=== PATIENT | male | born 1950 | race Caucasian/White ===

== ENCOUNTER 2017-07-19 11:26 | Inpatient (IN) ==
[2017-07-19] MEDS ORDERED: *HR* FentaNYL (PF) 100 MCG/2 ML VIAL ONE (11:38)
[2017-07-19] MEDS ORDERED: *HR* Propofol 200 MG/20 ML VIAL IVP ONE (11:38)
[2017-07-19] MEDS ORDERED: *HR* Midazolam HCl 2 MG/2 ML VIAL ONE (11:38)
[2017-07-19] MEDS ORDERED: CeFAZolin Syr 2,000MG/20 ML 2,000 MG/20 ML SYRINGE IVPB ONE (11:52)
[2017-07-19] MEDS ORDERED: Albuterol 2.5 MG/3 ML NEBULIZER IH ONE (11:52)
--- NOTE | 2017-07-19 11:59 | Anesthesia Evaluation PreOp ---
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 Any Significant HX Other Medical History: Denies Any Significant HX Anesthesia History: No Prior Anesthetic Complications, Past Anesthesia ( vasectomy with sedation) Alcohol Use: none Drug use: none Medications and Allergies Aspirin 1,300 mg PO DAILY 07/19/17 [History] Atorvastatin [Lipitor] 40 mg PO HS 07/19/17 [History] BuPROPion SR (12 HR) [Wellbutrin SR] 150 mg PO DAILY 07/19/17 [History] Cholecalciferol (Vitamin D3) [Vitamin D] 50,000 unit PO QWEEK 07/19/17 [History] Gabapentin [Neurontin] 600 mg PO TID 07/19/17 [History] Lisinopril [Zestril] 40 mg PO DAILY 07/19/17 [History] Methocarbamol [Robaxin-750] 750 mg PO TID PRN 07/19/17 [History] [place]-3/Dha/Epa/Fish Oil [Fish Oil 1,000 mg Softgel] 1 tab PO DAILY 07/19/17 [ History] Sertraline [Zoloft] 50 mg PO DAILY 07/19/17 [History] Tamsulosin [Flomax] 0.4 mg PO DAILY 07/19/17 [History] 3 Allergy/AdvReac Type Severity Reaction Status Date / Time No Known Allergies Allergy Verified 07/19/17 11:48 - Meds/Allergy Pre-op Review Medications Reviewed: Yes Allergies Reviewed: Yes Beta Blockers on Current Med List: No Anesthesia Results - Labs Laboratory Tests 07/15/17 07/15/17 11:14 11:14 Hgb 12.0 L Hct 37.0 L Plt Count 241 Sodium 139 Potassium 5.0 H BUN 28 H Creatinine 1.07 - Imaging EKG: report reviewed (SINUS RHYTHM WITH MARKED SINUS ARRHYTHMIA) Anesthesia Exam Selected Entries 07/19/17 11:47 07/19/17 12:11 Temperature 97.5 F L Respiratory Rate 18 Blood Pressure 178/74 O2 Sat by Pulse Oximetry 96 Oxygen Delivery Method Room Air Weight: 98kg NPO (# of Hours): 8 - HEENT Pupil (Motor): EOMI Mallampati: II Teeth: Missing, Poor dentition Oral Opening: Greater than 3 - PAYROLL SERVICES ANALYST LOC: Oriented PAYROLL SERVICES ANALYST Motor: Normal RUE, Normal LUE, Normal RLE, Normal LLE, Normal Face PAYROLL SERVICES ANALYST Sensory: Normal: RUE, LUE, RLE, LLE, Face - Cardiac Rhythm: Regular Murmur: None - Pulmonary Breath Sounds: bilateral Clear Respiratory Effort: Symmetrical Anesthesia Assess/Plan ASA Score: 3 Modified [place] Scale for Level of Consciousness: Cooperative, oriented, and tranquil Anesthetic Plan: General Monitoring Plan: Standard Monitors, A-Line Recovery Plan: PACU (discussed risks of GA, lines and potential blood products. Agrees to proceed.)
[2017-07-19] MEDS ORDERED: Ringers Solution, Lactated 1,000 ML IVC SCH (12:00)
[2017-07-19] MEDS ORDERED: Heparin 1,000 UNITS/500 mL NS 500 ML ONE (16:18)
[2017-07-19] MEDS ORDERED: Heparin 1,000 UNITS/500 mL NS 1,500 ML ONE (16:22)
--- NOTE | 2017-07-19 16:28 | History & Physical Report ---
Date of Encounter: 07/19/17 Time of Encounter: 16:27 24 Hour HP Update - Instructions Instructions: If the History and Physical is less than 30 days old and was completed prior to A.M. admission and or procedure and has NOT been updated on calendar day of procedure please complete this update prior to performing procedure. - Update Patient reports changes in Medical Condition: No Changes in examination, assessment, or condition: No Changes in Medication: No Preop tests/diagnostics Reviewed: Yes Pre-Op MRSA Screen: Negative Surgery Remains Indicated: Yes Consent for Planned Operative Procedure(s) Verified: Yes - Pre-Operative Checklist Preoperative Checklist Indicated: Yes Prophylactic Antibiotic Ordered: Yes Home Medications Include Beta Carlos: No Beta Carlos Taken Today (Day of Surgery): No Beta Carlos Taken Yesterday (Day Prior to Surgery): No Is VTE Prophylaxis Indicated?: Yes
[2017-07-19] MEDS ORDERED: *HR* Succinylcholine 200 MG/10 ML VIAL IVP ONE (17:17)
[2017-07-19] MEDS ORDERED: Ondansetron 4 MG/2 ML VIAL ONE (17:17)
[2017-07-19] MEDS ORDERED: Lidocaine -MPF 2% 2 ML VIAL ONE (17:17)
[2017-07-19] MEDS ORDERED: *HR* Rocuronium Bromide 50 MG/5 ML VIAL ONE (17:17)
[2017-07-19] MEDS ORDERED: Dexamethasone 4 MG/ML VIAL ONE (17:17)
[2017-07-19] MEDS ORDERED: *HR* Heparin 5,000 UNIT/ML VIAL ONE (17:18)
[2017-07-19] MEDS ORDERED: Ondansetron 4 MG/2 ML VIAL IVP PRN ×2 (17:31→20:26)
[2017-07-19] MEDS ORDERED: *HR* HYDROmorphone (PF) 1 MG/ML SYRINGE IVP PRN (17:31)
--- NOTE | 2017-07-19 17:35 | Anesthesia Procedures ---
Date of Encounter: 07/19/17 Time of Encounter: 17:33 Procedures: Anesthesia - Arterial Line Consent obtained: verbal consent Time out performed: Yes Sedation: Versed (mg): 2 Sedation: Fentanyl (mcg): 100 Supplemental Oxygen via Nasal Cannula (L/min): 8 Local Anesthetic: Lidocaine 1% Amount of Anesthetic used (mls): 2 Size (Gauge): 20 Length (inches): 1 3/4 Technique Used: sterile prep, guide wire technique Post-Procedure: line taped into place, dry sterile dressing placed Patient tolerated procedure: well Complications: none Site: Radial L Vitals: Vital Signs/O2 Sat, Most Current Temp Pulse Resp BP Pulse Ox 97.5 F L 62 18 178/74 96 07/19/17 11:47 07/19/17 11:47 07/19/17 12:11 07/19/17 12:11 07/19/17 12:11 Comments: aseptic, tolerated well w sedation
[2017-07-19] MEDS ORDERED: Neostigmine Methylsulfate 3 MG/3 ML SYRINGE ONE (18:59)
[2017-07-19] MEDS ORDERED: *HR* HYDROmorphone 2 MG/ML SYRINGE ONE (19:06)
--- NOTE | 2017-07-19 19:25 | Operative Note ---
Date of procedure: 07/19/17 Pre-op diagnosis: PAD/claudication Post-op diagnosis: same Procedure: left to right femoral-femoral bypass with 6 mm PTFE Complications: none Anesthesia: MIGUELA Surgeon: Chacorta Joel Estimated blood loss (cc): 100 Specimen: none Condition: stable Disposition: PACU Procedure in Detail: History Waldo Johansen is a 66-year-old white male who has a long history of right lower extremity discomfort. The patient was found to have an absent pulse in it markedly lowered ankle brachial index. He was referred to vascular. A CT Ambar Crockettam was obtained earlier this year. This demonstrated occlusion of the right iliac system. The patient now comes to the operating room for revascularization of the right lower extremity for lifestyle limiting claudication. Procedure After informed consent was obtained the patient was taken to the operating room. General endotracheal anesthesia was established under arterial line pressure monitoring. The abdomen and groin and upper thighs were sterilely prepped and draped. A timeout protocol was observed. An oblique incision was made in the right groin. Dissection was carried down to the common femoral artery. This was a pulseless vessel. He had a large posterior plaque. Controls obtained of the vessel proximally and distally. Attention was then directed to the left side. This is the donor side for the bypass. Dissection was carried down over the pulsatile vessel. Again this was a vessel that had a posterior plaque. A deep subcutaneous tunnel was then created from the left to the right side. Heparin was administered in a dose of 5000 units. The left femoral vessels were clamped area and anterior arteriotomy was made. An end of graft to side of artery anastomosis was performed using 6-0 Prolene suture. The graft which had been previously tunneled through the deep subcutaneous tunnel was then clamped and then the left femoral vessels were unclamped to allow return of ruby circulation. Attention was then directed to the right groin. The right common femoral artery was opened with an anterior arteriotomy. Again there was posterior plaque but this did not require endarterectomy. An end of graft to side of artery anastomosis was performed using 6-0 Prolene suture. After appropriate backbleeding and flushing the graft was then opened from the left to the right femoral system. An excellent pulse was found. Excellent Doppler signals were identified in the vessel distal to the anastomosis. Both wounds were then irrigated with antibody containing solution. Hemostasis was achieved. Wounds were then closed in layers using absorbable suture. Dry sterile dressings were applied. The patient was extubated in the operating room. He was taken from the operating room to the recovery room in stable condition.
--- NOTE | 2017-07-19 20:01 | Anesthesia Evaluation Post Op ---
Date of Encounter: 07/19/17 Time of Encounter: 20:00 - Vital Signs Vital Signs: Last Vital Signs Temp 98.2 F 07/19/17 19:30 Pulse 62 07/19/17 19:50 Resp 16 07/19/17 19:50 BP 143/53 07/19/17 19:50 Pulse Ox 94 07/19/17 19:50 - Lungs Lungs: Clear Ascult./Percussion - Airway Airway: Non-obstructed - Cardiovascular Regular Rate - Mental Status Mental Status: Alert & Oriented, Answers Appropriately - Pain Pain Scale: 2 - Nausea Vomiting Nausea Vomiting: Not Present - Hydration Hydration: NPO, Andrews catheter - Discharge PostOp Status: Transfer Patient to floor
[2017-07-19] MEDS ORDERED: Naloxone 0.4 MG/ML INJ IVP PRN (20:26)
[2017-07-19] MEDS ORDERED: *HR* Morphine 2 MG/ML SYRINGE IVP PRN ×2 (20:26)
[2017-07-19] MEDS ORDERED: Methocarbamol 750 MG TABLET PO PRN (20:26)
[2017-07-19] MEDS ORDERED: Acetaminophen 325 MG TABLET PO PRN (20:26)
[2017-07-19] MEDS: Gabapentin 300 MG CAPSULE PO SCH (21:31)
[2017-07-19] MEDS: *HR* HYDROcodone/Acet 5/325 mg TABLET PO PRN (23:18)
[2017-07-19] MEDS: *HR* Metoprolol 5 MG/5 ML VIAL IVP SCH (23:19)
[2017-07-19] MEDS: CeFAZolin Premix DUPLEX 2,000 MG/50 ML BAG IVPB SCH (23:19)
[2017-07-20 04:39] LABS: Basophils % 0.2 %; Hematocrit 31.9 % (37.5-50.1); Hemoglobin 10.5 g/dL (12.9-16.9); Immature Granulocytes % 0.4 % (0-4); Lymphocytes # 0.9 K/mcL (0.6-4.6); Lymphocytes % 6.6 %; Mean Corpuscular HGB Conc 32.9 g/dL (31.6-35.5); Mean Corpuscular Hemoglobin 28.5 pg (28.0-33.3); Mean Corpuscular Volume 86.7 fL (83.0-100.0); Mean Platelet Volume 11.4 fL (9.4-12.4); Monocytes # 0.8 K/mcL (0.0-1.3); Monocytes % 5.6 %; Neutrophils # 12.1 K/mcL (1.6-8.9); Platelet Count 205 K/mcL (140-400); Red Blood Count 3.68 M/mcL (4.19-5.50); Red Cell Distribution Width 14.8 % (11.5-14.5); Segmented Neutrophils % 87.2 %
[2017-07-20 04:55] LABS: BUN/Creatinine Ratio 24 (6-26); Blood Urea Nitrogen 22 mg/dL (8-26); Calcium 8.3 mg/dL (8.6-10.8); Carbon Dioxide 24 mEq/L (19-29); Chloride 100 mEq/L (98-109); Glucose 184 mg/dL (70-99); Osmolality,Calculated 280 (280-300); Potassium 4.7 mEq/L (3.5-4.5); Sodium 131 mEq/L (136-145); eGFR For African Americans > 60 (> 60); eGFR For Non-African Americans > 60 (> 60)
[2017-07-20] MEDS: *HR* Metoprolol 5 MG/5 ML VIAL IVP SCH ×2 (06:03→11:38)
[2017-07-20] MEDS: Gabapentin 300 MG CAPSULE PO SCH ×2 (08:29→16:39)
[2017-07-20] MEDS: CeFAZolin Premix DUPLEX 2,000 MG/50 ML BAG IVPB SCH ×2 (08:29→16:40)
[2017-07-20] MEDS: *HR* HYDROcodone/Acet 5/325 mg TABLET PO PRN (08:49)
[2017-07-20] MEDS ORDERED: Cholecalciferol (D-3) 1,000 UNIT TABLET PO SCH (09:00)
[2017-07-20] MEDS ORDERED: BuPROPion SR (12 HR) 150 MG TABLET PO SCH (09:00)
[2017-07-20] MEDS ORDERED: Aspirin 325 MG TABLET PO SCH (09:00)
[2017-07-20] MEDS ORDERED: (Omega-3/Dha/Epa/Fish Oil [Fish Oil 1,000 Mg Softgel]) PO SCH (09:00)
[2017-07-20] MEDS ORDERED: Lisinopril 20 MG TABLET PO SCH (09:00)
[2017-07-20 16:09] VITALS: BP 131/52
--- NOTE | 2017-07-20 16:40 | Discharge Summary ---
Date of Encounter: 07/20/17 Time of Encounter: 16:38 - Discharge Diagnosis (1) PAD (peripheral artery disease) Priority: Primary Status: Acute Comments: Patient has right iliac artery occlusion. He had lifestyle limiting claudication of the right lower extremity. Patient was admitted for a left to right femoral-femoral bypass graft. (2) Hypertension Priority: Secondary Status: Chronic Comments: Patient is under medical management for chronic hypertension Qualifiers: Hypertension type: essential hypertension Qualified Code(s): I10 - Essential (primary) hypertension (3) Hypercholesterolemia Priority: Secondary Status: Chronic Comments: Patient is under medical management for hyperlipidemia - Discharge Medications Prescriptions: HYDROcodone/Acet 5/325 mg [[place] 5-325 mg] 1 tab PO Q6HR PRN #10 tablet PRN Reason: Moderate Pain Home Medications: Aspirin 1,300 mg PO DAILY 07/19/17 [History] Atorvastatin [Lipitor] 40 mg PO HS 07/19/17 [History] BuPROPion SR (12 HR) [Wellbutrin SR] 150 mg PO DAILY 07/19/17 [History] Cholecalciferol (Vitamin D3) [Vitamin D] 50,000 unit PO QWEEK 07/19/17 [History] Gabapentin [Neurontin] 600 mg PO TID 07/19/17 [History] Lisinopril [Zestril] 40 mg PO DAILY 07/19/17 [History] [place]-3/Dha/Epa/Fish Oil [Fish Oil 1,000 mg Softgel] 1 tab PO DAILY 07/19/17 [ History] Sertraline [Zoloft] 50 mg PO DAILY 07/19/17 [History] Tamsulosin [Flomax] 0.4 mg PO DAILY 07/19/17 [History] HYDROcodone/Acet 5/325 mg [[place] 5-325 mg] 1 tab PO Q6HR PRN #10 tablet [Rx] Allergies/Adverse Reactions: 3 Allergy/AdvReac Type Severity Reaction Status Date / Time No Known Allergies Allergy Verified 07/19/17 11:48 Date of admission: 07/19/17 20:16 [facility] care physician: [facility] Consults: None Procedure(s) Performed: [id number] femoral-femoral bypass graft Discharging clinician: Chacorta Joel Anticipated date of discharge: 07/20/17 - Patient Status Disposition: Home, Self-Care Condition: Good Functional capacity at discharge: independent ambulation Overall status at discharge: patient is progressing back to baseline - Discharge Instructions Follow Up With: BARBRA,PCP [Primary Care Provider] - 07/26/17 12:30 pm Chacorta Joel MD [Partnered Physician] - 08/03/17 10:30 am Additional Instructions: No lifting greater than 10 pounds. No vehicle driving. No manual labor. Patient may ambulate as tolerated. Patient may use stairs as tolerated. Patient may walk inside or outside as tolerated. Keep groin incisions dry for total of 5 days following surgery. - Diet and Activity Activity: increase activity as tolerated Diet: low fat, low cholesterol - Hospital Course Hospital course: Mr. Johansen is a 66 year old male With [place] limiting claudication and right iliac artery occlusion. Patient underwent an uneventful left to right femoral-femoral bypass graft. The patient did well postoperatively. He was felt fit for discharge on postoperative day # 1. Instructions were given in regards to his medications and wound care following his discharge. - Time Spent with Patient Total time spent providing and/or coordinating discharge services: Exam Vital Signs, Last 4 Hours Temp Pulse Resp BP Pulse Ox 07/20/17 16:07 99.1 F 70 18 131/52 96 General: Present: Conversant, No Apparent Distress, Well developed, Well nourished HEENT: Present: Atraumatic, Normocephaly, Trachea midline Neck: Absent: JVD Cardiac: Present: Reg Rate and Rhythm, Normal S1 and S2 Lungs: Present: Normal Breath Sounds Neuro: Present: Alert and responsive, No focal deficits noted, Cranial nerves grossly intact Abdomen: Present: Soft, Non-tender Vascular: Present: Normal capillary refill, Surgical incisions (Clean and dry), Other (The patient has Doppler signals 3 at the right ankle.) - VTE Documentation of Mechanical Device: Intermittent pneumatic compression device
== END 2017-07-20 18:59 | disposition home or self-care (01) | DRG 254 ==
LOC: SAMDAY 11:26 → 2NNU 20:16
PROVIDERS: ADMIT Surgery Vascular Surgery; ATTEND Surgery Vascular Surgery
PROC: VASFFBG (ICD-10-PCS; 2017-07-19 12:25)

== ENCOUNTER 2017-11-01 10:43 | Inpatient (IN) ==
--- NOTE | 2017-11-01 08:25 | Anesthesia Evaluation PreOp ---
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 Other Medical History: Denies Any Significant HX Anesthesia History: No Prior Anesthetic Complications, Past Anesthesia (fem-fem BPG 07-15, vasectomy) Alcohol Use: none Drug use: none Medications and Allergies Aspirin 1,300 mg PO DAILY 07/19/17 [History] Atorvastatin [Lipitor] 40 mg PO HS 07/19/17 [History] BuPROPion SR (12 HR) [Wellbutrin SR] 150 mg PO DAILY 07/19/17 [History] Cholecalciferol (Vitamin D3) [Vitamin D] 50,000 unit PO QWEEK 07/19/17 [History] Gabapentin [Neurontin] 600 mg PO TID 07/19/17 [History] Lisinopril [Zestril] 40 mg PO DAILY 07/19/17 [History] [place]-3/Dha/Epa/Fish Oil [Fish Oil 1,000 mg Softgel] 1 tab PO DAILY 07/19/17 [ History] Sertraline [Zoloft] 50 mg PO DAILY 07/19/17 [History] Tamsulosin [Flomax] 0.4 mg PO DAILY 07/19/17 [History] HYDROcodone/Acet 5/325 mg [[place] 5-325 mg] 1 tab PO Q6HR PRN #10 tablet [Rx] 3 Allergy/AdvReac Type Severity Reaction Status Date / Time No Known Allergies Allergy Verified 07/19/17 11:48 - Meds/Allergy Pre-op Review Medications Reviewed: Yes Allergies Reviewed: Yes Beta Blockers on Current Med List: No Anesthesia Results - Labs Laboratory Tests 10/31/17 10/31/17 17:28 17:28 Hgb 12.1 L Hct 37.8 Plt Count 292 BUN 19 Creatinine 0.93 - Imaging EKG: report reviewed (SINUS RHYTHM WITH MARKED SINUS ARRHYTHMIA) Anesthesia Exam Weight: 95kg NPO (# of Hours): 8 - HEENT Pupil (Motor): EOMI Mallampati: II Teeth: Poor dentition Oral Opening: Greater than 3 - FUR BLENDER LOC: Oriented FUR BLENDER Motor: Normal RUE, Normal LUE, Normal RLE, Normal LLE, Normal Face FUR BLENDER Sensory: Normal: RUE, LUE, RLE, LLE, Face - Cardiac Rhythm: Regular Murmur: None - Pulmonary Breath Sounds: bilateral Clear Respiratory Effort: Symmetrical Anesthesia Assess/Plan ASA Score: 3 Modified [place] Scale for Level of Consciousness: Cooperative, oriented, and tranquil Anesthetic Plan: General Monitoring Plan: Standard Monitors, A-Line Recovery Plan: PACU (agrees to GA and a-line)
[2017-11-01] MEDS ORDERED: CeFAZolin Syr 2,000MG/20 ML 2,000 MG/20 ML SYRINGE IVPB ONE (11:21)
[2017-11-01] MEDS ORDERED: Albuterol 2.5 MG/3 ML NEBULIZER IH ONE (11:21)
[2017-11-01] MEDS ORDERED: Ringers Solution, Lactated 1,000 ML IVC SCH (11:30)
[2017-11-01] MEDS ORDERED: Heparin 1,000 UNITS/500 mL 500 ML ONE ×2 (14:39→19:49)
--- NOTE | 2017-11-01 14:43 | History & Physical Report ---
Date of Encounter: 11/01/17 Time of Encounter: 14:42 24 Hour HP Update - Instructions Instructions: If the History and Physical is less than 30 days old and was completed prior to A.M. admission and or procedure and has NOT been updated on calendar day of procedure please complete this update prior to performing procedure. - Update Patient reports changes in Medical Condition: No Changes in examination, assessment, or condition: No Changes in Medication: No Preop tests/diagnostics Reviewed: Yes Surgery Remains Indicated: Yes Consent for Planned Operative Procedure(s) Verified: Yes - Pre-Operative Checklist Preoperative Checklist Indicated: Yes Prophylactic Antibiotic Ordered: Yes Home Medications Include Beta Carlos: No Beta Carlos Taken Today (Day of Surgery): No Beta Carlos Taken Yesterday (Day Prior to Surgery): No Is VTE Prophylaxis Indicated?: Yes
[2017-11-01] MEDS ORDERED: *HR* FentaNYL (PF) 100 MCG/2 ML VIAL ONE ×4 (14:44→22:38)
[2017-11-01] MEDS ORDERED: *HR* Propofol 200 MG/20 ML VIAL IVP ONE (14:44)
[2017-11-01] MEDS ORDERED: Ondansetron 4 MG/2 ML VIAL ONE ×2 (14:44→22:38)
[2017-11-01] MEDS ORDERED: Lidocaine -MPF 4% 5 ML AMPUL ONE (14:44)
[2017-11-01] MEDS ORDERED: Dexamethasone 4 MG/ML VIAL ONE ×2 (14:44→22:38)
[2017-11-01] MEDS ORDERED: *HR* Heparin 5,000 UNIT/ML VIAL ONE ×3 (14:44→21:51)
[2017-11-01] MEDS ORDERED: *HR* Remifentanil 2 MG VIAL IVP ONE (14:44)
[2017-11-01] MEDS ORDERED: *HR* Succinylcholine 200 MG/10 ML VIAL IVP ONE (14:44)
[2017-11-01] MEDS ORDERED: *HR* Midazolam HCl 2 MG/2 ML VIAL ONE (14:44)
[2017-11-01] MEDS ORDERED: *HR* PHENYLEPHRINE 1,000 MCG/10 ML SYRINGE IVP ONE ×2 (14:44→14:58)
[2017-11-01] MEDS ORDERED: Lidocaine -MPF 2% 2 ML VIAL ONE ×4 (14:44→22:25)
[2017-11-01] MEDS ORDERED: *HR* Phenylephrine 10 MG/ML VIAL ONE ×3 (14:44→20:32)
[2017-11-01] MEDS ORDERED: EPHEDrine 50 MG/ML VIAL ONE (15:43)
[2017-11-01] MEDS ORDERED: Ondansetron 4 MG/2 ML VIAL IVP ONE (18:04)
[2017-11-01] MEDS ORDERED: *HR* OxyCODONE Immed Rel 5 MG TABLET PO PRN (18:04)
[2017-11-01 18:22] LABS: Hematocrit 30.8 % (37.5-50.1)
[2017-11-01 18:23] LABS: Hemoglobin 9.7 g/dL (12.9-16.9)
[2017-11-01] MEDS ORDERED: Acetaminophen IV 1,000 MG/100 ML INFUS..BTL ONE (20:30)
[2017-11-01] MEDS ORDERED: *HR* Magnesium Sulfate 1 GM/2 ML VIAL ONE (20:32)
[2017-11-01] MEDS ORDERED: *HR* Heparin 5,000 UNIT/ML VIAL IVP ONE (22:12)
[2017-11-01] MEDS ORDERED: *HR* Heparin 5,000 UNIT/ML VIAL IVP PRN ×2 (22:12)
[2017-11-01] MEDS ORDERED: Heparin 25,000 UNIT/500 ML D5W 25,000 UNIT/500 ML BAG IVC SCH (22:15)
--- NOTE | 2017-11-01 23:08 | Operative Note ---
Date of procedure: 11/01/17 Pre-op diagnosis: right leg ischemia/PAD/occluded fem-fem bpg Post-op diagnosis: same Procedure: thrombectomy of fem-fem bypass graft right common femoral artery and Profundis Femoral endarterectomy with bovine pericadial patch right femoral-above knee popliteal bypass graft with 6 mm PTFE Distaflo Complications: none Anesthesia: GETA Surgeon: Chacorta Joel Was there an per diem physical therapist assistant present: No Estimated blood loss (cc): 1,200 Specimen: 0 Condition: stable Disposition: PACU Procedure in Detail: History Waldo Johansen is a 67-year-old white male with significant peripheral vascular disease and in particular right iliac artery occlusion. He did undergone CT angiogram and then surgery approximately 5 months ago. On a routine scheduled outpatient surveillance scan he was found to have an occluded femoral-femoral graft with an ankle-brachial index of 0 on the right. The patient was advised to undergo surgery late last week but this was not feasible for the patient. The soonest possible date for him was today and so the patient was taken to the operating room for his right lower extremity ischemia. Procedure After informed consent was obtained the patient was taken to the operating room. General endotracheal anesthesia was established under arterial line pressure monitoring. The abdomen and groin and right lower extremity was sterilely prepped and draped. A timeout protocol was observed. Dissection was then made through the previous incision in the right groin. Dissection was complicated. Upon opening the groin a large seroma was encountered. This was indicated on the preoperative ultrasound. A large amount of clear fluid was aspirated. The wall of the seroma cyst was then excised circumferentially. Attention was then directed to the graft. The graft was identified and then dissected. The adhesions around the graft for dense. The lateral aspect of the graft demonstrated areas of easy bleeding and this required further dissection complicated the procedure in the sense of increasing the blood loss 10 requiring significant attention paid to try to identify and control this bleeding site. After this was finally accomplished the vessels were controlled. 5000 units heparin were administered. A graftotomy was then made over the wood of the femorofemoral bypass graft at the right groin. There was chronic thrombus present in the graft. This was aspirated and suctioned. A 4- [place] catheter was then passed retrograde into the graft. A large amount of clot was removed. Finally the catheter was passed into the [place] circulation on the left side and the meniscus plug was removed and excellent pulsatile bleeding was achieved. The graft was backbled with ice saline and then clamped. Attention was then directed distally. A catheter was passed for a distance of approximate 40 cm with small amount of thrombus removed and backbleeding achieved. Therefore the graftotomy was closed with 6-0 Prolene. After appropriate backbleeding and flushing the graft was opened into the right leg. The results were very disappointing in that there was no palpable pulse into the femoral vessels and no Doppler signals. This then led to further dissection of the distal common femoral artery and femoral bifurcation with selective control of the profunda femoris and superficial femoral arteries. As there was no Doppler signals present in distally it was opted to proceed with a formal endarterectomy of this distal common femoral artery. A longitudinal arteriotomy was then made. A large amount of plaque was encountered. There was no fresh thrombus. The endarterectomy was performed of the distal aspect of the common femoral artery as well as the orifice of the profunda femoris artery. The superficial femoral artery had tremendous plaque that was underestimated on the CT scan. No attempt was made to salvage this area. This was divided and then a bovine pericardial patch angioplasty was performed over the distal common and profunda femoris artery. Again after releasing the clamps and flushing there was still no Doppler signals distally. Thrombus was identified again in the [place] femoral-femoral graft and this was thrombectomized yet again. As there were still no Doppler signals present distally a right common femoral to above-knee popliteal artery bypass graft with 6 mm PTFE Distaflo was created. A subsartorial tunnel was created as well and the graft was passed through the tunnel. The distal anastomosis was performed first in an end-to-side fashion. There was mild plaque distally and the artery but proximally there was significant plaque and so the arteriotomy was made distal to this distal plaque accumulation. The distal anastomosis was performed with 6-0 Prolene suture. Then attention was directed proximally. The proximal anastomosis was made to the side of the femoral-femoral graft. It should be noted that the femoral-femoral graft was checked again at this time and was found to be patent. However by the time the graft was concluded to the femoral popliteal segment and the area inspected there were still no Doppler signals distally. Recurrent thrombus was identified yet again and the femoral- femoral graft. During this time of course heparin was given intermittently on an hourly basis. Therefore they femoral-femoral graft was open yet again and a formal thrombectomy was performed. Fresh clot was removed and excellent antegrade bleeding was identified. The graft was flushed with heparinized saline. This area was then closed. The area distally over the wood of the femoral-popliteal bypass graft had been opened. The clamps are removed to evaluate the flow and an excellent pulsatile jet of blood was demonstrated. With this done the area was irrigated with heparinized saline in the distal graftotomy closed. After appropriate backbleeding and flushing the graft was opened. The patient demonstrated Doppler signals at the ankle at the posterior tibial artery. The incisions were then irrigated and hemostasis achieved. The wounds were then closed in layers using absorbable suture. Dry sterile dressings were applied. There were no intraoperative complications. The patient was extubated in the operating room. Patient had significant blood loss due to the need for flushing and the difficulty of the dissection and the redo groin with dramatic adhesions from the seroma. 2 units of blood were transfused intraoperatively. The patient was placed on intravenous heparin drip and this will be continued from the operating room onto the floor for a minimum overnight. The patient will be reevaluated morning as regard to his hemodynamic response.
[2017-11-01 23:46] LABS: Hematocrit 26.3 % (37.5-50.1); Hemoglobin 8.3 g/dL (12.9-16.9); Mean Corpuscular HGB Conc 31.6 g/dL (31.6-35.5); Mean Corpuscular Hemoglobin 27.9 pg (28.0-33.3); Mean Corpuscular Volume 88.3 fL (83.0-100.0); Mean Platelet Volume 10.6 fL (9.4-12.4); Platelet Count 177 K/mcL (140-400); Red Blood Count 2.98 M/mcL (4.19-5.50); Red Cell Distribution Width 15.4 % (11.5-14.5)
--- NOTE | 2017-11-02 | Anesthesia Evaluation Post Op ---
Date of Encounter: 11/01/17 Time of Encounter: 23:59 - Vital Signs Vital Signs: Vital Signs/O2 Sat/Glucose, Most Current Temp Pulse Resp BP Pulse Ox 11/01/17 23:20 99.0 F 119 20 144/78 95 - Lungs Lungs: Clear Ascult./Percussion - Airway Airway: Non-obstructed - Cardiovascular Regular Rate - Mental Status Mental Status: Asleep with brisk response to light stimulation - Pain Pain Scale: 3 Pain Scale used: Numeric (1 - 10) - Nausea Vomiting Nausea Vomiting: Not Present - Hydration Hydration: NPO, Andrews catheter - Discharge PostOp Status: Transfer Patient to floor Anes Supervising Prov Stmt: Pt seen/evaluated, VSS And pt has met criteria for discharge to floor. - MD Rafaela
[2017-11-02] MEDS: MORPHINE SUL Oral CONC 10 MG/0.5 ML ORAL.SYG SL PRN ×2 (00:10)
[2017-11-02] MEDS ORDERED: *HR* Heparin 5,000 UNIT/ML VIAL IVP ONE (00:45)
[2017-11-02] MEDS ORDERED: Ondansetron 4 MG/2 ML VIAL IVP PRN (00:45)
[2017-11-02] MEDS ORDERED: *HR* Heparin 5,000 UNIT/ML VIAL IVP PRN ×2 (00:45)
[2017-11-02] MEDS ORDERED: Acetaminophen 325 MG TABLET PO PRN (00:45)
[2017-11-02] MEDS ORDERED: Naloxone 0.4 MG/ML INJ IVP PRN (00:45)
[2017-11-02] MEDS: Heparin 25,000 UNIT/500 ML D5W 25,000 UNIT/500 ML BAG IVC SCH ×2 (01:28→20:16)
[2017-11-02] MEDS: CeFAZolin Premix DUPLEX 2,000 MG/50 ML BAG IVPB SCH ×3 (01:28→16:35)
[2017-11-02] MEDS: *HR* HYDROcodone/Acet 5/325 mg TABLET PO PRN ×4 (01:45→22:33)
[2017-11-02] MEDS: *HR* Metoprolol 5 MG/5 ML VIAL IVP SCH ×5 (01:46→23:53)
[2017-11-02 05:51] LABS: Basophils % 0.1 %; Hematocrit 30.5 % (37.5-50.1); Immature Granulocytes % 0.4 % (0-4); Lymphocytes # 0.7 K/mcL (0.6-4.6); Lymphocytes % 4.5 %; Mean Corpuscular HGB Conc 32.5 g/dL (31.6-35.5); Mean Corpuscular Hemoglobin 27.8 pg (28.0-33.3); Mean Corpuscular Volume 85.7 fL (83.0-100.0); Mean Platelet Volume 11.2 fL (9.4-12.4); Monocytes % 6.6 %; Platelet Count 180 K/mcL (140-400); Red Blood Count 3.56 M/mcL (4.19-5.50); Red Cell Distribution Width 15.5 % (11.5-14.5); Segmented Neutrophils % 88.4 %
[2017-11-02 05:53] LABS: INR 1.1; Prothrombin Time 11.7 Seconds (9.4-12.1)
[2017-11-02 05:54] LABS: Hemoglobin 9.9 g/dL (12.9-16.9); Neutrophils # 13.2 K/mcL (1.6-8.9)
[2017-11-02 06:08] LABS: BUN/Creatinine Ratio 23 (6-26); Blood Urea Nitrogen 20 mg/dL (8-23); Calcium 8.1 mg/dL (8.6-10.3); Carbon Dioxide 21 mEq/L (23-29); Chloride 108 mEq/L (98-107); Glucose 172 mg/dL (70-105); Osmolality,Calculated 285 (280-300); Potassium 5.1 mEq/L (3.5-5.1); Sodium 134 mEq/L (136-145); eGFR For African Americans > 60 (> 60); eGFR For Non-African Americans > 60 (> 60)
[2017-11-02] MEDS: Gabapentin 400 MG CAPSULE PO SCH ×3 (08:13→21:28)
[2017-11-02] MEDS: Lisinopril 20 MG TABLET PO SCH (08:13)
[2017-11-02] MEDS: BuPROPion SR (12 HR) 150 MG TABLET PO SCH (08:13)
[2017-11-02] MEDS ORDERED: Aspirin 325 MG TABLET PO SCH (09:00)
[2017-11-02] MEDS ORDERED: Aspirin 325 MG TABLET ONE (09:40)
[2017-11-02] MEDS: Aspirin 325 MG TABLET PO SCH (10:32)
--- NOTE | 2017-11-02 17:40 | Vascular/[facility] Progress Note ---
Date of Encounter: 11/02/17 Time of Encounter: 17:36 - Assessment and plan (1) PAD (peripheral artery disease) Current Visit: Yes Status: Acute rethrombosis of fem-fem bypass graft no doppler signals in right foot cta performed confirming clinical findings pt needs another attempt at revascularization and suspect there is a bll/valve type of thrombus/scar at donor anastomosis thrombectomy tomorrow/possible replacement of graft/continue IV heparin drip - Subjective Interval history: Patient notes his right foot feels cold. He feels that it is that her later in the day than early in the day. Vital Signs, Last 4 Hours Temp Pulse Resp BP Pulse Ox 11/02/17 16:15 98.7 F 65 16 125/58 98 - Physical Examination General: Present: Conversant, No Apparent Distress, Well developed HEENT: Present: Atraumatic, Normocephaly Neck: Absent: JVD Cardiac: Present: Reg Rate and Rhythm Vascular: Present: Pulse, absent (No Doppler signals at the right foot. Right foot is cool to cold. Patient is still able to move and have sensation and foot and toes. The foot has a ruborous cyanotic appearance.) Abdomen: Present: Soft, Non-tender Skin: Present: No rashes noted on visualized skin Musculoskeletal: Present: No Chest Wall Tenderness - VTE Documentation of Mechanical Device: Intermittent pneumatic compression device Results 11/02/17 05:00 11/02/17 05:00 Lab Results, Last 24 hours 11/01/17 11/01/17 11/02/17 18:00 23:30 05:00 WBC 9.7 14.9 H D Hgb 9.7 L D 8.3 L 9.9 L D Hct 30.8 L 26.3 L 30.5 L Plt Count 177 180 INR APTT Sodium Potassium Chloride Carbon Dioxide BUN Creatinine Glucose Calcium 11/02/17 11/02/17 11/02/17 05:00 05:00 12:44 WBC Hgb Hct Plt Count INR 1.1 APTT 34.0 68.2 H D Sodium 134 L Potassium 5.1 Chloride 108 H Carbon Dioxide 21 L BUN 20 Creatinine 0.87 Glucose 172 H Calcium 8.1 L Consult Discharge Plan - Plan [facility] Care Provider[facility] - 11/07/17 12:30 pm Chacorta Joel MD [Partnered Physician] - 11/23/17 11:45 am
[2017-11-03] MEDS: *HR* Metoprolol 5 MG/5 ML VIAL IVP SCH ×2 (05:40→11:49)
[2017-11-03] MEDS ORDERED: ceFAZolin 2,000 MG in Water for inj. (sterile) 20 ML IVP ONE (08:00)
[2017-11-03] MEDS: BuPROPion SR (12 HR) 150 MG TABLET PO SCH (08:36)
[2017-11-03] MEDS: Gabapentin 400 MG CAPSULE PO SCH (08:36)
[2017-11-03] MEDS: Lisinopril 20 MG TABLET PO SCH (08:36)
[2017-11-03] MEDS: Aspirin 325 MG TABLET PO SCH (08:36)
[2017-11-03] MEDS: *HR* HYDROcodone/Acet 5/325 mg TABLET PO PRN (08:39)
[2017-11-03] MEDS ORDERED: CeFAZolin Syringe 2,000MG/20 ML SYR IVPB ONE (14:00)
[2017-11-03] MEDS ORDERED: HEPARIN 1000 UNIT/500 ML ONE (14:02)
[2017-11-03] MEDS ORDERED: *HR* Succinylcholine 200 MG/10 ML VIAL IVP ONE (14:19)
[2017-11-03] MEDS ORDERED: *HR* FentaNYL (PF) 100 MCG/2 ML VIAL ONE ×2 (14:20→16:03)
[2017-11-03] MEDS ORDERED: *HR* Propofol 200 MG/20 ML VIAL IVP ONE (14:20)
[2017-11-03] MEDS ORDERED: Lidocaine -MPF 2% 2 ML VIAL ONE ×2 (14:20→14:22)
[2017-11-03] MEDS ORDERED: *HR* Phenylephrine 10 MG/ML VIAL ONE (14:24)
[2017-11-03] MEDS ORDERED: *HR* PHENYLEPHRINE 1,000 MCG/10 ML SYRINGE IVP ONE (14:24)
[2017-11-03] MEDS ORDERED: Heparin 1,000 UNITS/500 mL 500 ML ONE (14:37)
--- NOTE | 2017-11-03 14:59 | Anesthesia Evaluation PreOp ---
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 Any Significant HX Other Medical History: Denies Any Significant HX Anesthesia History: No Prior Anesthetic Complications Alcohol Use: none Drug use: none Medications and Allergies Aspirin 1,300 mg PO DAILY 07/19/17 [History] Atorvastatin [Lipitor] 40 mg PO HS 07/19/17 [History] BuPROPion SR (12 HR) [Wellbutrin SR] 150 mg PO QAM 07/19/17 [History] Lisinopril [Zestril] 40 mg PO DAILY 07/19/17 [History] Sertraline [Zoloft] 50 mg PO DAILY 07/19/17 [History] Tamsulosin [Flomax] 0.4 mg PO DAILY 07/19/17 [History] Gabapentin [Neurontin] 800 mg PO TID 11/01/17 [History] 3 Allergy/AdvReac Type Severity Reaction Status Date / Time No Known Allergies Allergy Verified 11/01/17 13:39 - Meds/Allergy Pre-op Review Medications Reviewed: Yes Allergies Reviewed: Yes Beta Blockers on Current Med List: No Anesthesia Results - Labs 11/02/17 05:00 11/02/17 05:00 - Imaging EKG: report reviewed, image reviewed (SINUS RHYTHM WITH MARKED SINUS ARRHYTHMIA) Anesthesia Exam Last Vital Signs Temp 98.6 F 11/03/17 11:30 Pulse 66 11/03/17 11:30 Resp 18 11/03/17 11:30 BP 102/81 11/03/17 11:30 Pulse Ox 95 11/03/17 11:30 Weight: 103 kg NPO (# of Hours): > 8 hrs - HEENT Pupil (Motor): Pupils equal, EOMI Mallampati: III Teeth: Poor dentition Oral Opening: Greater than 3 - 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
[2017-11-03] MEDS ORDERED: CeFAZolin Syr 2,000MG/20 ML 2,000 MG/20 ML SYRINGE IVPB ONE ×2 (15:00→22:29)
[2017-11-03] MEDS ORDERED: CeFAZolin Pre 2,000 MG/100 ML 2,000 MG/100 ML BAG IVPB ONE ×2 (15:00→22:29)
[2017-11-03] MEDS ORDERED: *HR* Midazolam HCl 2 MG/2 ML VIAL ONE (15:15)
[2017-11-03] MEDS ORDERED: EPHEDrine 50 MG/ML VIAL ONE (15:36)
[2017-11-03] MEDS ORDERED: *HR* Rocuronium Bromide 50 MG/5 ML VIAL ONE (15:38)
[2017-11-03] MEDS ORDERED: *HR* Heparin 5,000 UNIT/ML VIAL ONE ×2 (15:56→20:30)
[2017-11-03] MEDS ORDERED: *HR* Labetalol 20 MG/4 ML SYRINGE IVP PRN ×2 (16:40→22:29)
[2017-11-03] MEDS ORDERED: Ondansetron 4 MG/2 ML VIAL IVP ONE ×2 (16:40→22:29)
[2017-11-03] MEDS ORDERED: *HR* OxyCODONE Immed Rel 5 MG TABLET PO PRN ×2 (16:40→22:29)
[2017-11-03] MEDS ORDERED: MORPHINE SUL Oral CONC 10 MG/0.5 ML ORAL.SYG SL PRN ×2 (16:40→22:29)
[2017-11-03] MEDS ORDERED: Heparin 1,000 UNITS/500 mL 1,000 ML ONE (19:02)
[2017-11-03 19:54] LABS: Hematocrit 21.3 % (37.5-50.1); Mean Corpuscular HGB Conc 32.9 g/dL (31.6-35.5); Mean Corpuscular Hemoglobin 27.9 pg (28.0-33.3); Mean Corpuscular Volume 84.9 fL (83.0-100.0); Platelet Count 130 K/mcL (140-400); Red Blood Count 2.51 M/mcL (4.19-5.50); Red Cell Distribution Width 15.3 % (11.5-14.5)
[2017-11-03] MEDS ORDERED: Acetaminophen IV 1,000 MG/100 ML INFUS..BTL ONE (20:53)
[2017-11-03] MEDS ORDERED: 0.9 % Sodium Chloride 500 ML ONE ×2 (21:03→21:30)
--- NOTE | 2017-11-03 21:09 | Operative Note ---
Date of procedure: 11/03/17 Pre-op diagnosis: recurrent ischemia of right leg Post-op diagnosis: same Procedure: redo thrombectomy of fem-fem bypass graft thrombectomy of right fem-popliteal bypass graft thrombectomy of right tibials Complications: none Anesthesia: GETA Surgeon: Chacorta Joel Was there an power plant assistant present: No Estimated blood loss (cc): 600 Specimen: none Condition: stable Disposition: PACU Procedure in Detail: History Waldo Johansen is a 67-year-old white male who was taken to the operating room on November 01 for a thrombosed femoral-femoral bypass graft and right lower extremity ischemia. The patient had a long and complicated operation and had episodes of recurrent thrombosis of the graft during the operation despite the use of heparin. The patient had a CT scan performed on the day after surgery to evaluate his inflow. Of note the patient did not have return of a Doppler signal to the right foot. Because of this and the findings on the CAT scan of rethrombosis of his graft and the new right femoral to popliteal bypass grafting was recommended to go back to the operating room to try to improve the profusion. He now comes back to the operating room at this time. Procedure After informed consent was obtained the patient was taken to the operating room. General endotracheal anesthesia was established. The abdomen groin and right lower extremity was sterilely prepped and draped. A timeout protocol was observed. The left groin was opened during this procedure to begin the operation as this had not been directly visualized at the original operation 2 days ago. The concern here was that there was some residual clot or a ball valve type of intimal hyperplasia causing graft obstruction. As expected a very tedious dissection was encountered because of the dramatic scarring that the patient had. After the graft in the tribal vessels were finally controlled the donor limb of the femoral-femoral bypass graft was opened through an oblique incision. Both fresh and chronic thrombus was identified. The vessel was inspected and the patient did demonstrate excellent inflow and appropriate back flow bleeding. Then the right groin was reopened. This would allow control of the distal vessels and remove all residual plaque from the femoral- femoral bypass graft and the right femoral-popliteal bypass graft. Fresh thrombus was identified in the femoral-femoral bypass graft. This was flushed both proximally and distally until clear. Thrombus was noted in the femoral popliteal bypass graft and this was then thrombectomized. The patient however did not demonstrate backbleeding and so therefore a third incision was made at the distal anastomosis at the [id number] location of the right thigh. Dissection was made here and the graft was controlled. The graft was then opened and thrombus was identified in the femoral popliteal bypass graft. Thrombus also identified in the popliteal and tibial vessels and this was removed using 3 and 4-Syriac Jeremy catheters. Backbleeding was established from the tibial and popliteal vessels. However during these manipulations despite the fact that the patient was on intravenous heparin drip was therapeutic preoperatively on the floor he went on to develop rethrombosis of his femoral-femoral graft. The graft was then thrombectomized again. An ACT was checked and the patient's ACT was found to only be 110. A bolus of 5000 units heparin were given and 5 minutes later the ACT was checked and the ACT was now in the 230 range. The grafts were then flushed and it was demonstrated that the patient had excellent pulsatile flow through the femoral-femoral and the right femoral-popliteal bypass graft. On the graftotomy sites were closed. Appropriate backbleeding and flushing was performed. The patient demonstrated an excellent pulse through the grafts and into the above-knee popliteal artery. However a Doppler signal could not be heard at the ankle despite the now redemonstrated pulsatile flow. A concern was raised that the patient may have other issues including a coagulopathy. Therefore stat platelet count was checked for the possibility of antithrombin III issues. However when doing this the platelet count showed no significant change. The other issue then raised was the possibility of an anti-thrombin 3 deficiency because of the patient's resistance to heparin. 2 units of fresh frozen plasma were then ordered. These are not immediately available due to the following process and will be thought and administered to the patient in the recovery room. The wounds were then irrigated and hemostasis achieved. The wounds were closed in layers using absorbable suture. Gayatri were used for the skin edges. Dry sterile dressings were then applied. The patient was extubated in the operating room. He was taken from the operating room to the recovery room in stable condition. The patient will receive 2 units of packed red blood cells because of his hemoglobin of being 7 g. On intraoperative measurement. He will receive 2 units of fresh frozen plasma for the possibility of antithrombin III deficiency or heparin resistance. He will continue on his intravenous heparin drip which was never stopped during his procedure and he did receive a total of 8000 units of heparin as a bolus and 2 distinct doses. The patient did receive a return of approximately 230 mL's of blood via cell saver during this operation. Pending the patient's response to these issues a hematology consult may be requested in the morning. Liver function tests, repeat hematology labs, coagulation profile, and electrolytes will also be obtained in the morning.
[2017-11-03] MEDS ORDERED: Acetaminophen 325 MG TABLET PO PRN (22:29)
[2017-11-03] MEDS ORDERED: Ondansetron 4 MG/2 ML VIAL IVP PRN (22:29)
[2017-11-03] MEDS ORDERED: Heparin 25,000 UNIT/500 ML D5W 25,000 UNIT/500 ML BAG IVC SCH (22:29)
[2017-11-03] MEDS ORDERED: *HR* Heparin 5,000 UNIT/ML VIAL IVP PRN ×2 (22:29)
[2017-11-03] MEDS ORDERED: Naloxone 0.4 MG/ML INJ IVP PRN ×2 (22:29)
[2017-11-03] MEDS ORDERED: 0.9 % Sodium Chloride 250 ML ONE (23:14)
[2017-11-04] MEDS ORDERED: *HR* Heparin 5,000 UNIT/ML VIAL IVP PRN (00:10)
[2017-11-04] MEDS: Heparin 25,000 UNIT/500 ML D5W 25,000 UNIT/500 ML BAG IVC SCH ×3 (00:18→20:18)
[2017-11-04] MEDS: *HR* Metoprolol 5 MG/5 ML VIAL IVP SCH ×4 (00:28→18:16)
[2017-11-04] MEDS: CeFAZolin Syr 2,000MG/20 ML 2,000 MG/20 ML SYRINGE IVPB SCH ×2 (00:29→08:29)
--- NOTE | 2017-11-04 00:55 | Anesthesia Evaluation Post Op ---
Date of Encounter: 11/04/17 Time of Encounter: 22:30 - Vital Signs Vital Signs: Vital Signs/O2 Sat/Glucose, Most Current Temp Pulse Resp BP Pulse Ox 11/03/17 22:35 97.8 F 78 20 143/53 100 11/03/17 22:25 97.8 F 94 20 145/61 92 11/03/17 22:15 83 20 144/55 100 11/03/17 22:05 88 20 146/55 97 11/03/17 21:55 98.5 F 102 20 149/58 96 11/03/17 21:45 98 20 140/56 96 11/03/17 21:35 96 19 143/56 97 11/03/17 21:25 97.3 F L 87 20 129/49 98 - Lungs Lungs: Clear Ascult./Percussion - Airway Airway: Non-obstructed - Cardiovascular Regular Rate - Mental Status Mental Status: Alert & Oriented, Answers Appropriately - Pain Pain Scale: 0 Pain Scale used: Numeric (1 - 10) - Nausea Vomiting Nausea Vomiting: Not Present - Hydration Hydration: NPO, Andrews catheter - Discharge PostOp Status: Transfer Patient to floor Anes Supervising Prov Stmt: Pt VSS and pt has met criteria for discharge to floor. - MD Rafaela
[2017-11-04] MEDS ORDERED: ceFAZolin 2,000 MG in Water for inj. (sterile) 20 ML 20 ML IVP SCH (01:00)
[2017-11-04 03:55] LABS: Basophils % 0.2 %; Eosinophils % 0.2 %; Hematocrit 27.8 % (37.5-50.1); Hemoglobin 9.2 g/dL (12.9-16.9); Immature Granulocytes % 0.5 % (0-4); Lymphocytes # 0.7 K/mcL (0.6-4.6); Lymphocytes % 5.4 %; Mean Corpuscular HGB Conc 33.1 g/dL (31.6-35.5); Mean Corpuscular Hemoglobin 28.2 pg (28.0-33.3); Mean Corpuscular Volume 85.3 fL (83.0-100.0); Mean Platelet Volume 11.8 fL (9.4-12.4); Monocytes # 1.4 K/mcL (0.0-1.3); Monocytes % 10.3 %; Neutrophils # 11.1 K/mcL (1.6-8.9); Platelet Count 124 K/mcL (140-400); Red Blood Count 3.26 M/mcL (4.19-5.50); Red Cell Distribution Width 14.6 % (11.5-14.5); Segmented Neutrophils % 83.4 %
[2017-11-04 04:33] LABS: Albumin 2.7 g/dL (3.5-5.7); Albumin/Globulin Ratio 1.2 (1.1-2.2); BUN/Creatinine Ratio 26 (6-26); Bilirubin,Direct 0.2 mg/dL (0.0-0.2); Bilirubin,Indirect 0.5 mg/dL (0.0-1.2); Bilirubin,Total 0.7 mg/dL (0.3-1.0); Blood Urea Nitrogen 24 mg/dL (8-23); Calcium 7.7 mg/dL (8.6-10.3); Carbon Dioxide 24 mEq/L (23-29); Chloride 99 mEq/L (98-107); Globulin 2.2 g/dL (2.4-3.5); Glucose 118 mg/dL (70-105); Osmolality,Calculated 271 (280-300); Potassium 4.5 mEq/L (3.5-5.1); Sodium 128 mEq/L (136-145); Total Protein 4.9 g/dL (6.4-8.9); eGFR For African Americans > 60 (> 60); eGFR For Non-African Americans > 60 (> 60)
[2017-11-04 04:36] LABS: INR 1.1; Prothrombin Time 11.5 Seconds (9.4-12.1)
[2017-11-04 04:58] LABS: Activated Partial Thrombo Time 58.5 Seconds (26.0-36.0)
[2017-11-04] MEDS: *HR* HYDROcodone/Acet 5/325 mg TABLET PO PRN ×3 (05:20→20:31)
[2017-11-04] MEDS: *HR* Heparin 5,000 UNIT/ML VIAL IVP PRN ×2 (05:22→12:53)
--- NOTE | 2017-11-04 08:28 | Vascular/[facility] Progress Note ---
Date of Encounter: 11/04/17 Time of Encounter: 08:25 - Assessment and plan (1) PAD (peripheral artery disease) Current Visit: Yes Status: Acute Patient now has patent femoral-femoral and femoral-popliteal bypass graft. He has excellent triphasic Doppler signal at the popliteal artery distal to the femoral-popliteal bypass. The perfusion of the right foot appears dramatically improved as though Doppler signals are still not present. The patient does have discomfort and would benefit from physical therapy which will be ordered for today. I will continue his heparin drip today at standard doses. At this point I will not proceed with hematology consultation. - Subjective Interval history: Patient is postoperative day #1 and postoperative day #3. He complains of generalized pain of the right lower extremity. She otherwise awake and alert. Vital Signs, Last 4 Hours Temp Pulse Resp BP Pulse Ox 11/04/17 08:13 74 20 93 11/04/17 07:17 99.7 F H 78 18 121/62 92 - Physical Examination General: Present: Conversant Cardiac: Present: Reg Rate and Rhythm Lungs: Present: Decreased breath sounds Neuro: Present: Alert and responsive, No focal deficits noted Vascular: Present: Color/Temperature (The right foot is warm and pink with hyperemic response was morning. I still do not auscultate a Doppler signal but the right foot is as warm is not warmer than on the left foot. The patient does have edema bilaterally slightly worse on the right side than on the left. Capillary refill is less than 2 seconds on the right.), Surgical incisions ( Dressings on the surgical incisions are clean and dry) - VTE Documentation of Mechanical Device: Intermittent pneumatic compression device Results 11/04/17 03:00 11/04/17 03:30 Lab Results, Last 24 hours 11/03/17 11/03/17 11/04/17 08:00 19:45 03:00 WBC 12.2 H 13.3 H Hgb 7.0 L D 9.2 L D Hct 21.3 L 27.8 L Plt Count 130 L 124 L INR APTT 58.4 H Sodium Potassium Chloride Carbon Dioxide BUN Creatinine Glucose Calcium Total Bilirubin AST ALT Alkaline Phosphatase 11/04/17 11/04/17 11/04/17 03:00 03:30 03:30 WBC Hgb Hct Plt Count INR 1.1 APTT 58.5 H Sodium 128 L Potassium 4.5 Chloride 99 Carbon Dioxide 24 BUN 24 H Creatinine 0.93 Glucose 118 H Calcium 7.7 L Total Bilirubin 0.7 AST 60 H ALT 15 Alkaline Phosphatase 60 Consult Discharge Plan - Plan Referrals: [facility] [Primary Care Provider] - 11/07/17 12:30 pm Chacorta Jole MD [Partnered Physician] - 11/23/17 11:45 am
[2017-11-04] MEDS: BuPROPion SR (12 HR) 150 MG TABLET PO SCH (08:30)
[2017-11-04] MEDS: Gabapentin 400 MG CAPSULE PO SCH ×3 (08:30→20:17)
[2017-11-04] MEDS: Lisinopril 20 MG TABLET PO SCH (08:31)
[2017-11-04] MEDS: Aspirin 325 MG TABLET PO SCH (08:31)
[2017-11-04] MEDS ORDERED: CeFAZolin Premix DUPLEX 2,000 MG/50 ML BAG IVPB SCH (16:00)
--- NOTE | 2017-11-04 17:38 | Event Note ---
Date of Encounter: 11/04/17 Time of Encounter: 17:36 Patient was reexamined late this afternoon. The perfusion to the right foot continues to improve. There is increased hyperemic response to the foot. He now has multiphasic Doppler signals 3 at the ankle. He has a Doppler signal present out to the webspace between the first and second toes. The patient does have significant edema and pain with motion of the right lower extremity. Physical therapy consultation is noted and appreciated. They agree with my plan for extended care unit placement upon discharge. This was also explained to the patient again by myself this afternoon. The rationale for the placement was reviewed and the patient agrees. Due to the patient's recurrent thrombosis he will be required to stay on standard dose heparin through the weekend in the hospital. We will continue with physical therapy and increase his mobility as much as possible prior to his transfer to the ECF. I would anticipate he would be ready for transfer to the ECF on Tuesday. At that point he will be converted to Xarleto therapy. To help control his edema is important that his right lower extremity be elevated at rest and when sleeping.
[2017-11-05] MEDS: *HR* Metoprolol 5 MG/5 ML VIAL IVP SCH ×5 (00:28→23:27)
[2017-11-05 01:05] LABS: Hematocrit 24.8 % (37.5-50.1); Hemoglobin 8.2 g/dL (12.9-16.9); Mean Corpuscular HGB Conc 33.1 g/dL (31.6-35.5); Mean Corpuscular Hemoglobin 28.5 pg (28.0-33.3); Mean Corpuscular Volume 86.1 fL (83.0-100.0); Mean Platelet Volume 12.1 fL (9.4-12.4); Platelet Count 124 K/mcL (140-400); Red Blood Count 2.88 M/mcL (4.19-5.50)
[2017-11-05 01:23] LABS: BUN/Creatinine Ratio 24 (6-26); Blood Urea Nitrogen 27 mg/dL (8-23); Calcium 7.6 mg/dL (8.6-10.3); Carbon Dioxide 22 mEq/L (23-29); Chloride 94 mEq/L (98-107); Glucose 103 mg/dL (70-105); Osmolality,Calculated 263 (280-300); Potassium 3.9 mEq/L (3.5-5.1); Sodium 124 mEq/L (136-145); eGFR For African Americans > 60 (> 60); eGFR For Non-African Americans > 60 (> 60)
[2017-11-05] MEDS: *HR* Heparin 5,000 UNIT/ML VIAL IVP PRN ×2 (03:39→11:23)
[2017-11-05] MEDS: *HR* HYDROcodone/Acet 5/325 mg TABLET PO PRN ×3 (03:52→23:26)
[2017-11-05] MEDS: Lisinopril 20 MG TABLET PO SCH (07:41)
[2017-11-05] MEDS: BuPROPion SR (12 HR) 150 MG TABLET PO SCH (07:41)
[2017-11-05] MEDS: Aspirin 325 MG TABLET PO SCH (07:41)
[2017-11-05] MEDS: Gabapentin 400 MG CAPSULE PO SCH ×3 (07:41→20:21)
[2017-11-05] MEDS: Heparin 25,000 UNIT/500 ML D5W 25,000 UNIT/500 ML BAG IVC SCH ×2 (11:25→21:10)
--- NOTE | 2017-11-05 16:36 | Vascular/[facility] Progress Note ---
Date of Encounter: 11/05/17 Time of Encounter: 15:50 - Assessment and plan (1) PAD (peripheral artery disease) Current Visit: Yes Status: Chronic The patient is doing well today. His feet are warm and his incisions are healing. Continue with a heparin drip. Recheck hemoglobin tomorrow. (2) Hypertension Current Visit: No Status: Chronic Qualifiers: Hypertension type: essential hypertension Qualified Code(s): I10 - Essential (primary) hypertension (3) Hypercholesterolemia Current Visit: No Status: Chronic - Subjective Interval history: Comfortable without complaints. Adequate pain control. Denies chest pain or shortness of breath. Vital Signs, Last 4 Hours Temp Pulse Resp BP Pulse Ox 11/05/17 15:33 98.9 F 76 20 137/57 96 - Physical Examination General: Present: Conversant Cardiac: Present: Reg Rate and Rhythm Lungs: Present: Normal Breath Sounds Neuro: Present: Alert and responsive, Motor nerves grossly intact, Sensory nerves grossly intact Vascular: Present: Normal capillary refill, Surgical incisions (incisions clean and dry without erythema or drainage), Other (pedal signals present bilaterally) . Absent: Cyanosis Abdomen: Present: Soft - VTE Documentation of Mechanical Device: Intermittent pneumatic compression device Results 11/05/17 00:25 11/05/17 00:25 Lab Results, Last 24 hours 11/04/17 11/05/17 11/05/17 18:23 00:25 00:25 WBC 13.7 H Hgb 8.2 L Hct 24.8 L Plt Count 124 L APTT 59.1 H Sodium 124 L Potassium 3.9 Chloride 94 L Carbon Dioxide 22 L BUN 27 H Creatinine 1.12 Glucose 103 Calcium 7.6 L 11/05/17 11/05/17 00:25 09:48 WBC Hgb Hct Plt Count APTT 49.5 H 56.3 H Sodium Potassium Chloride Carbon Dioxide BUN Creatinine Glucose Calcium Consult Discharge Plan - Plan [facility]errals: [facility] [Primary Care Provider] - 11/11/17 2:30 pm Chacorta Joel MD [Partnered Physician] - 11/23/17 11:45 am
[2017-11-06] MEDS: *HR* Heparin 5,000 UNIT/ML VIAL IVP PRN (00:06)
[2017-11-06] MEDS: *HR* Metoprolol 5 MG/5 ML VIAL IVP SCH ×4 (05:45→23:09)
[2017-11-06] MEDS: *HR* HYDROcodone/Acet 5/325 mg TABLET PO PRN ×3 (06:19→23:09)
[2017-11-06 06:54] LABS: Basophils % 0.4 %; Eosinophils # 0.2 K/mcL (0.0-0.6); Eosinophils % 1.8 %; Hematocrit 23.9 % (37.5-50.1); Hemoglobin 7.7 g/dL (12.9-16.9); Immature Granulocytes % 0.6 % (0-4); Lymphocytes # 1.3 K/mcL (0.6-4.6); Lymphocytes % 13.7 %; Mean Corpuscular HGB Conc 32.2 g/dL (31.6-35.5); Mean Corpuscular Hemoglobin 28.3 pg (28.0-33.3); Mean Corpuscular Volume 87.9 fL (83.0-100.0); Mean Platelet Volume 11.8 fL (9.4-12.4); Monocytes # 1.2 K/mcL (0.0-1.3); Monocytes % 12.4 %; Neutrophils # 6.9 K/mcL (1.6-8.9); Platelet Count 153 K/mcL (140-400); Red Blood Count 2.72 M/mcL (4.19-5.50); Red Cell Distribution Width 15.2 % (11.5-14.5); Segmented Neutrophils % 71.1 %
[2017-11-06 07:13] LABS: BUN/Creatinine Ratio 25 (6-26); Blood Urea Nitrogen 23 mg/dL (8-23); Carbon Dioxide 27 mEq/L (23-29); Chloride 99 mEq/L (98-107); Glucose 113 mg/dL (70-105); Osmolality,Calculated 272 (280-300); Potassium 4.4 mEq/L (3.5-5.1); Sodium 129 mEq/L (136-145); eGFR For African Americans > 60 (> 60); eGFR For Non-African Americans > 60 (> 60)
[2017-11-06] MEDS: Gabapentin 400 MG CAPSULE PO SCH ×3 (07:23→20:45)
[2017-11-06] MEDS: BuPROPion SR (12 HR) 150 MG TABLET PO SCH (07:23)
[2017-11-06] MEDS: Aspirin 325 MG TABLET PO SCH (07:23)
[2017-11-06] MEDS: Lisinopril 20 MG TABLET PO SCH (07:23)
[2017-11-06] MEDS: Heparin 25,000 UNIT/500 ML D5W 25,000 UNIT/500 ML BAG IVC SCH ×2 (14:38→23:44)
--- NOTE | 2017-11-06 16:44 | Vascular/[facility] Progress Note ---
Date of Encounter: 11/06/17 Time of Encounter: 15:45 - Assessment and plan (1) PAD (peripheral artery disease) Current Visit: Yes Status: Chronic The patients wounds are healing. He has poolyphasic signals. He will remain on a heparin drip today. Plan for oral anticoagulation tomorrow. He has acute expected postoeprative blood loss anemia. He will receive 1 unit of PRBCs today. Will recheck hemoglobin tomorrow. (2) Hypertension Current Visit: No Status: Chronic Qualifiers: Hypertension type: essential hypertension Qualified Code(s): I10 - Essential (primary) hypertension (3) Hypercholesterolemia Current Visit: No Status: Chronic (4) Penile ulcer Current Visit: Yes Status: Acute Will consult Urology. Cleanse wound and apply antibiotic ointment daily. - Subjective Interval history: Comfortable today with adequate pain control. He reports an ulcer on his penis. He denies chest pain or shortness of breath. - Physical Examination General: Present: Conversant Cardiac: Present: Reg Rate and Rhythm Lungs: Present: Normal Breath Sounds Neuro: Present: Alert and responsive, No focal deficits noted Vascular: Present: Normal capillary refill, Pulse, normal (pedal signals polyphasic), Surgical incisions (clean, dry and intact without erythema or drainage). Absent: Cyanosis Abdomen: Present: Soft Skin: Present: Wound/ulcer(s) (superficial ulceration on the head of the penis without erythema or drainage) - VTE Documentation of Mechanical Device: Intermittent pneumatic compression device Results 11/06/17 06:12 11/06/17 06:12 Lab Results, Last 24 hours 11/05/17 11/05/17 11/06/17 16:42 23:02 06:12 WBC Hgb Hct Plt Count APTT 66.6 H 53.9 H Sodium 129 L Potassium 4.4 Chloride 99 Carbon Dioxide 27 BUN 23 Creatinine 0.93 Glucose 113 H Calcium 8.0 L 11/06/17 11/06/17 11/06/17 06:12 06:12 13:37 WBC 9.7 Hgb 7.7 L Hct 23.9 L Plt Count 153 APTT 72.0 H 26.4 D Sodium Potassium Chloride Carbon Dioxide BUN Creatinine Glucose Calcium Consult Discharge Plan - Plan [facility]errals: [facility] [Primary Care Provider] - 11/11/17 2:30 pm Chacorta Joel MD [Partnered Physician] - 11/23/17 11:45 am
[2017-11-06] MEDS: Neosporin OINT 15 GM TUBE TP SCH (17:28)
[2017-11-06] MEDS ORDERED: 0.9 % Sodium Chloride 250 ML ONE (17:37)
[2017-11-07 03:43] LABS: Basophils % 0.4 %; Eosinophils # 0.2 K/mcL (0.0-0.6); Eosinophils % 2.6 %; Hematocrit 25.5 % (37.5-50.1); Hemoglobin 8.3 g/dL (12.9-16.9); Immature Granulocytes % 0.5 % (0-4); Lymphocytes # 1.2 K/mcL (0.6-4.6); Lymphocytes % 13.2 %; Mean Corpuscular HGB Conc 32.5 g/dL (31.6-35.5); Mean Corpuscular Hemoglobin 28.9 pg (28.0-33.3); Mean Corpuscular Volume 88.9 fL (83.0-100.0); Mean Platelet Volume 11.7 fL (9.4-12.4); Monocytes # 1.1 K/mcL (0.0-1.3); Monocytes % 11.9 %; Neutrophils # 6.5 K/mcL (1.6-8.9); Platelet Count 180 K/mcL (140-400); Red Blood Count 2.87 M/mcL (4.19-5.50); Red Cell Distribution Width 15.3 % (11.5-14.5); Segmented Neutrophils % 71.4 %
[2017-11-07 04:05] LABS: BUN/Creatinine Ratio 23 (6-26); Blood Urea Nitrogen 20 mg/dL (8-23); Calcium 8.2 mg/dL (8.6-10.3); Carbon Dioxide 25 mEq/L (23-29); Chloride 102 mEq/L (98-107); Glucose 149 mg/dL (70-105); Osmolality,Calculated 277 (280-300); Potassium 4.2 mEq/L (3.5-5.1); Sodium 131 mEq/L (136-145); eGFR For African Americans > 60 (> 60); eGFR For Non-African Americans > 60 (> 60)
[2017-11-07] MEDS: *HR* Metoprolol 5 MG/5 ML VIAL IVP SCH ×2 (05:17→11:20)
[2017-11-07] MEDS: Lisinopril 20 MG TABLET PO SCH (08:06)
[2017-11-07] MEDS: Gabapentin 400 MG CAPSULE PO SCH ×2 (08:06→14:04)
[2017-11-07] MEDS: BuPROPion SR (12 HR) 150 MG TABLET PO SCH (08:07)
[2017-11-07] MEDS: *HR* HYDROcodone/Acet 5/325 mg TABLET PO PRN (08:07)
[2017-11-07] MEDS: Aspirin 325 MG TABLET PO SCH (08:07)
[2017-11-07] MEDS: Neosporin OINT 15 GM TUBE TP SCH (08:08)
[2017-11-07] MEDS: Heparin 25,000 UNIT/500 ML D5W 25,000 UNIT/500 ML BAG IVC SCH (08:09)
--- NOTE | 2017-11-07 10:03 | Discharge Summary ---
Orders not resulted at time of discharge: Pending orders 11/01/17 18:17 PLASMA [BBK] Stat Red Blood Cells [BBK] Stat 11/08/17 02:00 PTT [Activated Partial Thrombo Time] [COAG] Timed Date of Encounter: 11/07/17 Time of Encounter: 16:01 - Discharge Diagnosis (1) PAD (peripheral artery disease) Priority: Primary Status: Chronic (2) Hypertension Priority: Secondary Status: Chronic Qualifiers: Hypertension type: essential hypertension Qualified Code(s): I10 - Essential (primary) hypertension (3) Hypercholesterolemia Priority: Secondary Status: Chronic (4) Acute blood loss anemia Priority: Secondary Status: Acute Comments: Secondary to operations and need for thrombectomy and arterial flushing. Patient was transfused intraoperatively and patient will be given iron as an outpatient. - Hospital Course Hospital course: Mr. Johansen is a 67 year old male Who is status post a femoral-femoral bypass graft last year. He presented with an occluded graft with an ankle-brachial index of 0. He was taken to surgery for graft thrombectomy on November 01. An extended operation was necessary with thrombectomy of his femoral-femoral graft as well as an endarterectomy and patch of the profunda femoris and common femoral artery and a femoral to above- knee popliteal artery bypass graft. Soon afterwards and the postoperative. However he thrombosed the graft. A CT antrum was obtained and then the patient was taken back to the operating room on November 03. I re-thrombectomy was performed as well as opening up the left groin at the inflow area of the femorofemoral bypass graft. Again after a very extensive operation the patient had protestant of flow the following morning by Doppler signals. He went on to develop multiphasic Doppler signals at the ankle with a warm pink right foot. He was kept on intravenous heparin in order to facilitate flow through the graft and the patient was seen by physical therapy and occupational therapy. It was judged that he would be best served by going to inpatient rehabilitation and so he will be transferred to the inpatient rehabilitation today as soon as the bed is available. The heparin will be stopped and Xarleto will be given on an indefinite basis for anticoagulation to maintain graft patency. The patient also be given short-term iron supplement therapy to help him with his acute blood loss anemia following surgery. - Time Spent with Patient Total time spent providing and/or coordinating discharge services: - Discharge Medications Prescriptions: HYDROcodone/Acet 5/325 mg [[place] 5-325 mg] 1 tab PO Q6HR PRN 14 Days #20 tablet PRN Reason: Moderate Pain Aspirin Enteric Coated [Aspirin EC] 81 mg PO DAILY #30 tablet. Ferrous Sulfate 325 mg PO BID #60 tablet Niels/Poly/Nori OINT [Triple Antibiotic Ointment] 1 appl TP DAILY #1 tube Rivaroxaban [Xarelto] 20 mg PO DAILY #30 tablet Home Medications: Atorvastatin [Lipitor] 40 mg PO HS 07/19/17 [History] BuPROPion SR (12 HR) [Wellbutrin SR] 150 mg PO QAM 07/19/17 [History] Lisinopril [Zestril] 40 mg PO DAILY 07/19/17 [History] Sertraline [Zoloft] 50 mg PO DAILY 07/19/17 [History] Tamsulosin [Flomax] 0.4 mg PO DAILY 07/19/17 [History] Gabapentin [Neurontin] 800 mg PO TID 11/01/17 [History] Aspirin Enteric Coated [Aspirin EC] 81 mg PO DAILY #30 tablet. 11/07/17 [Rx] Ferrous Sulfate 325 mg PO BID #60 tablet 11/07/17 [Rx] HYDROcodone/Acet 5/325 mg [[place] 5-325 mg] 1 tab PO Q6HR PRN 14 Days #20 tablet 11/07/17 [Rx] Niels/Poly/Nori OINT [Triple Antibiotic Ointment] 1 appl TP DAILY #1 tube 11/07/17 [Rx] Rivaroxaban [Xarelto] 20 mg PO DAILY #30 tablet 11/07/17 [Rx] Allergies/Adverse Reactions: 3 Allergy/AdvReac Type Severity Reaction Status Date / Time No Known Allergies Allergy Verified 11/01/17 13:39 Date of admission: 11/02/17 00:50 [facility] care physician: [facility] Consults: 11/04/17 08:28 Consult to Physical Therapy [CONS] Routine Comment: Evaluate, develop and implement POC Reason for Consult: Decreased range of motion and discomfort in the right lower extremity following vascular surgeries. 11/04/17 13:55 Consult to Occupational Therapy [CONS] Routine Comment: Evaluate, develop and implement POC Reason for Consult: Evaluation following surgery for activities of daily living and possible short-term inpatient rehabilitation. 11/04/17 13:56 Consult to Knife Operator [CONS] Routine Reason for SW Consult: Evaluation for short-term rehabilitation versus home health needs. Procedure(s) Performed: thrombectomy of fem-fem bypass graft, right common femoral and profunda femoris endarterectomy with bovine pericardial patch, and right femoral-above knee bypass with 6 mm PTFE on November 01. redo fem-fem bypass graft thrombectomy, thrombectomy of right fem-popliteal bypass graft, and distal popliteal and tibial thrombectomy on November 03. Discharging clinician: Chacorta Joel Anticipated date of discharge: 11/07/17 Exam Vital Signs, Last 4 Hours Temp Pulse Resp BP Pulse Ox 11/07/17 07:43 99.8 F H 73 16 163/57 97 General: Present: Conversant, No Apparent Distress, Well developed, Well nourished HEENT: Present: Atraumatic, Normocephaly Neck: Absent: JVD, Midline deformity, Tracheal deviation Cardiac: Present: Reg Rate and Rhythm Neuro: Present: Alert and responsive, No focal deficits noted, Cranial nerves grossly intact Abdomen: Present: Soft, Non-tender Vascular: Present: Normal capillary refill, Edema (Patient does have edema of both lower extremities greater on the right side than the left.), Color/ Temperature (The right foot demonstrates a hyperemic response.), Surgical incisions (Surgical incisions are clean and dry.) Skin: Present: No rashes noted on visualized skin - Patient Status Disposition: Transfer Inpatient Rehab Fac Condition: Good Functional capacity at discharge: uses cane/walker Overall status at discharge: patient is not back to baseline - Discharge Instructions Follow Up With: [facility] [Primary Care Provider] - 11/11/17 2:30 pm Chacorta Joel MD [Partnered Physician] - 11/23/17 11:45 am Additional Instructions: Patient may take a shower on November 09. [place] are to remain intact until follow-up visit with Dr. Joel. Patient is to continue with physical therapy and occupational therapy. Patient is to use incentive spirometer 10 times an hour while awake for the next 2 weeks. No automobile driving. No lifting greater than 10 pounds. Elevate right lower extremity while seated to reduce edema. - Diet and Activity Activity: as per physical therapy Diet: low fat, low cholesterol - VTE Documentation of Mechanical Device: Intermittent pneumatic compression device
[2017-11-07 11:45] VITALS: BP 141/57
--- NOTE | 2017-11-07 16:23 | Physician Discharge Referral ---
ExtendedCare Referral Info Transfer To: Rehabilitation unit Provider in Charge: Dr Joel Provider in Charge after Transfer: PCP Institutional Level of Care: Skilled - Diagnosis (1) PAD (peripheral artery disease) Priority: Primary Status: Chronic (2) Hypertension Priority: Secondary Status: Chronic (3) Hypercholesterolemia Priority: Secondary Status: Chronic (4) Acute blood loss anemia Priority: Secondary Status: Acute Expected Duration of Placement: 1-2 weeks Prognosis: Good Aware of Diagnosis: Patient Aware of Prognosis: Patient - Transfer Medications Prescriptions: HYDROcodone/Acet 5/325 mg [[place] 5-325 mg] 1 tab PO Q6HR PRN 14 Days #20 tablet PRN Reason: Moderate Pain Aspirin Enteric Coated [Aspirin EC] 81 mg PO DAILY #30 tablet. Ferrous Sulfate 325 mg PO BID #60 tablet Niels/Poly/Nori OINT [Triple Antibiotic Ointment] 1 appl TP DAILY #1 tube Rivaroxaban [Xarelto] 20 mg PO DAILY #30 tablet Home Medications: Atorvastatin [Lipitor] 40 mg PO HS 07/19/17 [History] BuPROPion SR (12 HR) [Wellbutrin SR] 150 mg PO QAM 07/19/17 [History] Lisinopril [Zestril] 40 mg PO DAILY 07/19/17 [History] Sertraline [Zoloft] 50 mg PO DAILY 07/19/17 [History] Tamsulosin [Flomax] 0.4 mg PO DAILY 07/19/17 [History] Gabapentin [Neurontin] 800 mg PO TID 11/01/17 [History] Aspirin Enteric Coated [Aspirin EC] 81 mg PO DAILY #30 tablet. 11/07/17 [Rx] Ferrous Sulfate 325 mg PO BID #60 tablet 11/07/17 [Rx] HYDROcodone/Acet 5/325 mg [[place] 5-325 mg] 1 tab PO Q6HR PRN 14 Days #20 tablet 11/07/17 [Rx] Niels/Poly/Nori OINT [Triple Antibiotic Ointment] 1 appl TP DAILY #1 tube 11/07/17 [Rx] Rivaroxaban [Xarelto] 20 mg PO DAILY #30 tablet 11/07/17 [Rx] Allergies/Adverse Reactions: 3 Allergy/AdvReac Type Severity Reaction Status Date / Time No Known Allergies Allergy Verified 11/01/17 13:39 - Respiratory Orders Smoking Cessation: Smoking cessation has been advised. For more information, call the [place] Tobacco Quit Line at 4-361-QOHB-NOW. - Ancillary Orders May use pressure relief devices daily prn, May go on [place] w/family/respon democrat w /meds at nurse discretion PRN, May consult with Dentist, Plasma Center Technician, Leasing Sales Consultant PRN - Advance Directives Code Status: Full Code - Mobility Orders Ambulate - Rehabiliation Orders Rehab Potential: Good Rehab Orders: ROM Exercises, Evaluation for Physical Therapy, Evaluation for Occupational Therapy - Treatments Skin tear care topically daily PRN per policy - Diet Orders Regular CERTIFICATION: I certify that the transfer of the above named patient to an Extended Care Facility is necessary for the continuing treatment of the diagnosis listed. The above information is true and accurate reflection of patient's current condition. Confidential - Redisclosure prohibited without a patient's written consent.
[2017-11-07] MEDS ORDERED: *HR* Rivaroxaban 10 MG TABLET PO SCH (17:00)
== END 2017-11-07 17:51 | DRG 253 ==
LOC: SAMDAY 10:43 → 3NENU 11-02 00:50 → 2NNU 11-02 00:51
PROVIDERS: ADMIT Surgery Vascular Surgery; ATTEND Surgery Vascular Surgery

== ENCOUNTER 2018-01-27 10:22 | Inpatient (IN) ==
[2018-01-27] MEDS ORDERED: Albuterol 2.5 MG/3 ML NEBULIZER IH ONE (10:40)
[2018-01-27] MEDS ORDERED: Ringers Solution, Lactated 1,000 ML IVC SCH (10:45)
--- NOTE | 2018-01-27 10:50 | Anesthesia Evaluation PreOp ---
Date of Encounter: 01/27/18 Time of Encounter: 10:48 - Past History Planned Operation: Right Ileofemoral Bypass Cardiac History: HTN, Hyperlipidemia, Other (Carotid stenosis, PAD) Pulmonary History: Other (Lung Nodule) RESOURCE CONSERVATIONIST History: Denies Any Significant HX Other Medical History: Denies Any Significant HX Anesthesia History: No Prior Anesthetic Complications, Past Anesthesia (Fem-Fem bypas 11/13/17, multiple LE vascular procedures) Alcohol Use: none Drug use: none Medications and Allergies Atorvastatin [Lipitor] 40 mg PO HS 07/19/17 [History] BuPROPion SR (12 HR) [Wellbutrin SR] 150 mg PO QAM 07/19/17 [History] Lisinopril [Zestril] 40 mg PO DAILY 07/19/17 [History] Sertraline [Zoloft] 50 mg PO DAILY 07/19/17 [History] Tamsulosin [Flomax] 0.4 mg PO DAILY 07/19/17 [History] Gabapentin [Neurontin] 800 mg PO TID 11/01/17 [History] Aspirin Enteric Coated [Aspirin EC] 81 mg PO DAILY #30 tablet. 11/07/17 [Rx] Acetaminophen [Tylenol] 500 mg PO Q8H PRN 01/27/18 [History] 3 Allergy/AdvReac Type Severity Reaction Status Date / Time No Known Allergies Allergy Verified 01/27/18 11:03 - Meds/Allergy Pre-op Review Medications Reviewed: Yes Allergies Reviewed: Yes Beta Blockers on Current Med List: No Anesthesia Results - Labs Laboratory Tests 01/03/18 01/26/18 01/26/18 09:50 11:24 11:24 WBC 5.6 Hgb 9.7 L Hct 30.3 L Plt Count 342 INR 1.1 Sodium 138 Potassium 4.9 Chloride 102 Carbon Dioxide 24 BUN 24 H Creatinine 1.03 - Imaging EKG: report reviewed (SINUS RHYTHM WITH MARKED SINUS ARRHYTHMIA) Anesthesia Exam NPO (# of Hours): > 8 Hrs Pain Scale: 0 Pain Scale Used: Numeric (1 - 10) - HEENT Pupil (Motor): Pupils equal, EOMI Mallampati: III Teeth: Missing, Poor dentition Denture Type: Upper: Complete Oral Opening: Greater than 3 - RESOURCE CONSERVATIONIST LOC: Oriented RESOURCE CONSERVATIONIST Motor: Normal RUE, Normal LUE, Normal RLE, Normal LLE, Normal Face RESOURCE CONSERVATIONIST Sensory: Normal: RUE, LUE, RLE, LLE, Face - Cardiac Rhythm: Regular Murmur: None JVD: No Carotid Bruit: No - Pulmonary Breath Sounds: bilateral Clear Respiratory Effort: Symmetrical Anesthesia Assess/Plan ASA Score: 3 Modified Ari Scale for Level of Consciousness: Cooperative, oriented, and tranquil Anesthetic Plan: General Autologous Blood: Yes Monitoring Plan: Standard Monitors Recovery Plan: PACU
[2018-01-27] MEDS ORDERED: Vancomycin 1,000 MG VIAL ONE (11:10)
[2018-01-27] MEDS ORDERED: Heparin 1,000 UNITS/500 mL 1,000 ML ONE (11:10)
--- NOTE | 2018-01-27 11:40 | History & Physical Report ---
Date of Encounter: 01/27/18 Time of Encounter: 11:30 24 Hour HP Update - Instructions Instructions: If the History and Physical is less than 30 days old and was completed prior to A.M. admission and or procedure and has NOT been updated on calendar day of procedure please complete this update prior to performing procedure. - Update Patient reports changes in Medical Condition: No Changes in examination, assessment, or condition: No Preop tests/diagnostics Reviewed: Yes Surgery Remains Indicated: Yes Consent for Planned Operative Procedure(s) Verified: Yes - Pre-Operative Checklist Preoperative Checklist Indicated: Yes Prophylactic Antibiotic Ordered: Yes Home Medications Include Beta Carlos: No Beta Carlos Taken Today (Day of Surgery): No Beta Carlos Taken Yesterday (Day Prior to Surgery): No Is VTE Prophylaxis Indicated?: Yes
[2018-01-27] MEDS ORDERED: Heparin 1,000 UNITS/500 mL 1,500 ML ONE (12:07)
[2018-01-27] MEDS ORDERED: *HR* Labetalol 100 MG/20 ML MDV IVP PRN (12:49)
[2018-01-27] MEDS ORDERED: Ondansetron 4 MG/2 ML VIAL IVP ONE (12:49)
[2018-01-27] MEDS ORDERED: Dexamethasone 4 MG/ML VIAL IVP ONE (12:49)
[2018-01-27] MEDS ORDERED: *HR* Morphine 2 MG/ML SYRINGE IVP PRN (12:49)
[2018-01-27] MEDS ORDERED: *HR* Promethazine 25 MG/ML VIAL IVP PRN (12:49)
--- NOTE | 2018-01-27 12:49 | Anesthesia Procedures ---
Date of Encounter: 01/27/18 Time of Encounter: 12:15 Procedures: Anesthesia - Arterial Line Consent obtained: verbal consent Time out performed: Yes Sedation: Versed (mg): 2 Sedation: Fentanyl (mcg): 150 Supplemental Oxygen via Nasal Cannula (L/min): 2 Local Anesthetic: Lidocaine 1% Amount of Anesthetic used (mls): 0.5 Size (Gauge): 20 Length (inches): 1 3/4 Technique Used: guide wire technique Post-Procedure: line taped into place Patient tolerated procedure: well Complications: none Site: Radial R Vitals: Vital Signs/O2 Sat/Glucose, Most Recent Temp Pulse Resp BP Pulse Ox 97.3 F L 63 18 131/62 100 01/27/18 10:58 01/27/18 12:46 01/27/18 10:58 01/27/18 10:58 01/27/18 12:46 Comments: [facility]
[2018-01-27] MEDS ORDERED: *HR* Rocuronium Bromide 50 MG/5 ML VIAL ONE ×2 (15:30→23:23)
[2018-01-27] MEDS ORDERED: *HR* Propofol 200 MG/20 ML VIAL IVP ONE (15:30)
[2018-01-27] MEDS ORDERED: Ondansetron 4 MG/2 ML VIAL ONE (15:30)
[2018-01-27] MEDS ORDERED: Water for inj. (sterile) 20 ML IV ONE (15:30)
[2018-01-27] MEDS ORDERED: Heparin 1,000 UNITS/500 mL 500 ML ONE (15:30)
[2018-01-27] MEDS ORDERED: *HR* Heparin 5,000 UNIT/ML VIAL ONE (15:30)
[2018-01-27] MEDS ORDERED: Dexamethasone 4 MG/ML VIAL ONE (15:30)
[2018-01-27] MEDS ORDERED: *HR* Midazolam HCl 2 MG/2 ML VIAL ONE ×2 (15:30→19:41)
[2018-01-27] MEDS ORDERED: *HR* FentaNYL (PF) 100 MCG/2 ML VIAL ONE ×3 (15:30→19:03)
[2018-01-27] MEDS ORDERED: *HR* Phenylephrine 10 MG/ML VIAL ONE (15:30)
[2018-01-27] MEDS ORDERED: *HR* Remifentanil 2 MG VIAL IVP ONE (15:30)
[2018-01-27] MEDS ORDERED: Lidocaine -MPF 2% 2 ML VIAL ONE ×2 (15:30)
[2018-01-27] MEDS ORDERED: Acetaminophen IV 1,000 MG/100 ML INFUS..BTL ONE (19:02)
[2018-01-27] MEDS ORDERED: EPHEDrine 50 MG/ML VIAL ONE (20:40)
[2018-01-28] MEDS ORDERED: Ondansetron 4 MG/2 ML VIAL IVP ONE (00:59)
[2018-01-28] MEDS ORDERED: Neostigmine Methylsulfate 3 MG/3 ML SYRINGE ONE (01:16)
[2018-01-28] MEDS ORDERED: *HR* Morphine 10 MG/ML VIAL ONE (01:21)
--- NOTE | 2018-01-28 02:02 | Operative Note ---
Date of procedure: 01/28/18 Pre-op diagnosis: limb threatening ischemia of right lower extremity Post-op diagnosis: same Procedure: right ilio-femoral bypass graft with 8 mm PTFE via right retroperitoneal exposure Right common iliac artery endarterectomy right femoral-popliteal bypass graft thrombectomy with 4 Fr michelle catheter Complications: none Anesthesia: GETA Surgeon: Chacorta Joel Was there an assistant head cashier present: No Estimated blood loss (cc): 600 Specimen: 0 Condition: stable Disposition: PACU Procedure in Detail: History Waldo Johansen is a 67-year-old white male with history of severe right-sided vascular occlusive disease. He has an occluded right iliac system and right superficial femoral artery. He has undergone 3 previous procedures. The initial procedure was a left to right femoral-femoral bypass graft in June. The patient then went on earlier this spring to have 2 procedures in the operating room for graft thrombectomy. The patient had recurrent right lower extremity ischemia with graft thrombosis. He is going on to develop ischemic rest pain. The patient now comes the operating room and attempt to salvage his right lower extremity. Because of the failure of the previous femoral-femoral graft it was recommended to the patient that an anatomic inflow procedure be performed and that the right iliac system be endarterectomized and uses a source for an iliofemoral bypass graft. The patient now comes for that procedure. Procedure After informed consent was obtained the patient was taken to the operating room. General endotracheal anesthesia was established under arterial line pressure monitoring. The abdomen groin and right lower extremity were sterilely prepped and draped. A timeout protocol was observed. The right groin was opened first. This was the fourth time that this right groin has been opened. As expected the patient had a very difficult dissection with significant scarring and adhesion and loss of normal anatomic planes. After a very tedious and laborious dissection control was obtained of the belkofski vessel and the femoral- femoral and femoral-popliteal bypass graft. Attention was then directed to the right retroperitoneum. This was opened through a curvilinear incision in the 11th intercostal space and carried to the lateral border of the abdominis rectus muscle. The 3 muscle layers of the flank were identified and divided. The retroperitoneal tissue was opened and then through blunt dissection was expanded. The ureter was identified and preserved. The dissection was carried up to the level of the aortic bifurcation. The right iliac system was non-pulsatile. It was a rubbery vessel. There was marked inflammation which only complicated and prolonged dissection. The underlying right iliac vein was densely adherent to the posterior surface of the right iliac artery. A very tedious and meticulous dissection wasn't necessary in order to dissect this artery up and off of the vein so that proximal and distal control and an area for clamp application could be established. After this was finally accomplished the tunnel was created from the right retroperitoneum to the right groin. 5000 units of heparin were administered intravenously. An arteriotomy was made over the proximal right common iliac artery. 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 A formal endarterectomy was then performed. A septal dissector was used to establish a dissection plane. This was then carried circumferentially through the proximal portion of the right common iliac artery. It was extended distally into the midportion. Then attention was directed to the proximal portion leading up into the aorta. A large thick dense chronic clot and plaque were then carefully dissected and removed. Excellent pulsatile flow from the aorta was established. The area was allowed to backflush to check for any loose debris. The area was then copiously irrigated with heparinized saline. With this done the second part of the procedure was performed which was the creation of the bypass graft. An 8 mm PTFE graft was selected. This was anastomosed using the end of the graft to the side of the now recently endarterectomized common iliac artery. This was sewn into position using 5-0 Prolene suture. After checking the anastomosis for hemostasis the graft was then tunneled into the right groin. The previous left to right femoral-femoral bypass graft was amputated off of the right common femoral artery. This allowed an area on the femoral-popliteal graft to be opened in a longitudinal fashion. The 8 mm PTFE graft was then sewn to the 6 mm PTFE graft through an extended anastomosis in an end-to-side fashion. However before the anastomosis was created a 4 Micronesian Michelle catheter was passed through the femoral-popliteal bypass graft. This bypass graft is a above knee bypass graft. The Michelle catheter passed through the bypass graft and backbleeding was restored. This was then flushed with heparinized saline. The anastomosis was then completed. After appropriate backbleeding and flushing the graft was open. Pulsatile flow was then restored into the femoral-popliteal bypass graft. Doppler signal was identified at the popliteal area. A Doppler signal was not identified at the ankle but this was thought due to the prolonged nature of the surgery and is by temperature. Therefore this area will be rechecked on a clinical basis. The patient may need further distal reconstruction. All wounds were irrigated. Hemostasis was achieved. 0.5% Marcaine was then injected into the incisions. The wounds were then closed in layers using absorbable suture. There were no intraoperative complications. Cell Saver was used during this procedure and 400 mL's of cell saver were returned to the patient during the operation. The patient was extubated in the operating room. He was taken from the operating room to the recovery room in stable condition.
[2018-01-28] MEDS: *HR* HYDROmorphone (PF) 1 MG/ML SYRINGE IVP PRN ×2 (02:30→02:35)
[2018-01-28] MEDS ORDERED: Naloxone 0.4 MG/ML INJ IVP PRN (04:05)
[2018-01-28] MEDS ORDERED: Ondansetron 4 MG/2 ML VIAL IVP PRN (04:05)
[2018-01-28] MEDS ORDERED: *HR* Heparin 5,000 UNIT/ML VIAL IVP PRN (04:15)
[2018-01-28] MEDS ORDERED: *HR* Heparin 5,000 UNIT/ML VIAL IVP ONE (04:15)
[2018-01-28] MEDS: D5% in 0.45% NACL 1,000 ML IVC SCH ×2 (04:42→23:17)
[2018-01-28] MEDS: OXYCODONE Oral CONC 10 MG/0.5 ML ORAL.SYG SL PRN ×2 (04:42→21:26)
--- NOTE | 2018-01-28 04:48 | Anesthesia Evaluation Post Op ---
Date of Encounter: 01/28/18 Time of Encounter: 02:30 - Vital Signs Vital Signs: Vital Signs/O2 Sat/Glucose, Most Current Temp Pulse Resp BP Pulse Ox 01/28/18 03:45 98.0 F 74 16 133/68 97 01/28/18 03:10 97.8 F 87 16 146/62 99 01/28/18 03:00 97.8 F 91 14 146/61 96 01/28/18 02:50 89 14 135/60 100 01/28/18 02:40 75 16 146/71 100 01/28/18 02:30 97.7 F 84 16 142/63 97 01/28/18 02:20 87 18 154/71 98 01/28/18 02:10 85 16 160/71 100 01/28/18 02:00 97.4 F L 93 20 132/56 100 - Lungs Lungs: Clear Ascult./Percussion - Airway Airway: Non-obstructed - Cardiovascular Regular Rate - Mental Status Mental Status: Alert & Oriented, Answers Appropriately - Pain Pain Scale: 0 - Nausea Vomiting Nausea Vomiting: Not Present - Hydration Hydration: Ice chips - Discharge PostOp Status: Transfer Patient to floor
[2018-01-28 05:25] LABS: Hematocrit 29.1 % (37.5-50.1); Hemoglobin 9.4 g/dL (12.9-16.9); Mean Corpuscular HGB Conc 32.3 g/dL (31.6-35.5); Mean Corpuscular Hemoglobin 27.4 pg (28.0-33.3); Mean Corpuscular Volume 84.8 fL (83.0-100.0); Mean Platelet Volume 10.6 fL (9.4-12.4); Platelet Count 212 K/mcL (140-400); Red Blood Count 3.43 M/mcL (4.19-5.50); Red Cell Distribution Width 15.5 % (11.5-14.5)
[2018-01-28] MEDS: Heparin 25,000 UNIT/500 ML D5W 25,000 UNIT/500 ML BAG IVC SCH (05:28)
[2018-01-28 05:38] LABS: INR 1.1; Prothrombin Time 12.4 Seconds (9.4-12.1)
[2018-01-28 05:41] LABS: Activated Partial Thrombo Time 27.6 Seconds (26.0-36.0)
[2018-01-28] MEDS ORDERED: Ketorolac 30 MG/ML VIAL IVP SCH (06:00)
[2018-01-28] MEDS: *HR* Metoprolol 5 MG/5 ML VIAL IVP SCH ×4 (06:27→23:18)
[2018-01-28 10:16] LABS: BUN/Creatinine Ratio 20 (6-26); Blood Urea Nitrogen 18 mg/dL (8-23); Carbon Dioxide 24 mEq/L (23-29); Chloride 104 mEq/L (98-107); Potassium 5.7 mEq/L (3.5-5.1); Sodium 135 mEq/L (136-145)
[2018-01-28 10:17] LABS: Calcium 8.6 mg/dL (8.6-10.3); Glucose 206 mg/dL (70-105); Osmolality,Calculated 288 (280-300); eGFR For African Americans > 60 (> 60); eGFR For Non-African Americans > 60 (> 60)
--- NOTE | 2018-01-28 10:39 | Vascular/Endovas Progress Note ---
Date of Encounter: 01/28/18 Time of Encounter: 10:37 - Assessment and plan (1) PAD (peripheral artery disease) Current Visit: Yes Status: Chronic Patient has a patent bypass graft but still no Doppler signal at the right ankle. This would then suggest that there is significant disease and the below the knee popliteal and tibial peroneal trunk area. A very long and exhaustive conversation was then had with the patient. I recommended he come back to the operating room today for exploration of the [id number] popliteal artery and possible thrombectomy and possible endarterectomy. The patient is resistant to that idea because he insists on eating. He does not want to have surgery today. Patient will report on for surgery first thing tomorrow morning. We will continue IV heparin (2) Hypertension Current Visit: Yes Status: Chronic Patient has history of chronic hypertension Qualifiers: Hypertension type: essential hypertension Qualified Code(s): I10 - Essential (primary) hypertension - Subjective Interval history: Mr. Johansen is status post an extensive right lower extremity reconstruction beginning late last night and continuing until early this morning. He had a right common iliac endarterectomy, right iliofemoral bypass graft, and right femoral-popliteal bypass graft thrombectomy. On evaluation this morning now approximately 8 hours following the completion of the operation the patient has no new complaints. He has done very little walking. He has surgical incision pain. He feels the right foot is less swollen. He continues to have sensation and movement in the foot. Vital Signs, Last 4 Hours Temp Pulse Resp BP Pulse Ox 01/28/18 10:00 67 139/62 98 01/28/18 09:00 73 114/53 96 01/28/18 08:35 68 133/64 99 01/28/18 06:43 98.6 F 62 18 120/68 100 - Physical Examination General: Present: Conversant, No Apparent Distress HEENT: Present: Atraumatic Neck: Absent: JVD Cardiac: Present: Reg Rate and Rhythm Vascular: Present: Capillary refill delayed (Right foot refill is 4 seconds), Pulse, absent, Color/Temperature (Right foot is cool but not cold to the touch.) , Surgical incisions, Other (Her signal over the popliteal artery. However, I do not find a Doppler signal at the right ankle or foot. The patient does have venous signals at the right foot.) - VTE Documentation of Mechanical Device: Intermittent pneumatic compression device Results 01/28/18 04:15 01/28/18 09:28 Lab Results, Last 24 hours 01/28/18 01/28/18 01/28/18 04:15 04:15 09:28 WBC 11.3 H Hgb 9.4 L Hct 29.1 L Plt Count 212 INR 1.1 APTT 27.6 Sodium 135 L Potassium 5.7 H Chloride 104 Carbon Dioxide 24 BUN 18 Creatinine 0.91 Glucose 206 H Calcium 8.6 Consult Discharge Plan - Plan Referrals: BARBRA,PCP [Primary Care Provider] - 02/06/18 2:00 pm Chacorta Joel MD [Partnered Physician] - 02/08/18 9:30 am
[2018-01-28] MEDS ORDERED: Ketorolac 30 MG/ML VIAL IVP PRN (10:57)
[2018-01-28] MEDS: *HR* Heparin 5,000 UNIT/ML VIAL IVP PRN ×2 (13:21→21:09)
[2018-01-28] MEDS: Gabapentin 400 MG CAPSULE PO SCH ×2 (15:10→21:08)
[2018-01-28] MEDS ORDERED: Isovue-370 500 ML INFUS..BTL IV ONE (15:14)
[2018-01-29] MEDS: Heparin 25,000 UNIT/500 ML D5W 25,000 UNIT/500 ML BAG IVC SCH ×2 (02:40→21:53)
[2018-01-29] MEDS: OXYCODONE Oral CONC 10 MG/0.5 ML ORAL.SYG SL PRN ×2 (05:05→19:36)
[2018-01-29] MEDS: *HR* Metoprolol 5 MG/5 ML VIAL IVP SCH ×4 (05:26→23:44)
[2018-01-29 06:03] LABS: Basophils % 0.3 %; Eosinophils # 0.1 K/mcL (0.0-0.6); Eosinophils % 0.8 %; Hematocrit 24.1 % (37.5-50.1); Immature Granulocytes % 0.3 % (0-4); Lymphocytes # 1.7 K/mcL (0.6-4.6); Mean Corpuscular HGB Conc 31.5 g/dL (31.6-35.5); Mean Corpuscular Volume 85.5 fL (83.0-100.0); Mean Platelet Volume 10.7 fL (9.4-12.4); Monocytes % 11.2 %; Neutrophils # 6.4 K/mcL (1.6-8.9); Platelet Count 183 K/mcL (140-400); Red Blood Count 2.82 M/mcL (4.19-5.50); Red Cell Distribution Width 15.5 % (11.5-14.5); Segmented Neutrophils % 69.4 %
[2018-01-29 06:06] LABS: Hemoglobin 7.6 g/dL (12.9-16.9)
[2018-01-29 06:21] LABS: BUN/Creatinine Ratio 22 (6-26); Blood Urea Nitrogen 20 mg/dL (8-23); Calcium 8.2 mg/dL (8.6-10.3); Carbon Dioxide 25 mEq/L (23-29); Chloride 98 mEq/L (98-107); Glucose 132 mg/dL (70-105); Osmolality,Calculated 272 (280-300); Potassium 4.2 mEq/L (3.5-5.1); Sodium 129 mEq/L (136-145); eGFR For African Americans > 60 (> 60); eGFR For Non-African Americans > 60 (> 60)
[2018-01-29] MEDS ORDERED: Dexamethasone 4 MG/ML VIAL ONE (07:06)
[2018-01-29] MEDS ORDERED: Ondansetron 4 MG/2 ML VIAL ONE (07:06)
[2018-01-29] MEDS ORDERED: *HR* Heparin 5,000 UNIT/ML VIAL ONE (07:06)
[2018-01-29] MEDS ORDERED: Lidocaine -MPF 4% 5 ML AMPUL ONE (07:06)
[2018-01-29] MEDS ORDERED: *HR* Succinylcholine 200 MG/10 ML VIAL IVP ONE (07:06)
[2018-01-29] MEDS ORDERED: Lidocaine -MPF 2% 2 ML VIAL ONE ×2 (07:06→07:24)
[2018-01-29] MEDS ORDERED: *HR* Rocuronium Bromide 50 MG/5 ML VIAL ONE (07:06)
[2018-01-29] MEDS ORDERED: Water for inj. (sterile) 10 ML IV ONE (07:07)
--- NOTE | 2018-01-29 07:10 | Anesthesia Evaluation PreOp ---
Date of Encounter: 01/29/18 Time of Encounter: 07:08 - Past History Planned Operation: Right Lower Extremity Thrombectomy Cardiac History: HTN, Hyperlipidemia, Other (PAD, carotid stenosis) Pulmonary History: Other (lung nodule) RESOURCE TECHNICIAN History: Denies Any Significant HX Other Medical History: Denies Any Significant HX Anesthesia History: No Prior Anesthetic Complications, Past Anesthesia ( multiple LE vascular surgeries) Alcohol Use: none Drug use: none Medications and Allergies Atorvastatin [Lipitor] 40 mg PO HS 07/19/17 [History] BuPROPion SR (12 HR) [Wellbutrin SR] 150 mg PO QAM 07/19/17 [History] Lisinopril [Zestril] 40 mg PO DAILY 07/19/17 [History] Sertraline [Zoloft] 50 mg PO DAILY 07/19/17 [History] Tamsulosin [Flomax] 0.4 mg PO DAILY 07/19/17 [History] Gabapentin [Neurontin] 800 mg PO TID 11/01/17 [History] Aspirin Enteric Coated [Aspirin EC] 81 mg PO DAILY #30 tablet. 11/07/17 [Rx] Acetaminophen [Tylenol] 500 mg PO Q8H PRN 01/27/18 [History] 3 Allergy/AdvReac Type Severity Reaction Status Date / Time No Known Allergies Allergy Verified 01/27/18 11:03 - Meds/Allergy Pre-op Review Medications Reviewed: Yes Allergies Reviewed: Yes Beta Blockers on Current Med List: No Anesthesia Results - Labs 01/29/18 05:43 01/29/18 05:43 - Imaging EKG: report reviewed (07/15/2017 SINUS RHYTHM WITH MARKED SINUS ARRHYTHMIA) Anesthesia Exam Vital Signs/O2 Sat/Glucose, Most Recent Temp Pulse Resp BP Pulse Ox 98.4 F 98 22 122/82 93 01/29/18 07:00 01/29/18 07:00 01/29/18 07:00 01/29/18 07:00 01/29/18 07:00 Blood Glucose* 120 Height: 5'10"/1.78m Weight: 216 lbs/98 kg NPO (# of Hours): 8 Pain Scale: 4 Pain Scale Used: Numeric (1 - 10) - HEENT Pupil (Motor): EOMI Mallampati: III Teeth: Missing, Poor dentition Oral Opening: Greater than 3 - RESOURCE TECHNICIAN LOC: Oriented RESOURCE TECHNICIAN Motor: Normal RUE, Normal LUE, Normal RLE, Normal LLE, Normal Face RESOURCE TECHNICIAN Sensory: Normal: RUE, LUE, LLE, Face, Deficit: RLE - Cardiac Rhythm: Regular Murmur: None - Pulmonary Breath Sounds: bilateral Clear Respiratory Effort: Symmetrical Anesthesia Assess/Plan ASA Score: 3 Modified Ari Scale for Level of Consciousness: Cooperative, oriented, and tranquil Anesthetic Plan: General Monitoring Plan: Standard Monitors, A-Line Recovery Plan: PACU
[2018-01-29] MEDS ORDERED: *HR* FentaNYL (PF) 100 MCG/2 ML VIAL ONE ×2 (07:15→09:35)
[2018-01-29] MEDS ORDERED: *HR* Midazolam HCl 2 MG/2 ML VIAL ONE (07:15)
[2018-01-29] MEDS ORDERED: *HR* Propofol 200 MG/20 ML VIAL IVP ONE (07:17)
[2018-01-29] MEDS ORDERED: Heparin 1,000 UNITS/500 mL 500 ML ONE (07:20)
[2018-01-29] MEDS ORDERED: Heparin 1,000 UNITS/500 mL 1,000 ML ONE ×2 (07:23→12:57)
[2018-01-29] MEDS ORDERED: *HR* Phenylephrine 10 MG/ML VIAL ONE (07:24)
[2018-01-29] MEDS: Gabapentin 400 MG CAPSULE PO SCH ×3 (07:42→19:35)
--- NOTE | 2018-01-29 08:17 | Anesthesia Procedures ---
Date of Encounter: 01/29/18 Time of Encounter: 08:15 Procedures: Anesthesia - Arterial Line Consent obtained: written consent Time out performed: Yes Sedation: Versed (mg): 2 Sedation: Fentanyl (mcg): 100 Supplemental Oxygen via Nasal Cannula (L/min): 2 Local Anesthetic: Lidocaine 1% Amount of Anesthetic used (mls): 0.5 Size (Gauge): 20 Length (inches): 1 3/4 Technique Used: guide wire technique, direct puncture technique Post-Procedure: line taped into place, dry sterile dressing placed Patient tolerated procedure: well, no complications Complications: none Site: Radial R Vitals: vss
[2018-01-29] MEDS ORDERED: Lisinopril 20 MG TABLET PO SCH (09:00)
[2018-01-29] MEDS ORDERED: Aspirin Enteric Coated 81 MG Tablet PO SCH (09:00)
[2018-01-29] MEDS ORDERED: BuPROPion SR (12 HR) 150 MG TABLET PO SCH (09:00)
[2018-01-29] MEDS ORDERED: *HR* OxyCODONE Immed Rel 5 MG TABLET PO PRN ×2 (09:57→15:41)
[2018-01-29] MEDS ORDERED: *HR* HYDROmorphone (PF) 1 MG/ML SYRINGE IVP PRN ×2 (09:57→15:41)
[2018-01-29] MEDS ORDERED: Ondansetron 4 MG/2 ML VIAL IVP PRN ×2 (09:57→15:41)
[2018-01-29] MEDS ORDERED: *HR* Labetalol 20 MG/4 ML SYRINGE IVP PRN ×2 (09:57→15:41)
[2018-01-29 11:51] LABS: ABG Base Excess -3 mEq/L (-2 to 3); ABG HCO3 22 mEq/L (21-27); ABG Oxygen Saturation 100 % (95-98); ABG PCO2 39 mmHg (35-45); ABG PH 7.36 pH Units (7.32-7.45); ABG PO2 197 mmHg (85-104); ABG TCO2 23 mEq/L (20-26)
[2018-01-29] MEDS ORDERED: Albumin Human 5% 25.0 GM/500 ML VIAL ONE (11:59)
[2018-01-29] MEDS ORDERED: *HR* PHENYLEPHRINE 1,000 MCG/10 ML SYRINGE IVP ONE (13:38)
--- NOTE | 2018-01-29 14:33 | Operative Note ---
Date of procedure: 01/29/18 Pre-op diagnosis: right leg graft thrombosis Post-op diagnosis: same Procedure: right ilio-femoral and femoral-popliteal bypass grafts thrombectomy right femoral to BK popliteal bypass graft with 6 mm PTFE Complications: none Anesthesia: VANCE Surgeon: Chacorta Joel Was there an credit control assistant present: No Estimated blood loss (cc): 800 Specimen: none Condition: stable Disposition: PACU Procedure in Detail: History Waldo Johansen is a 67-year-old white male with severe right lower extremity vascular disease. It undergone an extensive bypass graft and thrombectomy on Tuesday evening into Tuesday. On rounds on Tuesday he was found to have no Doppler signals in his right foot. Sensation and motor were intact. He is recommended to undergo surgery. The patient now comes the operating room on Tuesday. A CT angiogram performed yesterday shows occlusion of the grafts at the iliofemoral and femoral popliteal locations. The patient did have disease in the popliteal artery beyond the femoral- popliteal bypass graft but the [id number] popliteal artery and trifurcation appeared to be patent. Procedure After informed consent was obtained the patient was taken the operating room. General endotracheal anesthesia was established under arterial line pressure monitoring. The abdomen groin and right lower extremity were sterilely prepped and draped. A timeout protocol was observed. A [id number] popliteal artery incision was made. Dissection was performed to expose the below-the- knee popliteal artery. This artery was relatively lateral in its location but soft. There is no obvious disease but there is also no Doppler signal in the vessel. A new incision was then made in the proximal thigh. This was done to expose the proximal portion of the previously placed femoral to above-knee popliteal artery bypass graft. Once this graft was dissected and controlled a new subsartorial tunnel was created from this proximal thigh incision to the below- the-knee popliteal. 6 mm PTFE graft was passed through this incision. It should be noted the patient was on IV heparin drip at beginning yesterday and this was continued during this operation. Extra boluses of heparin were provided to the patient. The original femoral-popliteal bypass graft was opened with a longitudinal graftotomy. A 4-Guamanian Jeremy catheter was then used to thrombectomize the graft. Backbleeding was established. The catheter was able to be advanced into the [id number] popliteal artery and could be palpated. This area was flushed and clamped. Attention was then directed retrograde. The 4-Guamanian Jeremy catheter was then placed into the iliofemoral graft retrograde. Large amount of clot was removed. Then a 6-Guamanian Jeremy balloon was placed into the graft. This was passed to the point that excellent pulsatile flow was restored and large amount of clot was removed. This area was flushed with heparinized saline and clamped. With this done the new bypass graft was performed in order to provide appropriate pulsatile flow into the runoff vessels below the knee. The distal anastomosis was constructed first. It should be noted that excellent backbleeding was noted from the distal vessels. A 3 and 4-Guamanian Jeremy catheter were passed distally but would advance only about 10 cm so this was not pursued further. The area was flushed. The distal anastomosis was created. With this done then the proximal anastomosis and phimosis was created end-to-side as was the distal anastomosis. After appropriate backbleeding and flushing the graft was opened. Pulsatile flow was achieved through the graft and into the popliteal artery. Excellent Doppler signals were found distal to the distal anastomosis. There is a strong palpable pulse distal to the distal anastomosis. Doppler signals are identified at the ankle. With this done the wounds were irrigated and closed. The distal anastomosis area was closed first. Then the new proximal thigh incision was closed. While closing this wound it was noted that with manipulation of the tissue and placing the first few stitches that pulsatile bleeding was identified coming proximally. It appeared that there was some type of leading from the distal iliac area. Therefore the old transverse right groin incision was opened. It was found that there was a tear in the 6 mm PTFE graft immediately distal to the anastomosis to the iliofemoral graft. This area was flushed. The tear was repaired by using a piece of Dacron graft and this was sewn as a generous patch. After this was done after appropriate backbleeding and flushing the graft was opened. Pulsatile flow was restored into the femoral popliteal. The posterior tibial Doppler signal was reidentified. The wounds were then closed. Dry sterile dressings were applied. The patient was x-rayed in the operating room and taken from the operating room to the recovery room. It should be noted the patient had marked anemia noted on this morning's laboratory values. There is no hemodynamic distress overnight. This was thought due to equilibration as well as dilution. Therefore total of 4 units of blood were transfused because of the intraoperative blood loss and the preoperative anemia. A stat H&H will be checked in the recovery room following the operation.
[2018-01-29 15:01] LABS: Hematocrit 24.1 % (37.5-50.1)
[2018-01-29] MEDS ORDERED: *HR* Heparin 5,000 UNIT/ML VIAL IVP PRN (15:41)
[2018-01-29] MEDS ORDERED: Ketorolac 30 MG/ML VIAL IVP PRN (15:41)
[2018-01-29] MEDS ORDERED: Naloxone 0.4 MG/ML INJ IVP PRN ×2 (15:41)
--- NOTE | 2018-01-29 15:51 | Anesthesia Evaluation Post Op ---
Date of Encounter: 01/29/18 Time of Encounter: 15:50 - Vital Signs Vital Signs: Vital Signs/O2 Sat, Most Current Temp Pulse Resp BP Pulse Ox 99.1 F 73 20 140/66 100 01/29/18 15:38 01/29/18 15:38 01/29/18 15:38 01/29/18 15:38 01/29/18 15:38 - Lungs Lungs: Clear Ascult./Percussion - Airway Airway: Non-obstructed - Cardiovascular Regular Rate - Mental Status Mental Status: Alert & Oriented, Answers Appropriately - Pain Pain Scale: 3 Pain Scale used: Numeric (1 - 10) - Nausea Vomiting Nausea Vomiting: Not Present - Hydration Hydration: Ice chips, Andrews catheter - Discharge PostOp Status: Transfer Patient to floor
[2018-01-29] MEDS: D5% in 0.45% NACL 1,000 ML IVC SCH (16:03)
[2018-01-29] MEDS: Ondansetron 4 MG/2 ML VIAL IVP PRN (22:33)
[2018-01-29] MEDS: *HR* Heparin 5,000 UNIT/ML VIAL IVP PRN (23:50)
[2018-01-30] MEDS: D5% in 0.45% NACL 1,000 ML IVC SCH ×3 (01:40→22:33)
[2018-01-30] MEDS: OXYCODONE Oral CONC 10 MG/0.5 ML ORAL.SYG SL PRN (01:49)
[2018-01-30] MEDS: Ondansetron 4 MG/2 ML VIAL IVP PRN ×2 (05:20→15:22)
[2018-01-30] MEDS: *HR* Metoprolol 5 MG/5 ML VIAL IVP SCH ×3 (05:23→17:25)
[2018-01-30 07:05] LABS: Basophils % 0.3 %; Eosinophils % 0.1 %; Hematocrit 23.9 % (37.5-50.1); Hemoglobin 7.9 g/dL (12.9-16.9); Immature Granulocytes % 0.6 % (0-4); Lymphocytes # 1.2 K/mcL (0.6-4.6); Mean Corpuscular HGB Conc 33.1 g/dL (31.6-35.5); Mean Corpuscular Hemoglobin 28.1 pg (28.0-33.3); Mean Corpuscular Volume 85.1 fL (83.0-100.0); Mean Platelet Volume 11.6 fL (9.4-12.4); Monocytes # 1.6 K/mcL (0.0-1.3); Monocytes % 10.8 %; Platelet Count 156 K/mcL (140-400); Red Blood Count 2.81 M/mcL (4.19-5.50); Red Cell Distribution Width 15.5 % (11.5-14.5); Segmented Neutrophils % 80.2 %
[2018-01-30 07:15] LABS: Basophils # 0.1 K/mcL (0.0-0.2); Calcium 7.8 mg/dL (8.6-10.3); Potassium 4.4 mEq/L (3.5-5.1)
[2018-01-30] MEDS ORDERED: Lisinopril 20 MG TABLET PO SCH (09:00)
[2018-01-30] MEDS ORDERED: Aminoglycoside Consult 1 EACH MC ONE (09:12)
[2018-01-30] MEDS: BuPROPion SR (12 HR) 150 MG TABLET PO SCH (09:13)
[2018-01-30] MEDS: Gabapentin 400 MG CAPSULE PO SCH ×3 (09:14→20:43)
[2018-01-30] MEDS: Aspirin Enteric Coated 81 MG Tablet PO SCH (09:14)
--- NOTE | 2018-01-30 14:25 | Vascular/[facility] Progress Note ---
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 His foot is warm today. He has a polyphasic signal. His compartments are soft. His no evidence of ongoing blood loss. He will remain on a heparin drip today. He will begin progressive ambulation. He will likely require rehab. Qualifiers: Lower extremity ulceration location: ankle Qualified Code(s): I70.533 - Atherosclerosis of nonautologous biological bypass graft(s) of the right leg with ulceration of ankle (2) Hypertension Current Visit: Yes Status: Chronic Qualifiers: Hypertension type: essential hypertension Qualified Code(s): I10 - Essential (primary) hypertension (3) Hypercholesterolemia Current Visit: No Status: Chronic (4) Acute blood loss anemia Current Visit: No Status: Acute The patient has acute expected postoperative blood loss anemia. Hemoglobin was 8.0. Today is 7.9. He is hemodynamically stable and has no evidence of ongoing blood loss. We will recheck his hemoglobin tomorrow. - Subjective Interval history: The patient reports some nausea and vomiting overnight. He reports he is feeling much better today. He denies any significant leg pain other than incisional pain. He denies chest pain shortness of breath. Vital Signs, Last 4 Hours Temp Pulse Resp BP Pulse Ox 01/30/18 11:25 98.4 F 113 18 114/55 97 - Physical Examination General: Present: Conversant Lungs: Present: Normal Breath Sounds Neuro: Present: Alert and responsive, No focal deficits noted Vascular: Present: Normal capillary refill, Pulse, normal (Right pedal signals are polyphasic.), Surgical incisions (Clean dry and intact without any erythema or drainage.). Absent: Cyanosis, Edema Abdomen: Present: Soft Skin: Present: No rashes noted on visualized skin - VTE Documentation of Mechanical Device: Intermittent pneumatic compression device Results 01/30/18 06:16 01/30/18 06:16 Lab Results, Last 24 hours 01/29/18 01/29/18 01/30/18 14:46 22:47 06:16 WBC 15.0 H D Hgb 8.0 L 7.9 L Hct 24.1 L 23.9 L Plt Count 156 APTT 54.5 H Sodium Potassium Chloride Carbon Dioxide BUN Creatinine Glucose Calcium 01/30/18 01/30/18 06:16 06:16 WBC Hgb Hct Plt Count APTT 82.4 H D Sodium 128 L Potassium 4.4 Chloride 98 Carbon Dioxide 24 BUN 23 Creatinine 1.61 H Glucose 176 H Calcium 7.8 L Consult Discharge Plan - Plan Referrals: [facility],PCP [Primary Care Provider] - 02/06/18 2:00 pm Chacorta Joel MD [Partnered Physician] - 02/08/18 9:30 am
[2018-01-30] MEDS: Heparin 25,000 UNIT/500 ML D5W 25,000 UNIT/500 ML BAG IVC SCH (15:26)
[2018-01-30] MEDS: *HR* Heparin 5,000 UNIT/ML VIAL IVP PRN (17:40)
[2018-01-30] MEDS ORDERED: 0.9 % Sodium Chloride 500 ML IVC ONE (18:51)
[2018-01-30] MEDS: 0.9 % Sodium Chloride 1,000 ML IVC SCH (22:32)
--- NOTE | 2018-01-30 23:03 | Event Note ---
Date of Encounter: 01/30/18 Time of Encounter: 10:30 Called by nurse. Patient had nausea and vomiting this evening. Diet backed down to clear liquids, continue with Zofran. If patient has further emesis, he will be placed NPO. Patient had minimal urine output after straight cath earlier tonight. He did not receive NS bolus as previously ordered. Bolus given and IV fluids changed to NS @ 125/hr. Andrews catheter ordered. Recheck labs in am.
[2018-01-31 01:12] LABS: Mean Corpuscular HGB Conc 34.8 g/dL (31.6-35.5); Mean Corpuscular Hemoglobin 30.2 pg (28.0-33.3); Mean Corpuscular Volume 86.8 fL (83.0-100.0); Mean Platelet Volume 12.2 fL (9.4-12.4); Platelet Count 178 K/mcL (140-400); Red Blood Count 2.65 M/mcL (4.19-5.50); Red Cell Distribution Width 15.4 % (11.5-14.5)
[2018-01-31] MEDS: OXYCODONE Oral CONC 10 MG/0.5 ML ORAL.SYG SL PRN ×5 (01:18→22:23)
[2018-01-31] MEDS: *HR* Heparin 5,000 UNIT/ML VIAL IVP PRN (01:21)
[2018-01-31 01:22] LABS: Calcium 7.4 mg/dL (8.6-10.3); Potassium 4.2 mEq/L (3.5-5.1)
[2018-01-31] MEDS: *HR* Metoprolol 5 MG/5 ML VIAL IVP SCH ×4 (03:02→17:17)
[2018-01-31] MEDS: Heparin 25,000 UNIT/500 ML D5W 25,000 UNIT/500 ML BAG IVC SCH (06:29)
--- NOTE | 2018-01-31 07:19 | Vascular/[facility] Progress Note ---
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 His foot remains warm. He has Doppler signals present. His compartments are soft. Qualifiers: Lower extremity ulceration location: ankle Qualified Code(s): I70.533 - Atherosclerosis of nonautologous biological bypass graft(s) of the right leg with ulceration of ankle (2) Hypercholesterolemia Current Visit: No Status: Chronic (3) Acute blood loss anemia Current Visit: No Status: Acute The patient has developed progressive anemia. He has received packed red blood cells. He has no evidence of ongoing blood loss. Given that he has become oliguric with acute kidney injury, he will receive additional packed red blood cells today. His heparin drip will be held due to his bleeding risk. (4) Acute renal insufficiency Current Visit: Yes Status: Acute The patient has become oliguric despite PRBCs and IV fluids. Nephrology has been consulted. Continue with intravenous fluids. His Andrews catheter will remain in place to monitor his urine output. (5) Hypertension Current Visit: Yes Status: Chronic Qualifiers: Hypertension type: essential hypertension Qualified Code(s): I10 - Essential (primary) hypertension - Subjective Interval history: The patient had continued nausea and vomiting overnight. He required NGT placement. He states that he is now feeling better. He denies abdominal pain. He reports incisional pain and right foot pain that has remained stable. He denies chest pain or shortness of breath. Vital Signs, Last 4 Hours Temp Pulse Resp BP Pulse Ox 01/31/18 07:13 98.0 F 81 18 99/45 90 - Physical Examination General: Present: Conversant, No Apparent Distress HEENT: Present: Pupils equal Cardiac: Present: Reg Rate and Rhythm Lungs: Present: Normal Breath Sounds Neuro: Present: Alert and responsive, No focal deficits noted, Motor nerves grossly intact, Sensory nerves grossly intact Vascular: Present: Normal capillary refill, Surgical incisions (clean and dry, mild erythema noted, no fluctuance, no purulence, no drainage), Other (pedal signals present bilaterally). Absent: Cyanosis Abdomen: Present: Soft, Other (right flank incisional tenderness). Absent: Masses - VTE Documentation of Mechanical Device: Intermittent pneumatic compression device Results 01/31/18 16:45 01/31/18 00:48 Lab Results, Last 24 hours 01/30/18 01/30/18 01/31/18 06:16 16:10 00:48 WBC Hgb Hct Plt Count APTT 82.4 H D 49.9 H 62.1 H Sodium Potassium Chloride Carbon Dioxide BUN Creatinine Glucose Calcium 01/31/18 01/31/18 01/31/18 00:48 00:48 06:00 WBC 18.7 H Hgb 8.0 L Hct 23.0 L Plt Count 178 APTT 89.6 H Sodium 129 L Potassium 4.2 Chloride 97 L Carbon Dioxide 22 L BUN 31 H Creatinine 3.06 H Glucose 136 H Calcium 7.4 L Consult Discharge Plan - Plan [facility]errals: [facility] [Primary Care Provider] - (this patient is going to rehab no PCP appointment needed) Chacorta Joel MD [Partnered Physician] - 02/08/18 9:30 am
--- NOTE | 2018-01-31 08:39 | Nephrology Consult Note ---
Date of Encounter: 01/31/18 Time of Encounter: 08:37 Assessment and Plan (1) Acute kidney failure, unspecified Current Visit: Yes Status: Acute Patient has a clinical picture of acute kidney injury likely multifactorial. He had radiocontrast exposure on January 28, he said several doses of Toradol, he has had several doses of vancomycin, and he currently has relative hypotension. The other possibility is the patient may have atheroembolic renal disease following his vascular procedures. Patient is currently receiving IV fluids at 125 an hour. I would continue with the fluids. Especially since he has and continued NG drainage. Give him 1 dose of Lasix to try and increase his urine output. We will also check a CPK just to make sure there is no rhabdomyolysis. We will continue to monitor the patient's renal function. Currently there is no acute indication for dialysis. If the patient's renal function continues to worsen he may require dialysis at some point. We will also check a renal ultrasound. 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 Patient underwent an elective right iliofemoral bypass along with a right iliac artery endarterectomy and right femoropopliteal thrombectomy on January 28. Following that procedure he underwent a CT angiogram on January 28. He then returned to the operating room on January 29 and had a thrombectomy of the right iliofemoral bypass. Patient developed acute kidney injury starting on January 30 when his creatinine went from 0.89 up to 1.61. Today his creatinine is up to 3.06. Urine output yesterday was approximately 600 mL. On January 30 the patient also developed nausea and vomiting requiring an NG tube placement. Patient received several doses of Toradol postoperatively and several doses of vancomycin postoperatively. Patient postoperatively initially had elevated blood pressure and required several agents including lisinopril hydralazine and labetalol. Assuming his blood pressure has been as low as 87/65 currently 99/ 45. Patient has no previous history of renal disease. He does have a history of BPH for which he takes tamsulosin. He currently has a Andrews catheter in place. Past Med Surg Social Fam HX - Past Medical History Medical history: arthritis, hyperlipidemia, hypertension, peripheral artery disease, other Additional medical history: lung nodule Psychiatric history: depression - Past Surgical History Surgical History: other Additional surgical history: vasectomy. seasonal affective disorder - Social History Smoking Status: Unknown if ever smoked Packs per day: 1 Smokeless Tobacco Status: No Alcohol use: none Drug use: none - Family History Mother Living Status: Hx Family Neuromuscular Disorders: No Hx Family Neurologic Disorders: Yes (alzheimers) Father Living Status: Hx Family Respiratory Disorders: Yes (was on oxygen; smoker) Medications and Allergies Atorvastatin [Lipitor] 40 mg PO HS 07/19/17 [History] BuPROPion SR (12 HR) [Wellbutrin SR] 150 mg PO QAM 07/19/17 [History] Lisinopril [Zestril] 40 mg PO DAILY 07/19/17 [History] Sertraline [Zoloft] 50 mg PO DAILY 07/19/17 [History] Tamsulosin [Flomax] 0.4 mg PO DAILY 07/19/17 [History] Gabapentin [Neurontin] 800 mg PO TID 11/01/17 [History] Aspirin Enteric Coated [Aspirin EC] 81 mg PO DAILY #30 tablet. 11/07/17 [Rx] Acetaminophen [Tylenol] 500 mg PO Q8H PRN 01/27/18 [History] 3 Allergy/AdvReac Type Severity Reaction Status Date / Time No Known Allergies Allergy Verified 01/27/18 11:03 Review of Systems Constitutional: as per HPI, weakness Eyes: bilateral: blurred vision (patient denies), diplopia (patient denies) Nose, mouth and throat: no dizziness, no headache(s) Cardiovascular: dyspnea on exertion, edema Respiratory: dyspnea on exertion Gastrointestinal: abdominal pain, nausea, vomiting Genitourinary Male: difficulty urinating Musculoskeletal: no muscle weakness, no numbness Integumentary: no hirsutism, no striae Neurological: weakness Psychiatric: no depression, no difficulty concentrating Endocrine: as per HPI Exam - Vital Signs Vital signs: Initial Vital Signs Resp Pulse Ox 18 99 01/27/18 10:42 01/27/18 10:42 Vital Signs - Last 8 Hours Temp Pulse Resp BP Pulse Ox 01/31/18 07:13 98.0 F 81 18 99/45 90 01/31/18 02:50 97.8 F 95 19 106/51 91 Intake and Output 01/30/18 01/31/18 01/31/18 23:59 07:59 15:59 Intake Total 100 / 100 705 / 705 Output Total 350 / 350 1200 / 1200 Balance -250 / -250 -495 / -495 Intake: IV Fluids 100 / 100 405 / 405 Heparin 25,000 UNIT/500 ML D5W 100 / 100 25,000 unit In 500 ml @ 11.1 UNIT/KG/HR 20.039 mls/hr IVC . Q24H [facility] Rx#:[id number] Blood Product 0 / 0 300 / 300 Rbcs Leuko Poor As-1 Unit 0 / 0 300 / 300 [id number] Output: Emesis 300 / 300 500 / 500 Gastric Tube Lavage Amount 300 / 300 Right Nare 300 / 300 Straight Cath 50 / 50 Catheter 100 / 100 Urethral (Andrews) 50 / 50 Gastric Drainage 300 / 300 Other: Weight 98.3 kg Patient Weight 01/31/18 23:59 Weight 98.3 kg - General Appearance Exam: Patient is alert and oriented. NG tube is in place. Blood pressure 99/45. Lungs diminished breath sounds otherwise clear. Heart regular rate and rhythm. Abdomen demonstrates diminished bowel sounds. Abdomen is soft. There is edema of the right lower extremity with a right foot ulcer as well as recent surgical incisions. There is minimal swelling of the left lower extremity. Results - Lab Results 01/31/18 00:48 01/31/18 00:48 Most recent lab results ABG pH 7.36 pH Units (7.32-7.45) 01/29/18 11:48 ABG pCO2 39 mmHg (35-45) 01/29/18 11:48 ABG pO2 197 mmHg (85-104) H 01/29/18 11:48 ABG HCO3 22 mEq/L (21-27) 01/29/18 11:48 ABG O2 Saturation 100 % (95-98) H 01/29/18 11:48 Calcium 7.4 mg/dL (8.6-10.3) L 01/31/18 00:48 Consult Discharge Plan - Plan [facility]errals: [facility] [Primary Care Provider[facility] - 02/06/18 2:00 pm Chacorta Joel MD [Partnered Physician] - 02/08/18 9:30 am
[2018-01-31] MEDS ORDERED: Furosemide 40 MG/4 ML VIAL IVP ONE (08:46)
[2018-01-31] MEDS: Gabapentin 400 MG CAPSULE PO SCH ×3 (09:41→20:34)
[2018-01-31] MEDS: BuPROPion SR (12 HR) 150 MG TABLET PO SCH (09:41)
[2018-01-31] MEDS: Aspirin Enteric Coated 81 MG Tablet PO SCH (09:41)
[2018-01-31] MEDS: Piperacillin/Tazobactam 3.375 GM in 0.9 % Sodium Chloride Mini Bag 100 ML IVPB SCH ×2 (11:16→18:07)
[2018-01-31] MEDS: 0.9 % Sodium Chloride 1,000 ML IVC SCH ×3 (14:59→22:24)
[2018-01-31 17:01] LABS: Hematocrit 24.2 % (37.5-50.1)
[2018-01-31] MEDS: Pantoprazole 40 MG VIAL IVP SCH (18:07)
--- NOTE | 2018-01-31 18:47 | Event Note ---
Date of Encounter: 01/31/18 Time of Encounter: 17:15 The patient reports he is comfortable this afternoon. He denies any nausea since his NG tube was placed. He denies any abdominal or flank pain. He reports stable incisional pain. He denies chest or shortness of breath. Exam reveals a soft abdomen with no tenderness except for the right flank incision. His NG tube chest clear fluid. He has made proximal a 15 mL of clear-appearing urine. His post transfusion hemoglobin remains at 8.0. He received 2 units of packed red blood cells tonight. He will continue with intravenous fluids. His labs were rechecked in the morning.
[2018-01-31] MEDS ORDERED: 0.9 % Sodium Chloride 250 ML ONE (22:11)
[2018-02-01] MEDS: *HR* Metoprolol 5 MG/5 ML VIAL IVP SCH ×4 (00:52→18:48)
[2018-02-01] MEDS: Piperacillin/Tazobactam 3.375 GM in 0.9 % Sodium Chloride Mini Bag 100 ML IVPB SCH ×3 (03:47→18:48)
[2018-02-01] MEDS: OXYCODONE Oral CONC 10 MG/0.5 ML ORAL.SYG SL PRN ×3 (03:47→13:56)
[2018-02-01] MEDS: Pantoprazole 40 MG VIAL IVP SCH ×2 (06:12→18:48)
[2018-02-01] MEDS: Aspirin Enteric Coated 81 MG Tablet PO SCH (07:47)
[2018-02-01] MEDS: Gabapentin 400 MG CAPSULE PO SCH ×3 (07:47→21:14)
[2018-02-01] MEDS: BuPROPion SR (12 HR) 150 MG TABLET PO SCH (07:48)
[2018-02-01 08:44] LABS: Basophils % 0.3 %; Eosinophils # 0.1 K/mcL (0.0-0.6); Eosinophils % 0.6 %; Hematocrit 24.9 % (37.5-50.1); Hemoglobin 8.4 g/dL (12.9-16.9); Immature Granulocytes % 0.6 % (0-4); Lymphocytes # 0.9 K/mcL (0.6-4.6); Lymphocytes % 5.9 %; Mean Corpuscular HGB Conc 33.7 g/dL (31.6-35.5); Mean Corpuscular Hemoglobin 29.3 pg (28.0-33.3); Mean Corpuscular Volume 86.8 fL (83.0-100.0); Mean Platelet Volume 10.7 fL (9.4-12.4); Monocytes # 1.6 K/mcL (0.0-1.3); Monocytes % 10.7 %; Neutrophils # 12.5 K/mcL (1.6-8.9); Nucleated Red Blood Cells 0.6 /100 WBC (0); Platelet Count 175 K/mcL (140-400); Red Blood Count 2.87 M/mcL (4.19-5.50); Red Cell Distribution Width 15.1 % (11.5-14.5); Segmented Neutrophils % 81.9 %
[2018-02-01 09:04] LABS: Albumin 2.3 g/dL (3.5-5.7); Albumin 2.4 g/dL (3.5-5.7); Albumin/Globulin Ratio 1.2 (1.1-2.2); Bilirubin,Total 0.9 mg/dL (0.3-1.0); Calcium 7.4 mg/dL (8.6-10.3); Calcium 7.5 mg/dL (8.6-10.3); Globulin 1.9 g/dL (2.4-3.5); Phosphorous 4.9 mg/dL (2.7-4.5); Potassium 4.1 mEq/L (3.5-5.1); Total Protein 4.2 g/dL (6.4-8.9)
--- NOTE | 2018-02-01 09:51 | Nephrology Progress Note ---
Date of Encounter: 02/01/18 Time of Encounter: 09:49 - Assessment and Plan (1) Acute kidney failure, unspecified Current Visit: Yes Status: Acute The patient has acute kidney injury that is multifactorial including radiocontrast nephropathy, Toradol, vancomycin, and relative hypotension. Atheroembolic renal disease is also a possibility but less likely. It appears as though the rate of increase of his serum creatinine may be slowing in his urine output may be increasing. This is certainly encouraging. We will continue to monitor his renal function. There is no acute indication for hemodialysis. I would continue with the current IV fluids at 125 mL per hour. 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 He continues to have an NG tube in place. His serum creatinine is higher today than yesterday but the rate of rise may be decreasing. He only made about 225 mL of urine yesterday but this morning he is already made 400 mL. Renal ultrasound was unremarkable. CPK was normal. Objective - Vital Signs Vital signs: Vital Signs Temp Pulse Resp BP Pulse Ox 02/01/18 07:19 99.2 F 77 19 134/62 95 02/01/18 06:08 98.5 F 91 16 152/55 02/01/18 03:53 98.4 F 85 16 148/60 92 02/01/18 03:50 98.2 F 88 16 145/72 92 02/01/18 01:09 98.2 F 78 18 121/44 94 01/31/18 23:41 98.8 F 91 16 149/64 94 01/31/18 22:32 98.1 F 91 18 89/73 96 01/31/18 22:28 98.2 F 98 20 113/52 93 01/31/18 20:35 85 01/31/18 19:31 99.1 F 95 17 110/55 97 01/31/18 16:18 98.0 F 91 18 96/61 94 01/31/18 13:18 98.3 F 84 14 123/46 93 01/31/18 11:14 98.0 F 83 18 98/41 95 Intake and Output 01/31/18 02/01/18 02/01/18 23:59 07:59 15:59 Intake Total 1100 / 1100 880 / 880 Output Total 625 / 625 1400 / 1400 Balance 475 / 475 -520 / -520 Intake: IV Fluids 1100 / 1100 40 / 40 0.9 % Sodium Chloride 250 ML @ 40 / 40 0 mls/hr .ROUTE .K-MED ONE Rx #:[id number] 0.9 % Sodium Chloride 1,000 ML 1000 / 1000 @ 125 mls/hr IVC .Q8H [facility] Rx#: [id number] Zosyn 3.375 GM In 0.9 % Sodium 100 / 100 Chloride (Mini-Bag +) 100 ML @ 25 mls/hr IVPB Q8H [facility] Rx#: [id number] Oral 240 / 240 Blood Product 0 / 0 600 / 600 Rbcs Leuko Poor As-1 Unit 0 / 0 300 / 300 [id number] Rbcs Leuko Poor As-1 Unit 300 / 300 [id number] Output: Catheter 25 / 25 400 / 400 Gastric Drainage 600 / 600 1000 / 1000 Right Nare 600 / 600 1000 / 1000 Other: Meal NPO NPO Percent of Meal Consumed 0% Weight 99.2 kg 100.8 kg Blood Glucose* 128 118 Patient Weight 02/01/18 23:59 Weight 100.8 kg - General Appearance Exam: Patient is alert and oriented. He is in no acute distress. Blood pressure 134/ 62. NG tube is in place. Andrews catheter is in place. Lung sounds otherwise clear. Heart regular rate and rhythm. Abdomen does demonstrate some bowel sounds. There is some swelling of the right lower extremity. Minimal swelling of the left lower extremity. - Lab 02/01/18 07:00 02/01/18 07:00 Most recent lab results ABG pH 7.36 pH Units (7.32-7.45) 01/29/18 11:48 ABG pCO2 39 mmHg (35-45) 01/29/18 11:48 ABG pO2 197 mmHg (85-104) H 01/29/18 11:48 ABG HCO3 22 mEq/L (21-27) 01/29/18 11:48 ABG O2 Saturation 100 % (95-98) H 01/29/18 11:48 Calcium 7.5 mg/dL (8.6-10.3) L 02/01/18 07:00 Phosphorus 4.9 mg/dL (2.7-4.5) H 02/01/18 07:00 - VTE Documentation of Mechanical Device: Intermittent pneumatic compression device Consult Discharge Plan - Plan [facility]errals: [facility] [Primary Care Provider] - (this patient is going to rehab no PCP appointment needed) Chacorta Joel MD [Partnered Physician] - 02/08/18 9:30 am
[2018-02-01] MEDS: 0.9 % Sodium Chloride 1,000 ML IVC SCH ×3 (10:42→18:07)
--- NOTE | 2018-02-01 17:01 | Vascular/[facility] Progress Note ---
Date of Encounter: 02/01/18 Time of Encounter: 16:57 - Assessment and plan (1) PAD (peripheral artery disease) Current Visit: Yes Status: Chronic Patent right lower extremity bypass grafts. Patient now has multiphasic Doppler signals at the right foot and ankle with a warm and pink right foot with less than 2 second capillary refill. Sensation and motor to the right foot is within normal limits. (2) Hypertension Current Visit: Yes Status: Chronic Patient has history of chronic hypertension Qualifiers: Hypertension type: essential hypertension Qualified Code(s): I10 - Essential (primary) hypertension (3) Acute renal insufficiency Current Visit: Yes Status: Acute Appreciate Dr. Daniel's consultation. Patient's urinary output has significantly increased during the day. Anticipate biochemical markers will show significant improvement tomorrow morning. (4) Acute blood loss as cause of postoperative anemia Current Visit: Yes Status: Acute Patient's hemoglobin has stabilized at 8.4 this morning. No signs of active bleeding. Hemodynamically stable. Signs of increased peripheral perfusion. Normal mental status. - Subjective Interval history: He is beginning patient is feeling better. He denies any nausea or vomiting. The NG tube is functioning appropriately. He states he is beginning to feel hungry. He states he has passed flatus 2 or 3 times today. He was sitting up in the chair for 2-3 hours earlier today. He denies any lower extremity pain. He has discomfort along the right retroperitoneal incision. Vital Signs, Last 4 Hours Temp Pulse Resp BP Pulse Ox 02/01/18 16:04 98.7 F 86 19 127/49 96 - Physical Examination General: Present: Conversant, No Apparent Distress HEENT: Present: Atraumatic, Normocephaly Neck: Absent: JVD Cardiac: Present: Reg Rate and Rhythm, Normal S1 and S2 Lungs: Present: Normal Breath Sounds Neuro: Present: Alert and responsive, No focal deficits noted Vascular: Present: Normal capillary refill, Color/Temperature (Right foot is warm and pink), Surgical incisions (Patient has dressings on right lower extremity incisions), Other (Patient has multiphasic Doppler signals to right foot) Abdomen: Present: Soft, Non-tender, Other (Patient has active bowel sounds). Absent: Masses - VTE Documentation of Mechanical Device: Intermittent pneumatic compression device Results 02/01/18 07:00 02/01/18 07:00 Lab Results, Last 24 hours 01/31/18 02/01/18 02/01/18 16:45 07:00 07:00 WBC 15.3 H Hgb 8.0 L 8.4 L Hct 24.2 L 24.9 L Plt Count 175 Sodium 133 L Potassium 4.1 Chloride 100 Carbon Dioxide 23 BUN 46 H Creatinine 3.43 H Glucose 103 Calcium 7.5 L Total Bilirubin AST ALT Alkaline Phosphatase 02/01/18 07:00 WBC Hgb Hct Plt Count Sodium 133 L Potassium 4.1 Chloride 100 Carbon Dioxide 23 BUN 46 H Creatinine 3.41 H Glucose 103 Calcium 7.4 L Total Bilirubin 0.9 AST 199 H ALT 305 H Alkaline Phosphatase 48 Consult Discharge Plan - Plan [facility]errals: [facility] [Primary Care Provider] - (this patient is going to rehab no PCP appointment needed) Chacorta Joel MD [Partnered Physician] - 02/08/18 9:30 am
--- NOTE | 2018-02-01 17:07 | Physician Discharge Referral ---
ExtendedCare Referral Info Transfer To: [facility] Provider in Charge: Dr Joel Provider in Charge after Transfer: Other Institutional Level of Care: Skilled - Diagnosis (1) PAD (peripheral artery disease) Priority: Primary Status: Chronic (2) Hypertension Priority: Secondary Status: Chronic (3) Acute renal insufficiency Priority: Secondary Status: Acute (4) Acute blood loss as cause of postoperative anemia Priority: Secondary Status: Acute Expected Duration of Placement: 7-10 days Prognosis: Good Aware of Diagnosis: Patient, Family Aware of Prognosis: Patient, Family - Transfer Medications Home Medications: Atorvastatin [Lipitor] 40 mg PO HS 07/19/17 [History] BuPROPion SR (12 HR) [Wellbutrin SR] 150 mg PO QAM 07/19/17 [History] Lisinopril [Zestril] 40 mg PO DAILY 07/19/17 [History] Sertraline [Zoloft] 50 mg PO DAILY 07/19/17 [History] Tamsulosin [Flomax] 0.4 mg PO DAILY 07/19/17 [History] Gabapentin [Neurontin] 800 mg PO TID 11/01/17 [History] Aspirin Enteric Coated [Aspirin EC] 81 mg PO DAILY #30 tablet. 11/07/17 [Rx] Acetaminophen [Tylenol] 500 mg PO Q8H PRN 01/27/18 [History] Allergies/Adverse Reactions: 3 Allergy/AdvReac Type Severity Reaction Status Date / Time No Known Allergies Allergy Verified 01/27/18 11:03 - Respiratory Orders Smoking Cessation: Smoking cessation has been advised. For more information, call the [place] Tobacco Quit Line at 8-020-QESI-NOW. - Ancillary Orders May use pressure relief devices daily prn, May consult with Dentist, Materials Research Engineer, Locomotive Engineer Diesel PRN - Advance Directives Code Status: Full Code - Mobility Orders Ambulate - Rehabiliation Orders Rehab Potential: Good Rehab Orders: ROM Exercises, Evaluation for Physical Therapy, Evaluation for Occupational Therapy - Treatments Skin tear care topically daily PRN per policy - Diet Orders Regular CERTIFICATION: I certify that the transfer of the above named patient to an Extended Care Facility is necessary for the continuing treatment of the diagnosis listed. The above information is true and accurate reflection of patient's current condition. Confidential - Redisclosure prohibited without a patient's written consent.
[2018-02-02] MEDS: *HR* Metoprolol 5 MG/5 ML VIAL IVP SCH ×5 (00:15→23:45)
[2018-02-02] MEDS: OXYCODONE Oral CONC 10 MG/0.5 ML ORAL.SYG SL PRN ×5 (00:15→20:01)
[2018-02-02 03:32] LABS: Basophils # 0.1 K/mcL (0.0-0.2); Basophils % 0.3 %; Eosinophils # 0.2 K/mcL (0.0-0.6); Hematocrit 26.5 % (37.5-50.1); Hemoglobin 8.7 g/dL (12.9-16.9); Immature Granulocytes % 0.7 % (0-4); Lymphocytes # 0.9 K/mcL (0.6-4.6); Lymphocytes % 5.6 %; Mean Corpuscular HGB Conc 32.8 g/dL (31.6-35.5); Mean Corpuscular Hemoglobin 29.1 pg (28.0-33.3); Mean Corpuscular Volume 88.6 fL (83.0-100.0); Mean Platelet Volume 10.7 fL (9.4-12.4); Monocytes # 1.8 K/mcL (0.0-1.3); Monocytes % 10.9 %; Neutrophils # 13.1 K/mcL (1.6-8.9); Nucleated Red Blood Cells 0.3 /100 WBC (0); Platelet Count 186 K/mcL (140-400); Red Blood Count 2.99 M/mcL (4.19-5.50); Red Cell Distribution Width 15.4 % (11.5-14.5); Segmented Neutrophils % 81.5 %
[2018-02-02] MEDS: Piperacillin/Tazobactam 3.375 GM in 0.9 % Sodium Chloride Mini Bag 100 ML IVPB SCH ×2 (03:33→10:56)
[2018-02-02] MEDS: 0.9 % Sodium Chloride 1,000 ML IVC SCH ×3 (03:33→18:48)
[2018-02-02 03:44] LABS: Albumin 2.6 g/dL (3.5-5.7); Phosphorous 3.3 mg/dL (2.7-4.5); Potassium 4.6 mEq/L (3.5-5.1)
[2018-02-02] MEDS: Pantoprazole 40 MG VIAL IVP SCH ×2 (06:29→18:47)
[2018-02-02 07:27] LABS: Complement Component 3 88 mg/dL (88-201); Complement Component 4 20 mg/dL (10-40)
[2018-02-02] MEDS: BuPROPion SR (12 HR) 150 MG TABLET PO SCH (08:00)
[2018-02-02] MEDS: Gabapentin 400 MG CAPSULE PO SCH ×3 (08:00→19:57)
[2018-02-02] MEDS: Aspirin Enteric Coated 81 MG Tablet PO SCH (08:00)
--- NOTE | 2018-02-02 10:59 | Nephrology Progress Note ---
Date of Encounter: 02/02/18 Time of Encounter: 10:40 - Assessment and Plan (1) Acute renal insufficiency Current Visit: Yes Status: Acute Renal fct improving. Documented urine output 2750cc. Will continue IV fluids. Continue to monitor Subjective Interval history: Sitting up in chair. States feeling better. Objective - Vital Signs Vital signs: Vital Signs Temp Pulse Resp BP Pulse Ox 02/02/18 08:05 99.2 F 82 20 137/46 91 02/02/18 06:53 99.2 F 82 20 137/46 91 02/02/18 03:15 87 02/02/18 02:59 98.1 F 80 18 131/48 98 02/01/18 23:45 83 02/01/18 23:35 98.6 F 83 16 175/61 98 02/01/18 20:55 74 02/01/18 19:21 99.0 F 74 18 156/60 93 02/01/18 16:04 98.7 F 86 19 127/49 96 02/01/18 11:16 99.0 F 83 20 121/70 98 Intake and Output 02/01/18 02/02/18 02/02/18 23:59 07:59 15:59 Intake Total 1100 / 1100 1100 / 1100 Output Total 1150 / 1150 750 / 750 0 / 0 Balance -50 / -50 350 / 350 0 / 0 Intake: IV Fluids 1100 / 1100 1100 / 1100 0.9 % Sodium Chloride 1,000 ML 1000 / 1000 1000 / 1000 @ 125 mls/hr IVC .Q8H [facility] Rx#: [id number] Zosyn 3.375 GM In 0.9 % Sodium 100 / 100 100 / 100 Chloride (Mini-Bag +) 100 ML @ 25 mls/hr IVPB Q8H [facility] Rx#: [id number] Output: Catheter 950 / 950 450 / 450 Urethral (Andrews) 950 / 950 150 / 150 Gastric Drainage 200 / 200 300 / 300 0 / 0 Right Nare 200 / 200 0 / 0 Other: Meal NPO Percent of Meal Consumed 0% Blood Glucose* 77 - General Appearance General appearance: Present: well-developed, well-nourished, appears started age EENT: Present: mucous membranes moist Neck: Present: no JVD Respiratory: Present: clear Cardiology: Present: edema, regular rate, regular rhythm Additional Comments: 1-2+ R>L Gastrointestinal: Present: normoactive bowel sounds, no tenderness Integumentary: Present: warm and dry Neurologic: Present: alert and oriented x3 - Lab 02/02/18 03:20 02/02/18 03:20 Most recent lab results ABG pH 7.36 pH Units (7.32-7.45) 01/29/18 11:48 ABG pCO2 39 mmHg (35-45) 01/29/18 11:48 ABG pO2 197 mmHg (85-104) H 01/29/18 11:48 ABG HCO3 22 mEq/L (21-27) 01/29/18 11:48 ABG O2 Saturation 100 % (95-98) H 01/29/18 11:48 Calcium 8.0 mg/dL (8.6-10.3) L 02/02/18 03:20 Phosphorus 3.3 mg/dL (2.7-4.5) 02/02/18 03:20 - VTE Documentation of Mechanical Device: Intermittent pneumatic compression device Consult Discharge Plan - Plan [facility]errals: [facility] [Primary Care Provider] - (this patient is going to rehab no PCP appointment needed) Chacorta Joel MD [Partnered Physician] - 02/08/18 9:30 am
--- NOTE | 2018-02-02 11:18 | Vascular/[facility] Progress Note ---
Date of Encounter: 02/02/18 Time of Encounter: 08:10 - Assessment and plan (1) PAD (peripheral artery disease) Current Visit: Yes Status: Chronic Patient is postoperative day #6 from his initial revascularization and postoperative day #4 from his graft thrombectomy. Patent right lower extremity bypass grafts. Patient has multiphasic Doppler signals at the right foot and ankle with a warm and pink right foot with less than 2 second capillary refill. Sensation and motor to the right foot is within normal limits. (2) Hypertension Current Visit: Yes Status: Chronic Patient has history of chronic hypertension Qualifiers: Hypertension type: essential hypertension Qualified Code(s): I10 - Essential (primary) hypertension (3) Acute renal insufficiency Current Visit: Yes Status: Acute Appreciate Dr. Condon's consultation. Patient's urinary output has significantly increased yesterday. Biochemical markers demonstrate significant improvement today. Will consider removal of the Andrews in the next 24 hours pending patient's continued clinical improvement. (4) Acute blood loss as cause of postoperative anemia Current Visit: Yes Status: Acute Patient's hemoglobin at 8.7 this morning. No signs of active bleeding. Hemodynamically stable. Signs of increased peripheral perfusion. Normal mental status. Normal bowel function by physical exam. We will again clear liquid diet and removed nasogastric tube. - Subjective Interval history: Patient complains of being hungry. He had no problems overnight. Overall feeling about the same as yesterday. Vital Signs, Last 4 Hours Temp Pulse Resp BP Pulse Ox 02/02/18 10:56 98.8 F 73 18 175/61 98 02/02/18 08:05 99.2 F 82 20 137/46 91 - Physical Examination General: Present: Conversant, No Apparent Distress HEENT: Present: Atraumatic Neck: Absent: JVD Cardiac: Present: Reg Rate and Rhythm, Normal S1 and S2 Lungs: Present: Normal Breath Sounds Neuro: Present: Alert and responsive, No focal deficits noted Vascular: Present: Normal capillary refill, Surgical incisions (Patient has ecchymosis between the right retroperitoneal incision in the right groin incision. There is some fullness and edema of the soft tissue on this right flank area which has been present over the last few days. The other incisions are clean. There is small amount of yellowish serous drainage from the thigh incision.), Other (Doppler signals 3 in right foot. Right foot is warm with hyperemic response. Patient has bilateral lower extremity edema greater on the right side than on the left.) Abdomen: Present: Soft, Non-tender, Other (Patient has active bowel sounds. Patient reports multiple flatus.). Absent: Masses Skin: Present: No rashes noted on visualized skin - VTE Documentation of Mechanical Device: Intermittent pneumatic compression device Results 02/02/18 03:20 02/02/18 03:20 Lab Results, Last 24 hours 02/02/18 02/02/18 03:20 03:20 WBC 16.1 H Hgb 8.7 L Hct 26.5 L Plt Count 186 Sodium 136 Potassium 4.6 Chloride 105 Carbon Dioxide 19 L BUN 42 H Creatinine 2.15 H Glucose 86 Calcium 8.0 L Consult Discharge Plan - Plan [facility]errals: [facility] [Primary Care Provider] - (this patient is going to rehab no PCP appointment needed) Chacorta Joel MD [Partnered Physician] - 02/08/18 9:30 am
--- NOTE | 2018-02-02 11:47 | Discharge Summary ---
Orders not resulted at time of discharge: Pending orders 02/03/18 04:00 CBC [Complete Blood Count] [HEME] AM 0400 Renal Function Panel AM 0400 Date of Encounter: 02/03/18 Time of Encounter: 13:00 - Discharge Diagnosis (1) PAD (peripheral artery disease) Priority: Primary Status: Chronic Comments: Patient has significant right iliac and femoral popliteal disease. This required a variety of treatments culminating in a right iliofemoral bypass graft and right femoral to below the knee popliteal artery bypass graft. Because of the synthetic graft extending to the [id number] popliteal area long-term Xarleto therapy was recommended for the patient. This has been on hold due to the patient's renal dysfunction and anemia but will be restarted on February 04. (2) Hypertension Priority: Secondary Status: Chronic Comments: Patient has a history of essential hypertension. Qualifiers: Hypertension type: essential hypertension Qualified Code(s): I10 - Essential (primary) hypertension (3) Acute renal insufficiency Priority: Secondary Status: Resolved Comments: Patient had a history of acute renal insufficiency with a serum creatinine up to approximately 3.5 postoperatively. This was thought due to hypovolemia and anemia. This is been resolved with transfusion and IV fluid therapy. Renal function biochemically and urinary output has returned to normal prior to discharge. (4) Acute blood loss as cause of postoperative anemia Priority: Secondary Status: Acute Comments: Patient had acute anemia secondary to fluid loss at the time of surgery and the use of intravenous heparin postoperatively. - Hospital Course Hospital course: Mr. Johansen is a 67 year old male With known severe peripheral vascular occlusive disease. He is status post a previous femoral-femoral bypass graft in June 2017 for right iliac artery occlusion. The patient went on to thrombose the graft and underwent to thrombectomies of the femoral-femoral graft and a right femoral to above-the- knee popliteal artery bypass graft with synthetic graft in October 2016. The patient went on to thrombose the graft yet again. He was readmitted at this time for reconstruction of improved inflow with a direct inflow from the right iliac system. This required a retroperitoneal incision with endarterectomy of the proximal aspect of the right common iliac artery and creation of a bypass graft from this endarterectomize proximal common iliac artery to the right femoral artery. A thrombectomy of the femoral popliteal bypass graft was also necessary. This was performed but the patient went on to thrombose the graft was taken back to surgery on January 29 for thrombectomy of this area and creation of a new bypass graft to the more distal popliteal artery with the concern that the peripatellar at the knee popliteal artery was diseased and was limiting flow and so therefore the bypass graft was made to the [id number] popliteal artery. On the second postoperative day the patient went into acute renal failure with his serum creatinine rising to greater than 3 with minimal urine output. Consultation from nephrology/Dr. Condon was obtained. Patient also had an ileus. An NG tube was required as well as blood transfusions for acute blood loss anemia. This was thought secondary to his intravenous heparin postoperatively because of his graft thrombosis. The heparin was discontinued. The patient was given 2 units of blood postoperatively. With IV hydration the patient's renal function improved. The nasogastric tube was then removed on 2017 and a clear liquid diet was initiated. Consultation with physical and occupational therapy was obtained as the patient would clearly need inpatient rehabilitation. Patient was able to tolerate a general diet on 02/03/2018. He had a return to normal of his urinary output and biochemical renal function. He was felt fit for transfer to the [place] on the afternoon of 02/03/2018. - Time Spent with Patient Total time spent providing and/or coordinating discharge services: - Discharge Medications Prescriptions: Oxycodone HCl/Acetaminophen [Percocet 5-325 mg Tablet] 1 each PO Q8HR PRN 7 Days #20 tablet PRN Reason: Analgesia Rivaroxaban [Xarelto] 15 mg PO 1700 30 Days #30 tablet Home Medications: Atorvastatin [Lipitor] 40 mg PO HS 07/19/17 [History] BuPROPion SR (12 HR) [Wellbutrin SR] 150 mg PO QAM 07/19/17 [History] Lisinopril [Zestril] 40 mg PO DAILY 07/19/17 [History] Sertraline [Zoloft] 50 mg PO DAILY 07/19/17 [History] Tamsulosin [Flomax] 0.4 mg PO DAILY 07/19/17 [History] Gabapentin [Neurontin] 800 mg PO TID 11/01/17 [History] Aspirin Enteric Coated [Aspirin EC] 81 mg PO DAILY #30 tablet. 11/07/17 [Rx] Acetaminophen [Tylenol] 500 mg PO Q8H PRN 01/27/18 [History] Oxycodone HCl/Acetaminophen [Percocet 5-325 mg Tablet] 1 each PO Q8HR PRN 7 Days #20 tablet 02/03/18 [Rx] Rivaroxaban [Xarelto] 15 mg PO 1700 30 Days #30 tablet 02/03/18 [Rx] Allergies/Adverse Reactions: 3 Allergy/AdvReac Type Severity Reaction Status Date / Time No Known Allergies Allergy Verified 01/27/18 11:03 Date of admission: 01/28/18 03:43 [facility] care physician: [facility] Consults: 01/29/18 15:41 Consult to Brand Ambassador Promotional Model [CONS] Routine Reason for SW Consult: discharge rehab placement 01/30/18 07:49 Consult to Occupational Therapy [CONS] Stat Comment: Evaluate, develop and implement POC Reason for Consult: PVD, vascular surgery, eval for placement Does patient have active BEDREST order?: No Is patient medically & hemodynamically stable?: Yes Patient assessed for mobility or mobilized this visit?: Yes Consult to Physical Therapy [CONS] Stat Comment: Evaluate, develop and implement POC Reason for Consult: PVD, vascular surgery, eval for placement Does patient have active BEDREST order?: No Is patient medically & hemodynamically stable?: Yes Patient assessed for mobility or mobilized this visit?: Yes 01/31/18 08:07 Consult to Nephrology [CONS] Routine Consulting Provider: [facility] Kalit BELLO Reason for Consult: Acute renal failure - spoke with Dr. Condon Time Notified: 07:45 Call Completed: Yes Procedure(s) Performed: Right iliofemoral bypass graft with 8 mm PTFE and thrombectomy of right femoral above-knee popliteal artery bypass graft on January 27, 2018 Right iliofemoral and femoral-popliteal bypass graft thrombectomy and new right femoral to below-knee popliteal artery bypass graft with 6 mm PTFE Distaflo on January 29, 2018 Discharging clinician: Chacorta Joel Anticipated date of discharge: 02/03/18 Exam Vital Signs, Last 4 Hours Temp Pulse Resp BP Pulse Ox 02/02/18 10:56 98.8 F 73 18 175/61 98 02/02/18 08:05 99.2 F 82 20 137/46 91 General: Present: Conversant, No Apparent Distress HEENT: Present: Atraumatic Neck: Absent: JVD Cardiac: Present: Reg Rate and Rhythm Lungs: Present: Normal Breath Sounds Neuro: Present: Alert and responsive Abdomen: Present: Soft, Non-tender Vascular: Present: Normal capillary refill, Color/Temperature (Right foot is warm and pink. He has Doppler signals 3 that are multiphasic.), Other (Patient has ecchymosis on right flank secondary to right retroperitoneal incision and postoperative hematoma.) Skin: Present: No rashes noted on visualized skin - Patient Status Disposition: Transfer Inpatient Rehab Fac Condition: Good Functional capacity at discharge: uses cane/walker Overall status at discharge: patient is progressing back to baseline - Discharge Instructions Follow Up With: [facility]Primary Care Provider] - (this patient is going to rehab no PCP appointment needed) Chacorta Joel MD [Partnered Physician] - 02/22/18 9:45 am Additional Instructions: Adaptic dressing to right lower thigh wound daily. Dry dressing to right heel wound when necessary. Keep right groin incision dry and apply dry dressing to right groin as needed. Patient may fully participate in physical therapy. Patient is to return to see Dr. Joel in the vascular surgery clinic in 3 weeks. Patient is to resume Xarleto therapy at 15 mg by mouth every afternoon beginning February 04 for graft preservation for right lower extremity synthetic grafts. - Diet and Activity Activity: as per physical therapy Diet: advance to your usual diet - VTE Documentation of Mechanical Device: Intermittent pneumatic compression device
[2018-02-03] MEDS: 0.9 % Sodium Chloride 1,000 ML IVC SCH (03:08)
[2018-02-03 06:14] LABS: Basophils % 0.3 %; Eosinophils # 0.4 K/mcL (0.0-0.6); Eosinophils % 3.5 %; Hematocrit 23.7 % (37.5-50.1); Hemoglobin 7.6 g/dL (12.9-16.9); Immature Granulocytes % 0.9 % (0-4); Lymphocytes # 1.1 K/mcL (0.6-4.6); Lymphocytes % 9.9 %; Mean Corpuscular HGB Conc 32.1 g/dL (31.6-35.5); Mean Corpuscular Hemoglobin 29.6 pg (28.0-33.3); Mean Corpuscular Volume 92.2 fL (83.0-100.0); Mean Platelet Volume 10.4 fL (9.4-12.4); Monocytes # 1.6 K/mcL (0.0-1.3); Monocytes % 14.6 %; Neutrophils # 7.7 K/mcL (1.6-8.9); Platelet Count 138 K/mcL (140-400); Red Blood Count 2.57 M/mcL (4.19-5.50); Red Cell Distribution Width 15.9 % (11.5-14.5); Segmented Neutrophils % 70.8 %
[2018-02-03 06:49] LABS: Blood Urea Nitrogen 29 mg/dL (8-23); Carbon Dioxide 22 mEq/L (23-29); Chloride 103 mEq/L (98-107); Potassium 4.1 mEq/L (3.5-5.1); Sodium 130 mEq/L (136-145)
[2018-02-03 06:50] LABS: Albumin 2.3 g/dL (3.5-5.7); BUN/Creatinine Ratio 25 (6-26); Calcium 7.5 mg/dL (8.6-10.3); Glucose 102 mg/dL (70-105); Osmolality,Calculated 276 (280-300); Phosphorous 2.4 mg/dL (2.7-4.5); eGFR For African Americans > 60 (> 60); eGFR For Non-African Americans > 60 (> 60)
[2018-02-03] MEDS: Pantoprazole 40 MG VIAL IVP SCH (06:53)
[2018-02-03] MEDS: *HR* Metoprolol 5 MG/5 ML VIAL IVP SCH ×2 (06:53→11:07)
[2018-02-03] MEDS: BuPROPion SR (12 HR) 150 MG TABLET PO SCH (07:55)
[2018-02-03] MEDS: Gabapentin 400 MG CAPSULE PO SCH (07:55)
[2018-02-03] MEDS: Aspirin Enteric Coated 81 MG Tablet PO SCH (07:55)
[2018-02-03] MEDS ORDERED: Furosemide 20 MG/2 ML VIAL IVP ONE (08:17)
--- NOTE | 2018-02-03 09:28 | Nephrology Progress Note ---
Date of Encounter: 02/03/18 Time of Encounter: 09:10 - Assessment and Plan (1) Acute renal insufficiency Current Visit: Yes Status: Acute Renal fct improved. Creat 1.17. Documented urine output 1050cc. Will sign off, please call again if needed. Subjective Interval history: Sitting up in chair. States feeling better. Eating breakfast. No new complaints. Objective - Vital Signs Vital signs: Vital Signs Temp Pulse Resp BP Pulse Ox 02/03/18 07:58 64 02/03/18 07:02 98.2 F 62 17 166/7 97 02/03/18 04:17 98.4 F 80 18 159/67 98 02/03/18 04:00 74 02/02/18 23:45 68 02/02/18 23:14 98.3 F 83 20 148/62 93 02/02/18 20:00 66 02/02/18 18:33 97.8 F 94 20 163/49 95 02/02/18 16:34 98.6 F 75 17 130/81 92 02/02/18 16:00 98.6 F 75 17 130/81 92 02/02/18 11:10 98.8 F 73 18 175/61 98 02/02/18 10:56 98.8 F 73 18 175/61 98 Intake and Output 02/02/18 02/03/18 02/03/18 23:59 07:59 15:59 Intake Total 1200 / 1200 1200 / 1200 Output Total 450 / 450 800 / 800 Balance 750 / 750 400 / 400 Intake: IV Fluids 1000 / 1000 1000 / 1000 0.9 % Sodium Chloride 1,000 ML 1000 / 1000 1000 / 1000 @ 125 mls/hr IVC .Q8H REPLACED BY [facility] Rx#: [id number] Oral 200 / 200 200 / 200 Output: Catheter 450 / 450 800 / 800 Other: Weight 103.9 kg Blood Glucose* 109 109 Patient Weight 02/03/18 23:59 Weight 103.9 kg - General Appearance General appearance: Present: well-developed, well-nourished, appears started age EENT: Present: mucous membranes moist Neck: Present: no JVD Respiratory: Present: clear Cardiology: Present: edema, regular rate, regular rhythm Additional Comments: LE R>L Gastrointestinal: Present: normoactive bowel sounds, no tenderness Integumentary: Present: warm and dry Neurologic: Present: alert and oriented x3 - Lab 02/03/18 05:59 02/03/18 05:59 Most recent lab results ABG pH 7.36 pH Units (7.32-7.45) 01/29/18 11:48 ABG pCO2 39 mmHg (35-45) 01/29/18 11:48 ABG pO2 197 mmHg (85-104) H 01/29/18 11:48 ABG HCO3 22 mEq/L (21-27) 01/29/18 11:48 ABG O2 Saturation 100 % (95-98) H 01/29/18 11:48 Calcium 7.5 mg/dL (8.6-10.3) L 02/03/18 05:59 Phosphorus 2.4 mg/dL (2.7-4.5) L 02/03/18 05:59 - VTE Documentation of Mechanical Device: Intermittent pneumatic compression device Consult Discharge Plan - Plan [facility]: [facility] Care Provider[facility] - (this patient is going to rehab no PCP appointment needed) Chacorta Joel MD [Partnered Physician] - 02/22/18 9:45 am
[2018-02-03] MEDS ORDERED: 0.9 % Sodium Chloride 250 ML ONE (09:31)
[2018-02-03 13:22] VITALS: BP 179/70
== END 2018-02-03 16:13 | DRG 271 ==
LOC: SAMDAY 10:22 → 2NNU 10:22 → 3BNU 14:50 → OBSVTOIN 01-28 03:43
PROVIDERS: ADMIT Surgery Vascular Surgery; ATTEND Surgery Vascular Surgery

== ENCOUNTER 2018-02-09 23:19 | Inpatient (IN) ==
[2018-02-09] MEDS ORDERED: 0.9 % Sodium Chloride 1,000 ML IVC ONE (23:31)
--- NOTE | 2018-02-09 23:47 | Emergency Department Note ---
Disposition Clinical Impression: Retroperitoneal hematoma Disposition: Admitted As Inpatient [facility]errals: [facility] [Primary Care Provider] - General Adult HPI - General Chief complaint: ED Abdominal Pain Stated complaint: RLQ Swelling Time Seen by Provider: 02/09/18 23:22 Source: patient, EMS Limitations: no limitations - History of Present Illness Pain Scale: 5 - Related Data Home Medications Medication Instructions Recorded Confirmed Atorvastatin [Lipitor] 40 mg PO HS 07/19/17 01/27/18 BuPROPion SR (12 HR) [Wellbutrin 150 mg PO QAM 07/19/17 01/27/18 SR] Lisinopril [Zestril] 40 mg PO DAILY 07/19/17 01/27/18 Sertraline [Zoloft] 50 mg PO DAILY 07/19/17 01/27/18 Tamsulosin [Flomax] 0.4 mg PO DAILY 07/19/17 01/27/18 Gabapentin [Neurontin] 800 mg PO TID 11/01/17 01/27/18 Acetaminophen [Tylenol] 500 mg PO Q8H PRN 01/27/18 01/27/18 Previous Rx's Medication Instructions Recorded Aspirin Enteric Coated [Aspirin EC] 81 mg PO DAILY #30 tablet. 11/07/17 Oxycodone HCl/Acetaminophen 1 each PO Q8HR PRN 7 Days #20 02/03/18 [Percocet 5-325 mg Tablet] tablet Rivaroxaban [Xarelto] 15 mg PO 1700 30 Days #30 tablet 02/03/18 Allergies Allergy/AdvReac Type Severity Reaction Status Date / Time No Known Allergies Allergy Verified 02/09/18 23:23 Past Medical History - Past Medical History Medical history: Reports: arthritis, hyperlipidemia, hypertension, peripheral artery disease, other Surgical history: Reports: other Psychiatric history: Reports: depression - Social History Smoking Status: Unknown if ever smoked Smokeless Tobacco Status: No Alcohol use: Reports: none Drug use: Reports: none Physical Exam - General Limitations: no limitations General appearance: alert Course - Reevaluation(s) Reevaluation #1: Attestation note I examined this patient and my medical decision-making was reviewed with the emergency medicine resident. I agree with the documented findings, disposition and treatment plan as described except to the extent set forth below. Patient seen with emergency medicine resident Josue Lisa, Please see a copy of his note for details of the H&P, ED evaluation, management and disposition. I have independently evaluated the patient and confirmed appropriate portions of the history and physical exam. Briefly: 67-year-old male via EMS from the [facility] for internal bleeding. Patient who had a femorofemoral bypass done by Dr. Ortiz vascular surgeon to [facility] about 76 or 7 days ago, being cared for at the [facility] been noticed that his hemoglobin dropped to 8.6 CT scan showed a retroperitoneal hematoma consult to Dr. Joel for vascular surgery recommended that we do not worse the patient's apex abandoned. Repeat labs and admit hospitalist and he will consult on the patient tomorrow. Admission disposition pending. Time: 23:45 Vital Signs Temperature 97.3 F L 02/09/18 23:25 Pulse Rate 97 02/09/18 23:25 Respiratory Rate 18 02/09/18 23:25 Blood Pressure 181/71 02/09/18 23:25 O2 Sat by Pulse Oximetry 96 02/09/18 23:25 Temperature 97.3 F L 02/09/18 23:25 Pulse Rate 97 02/09/18 23:25 Respiratory Rate 18 02/09/18 23:25 Blood Pressure 181/71 02/09/18 23:25 O2 Sat by Pulse Oximetry 96 02/09/18 23:25 Oxygen Delivery Oxygen Delivery Room Air
[2018-02-09 23:49] LABS: Basophils # 0.1 K/mcL (0.0-0.2); Basophils % 0.4 %; Eosinophils # 0.4 K/mcL (0.0-0.6); Eosinophils % 2.6 %; Hemoglobin 8.9 g/dL (12.9-16.9); Immature Granulocytes % 0.7 % (0-4); Lymphocytes # 1.3 K/mcL (0.6-4.6); Lymphocytes % 9.7 %; Mean Corpuscular HGB Conc 31.8 g/dL (31.6-35.5); Mean Corpuscular Hemoglobin 28.8 pg (28.0-33.3); Mean Corpuscular Volume 90.6 fL (83.0-100.0); Mean Platelet Volume 10.4 fL (9.4-12.4); Monocytes # 1.5 K/mcL (0.0-1.3); Monocytes % 10.8 %; Neutrophils # 10.4 K/mcL (1.6-8.9); Platelet Count 357 K/mcL (140-400); Red Blood Count 3.09 M/mcL (4.19-5.50); Red Cell Distribution Width 15.8 % (11.5-14.5); Segmented Neutrophils % 75.8 %
[2018-02-09 23:56] LABS: Prothrombin Time 22.1 Seconds (9.4-12.1)
[2018-02-09 23:58] LABS: Activated Partial Thrombo Time 34.9 Seconds (26.0-36.0)
[2018-02-10 00:07] LABS: BUN/Creatinine Ratio 20 (6-26); Blood Urea Nitrogen 21 mg/dL (8-23); Calcium 8.5 mg/dL (8.6-10.3); Carbon Dioxide 26 mEq/L (23-29); Chloride 102 mEq/L (98-107); Glucose 111 mg/dL (70-105); Osmolality,Calculated 284 (280-300); Potassium 4.8 mEq/L (3.5-5.1); Sodium 135 mEq/L (136-145); eGFR For African Americans > 60 (> 60); eGFR For Non-African Americans > 60 (> 60)
[2018-02-10] MEDS ORDERED: Ondansetron 4 MG/2 ML VIAL IVP ONE (01:56)
[2018-02-10] MEDS ORDERED: Ondansetron 4 MG/2 ML VIAL ONE (01:56)
--- NOTE | 2018-02-10 03:03 | Emergency Department Note ---
Disposition Clinical Impression: Retroperitoneal hematoma, S/P femoral-femoral bypass surgery Anemia Qualifiers: Anemia type: other cause Other causes of anemia: other cause, not classified Qualified Code(s): D64.89 - Other specified anemias Disposition: Admitted As Inpatient Condition: Fair General Adult HPI - General Chief complaint: ED Abdominal Pain Stated complaint: RLQ Swelling Time Seen by Provider: 02/09/18 23:22 Source: patient, EMS Mode of arrival: ambulatory Limitations: no limitations Nursing Notes Reviewed: Yes Vital Signs Reviewed: Yes - History of Present Illness HPI Narrative: 67-year-old male history of recent femorofemoral bypass, presents complaining of right lower quadrant pain, he was at the [facility] in [facility] he recently had surgery [address] Joel the patient's CTA showed evidence of a retroperitoneal hematoma that was large, the patient was transferred to the [facility] to [facility] for evaluation with vascular surgery. No repeat lab work was done, although his tingling was 8.3 yesterday on 02/08 Onset (ago): hour(s) Radiation: abdomen Pain Severity: moderate Pain Scale: 5 Quality: aching Consistency: constant Improves with: nothing, movement Associated symptoms: Reports: nausea/vomiting. Denies: confusion, chest pain, cough, diaphoresis, seizure Treatments Prior to Arrival: none - Related Data Home Medications Medication Instructions Recorded Confirmed Atorvastatin [Lipitor] 40 mg PO HS 07/19/17 01/27/18 BuPROPion SR (12 HR) [Wellbutrin 150 mg PO QAM 07/19/17 01/27/18 SR] Lisinopril [Zestril] 40 mg PO DAILY 07/19/17 01/27/18 Sertraline [Zoloft] 50 mg PO DAILY 07/19/17 01/27/18 Tamsulosin [Flomax] 0.4 mg PO DAILY 07/19/17 01/27/18 Gabapentin [Neurontin] 800 mg PO TID 11/01/17 01/27/18 Acetaminophen [Tylenol] 500 mg PO Q8H PRN 01/27/18 01/27/18 Previous Rx's Medication Instructions Recorded Aspirin Enteric Coated [Aspirin EC] 81 mg PO DAILY #30 tablet. 11/07/17 Oxycodone HCl/Acetaminophen 1 each PO Q8HR PRN 7 Days #20 02/03/18 [Percocet 5-325 mg Tablet] tablet Rivaroxaban [Xarelto] 15 mg PO 1700 30 Days #30 tablet 02/03/18 Allergies Allergy/AdvReac Type Severity Reaction Status Date / Time No Known Allergies Allergy Verified 02/09/18 23:23 All systems ED: reviewed and negative except as stated. Review of Systems: As Per HPI Constitutional: Denies: fever, chills Eyes: Denies: eye pain ENT ED: Denies: ear pain Cardiovascular: Denies: chest pain Respiratory: Denies: cough Gastrointestinal: Reports: abdominal pain, nausea. Denies: vomiting Genitourinary: Denies: urgency, dysuria Musculoskeletal: Denies: back pain Integumentary: Denies: rash, abrasion Neurological: Denies: headache Past Medical History - Past Medical History Attestation: Yes The following information was validated with the patient. Source: patient Medical history: Reports: arthritis, hyperlipidemia, hypertension, peripheral artery disease, other Surgical history: Reports: other Psychiatric history: Reports: depression - Social History Smoking Status: Unknown if ever smoked Smokeless Tobacco Status: No Alcohol use: Reports: none Drug use: Reports: none Physical Exam Constitutional: Patient appears somewhat uncomfortable, is in no acute distress with hypertension. Eyes: PERRLA, sclera anicteric ENT & Mouth: MMM Neck: normal inspection, neck is supple Resp: CTA bilaterally, no resp distress CV: RRR, no m/g/r GI: soft, right abdominal incision well-healing incision to the right groin, well-healing with some ecchymosis tracking to the right lower quadrant abdomen. Neuro: A&O3, CNII-XII grossly intact, NOVAK Skin: Right groin incision status post femoral bypass are well-healing. - General Limitations: no limitations General appearance: alert Course Course Narrative: 65-year-old male with right lower quadrant pain, evidence of a retroperitoneal hematoma, plan is for repeat CBC, BMP, basic lab work including type and screen , PT/INR, consultation with vascular surgery plan is for observation at this time no acute surgical intervention is indicated per vascular surgery, CT scan showed retroperitoneal hematoma with evidence of right sided ureter collapsing, hematomas roughly 15 x 20 x 10 cm in diameter - Reevaluation(s) Reevaluation #1: Admitted to the hospitalist Dr. Franklin type and screen were ordered, patient hemolytically stable at this time recommended ICU admission for close hemodynamic monitoring - Consultations Consultation #1: History with Dr. Joel, he states at this time just discontinued Eliquis, and trend his H&H there is no indication for cervical clot removal at this time, we will reverse Eliquis per Dr. Joel's recommendation Vital Signs Temperature 97.3 F L 02/09/18 23:25 Pulse Rate 97 02/09/18 23:25 Respiratory Rate 18 02/09/18 23:25 Blood Pressure 181/71 02/09/18 23:25 O2 Sat by Pulse Oximetry 96 02/09/18 23:25 Temperature 97.3 F L 02/09/18 23:25 Pulse Rate 77 02/10/18 01:50 Respiratory Rate 20 02/10/18 01:50 Blood Pressure 168/65 02/10/18 01:50 O2 Sat by Pulse Oximetry 91 02/10/18 01:50 Oxygen Delivery Oxygen Delivery Room Air Medical Decision Making - Medical Records Medical records reviewed: Yes I reviewed the patient's medical records. - Lab Data Lab results reviewed: Yes I reviewed the patient's lab results. Result diagrams: 02/09/18 23:31 02/09/18 23:31 Lab Results 02/09/18 02/09/18 02/09/18 Range/Units 23:31 23:31 23:31 WBC 13.7 H (4.3-11.1) K/mcL RBC 3.09 L (4.19-5.50) M/mcL Hgb 8.9 L (12.9-16.9) g/dL Hct 28.0 L (37.5-50.1) % MCV 90.6 (83.0-100.0) fL MCH 28.8 (28.0-33.3) pg MCHC 31.8 (31.6-35.5) g/dL RDW 15.8 H (11.5-14.5) % Plt Count 357 D (140-400) K/mcL MPV 10.4 (9.4-12.4) fL Immature Gran % 0.7 (0-4) % Seg Neutrophils % 75.8 % Lymphocytes % 9.7 % Monocytes % 10.8 % Eosinophils % 2.6 % Basophils % 0.4 % Neutrophils # 10.4 H (1.6-8.9) K/mcL Lymphocytes # 1.3 (0.6-4.6) K/mcL Monocytes # 1.5 H (0.0-1.3) K/mcL Eosinophils # 0.4 (0.0-0.6) K/mcL Basophils # 0.1 (0.0-0.2) K/mcL PT 22.1 H (9.4-12.1) Seconds INR 2.0 APTT 34.9 (26.0-36.0) Seconds Sodium 135 L (136-145) mEq/L Potassium 4.8 (3.5-5.1) mEq/L Chloride 102 (98-107) mEq/L Carbon Dioxide 26 (23-29) mEq/L BUN 21 (8-23) mg/dL Creatinine 1.04 (0.70-1.30) mg/dL Est GFR ( Amer) > 60 (> 60) Est GFR (Non-Af Amer) > 60 (> 60) BUN/Creatinine Ratio 20 (6-26) Glucose 111 H (70-105) mg/dL Calculated Osmolality 284 (280-300) Calcium 8.5 L (8.6-10.3) mg/dL Blood Type Antibody Screen 02/09/18 Range/Units 23:36 WBC (4.3-11.1) K/mcL RBC (4.19-5.50) M/mcL Hgb (12.9-16.9) g/dL Hct (37.5-50.1) % MCV (83.0-100.0) fL MCH (28.0-33.3) pg MCHC (31.6-35.5) g/dL RDW (11.5-14.5) % Plt Count (140-400) K/mcL MPV (9.4-12.4) fL Immature Gran % (0-4) % Seg Neutrophils % % Lymphocytes % % Monocytes % % Eosinophils % % Basophils % % Neutrophils # (1.6-8.9) K/mcL Lymphocytes # (0.6-4.6) K/mcL Monocytes # (0.0-1.3) K/mcL Eosinophils # (0.0-0.6) K/mcL Basophils # (0.0-0.2) K/mcL PT (9.4-12.1) Seconds INR APTT (26.0-36.0) Seconds Sodium (136-145) mEq/L Potassium (3.5-5.1) mEq/L Chloride (98-107) mEq/L Carbon Dioxide (23-29) mEq/L BUN (8-23) mg/dL Creatinine (0.70-1.30) mg/dL Est GFR ( Amer) (> 60) Est GFR (Non-Af Amer) (> 60) BUN/Creatinine Ratio (6-26) Glucose (70-105) mg/dL Calculated Osmolality (280-300) Calcium (8.6-10.3) mg/dL Blood Type A NEGATIVE Antibody Screen NEGATIVE - Radiology Data Radiology results reviewed: Yes I reviewed the patient's radiology results.
--- NOTE | 2018-02-10 03:50 | Pulmonology History & Physical ---
Date of Encounter: 02/10/18 Time of Encounter: 03:45 History of Present Illness HPI: Mr. Johansen is a 67 year old male Past Med Surg Social Fam HX - Past Medical History Medical history: arthritis, hyperlipidemia, hypertension, peripheral artery disease, other Additional medical history: lung nodule Psychiatric history: depression - Past Surgical History Surgical History: other Additional surgical history: vasectomy. seasonal affective disorder - Social History Smoking Status: Unknown if ever smoked Smokeless Tobacco Status: No Alcohol use: none Drug use: none - Family History Mother Living Status: Hx Family Neuromuscular Disorders: No Hx Family Neurologic Disorders: Yes (alzheimers) Father Living Status: Hx Family Respiratory Disorders: Yes (was on oxygen; smoker) Medications and Allergies Atorvastatin [Lipitor] 40 mg PO HS 07/19/17 [History] BuPROPion SR (12 HR) [Wellbutrin SR] 150 mg PO QAM 07/19/17 [History] Lisinopril [Zestril] 40 mg PO DAILY 07/19/17 [History] Sertraline [Zoloft] 50 mg PO DAILY 07/19/17 [History] Tamsulosin [Flomax] 0.4 mg PO DAILY 07/19/17 [History] Gabapentin [Neurontin] 800 mg PO TID 11/01/17 [History] Aspirin Enteric Coated [Aspirin EC] 81 mg PO DAILY #30 tablet. 11/07/17 [Rx] Acetaminophen [Tylenol] 500 mg PO Q8H PRN 01/27/18 [History] Oxycodone HCl/Acetaminophen [Percocet 5-325 mg Tablet] 1 each PO Q8HR PRN 7 Days #20 tablet 02/03/18 [Rx] Rivaroxaban [Xarelto] 15 mg PO 1700 30 Days #30 tablet 02/03/18 [Rx] 3 Allergy/AdvReac Type Severity Reaction Status Date / Time No Known Allergies Allergy Verified 02/09/18 23:23 All Systems: The remainder of the systems were reviewed and are negative Physical Examination Vital Signs: Vital Signs, Last 4 Hours Pulse Resp BP Pulse Ox 02/10/18 03:10 84 16 185/87 91 Results - Laboratory Findings CBC and BMP: 02/09/18 23:31 02/09/18 23:31 PT/INR, D-dimer PT 22.1 Seconds (9.4-12.1) H 02/09/18 23:31 Abnormal lab findings: Abnormal lab results WBC 13.7 K/mcL (4.3-11.1) H 02/09/18 23:31 RBC 3.09 M/mcL (4.19-5.50) L 02/09/18 23:31 Hgb 8.9 g/dL (12.9-16.9) L 02/09/18 23:31 Hct 28.0 % (37.5-50.1) L 02/09/18 23:31 RDW 15.8 % (11.5-14.5) H 02/09/18 23:31 Neutrophils # 10.4 K/mcL (1.6-8.9) H 02/09/18 23:31 Monocytes # 1.5 K/mcL (0.0-1.3) H 02/09/18 23:31 PT 22.1 Seconds (9.4-12.1) H 02/09/18 23:31 Sodium 135 mEq/L (136-145) L 02/09/18 23:31 Glucose 111 mg/dL (70-105) H 02/09/18 23:31 Calcium 8.5 mg/dL (8.6-10.3) L 02/09/18 23:31
--- NOTE | 2018-02-10 03:59 | Internal Med History&Physical ---
<Vick Parsons - Last Filed: 02/10/18 05:07> Date of Encounter: 02/10/18 Time of Encounter: 03:58 Assessment and Plan (1) Retroperitoneal hematoma Current visit: Yes Status: Acute 1. 13 cm x 9.5 cm x 19 cm retroperitoneal hematoma adjacent to the right iliac artery stent and extends superiorly anterior to the psoas muscle and causing obstruction of the right ureter causing mild hydronephrosis and hydroureter 2. Questionable if patient is actually taking his xarelto. Patient states he rarely takes it and doesn't even take his aspirin daily. 3. Will continue to monitor his vitals and trend his h/h 4. Clinically, the patient is stable and is not in significant pain 5. Continue pain control 6. Vascular surgery to see later today for further recommendations 7. will also trend BMP's due to pseudo-obstruction of R collecting system from the hematoma and patient has had (2) Anemia Current visit: Yes Status: Acute 1. secondary to rph 2. Will monitor h/h, suspecting will remain stable 3. Patient was type/screened, will transfuse as necessary. Qualifiers: Anemia type: other cause Other causes of anemia: acute posthemorrhagic Qualified Code(s): D62 - Acute posthemorrhagic anemia (3) PAD (peripheral artery disease) Current visit: No Status: Chronic 1. Has significant necrosis of his R great toe which he states is chronic and is related to his PAD 2. Would recommend wound care consult today to follow him for this. He states he hit his toe on something month's ago and the nail started growing back and is growing back into his toe. He also has a few other ulcers to his lower extremities that should be monitored. Internal Medicine - H&P: HPI Chief complaint: Retroperitoneal hematoma Admitted From: Emergency Dept Plans for Post Hospital Care: Home History of present illness: Mr. Johansen is a 67 year old male who on 01/29 had a right ilio-femoral and femoral- popliteal bypass grafts thrombectomy with right femoral to BK popliteal bypass graft with 6 mm PTFE performed by Dr. Joel. He did require blood transfusion while in the hospital and had an PATRICK which resolved. He was discharged on . Patient presents to the ED today from the [facility] where a non-contrasted CT abd/pelvis showed a 13 cm x 9.5 cm x 19 cm retroperitoneal hematoma adjacent to the right iliac artery stent and extends superiorly anterior to the psoas muscle and causing obstruction of the right ureter causing mild hydronephrosis and hydroureter. There was also some seromas near the femorofemoral bypass. Incidentally, the patient also had some low density liver lesions that were indeterminate. His hemoglobin has remained relatively stable, but had dropped by 1 g to 8.3 compared to his previous just 24-48 hours prior. Was complaining of some nausea and vomiting and right lower quadrant abdominal pain as well as some right side pain. Denied any fever, chills, chest pain, shortness of breath , diarrhea, melena, hematochezia. Had also noticed some bruising and pain on the right side of his back. Patient had been on Xarelto but patient states he hasn't taken that in several weeks and could possibly be up to a month. The ER spoke with Dr. Joel, who recommended discontinuing the xarelto and admitting him for observation and hemoglobin trending. No surgical indication at this time. Past Med Surg Social Fam HX - Past Medical History Medical history: arthritis, hyperlipidemia, hypertension, peripheral artery disease, other Additional medical history: lung nodule Psychiatric history: depression - Past Surgical History Surgical History: other Additional surgical history: vasectomy. seasonal affective disorder - Social History Smoking Status: Unknown if ever smoked Smokeless Tobacco Status: No Alcohol use: none Drug use: none - Family History Mother Living Status: Hx Family Neuromuscular Disorders: No Hx Family Neurologic Disorders: Yes (alzheimers) Father Living Status: Hx Family Respiratory Disorders: Yes (was on oxygen; smoker) Internal Medicine - H&P: Meds Atorvastatin [Lipitor] 40 mg PO HS 07/19/17 [History] BuPROPion SR (12 HR) [Wellbutrin SR] 150 mg PO QAM 07/19/17 [History] Lisinopril [Zestril] 40 mg PO DAILY 07/19/17 [History] Sertraline [Zoloft] 50 mg PO DAILY 07/19/17 [History] Tamsulosin [Flomax] 0.4 mg PO DAILY 07/19/17 [History] Gabapentin [Neurontin] 800 mg PO TID 11/01/17 [History] Aspirin Enteric Coated [Aspirin EC] 81 mg PO DAILY #30 tablet. 11/07/17 [Rx] Acetaminophen [Tylenol] 500 mg PO Q8H PRN 01/27/18 [History] Oxycodone HCl/Acetaminophen [Percocet 5-325 mg Tablet] 1 each PO Q8HR PRN 7 Days #20 tablet 02/03/18 [Rx] Rivaroxaban [Xarelto] 15 mg PO 1700 30 Days #30 tablet 02/03/18 [Rx] 3 Allergy/AdvReac Type Severity Reaction Status Date / Time No Known Allergies Allergy Verified 02/09/18 23:23 All Systems PM: A 10-system review of systems was performed and is negative for pertinent findings except as documented above in the HPI. Review of systems: As reviewed in the HPI. All other systems reviewed are negative or normal. - Constitutional Vitals: Temp Pulse Resp BP Pulse Ox 98.2 F 83 20 178/84 93 02/10/18 03:42 02/10/18 03:42 02/10/18 03:42 02/10/18 03:42 02/10/18 03:42 General appearance: Present: A&O X 3 - Head Head exam: Present: atraumatic, normocephalic - Eye Eye exam: Present: PERRL, conjuntiva pink, sclera anicteric Pupils: Present: PERRL - Neck Neck exam general surgery: Present: supple, trachea midline. Absent: lymphadenopathy - Respiratory Respiratory exam: Present: CTAB. Absent: accessory muscle use, rales, rhonchi, wheezes - Cardiovascular Cardiovascular exam: Present: RRR, +S1, +S2. Absent: diastolic murmur, gallop, rubs, systolic murmur - GI/Abdominal GI/Abdominal exam: Present: normal bowel sounds, soft, tenderness (RLQ tenderness), no peritoneal signs. Absent: distended Additional comments: ecchymosis/swelling/induration of the RLQ/R-side/R-flank c/w hematoma. Incision sites c/d/i, healing well - Extremities Exam Extremities exam: Present: pedal edema, warm, radial pulses palpable and symmetrical. Absent: calf tenderness - Expanded Lower Extremities Exam Hip exam: Present: laceration (incisions c/d/i, appear to be healing well without evidence of infection) Foot/Toe exam: Present: ecchymosis (patient's R great toe is obviously necrotic which he states has been there for "some time", has a few other scattered ulcerated lesions to his RLE and R foot. Has full ROM with decreased but baseline sensation. ), swelling Neuro vascular tendon exam: Absent: extremity cold to touch, no vascular compromise, pulse deficit, sensory deficit - Incison Incision: Present: clean and dry, intact - Neurological Exam Neurological exam: Present: oriented X3, no focal deficits. Absent: facial droop, speech deficit - Skin Skin exam: Absent: rash Internal Med - H&P Results - Labs CBC & Chem 7: 02/09/18 23:31 02/09/18 23:31 <KyDaria perez O - Last Filed: 02/10/18 07:01> Date of Encounter: 02/10/18 Internal Medicine - H&P: HPI History of present illness: Mr. Johansen is a 67 year old male All Systems PM: A 10-system review of systems was performed and is negative for pertinent findings except as documented above in the HPI. - Constitutional Vitals: Temp Pulse Resp BP Pulse Ox 98.2 F 81 14 174/77 96 02/10/18 03:42 02/10/18 06:00 02/10/18 06:00 02/10/18 06:00 02/10/18 06:00 General appearance: Present: A&O X 3, no acute distress Exam: poor dentition - Head Head exam: Present: atraumatic, normocephalic - Eye Eye exam: Present: PERRL, conjuntiva pink, sclera anicteric Pupils: Present: PERRL - Neck Neck exam general surgery: Present: supple, trachea midline. Absent: lymphadenopathy - Expanded Neck Exam Neck exam: Present: carotid bruit - Respiratory Respiratory exam: Present: CTAB. Absent: accessory muscle use, rales, rhonchi, wheezes - Cardiovascular Cardiovascular exam: Present: RRR, +S1, +S2, systolic murmur. Absent: diastolic murmur, gallop, rubs - GI/Abdominal GI/Abdominal exam: Present: normal bowel sounds, soft, no peritoneal signs. Absent: distended, tenderness - Extremities Exam Extremities exam: Present: pedal edema (necrosis of great toe), warm, radial pulses palpable and symmetrical. Absent: calf tenderness, cyanotic - Neurological Exam Neurological exam: Present: CN II-XII intact, oriented X3, no focal deficits. Absent: pronater drift, facial droop, speech deficit - Skin Skin exam: Present: dry, intact Internal Med - H&P Results - Labs CBC & Chem 7: 02/10/18 05:52 02/09/18 23:31 Labs: Short CBC 02/10/18 Range/Units 05:52 Hgb 8.2 L (12.9-16.9) g/dL Hct 25.7 L (37.5-50.1) % - Attending Attestation I performed a history and physical exam of the patient and discussed his management with the resident. I reviewed the residents note and agree with the documented findings and plan of care. Assessment and plan. 1. Retroperitoneal hematoma. Vascular surgeon aware and consulted to see. Will monitor in ICU closely. If H/H jeffery not drop and pt remains stable, will consider transfer to tele. 2. Anemia. Will monitor H/H Q 6 hour. Pt has been typed and screened. 3. PAD. s/p Fem-fem 6 to 7 days ago. Was placed on Xarelto but not clear how complaint pt has been on it. 4. Necrotic great toe. Will consult podiatry to see. 5. Multiples sores. Consult wound care to see.
[2018-02-10] MEDS ORDERED: Naloxone 0.4 MG/ML INJ IVP PRN ×2 (04:34→05:18)
[2018-02-10 06:35] LABS: Hematocrit 25.7 % (37.5-50.1); Hemoglobin 8.2 g/dL (12.9-16.9)
[2018-02-10] MEDS: BuPROPion SR (12 HR) 150 MG TABLET PO SCH (09:13)
[2018-02-10] MEDS: Lisinopril 20 MG TABLET PO SCH (09:13)
[2018-02-10 12:16] LABS: Hematocrit 25.9 % (37.5-50.1); Hemoglobin 8.1 g/dL (12.9-16.9)
--- NOTE | 2018-02-10 12:26 | Vascular/[facility] Progress Note ---
Date of Encounter: 02/10/18 Time of Encounter: 12:23 - Assessment and plan (1) PAD (peripheral artery disease) Current Visit: Yes Status: Chronic Patent right iliofemoral bypass graft and patent right femoral to low knee popliteal artery bypass graft. (2) Acute blood loss anemia Current Visit: Yes Status: Chronic Patient has known anemia. No significant change since discharge. (3) Retroperitoneal hematoma Current Visit: Yes Status: Acute Suspect this right retroperitoneal hematoma was present on previous admission and just found because CT scan was performed. I do not recommend any intervention for this retroperitoneal hematoma and the patient certainly does not need surgery to decompress this hematoma. I recommended the patient resumed his full physical activities and rehabilitation. The Xarleto may be held for the next 2 weeks to allow further resolution of hematoma. The patient is scheduled to come back to see me in my office in approximately 12 days and we will reevaluate his status at that time. Patient is cleared from a vascular surgery perspective to be returned to the AL today. Patient may resume full rehabilitative services - Subjective Interval history: Waldo Johansen is a 67-year-old white male with a very complicated vascular history. He was referred last week to the AL for rehabilitation so that he could return home. Apparently the patient had some abdominal pain and a CT scan was done about 2 days ago. This demonstrated a right retroperitoneal hematoma. The patient was referred to the emergency room last night for evaluation. The patient has no new symptoms. He states his right flank has some discomfort which was present at the time of surgery and is expected due to his operation. The patient also clinically had had a hematoma in this region on the basis of discoloration of the flank tissue as well as fullness of the subcutaneous tissue. There is no significant difference in his symptoms now as compared to a week ago. The patient actually looks better and more comfortable than before. Vital Signs, Last 4 Hours Temp Pulse Resp BP Pulse Ox 02/10/18 11:49 98.0 F 02/10/18 09:00 82 20 160/64 94 - Physical Examination General: Present: Conversant, No Apparent Distress, Well developed, Well nourished HEENT: Present: Atraumatic, Normocephaly Neck: Absent: JVD Cardiac: Present: Reg Rate and Rhythm, Normal S1 and S2 Lungs: Present: Normal Breath Sounds Neuro: Present: Alert and responsive, No focal deficits noted Vascular: Present: Normal capillary refill, Edema (The patient has chronic edema of the lower extremities greater on the right side than on the left), Color/Temperature (His feet are warm and pink), Surgical incisions ( surgical incisions are intact), Other (Patient has multiphasic Doppler signals at the ankles bilaterally. The patient has ecchymosis on the flank area. This is nontender.) Abdomen: Present: Non-tender, Other (Active bowel sounds. No abdominal bruits.) . Absent: Masses Skin: Present: Wound/ulcer(s) (Distal aspect of the right first toe has dry eschar. There is no signs of cellulitis. There is no tenderness. The right heel ulcer is smaller than a week ago and is nontender. There is no signs of infection.) Results 02/10/18 11:18 02/09/18 23:31 Lab Results, Last 24 hours 02/10/18 02/10/18 05:52 11:18 Hgb 8.2 L 8.1 L Hct 25.7 L 25.9 L Consult Discharge Plan - Plan [facility]errals: [facility] [Primary Care Provider] -
--- NOTE | 2018-02-10 14:13 | Internal Med Progress Note ---
Date of Encounter: 02/10/18 Time of Encounter: 14:08 - Assessment and plan (1) Hypertension Current Visit: No Status: Chronic Assessment and plan: Adjust medication, add hydralazine as needed Qualifiers: Hypertension type: essential hypertension Qualified Code(s): I10 - Essential (primary) hypertension (2) Acute blood loss as cause of postoperative anemia Current Visit: No Status: Acute Assessment and plan: Close monitoring patient hemoglobin, cross and match for 1 unit of blood, check anemia workup may benefit from iron replacement (3) Retroperitoneal hematoma Current Visit: Yes Status: Acute Assessment and plan: Appreciate vascular surgery input, no surgical intervention needed, close monitoring patient condition, okay to ambulate PTOT - Time Spent With Patient Total time spent is greater than 50% in coordination of care (as documented) at patient's floor/unit and/or counseling patient: 25 - 35 minutes - Subjective Interval history: Constipation , hemoglobin is trending down, patient denies any abdominal pain, patient denies any nausea vomiting, patient denies any chest pain or shortness of breath, patient denies any dizziness or lightheadedness - Constitutional Vitals: Temp Pulse Resp BP Pulse Ox 98.0 F 82 20 160/64 94 02/10/18 11:49 02/10/18 09:00 02/10/18 09:00 02/10/18 09:00 02/10/18 09:00 General appearance: Present: A&O X 3, no acute distress - Head Head exam: Present: atraumatic, normocephalic - Neck Neck exam general surgery: Present: supple, trachea midline. Absent: lymphadenopathy - Respiratory Respiratory exam: Present: CTAB. Absent: accessory muscle use, rales, rhonchi, wheezes - Cardiovascular Cardiovascular exam: Present: RRR, +S1, +S2. Absent: diastolic murmur, gallop, rubs, systolic murmur - GI/Abdominal GI/Abdominal exam: Present: normal bowel sounds, soft, tenderness (Right lower quadrant tenderness), no peritoneal signs. Absent: distended - Extremities Exam Extremities exam: Present: warm, radial pulses palpable and symmetrical. Absent : calf tenderness, cyanotic, pedal edema - Neurological Exam Neurological exam: Present: CN II-XII intact, oriented X3, no focal deficits. Absent: pronater drift, facial droop, speech deficit - Skin Skin exam: Present: dry, intact Internal Medicine: Result - Labs CBC & Chem 7: 02/10/18 11:18 02/09/18 23:31 Labs: Short CBC 02/10/18 02/10/18 Range/Units 05:52 11:18 Hgb 8.2 L 8.1 L (12.9-16.9) g/dL Hct 25.7 L 25.9 L (37.5-50.1) % - ABG Interpretation ABG results: PT/INR, D-dimer PT 22.1 Seconds (9.4-12.1) H 02/09/18 23:31 Consult Discharge Plan - Plan [facility]errals: [facility] [Primary Care Provider] -
[2018-02-10] MEDS: *HR* OxyCODONE/APAP 5/325 TABLET PO PRN (15:31)
[2018-02-10] MEDS: Sennosides/Docusate Sodium TABLET PO SCH ×2 (15:37→21:31)
[2018-02-10 15:52] LABS: Magnesium 1.5 mg/dL (1.6-2.6)
[2018-02-10 15:54] LABS: % Iron Saturation 7 % (20-55); Iron 17 mcg/dL (65-175); Transferrin 168 mg/dL (203-362)
[2018-02-10 15:55] LABS: Prealbumin 10.8 mg/dL (17.0-34.0)
[2018-02-10 16:12] LABS: Ferritin 470 ng/mL (20-250)
[2018-02-10] MEDS ORDERED: 0.9 % Sodium Chloride 250 ML ONE (16:25)
[2018-02-11] MEDS: *HR* OxyCODONE/APAP 5/325 TABLET PO PRN ×2 (00:22→09:50)
[2018-02-11 05:37] LABS: Hematocrit 27.6 % (37.5-50.1); Mean Corpuscular HGB Conc 32.6 g/dL (31.6-35.5); Mean Corpuscular Hemoglobin 29.1 pg (28.0-33.3); Mean Corpuscular Volume 89.3 fL (83.0-100.0); Mean Platelet Volume 11.1 fL (9.4-12.4); Platelet Count 346 K/mcL (140-400); Red Blood Count 3.09 M/mcL (4.19-5.50); Red Cell Distribution Width 15.6 % (11.5-14.5)
[2018-02-11 05:55] LABS: BUN/Creatinine Ratio 20 (6-26); Blood Urea Nitrogen 20 mg/dL (8-23); Calcium 8.6 mg/dL (8.6-10.3); Carbon Dioxide 23 mEq/L (23-29); Chloride 101 mEq/L (98-107); Glucose 104 mg/dL (70-105); Osmolality,Calculated 279 (280-300); Potassium 4.5 mEq/L (3.5-5.1); Sodium 133 mEq/L (136-145); eGFR For African Americans > 60 (> 60); eGFR For Non-African Americans > 60 (> 60)
[2018-02-11] MEDS: Lisinopril 20 MG TABLET PO SCH (09:50)
[2018-02-11] MEDS: BuPROPion SR (12 HR) 150 MG TABLET PO SCH (09:51)
[2018-02-11] MEDS: Sennosides/Docusate Sodium TABLET PO SCH ×2 (09:51→20:43)
[2018-02-11] MEDS ORDERED: Cyanocobalamin (B-12) 1,000 MCG/ML VIAL IM ONE (14:07)
--- NOTE | 2018-02-11 14:39 | Podiatry Consult Note ---
Date of Encounter: 02/11/18 Time of Encounter: 14:37 Assessment and Plan (1) Gangrene of toe of right foot Current visit: Yes Status: Acute Assessment: #1 Gangrene right great toe dry. 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 I discussed risks versus benefits as well as alternatives to surgery with the patient. Should the wound convert from dry gangrene to wet gangrene certainly can lose more than just the portion of the right great toe that it may spread into his foot or leg. He is high risk for amputation of the foot or leg. #4 will begin painting right great toe with Betadine apply dry sterile dressing daily. We will recommend this ongoing treatment until the toe auto amputate's or becomes acutely infected History of Present Illness Chief complaint: Gangrenous right great toe HPI: Mr. 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 Patient presents today with necrotic right great toe distal one third dry no cellulitis no lymphangitis no purulence. Small wound on the plantar aspect of his right heel with small dry eschar without any surrounding erythema fluctuance necrosis or evidence of infection. Past Med Surg Social Fam HX - Past Medical History Medical history: arthritis, hyperlipidemia, hypertension, peripheral artery disease, other Additional medical history: lung nodule Psychiatric history: depression - Past Surgical History Surgical History: other Additional surgical history: vasectomy. seasonal affective disorder - Social History Smoking Status: Unknown if ever smoked Smokeless Tobacco Status: No Alcohol use: none Drug use: none - Family History Mother History Unknown: Yes Living Status: Hx Family Neuromuscular Disorders: No Hx Family Neurologic Disorders: Yes (alzheimers) Father History Unknown: Yes Living Status: Hx Family Respiratory Disorders: Yes (was on oxygen; smoker) Medications and Allergies Atorvastatin [Lipitor] 40 mg PO HS 07/19/17 [History] BuPROPion SR (12 HR) [Wellbutrin SR] 150 mg PO QAM 07/19/17 [History] Lisinopril [Zestril] 40 mg PO DAILY 07/19/17 [History] Sertraline [Zoloft] 50 mg PO DAILY 07/19/17 [History] Tamsulosin [Flomax] 0.4 mg PO DAILY 07/19/17 [History] Gabapentin [Neurontin] 800 mg PO TID 11/01/17 [History] Aspirin Enteric Coated [Aspirin EC] 81 mg PO DAILY #30 tablet. 11/07/17 [Rx] Acetaminophen [Tylenol] 500 mg PO Q8H PRN 01/27/18 [History] Oxycodone HCl/Acetaminophen [Percocet 5-325 mg Tablet] 1 each PO Q8HR PRN 7 Days #20 tablet 02/03/18 [Rx] Rivaroxaban [Xarelto] 15 mg PO 1700 30 Days #30 tablet 02/03/18 [Rx] 3 Allergy/AdvReac Type Severity Reaction Status Date / Time No Known Allergies Allergy Verified 02/09/18 23:23 All Systems Reviewed: The remainder of the systems were reviewed and are negative , No chest pain nausea vomiting fever chills. Patient has profound loss of protective sensation in both feet. Loss of epicritic sensation 2 point pronation light touch and vibration. Physical Exam - Constitutional Vitals: Temp Pulse Resp BP Pulse Ox 98.2 F 84 17 181/85 94 02/11/18 11:59 02/11/18 11:59 02/11/18 11:59 02/11/18 12:05 02/11/18 11:59 General appearance: average body habitus, no acute distress - Expanded Lower Extremities Exam Foot/Toe exam: Present: erythema (Dry gangrene right great toe distal one third involving the dorsal digit nailbed the distal dorsal plantar aspect of the right great toe) Neuro vascular tendon exam: Present: abnormal 2-point discrimination, decreased fine/light touch, no vascular compromise, sensory deficit Gait: Present: not tested/not observed - Neurological Exam Neurological exam: Present: oriented X3, no focal deficits Additional comments: Diabetic peripheral sensory neuropathy with paresthesias dysesthesias in loss of protective sensation in both feet from tips of toes to tibia bilaterally - Psychiatric Psychiatric exam: Present: normal affect - Skin Additional comments: Dry gangrene distal one third of right great toe - Vascular Capillary Refill: less than 3 seconds (Patient with +2/4 edema, right lower extremity. 1/4 left lower extremity.) Results - Labs Result Diagrams: 02/11/18 04:53 02/11/18 04:53 Labs: Abnormal lab results WBC 14.9 K/mcL (4.3-11.1) H 02/11/18 04:53 RBC 3.09 M/mcL (4.19-5.50) L 02/11/18 04:53 Hgb 9.0 g/dL (12.9-16.9) L 02/11/18 04:53 Hct 27.6 % (37.5-50.1) L 02/11/18 04:53 RDW 15.6 % (11.5-14.5) H 02/11/18 04:53 Neutrophils # 10.4 K/mcL (1.6-8.9) H 02/09/18 23:31 Monocytes # 1.5 K/mcL (0.0-1.3) H 02/09/18 23:31 PT 22.1 Seconds (9.4-12.1) H 02/09/18 23:31 Sodium 133 mEq/L (136-145) L 02/11/18 04:53 Calculated Osmolality 279 (280-300) L 02/11/18 04:53 Magnesium 1.5 mg/dL (1.6-2.6) L 02/10/18 15:14 Iron 17 mcg/dL (65-175) L 02/10/18 15:14 % Saturation 7 % (20-55) L 02/10/18 15:14 Transferrin 168 mg/dL (203-362) L 02/10/18 15:14 Ferritin 470 ng/mL (20-250) H 02/10/18 15:14 Albumin 2.8 g/dL (3.5-5.7) L 02/11/18 04:53 Prealbumin 10.8 mg/dL (17.0-34.0) L 02/10/18 15:14 H & H 02/11/18 Range/Units 04:53 Hgb 9.0 L (12.9-16.9) g/dL Hct 27.6 L (37.5-50.1) % All other labs normal. Consult Discharge Plan - Plan [facility]errals: [facility] [Primary Care Provider] -
[2018-02-11] MEDS ORDERED: Iron Sucrose Complex 200 MG in 0.9 % Sodium Chloride 100 ML IVPB ONE (15:15)
[2018-02-11] MEDS: Gabapentin 400 MG CAPSULE PO SCH ×2 (17:24→20:43)
--- NOTE | 2018-02-11 17:35 | Internal Med Progress Note ---
Date of Encounter: 02/11/18 Time of Encounter: 14:00 - Assessment and plan (1) Hypertension Current Visit: No Status: Chronic Qualifiers: Hypertension type: essential hypertension Qualified Code(s): I10 - Essential (primary) hypertension (2) Acute blood loss as cause of postoperative anemia Current Visit: No Status: Acute (3) Retroperitoneal hematoma Current Visit: Yes Status: Acute (4) PAD (peripheral artery disease) Current Visit: Yes Status: Chronic - Time Spent With Patient Plan With patient severe peripheral vascular disease, retroperitoneal hematoma, workup for anemia was consistent with iron deficiency anemia in addition to vitamin B-12 insufficiency, patient had 1 unit of blood transfusion, with his comorbidity and recent retroperitoneal bleeding was try to keep his hemoglobin at 10 add iron and vitamin B12, close monitoring of his H&H, patient was evaluated by podiatry team at bedside discussed about [place] of dry gangrene surgery versus conservative management. Close monitoring of renal function and bowel movement rule out any obstructive uropathy with his retroperitoneal hematoma, continue physical therapy and occupational therapy, restarting and coordination based on surgery as scheduled in 2 weeks Total time spent is greater than 50% in coordination of care (as documented) at patient's floor/unit and/or counseling patient: 25 - 35 minutes - Subjective Interval history: Patient denies any chest pain or shortness of breath. Patient denies any abdominal pain. Patient denies any dizziness or lightheadedness, patient position denies any motor or sensory changes - Constitutional Vitals: Temp Pulse Resp BP Pulse Ox 98.4 F 82 17 188/74 95 02/11/18 15:33 02/11/18 15:33 02/11/18 15:33 02/11/18 15:33 02/11/18 15:33 General appearance: Present: A&O X 3, no acute distress - Head Head exam: Present: atraumatic, normocephalic - Neck Neck exam general surgery: Present: supple, trachea midline. Absent: lymphadenopathy - Respiratory Respiratory exam: Present: decreased breath sounds, prolonged expiratory phase, rales (Rales bilateral lung base). Absent: accessory muscle use, rhonchi, wheezes - Cardiovascular Cardiovascular exam: Present: +S1, +S2. Absent: diastolic murmur, gallop, rubs , systolic murmur - GI/Abdominal GI/Abdominal exam: Present: normal bowel sounds, soft, tenderness (Right lower quadrant), no peritoneal signs. 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
[2018-02-11] MEDS ORDERED: Magnesium Oxide 400 MG TABLET PO ONE (18:30)
[2018-02-12 07:34] LABS: Basophils # 0.1 K/mcL (0.0-0.2); Basophils % 0.7 %; Eosinophils # 0.3 K/mcL (0.0-0.6); Eosinophils % 1.9 %; Hematocrit 29.1 % (37.5-50.1); Hemoglobin 9.6 g/dL (12.9-16.9); Immature Granulocytes % 0.5 % (0-4); Lymphocytes # 0.9 K/mcL (0.6-4.6); Lymphocytes % 6.7 %; Mean Corpuscular Hemoglobin 29.4 pg (28.0-33.3); Mean Platelet Volume 10.9 fL (9.4-12.4); Monocytes # 1.5 K/mcL (0.0-1.3); Neutrophils # 10.8 K/mcL (1.6-8.9); Platelet Count 333 K/mcL (140-400); Red Blood Count 3.27 M/mcL (4.19-5.50); Red Cell Distribution Width 15.5 % (11.5-14.5); Segmented Neutrophils % 79.2 %
[2018-02-12 07:55] LABS: BUN/Creatinine Ratio 19 (6-26); Blood Urea Nitrogen 18 mg/dL (8-23); Calcium 8.7 mg/dL (8.6-10.3); Carbon Dioxide 27 mEq/L (23-29); Chloride 102 mEq/L (98-107); Glucose 98 mg/dL (70-105); Magnesium 1.6 mg/dL (1.6-2.6); Osmolality,Calculated 280 (280-300); Phosphorous 3.9 mg/dL (2.7-4.5); Potassium 4.4 mEq/L (3.5-5.1); Sodium 134 mEq/L (136-145); eGFR For African Americans > 60 (> 60); eGFR For Non-African Americans > 60 (> 60)
[2018-02-12] MEDS: *HR* OxyCODONE/APAP 5/325 TABLET PO PRN ×2 (08:44→16:42)
[2018-02-12] MEDS: Sennosides/Docusate Sodium TABLET PO SCH ×2 (08:45→21:04)
[2018-02-12] MEDS: Gabapentin 400 MG CAPSULE PO SCH ×3 (08:45→21:03)
[2018-02-12] MEDS: Magnesium Oxide 400 MG TABLET PO SCH ×2 (08:45→21:03)
[2018-02-12] MEDS: Lisinopril 20 MG TABLET PO SCH (08:45)
[2018-02-12] MEDS: BuPROPion SR (12 HR) 150 MG TABLET PO SCH (08:46)
[2018-02-12] MEDS: Cyanocobalamin (B-12) 1,000 MCG TABLET PO SCH (08:46)
[2018-02-12] MEDS ORDERED: Isovue-370 500 ML INFUS..BTL IV ONE (11:12)
[2018-02-12] MEDS ORDERED: Iron Sucrose Complex 200 MG in 0.9 % Sodium Chloride 100 ML IVPB ONE (11:30)
--- NOTE | 2018-02-12 15:29 | Internal Med Progress Note ---
Date of Encounter: 02/12/18 Time of Encounter: 15:27 - Assessment and plan (1) Hypertension Current Visit: No Status: Chronic Qualifiers: Hypertension type: essential hypertension Qualified Code(s): I10 - Essential (primary) hypertension (2) Acute blood loss as cause of postoperative anemia Current Visit: No Status: Acute (3) Retroperitoneal hematoma Current Visit: Yes Status: Acute (4) PAD (peripheral artery disease) Current Visit: Yes Status: Chronic (5) Lung mass Current Visit: Yes Status: Acute Assessment and plan: Will place patient on airborne isolation for rule out TB, check acid-fast bacilli 2 induced sputum by respiratory therapy based on pulmonary recommendation, check cryptococcal antigen, keep patient nothing by mouth after midnight for possible bronchoscopy tomorrow morning discussed with pulmonary, close monitoring patient overnight - Time Spent With Patient Total time spent is greater than 50% in coordination of care (as documented) at patient's floor/unit and/or counseling patient: Greater than 35 minutes - Subjective Interval history: Patient denies any chest pain or shortness of breath he has dry cough, patient denies any fever or chills. Patient stated that he had lung mass was diagnosed about 5 months ago. He has never had bronchoscopy he was waiting to have for his vascular surgery. Patient denies any weight loss, denies any change in appetite, denies any hemoptysis or hematemesis, patient denies any history of TB , patient stated he was tested for TB many time in the past which was negative, he had history of exposure to a patient will have history of TB, - Constitutional Vitals: Temp Pulse Resp BP Pulse Ox 97.7 F 83 15 106/48 98 02/12/18 11:22 02/12/18 11:22 02/12/18 11:22 02/12/18 11:22 02/12/18 11:22 General appearance: Present: A&O X 3, no acute distress - Head Head exam: Present: atraumatic, normocephalic - Neck Neck exam general surgery: Present: supple, trachea midline. Absent: lymphadenopathy - Respiratory Respiratory exam: Present: decreased breath sounds (Decreased breathing sound bilateral lung base). Absent: accessory muscle use, rhonchi - Cardiovascular Cardiovascular exam: Present: RRR, +S1, +S2. Absent: diastolic murmur, gallop, rubs, systolic murmur - GI/Abdominal GI/Abdominal exam: Present: normal bowel sounds, soft, no peritoneal signs. Absent: distended, tenderness - Extremities Exam Extremities exam: Present: warm, radial pulses palpable and symmetrical. Absent : calf tenderness, cyanotic, pedal edema - Neurological Exam Neurological exam: Present: CN II-XII intact, oriented X3, no focal deficits. Absent: pronater drift, facial droop, speech deficit Internal Medicine: Result - Labs CBC & Chem 7: 02/12/18 06:47 02/12/18 06:47 Labs: Short CBC 02/12/18 Range/Units 06:47 WBC 13.6 H (4.3-11.1) K/mcL Hgb 9.6 L (12.9-16.9) g/dL Hct 29.1 L (37.5-50.1) % Plt Count 333 (140-400) K/mcL Neutrophils # 10.8 H (1.6-8.9) K/mcL BMP 02/12/18 06:47 Sodium 134 L Potassium 4.4 Chloride 102 Carbon Dioxide 27 BUN 18 Creatinine 0.94 Glucose 98 Calcium 8.7 - ABG Interpretation ABG results: PT/INR, D-dimer PT 22.1 Seconds (9.4-12.1) H 02/09/18 23:31 - Impressions Impressions Chest X-Ray 02/11/18 18:27 IMPRESSION: Mass-like cavitary airspace disease right upper lung seems increased in size since 10/19/2016. This is indeterminate and could represent malignancy or chronic infection. Recommend droplet precautions until TB has been excluded. Follow-up CT with contrast is recommended. No appreciable enlarged hilar/mediastinal lymph nodes. D/ / 02/11/2018 23:17:15 Nii Lockett / miracle Interpreting Provider: Nii Lockett Chest CT 02/12/18 11:12 IMPRESSION: 1. A 5.8 cm posterior right upper lobe mass with cavitation and pleural tags previously 4.3 cm. Highly concerning malignancy with mycobacterial infection as differential. D/ / Shabbir Rush MD / Shabbir Rush MD Interpreting Provider: Shabbir Rush MD Consult Discharge Plan - Plan [facility]errals: [facility] [Primary Care Provider] -
[2018-02-13] MEDS: *HR* OxyCODONE/APAP 5/325 TABLET PO PRN ×2 (08:19→18:29)
[2018-02-13] MEDS: Gabapentin 400 MG CAPSULE PO SCH ×3 (08:19→23:03)
[2018-02-13] MEDS: Sennosides/Docusate Sodium TABLET PO SCH ×2 (08:19→23:03)
[2018-02-13] MEDS: Lisinopril 20 MG TABLET PO SCH (08:19)
[2018-02-13] MEDS: Magnesium Oxide 400 MG TABLET PO SCH ×2 (08:19→23:03)
[2018-02-13] MEDS: BuPROPion SR (12 HR) 150 MG TABLET PO SCH (08:19)
[2018-02-13] MEDS: Cyanocobalamin (B-12) 1,000 MCG TABLET PO SCH (08:19)
--- NOTE | 2018-02-13 10:23 | Pulmonology Consult Note ---
<MichaeldonnellSuzie vera M - Last Filed: 02/13/18 10:57> Date of Encounter: 02/13/18 Medications and Allergies Atorvastatin [Lipitor] 40 mg PO HS 07/19/17 [History] BuPROPion SR (12 HR) [Wellbutrin SR] 150 mg PO QAM 07/19/17 [History] Lisinopril [Zestril] 40 mg PO DAILY 07/19/17 [History] Sertraline [Zoloft] 50 mg PO DAILY 07/19/17 [History] Tamsulosin [Flomax] 0.4 mg PO DAILY 07/19/17 [History] Gabapentin [Neurontin] 800 mg PO TID 11/01/17 [History] Aspirin Enteric Coated [Aspirin EC] 81 mg PO DAILY #30 tablet. 11/07/17 [Rx] Acetaminophen [Tylenol] 500 mg PO Q8H PRN 01/27/18 [History] Oxycodone HCl/Acetaminophen [Percocet 5-325 mg Tablet] 1 each PO Q8HR PRN 7 Days #20 tablet 02/03/18 [Rx] Rivaroxaban [Xarelto] 15 mg PO 1700 30 Days #30 tablet 02/03/18 [Rx] 3 Allergy/AdvReac Type Severity Reaction Status Date / Time No Known Allergies Allergy Verified 02/09/18 23:23 All Systems: The remainder of the systems were reviewed and are negative Physical Examination Vital Signs: Vital Signs, Last 4 Hours Temp Pulse Resp BP Pulse Ox 02/13/18 07:05 97.9 F 89 18 177/96 95 Results - Laboratory Findings CBC and BMP: 02/12/18 06:47 02/12/18 06:47 PT/INR, D-dimer PT 22.1 Seconds (9.4-12.1) H 02/09/18 23:31 Abnormal lab findings: Abnormal lab results WBC 13.6 K/mcL (4.3-11.1) H 02/12/18 06:47 RBC 3.27 M/mcL (4.19-5.50) L 02/12/18 06:47 Hgb 9.6 g/dL (12.9-16.9) L 02/12/18 06:47 Hct 29.1 % (37.5-50.1) L 02/12/18 06:47 RDW 15.5 % (11.5-14.5) H 02/12/18 06:47 Neutrophils # 10.8 K/mcL (1.6-8.9) H 02/12/18 06:47 Monocytes # 1.5 K/mcL (0.0-1.3) H 02/12/18 06:47 PT 22.1 Seconds (9.4-12.1) H 02/09/18 23:31 Sodium 134 mEq/L (136-145) L 02/12/18 06:47 POC Glucose 102 mg/dL (70-99) H 02/12/18 16:11 Iron 17 mcg/dL (65-175) L 02/10/18 15:14 % Saturation 7 % (20-55) L 02/10/18 15:14 Transferrin 168 mg/dL (203-362) L 02/10/18 15:14 Ferritin 470 ng/mL (20-250) H 02/10/18 15:14 Albumin 2.8 g/dL (3.5-5.7) L 02/11/18 04:53 Prealbumin 10.8 mg/dL (17.0-34.0) L 02/10/18 15:14 - Clinical Findings Intake & Output: Intake & Output 02/12/18 02/13/18 02/13/18 23:59 07:59 15:59 Intake Total 360 / 360 600 / 600 360 / 360 Output Total 0 / 0 400 / 400 500 / 500 Balance 360 / 360 200 / 200 -140 / -140 Weight 94.5 kg Consult Discharge Plan - Plan [facility]errals: [facility] [Primary Care Provider] - - Attending Attestation I examined this patient and my medical decision-making was reviewed with the Resident Physician. I agree with the documented findings, disposition and treatment plan as described except to the extent set forth below. Patient seen and examined. Labs, radiology, chart personally reviewed. Agree with resident's history and physical, assessment, plan with following comments: HOISTER: Patient follows commands, Pulmonary: Acceptable oxygenation and ventilation and reviewed CT chest result with the patient and this is concerning for malignancies since patient has significant history of smoking. Even though I do not suspect TB a stent diagnosis, will need at least 2 negative AFB smears before any procedures. Patient also on anticoagulation that needs to be old at least 48 hours before the procedure. Thank you for consultation. 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 Mycobacterial infection less likely--no fevers/chills, weight loss, night sweats , hemoptysis, travel, prior h/o TB, or abnormal tuberculin skin tests in past AFB smear negative x 2 to rule out mycobacterial infection Before any procedures, such as bronchoscopy, the patient will need to be off anticoagulation for at least 48 hours Saturating well (98%) on room air, non-labored respirations Plan AFB smear x 2 results pending Airborne and isolation precautions History of Present Illness Consult date: 02/13/18 Requesting physician: Murali Newton Reason for consult: lung mass (posterior RUL) Chief complaint: abdominal pain History of present illness: Mr. Johansen is a 67-year-old gentleman who presented to the ED from [facility] with complaints of RLQ abdominal pain s/p vascular surgery on 01/29/[address] abd/pelvis without contrast at [facility] showed retroperitoneal hematoma adjacent to right iliac artery stent and pt was admitted for further evaluation and care. During this admission a CT chest revealed a 5.8 cm mass of the posterior RUL with cavitation and pleural tags. The mass had increased from 4.3 cm that was concerning for malignancy vs mycobacterial infection. Patient has been aware of this mass for about 5 months; he did not have a bronchoscopy after diagnosis because he was waiting to have vascular surgery. Patient denies recent fevers, chills, night sweats, chest pain, dyspnea at rest, unintended weight loss, loss of appetite, nausea, vomiting, or travel. He denies wheezing, increase of cough from baseline, sputum production, or hemoptysis. The patient does not have a personal history of tuberculosis. 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 He denies ever being diagnosed with COPD or any other lung issue. Mr. Johansen admits to extensive history of smoking; reports smoking 1 ppd since 5 or 6 years old. 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 Past Med Surg Social Fam HX - Past Medical History Medical history: arthritis, hyperlipidemia, hypertension, peripheral artery disease, other Additional medical history: lung nodule Psychiatric history: depression - Past Surgical History Surgical History: other Additional surgical history: vasectomy. seasonal affective disorder - Social History Smoking Status: Unknown if ever smoked Smokeless Tobacco Status: No Alcohol use: none Drug use: none - Family History Mother History Unknown: Yes Living Status: Hx Family Neuromuscular Disorders: No Hx Family Neurologic Disorders: Yes (alzheimers) Father History Unknown: Yes Living Status: Hx Family Respiratory Disorders: Yes (was on oxygen; smoker) All Systems: The remainder of the systems were reviewed and are negative - Constitutional Constitutional: no chills, no fever(s), no night sweats - Cardiovascular Cardiovascular: no chest pain, no dyspnea, no dyspnea on exertion, no palpitations - Respiratory Respiratory: as per HPI, cough (unchanged from baseline), no hemoptysis, no dyspnea on exertion, no wheezing, no excessive phlegm production - Gastrointestinal Gastrointestinal: no abdominal pain, no nausea, no vomiting Physical Examination Vital Signs: Vital Signs, Last 4 Hours Temp Pulse Resp BP Pulse Ox 02/13/18 07:05 97.9 F 89 18 177/96 95 General appearance: no acute distress Neck: supple Effort: normal Inspection: normal Auscultation: right: rales (minimal) Cardiovascular: regular rate and rhythm Gastrointestinal: normoactive bowel sounds, soft, non-tender, non-distended Integumentary: normal Extremities: no edema, pink and warm normal mental status, non-focal exam, pupils equal and round mood appropriate, affect normal Results - Laboratory Findings CBC and BMP: 02/12/18 06:47 02/12/18 06:47 PT/INR, D-dimer PT 22.1 Seconds (9.4-12.1) H 02/09/18 23:31 Abnormal lab findings: Abnormal lab results WBC 13.6 K/mcL (4.3-11.1) H 02/12/18 06:47 RBC 3.27 M/mcL (4.19-5.50) L 02/12/18 06:47 Hgb 9.6 g/dL (12.9-16.9) L 02/12/18 06:47 Hct 29.1 % (37.5-50.1) L 02/12/18 06:47 RDW 15.5 % (11.5-14.5) H 02/12/18 06:47 Neutrophils # 10.8 K/mcL (1.6-8.9) H 02/12/18 06:47 Monocytes # 1.5 K/mcL (0.0-1.3) H 02/12/18 06:47 PT 22.1 Seconds (9.4-12.1) H 02/09/18 23:31 Sodium 134 mEq/L (136-145) L 02/12/18 06:47 POC Glucose 102 mg/dL (70-99) H 02/12/18 16:11 Iron 17 mcg/dL (65-175) L 02/10/18 15:14 % Saturation 7 % (20-55) L 02/10/18 15:14 Transferrin 168 mg/dL (203-362) L 02/10/18 15:14 Ferritin 470 ng/mL (20-250) H 02/10/18 15:14 Albumin 2.8 g/dL (3.5-5.7) L 02/11/18 04:53 Prealbumin 10.8 mg/dL (17.0-34.0) L 02/10/18 15:14 - Clinical Findings Intake & Output: Intake & Output 02/12/18 02/13/18 02/13/18 23:59 07:59 15:59 Intake Total 360 / 360 600 / 600 360 / 360 Output Total 0 / 0 400 / 400 500 / 500 Balance 360 / 360 200 / 200 -140 / -140 Weight 94.5 kg
--- NOTE | 2018-02-13 11:09 | Internal Med Progress Note ---
Date of Encounter: 02/13/18 Time of Encounter: 11:07 - Assessment and plan (1) Hypertension Current Visit: No Status: Chronic Qualifiers: Qualified Code(s): I10 - Essential (primary) hypertension Code(s): I10 - Essential (primary) hypertension SNOMED Code(s): 70604152 (2) Acute blood loss as cause of postoperative anemia Current Visit: No Status: Acute (3) Retroperitoneal hematoma Current Visit: Yes Status: Acute (4) PAD (peripheral artery disease) Current Visit: Yes Status: Chronic (5) Lung mass Current Visit: Yes Status: Acute - Time Spent With Patient Plan Discussed with pulmonary team regarding patient condition, patient of full dose anticoagulant for more than 96 hours. H&H stable, he recommended to hold on bronchoscopy until we have 2 negative AFP. Awaiting microbiology, continue cardiac diet, with his calf tenderness lower extremities will check venous Doppler to rule out DVT. Continue airborne isolation until we have negative Afp , persistent leukocytosis with possible pneumonia we will start patient empirically on Zosyn and azithromycin, close monitoring patient condition Total time spent is greater than 50% in coordination of care (as documented) at patient's floor/unit and/or counseling patient: 25 - 35 minutes - Subjective Interval history: Patient denies any chest pain or shortness of breath he has dry cough, patient denies any fever or chills. Patient stated that he had lung mass was diagnosed about 5 months ago. He has never had bronchoscopy he was waiting to have for his vascular surgery. Patient denies any weight loss, denies any change in appetite, denies any hemoptysis or hematemesis, patient denies any history of TB , patient stated he was tested for TB many time in the past which was negative, he had history of exposure to a patient will have history of TB, Today patient denies any fever or chills, denies any dizziness lightheadedness, feeling better compared to yesterday - Constitutional Vitals: Temp Pulse Resp BP Pulse Ox 97.9 F 89 18 177/96 95 02/13/18 07:05 02/13/18 07:05 02/13/18 07:05 02/13/18 07:05 02/13/18 07:05 General appearance: Present: A&O X 3, no acute distress - Head Head exam: Present: atraumatic, normocephalic - Neck Neck exam general surgery: Present: supple, trachea midline. Absent: lymphadenopathy - Respiratory Respiratory exam: Present: decreased breath sounds (Decreased breathing sound bilateral lung bases and right upper lobe). Absent: accessory muscle use, rales , rhonchi, wheezes - Cardiovascular Cardiovascular exam: Present: RRR, +S1, +S2. Absent: diastolic murmur, gallop, rubs, systolic murmur - Extremities Exam Extremities exam: Present: calf tenderness, warm, radial pulses palpable and symmetrical. Absent: pedal edema - Neurological Exam Neurological exam: Present: CN II-XII intact, oriented X3, no focal deficits. Absent: pronater drift, facial droop, speech deficit Internal Medicine: Result - Labs CBC & Chem 7: 02/12/18 06:47 02/12/18 06:47 - ABG Interpretation ABG results: PT/INR, D-dimer PT 22.1 Seconds (9.4-12.1) H 02/09/18 23:31 - Impressions Impressions Chest X-Ray 02/11/18 18:27 IMPRESSION: Mass-like cavitary airspace disease right upper lung seems increased in size since 10/19/2016. This is indeterminate and could represent malignancy or chronic infection. Recommend droplet precautions until TB has been excluded. Follow-up CT with contrast is recommended. No appreciable enlarged hilar/mediastinal lymph nodes. Critical results were called by Dr. Nii Lockett to Dr. Maya On 02/11/2018 at 11:23 p.m.. D/ / 02/11/2018 23:17:15 Nii Lockett / miracle Interpreting Provider: Nii Lockett Chest CT 02/12/18 11:12 IMPRESSION: 1. A 5.8 cm posterior right upper lobe mass with cavitation and pleural tags previously 4.3 cm. Highly concerning malignancy with mycobacterial infection as differential. D/ / Shabbir Rush MD / Shabbir Rush MD Interpreting Provider: Shabbir Rush MD - VTE Documentation of Mechanical Device: Intermittent pneumatic compression device Consult Discharge Plan - Plan Referrals: [facility] [Primary Care Provider] -
[2018-02-13] MEDS: Piperacillin/Tazobactam 3.375 GM in 0.9 % Sodium Chloride Mini Bag 100 ML IVPB SCH (14:20)
--- NOTE | 2018-02-13 17:09 | Vascular/[facility] Progress Note ---
Date of Encounter: 02/13/18 Time of Encounter: 17:05 - Assessment and plan (1) PAD (peripheral artery disease) Current Visit: Yes Status: Chronic Patent right iliofemoral bypass graft and patent right femoral to low knee popliteal artery bypass graft. (2) Acute blood loss anemia Current Visit: Yes Status: Chronic Patient has known anemia. No significant change since discharge. (3) Retroperitoneal hematoma Current Visit: Yes Status: Acute Resolving right retroperitoneal hematoma - Subjective Interval history: Mr. Johansen has no new complaints. The pulmonary evaluation is noted and there is an issue with the right upper lobe. Patient is being scheduled for a bronchoscopy with biopsy later this week. No new issues regarding his lower extremity vascular situation. Vital Signs, Last 4 Hours Temp Pulse Resp BP Pulse Ox 02/13/18 16:09 97.6 F 80 18 154/57 98 - Physical Examination Vascular: Present: Other (Right flank swelling is decreased. Discoloration of right flank is also diminishing.) - VTE Documentation of Mechanical Device: Intermittent pneumatic compression device Results 02/12/18 06:47 02/12/18 06:47 Consult Discharge Plan - Plan Referrals: [facility] [Primary Care Provider] -
[2018-02-13] MEDS: Doxycycline 100 MG in 0.9 % Sodium Chloride Mini Bag 100 ML IVPB SCH (18:24)
[2018-02-14] MEDS: Piperacillin/Tazobactam 3.375 GM in 0.9 % Sodium Chloride Mini Bag 100 ML IVPB SCH ×3 (01:29→15:48)
[2018-02-14] MEDS: Doxycycline 100 MG in 0.9 % Sodium Chloride Mini Bag 100 ML IVPB SCH ×2 (05:37→22:46)
[2018-02-14] MEDS: *HR* OxyCODONE/APAP 5/325 TABLET PO PRN ×2 (05:40→15:48)
--- NOTE | 2018-02-14 08:40 | Pulmonology Progress Note ---
<MarySuzie M - Last Filed: 02/14/18 17:46> Date of Encounter: 02/14/18 Objective PUL Vital signs: Last Vital Signs Temp 98.8 F 02/14/18 17:08 Pulse 71 02/14/18 17:08 Resp 15 02/14/18 17:08 BP 112/7 02/14/18 17:08 Pulse Ox 98 02/14/18 17:08 Results - Laboratory Findings CBC and BMP: 02/14/18 14:37 02/12/18 06:47 PT/INR, D-dimer PT 12.5 Seconds (9.4-12.1) H 02/14/18 14:37 Abnormal lab findings: Abnormal lab results WBC 12.4 K/mcL (4.3-11.1) H 02/14/18 14:37 RBC 3.09 M/mcL (4.19-5.50) L 02/14/18 14:37 Hgb 8.9 g/dL (12.9-16.9) L 02/14/18 14:37 Hct 28.4 % (37.5-50.1) L 02/14/18 14:37 MCHC 31.3 g/dL (31.6-35.5) L 02/14/18 14:37 RDW 15.7 % (11.5-14.5) H 02/14/18 14:37 Neutrophils # 10.2 K/mcL (1.6-8.9) H 02/14/18 14:37 PT 12.5 Seconds (9.4-12.1) H 02/14/18 14:37 Sodium 134 mEq/L (136-145) L 02/12/18 06:47 POC Glucose 102 mg/dL (70-99) H 02/12/18 16:11 Iron 17 mcg/dL (65-175) L 02/10/18 15:14 % Saturation 7 % (20-55) L 02/10/18 15:14 Transferrin 168 mg/dL (203-362) L 02/10/18 15:14 Ferritin 470 ng/mL (20-250) H 02/10/18 15:14 Albumin 2.8 g/dL (3.5-5.7) L 02/11/18 04:53 Prealbumin 10.8 mg/dL (17.0-34.0) L 02/10/18 15:14 - Microbiology Findings Microbiology Findings: Microbiology, Last 48 Hours 02/12/18 16:45 Acid Fast Stain - Final Sputum 02/12/18 15:50 Cryptococcal Antigen - Final Serum - Clinical Findings Intake & Output: Intake & Output 02/14/18 02/14/18 02/14/18 07:59 15:59 23:59 Intake Total 100 / 100 580 / 580 Output Total 550 / 550 500 / 500 Balance -450 / -450 80 / 80 Weight 95.4 kg Consult Discharge Plan - Plan [facility]errals: [facility]Primary Care Provider[facility] - - Attending Attestation I examined this patient and my medical decision-making was reviewed with the Resident Physician. I agree with the documented findings, disposition and treatment plan as described except to the extent set forth below. Patient seen and examined. Labs, radiology, chart personally reviewed. 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 He denies chest pain, shortness of breath, fevers/chills, nausea/vomiting--his primary concern is in regards to RLE and right great toe pain and when podiatry/vascular plans to amputate right toe. Slightly agitated when asked questions related to pulmonary status. Objective PUL Vital signs: Last Vital Signs Temp 98.1 F 02/14/18 08:24 Pulse 78 02/14/18 08:24 Resp 17 02/14/18 08:24 BP 134/65 02/14/18 08:24 Pulse Ox 99 02/14/18 08:24 General appearance: no acute distress, other (poor dentition) Effort: normal Auscultation: bilateral: clear Cardiovascular: regular rate and rhythm Gastrointestinal: normoactive bowel sounds, soft, non-tender Extremities: other (gangrenous right great toe) normal mental status, non-focal exam, pupils equal and round, other (moves all extremities spontaneously) Results - Laboratory Findings CBC and BMP: 02/14/18 14:37 02/12/18 06:47 PT/INR, D-dimer PT 22.1 Seconds (9.4-12.1) H 02/09/18 23:31 Abnormal lab findings: Abnormal lab results WBC 13.6 K/mcL (4.3-11.1) H 02/12/18 06:47 RBC 3.27 M/mcL (4.19-5.50) L 02/12/18 06:47 Hgb 9.6 g/dL (12.9-16.9) L 02/12/18 06:47 Hct 29.1 % (37.5-50.1) L 02/12/18 06:47 RDW 15.5 % (11.5-14.5) H 02/12/18 06:47 Neutrophils # 10.8 K/mcL (1.6-8.9) H 02/12/18 06:47 Monocytes # 1.5 K/mcL (0.0-1.3) H 02/12/18 06:47 PT 22.1 Seconds (9.4-12.1) H 02/09/18 23:31 Sodium 134 mEq/L (136-145) L 02/12/18 06:47 POC Glucose 102 mg/dL (70-99) H 02/12/18 16:11 Iron 17 mcg/dL (65-175) L 02/10/18 15:14 % Saturation 7 % (20-55) L 02/10/18 15:14 Transferrin 168 mg/dL (203-362) L 02/10/18 15:14 Ferritin 470 ng/mL (20-250) H 02/10/18 15:14 Albumin 2.8 g/dL (3.5-5.7) L 02/11/18 04:53 Prealbumin 10.8 mg/dL (17.0-34.0) L 02/10/18 15:14 - Microbiology Findings Microbiology Findings: Microbiology, Last 48 Hours 02/12/18 16:45 Acid Fast Stain - Final Sputum 02/12/18 15:50 Cryptococcal Antigen - Final Serum - Clinical Findings Intake & Output: Intake & Output 02/13/18 02/14/18 02/14/18 23:59 07:59 15:59 Intake Total 320 / 320 0 / 0 Output Total 850 / 850 550 / 550 Balance -530 / -530 -550 / -550 Weight 95.4 kg - VTE Documentation of Mechanical Device: Intermittent pneumatic compression device
[2018-02-14] MEDS: BuPROPion SR (12 HR) 150 MG TABLET PO SCH (09:31)
[2018-02-14] MEDS: Sennosides/Docusate Sodium TABLET PO SCH ×2 (09:31→20:57)
[2018-02-14] MEDS: Cyanocobalamin (B-12) 1,000 MCG TABLET PO SCH (09:31)
[2018-02-14] MEDS: Lisinopril 20 MG TABLET PO SCH (09:32)
[2018-02-14] MEDS: Magnesium Oxide 400 MG TABLET PO SCH ×2 (09:32→20:57)
[2018-02-14] MEDS: Gabapentin 400 MG CAPSULE PO SCH ×3 (09:32→20:56)
[2018-02-14 14:54] LABS: Basophils # 0.1 K/mcL (0.0-0.2); Basophils % 0.6 %; Eosinophils # 0.2 K/mcL (0.0-0.6); Eosinophils % 1.9 %; Hematocrit 28.4 % (37.5-50.1); Hemoglobin 8.9 g/dL (12.9-16.9); Immature Granulocytes % 0.6 % (0-4); Lymphocytes # 0.6 K/mcL (0.6-4.6); Lymphocytes % 4.5 %; Mean Corpuscular HGB Conc 31.3 g/dL (31.6-35.5); Mean Corpuscular Hemoglobin 28.8 pg (28.0-33.3); Mean Corpuscular Volume 91.9 fL (83.0-100.0); Mean Platelet Volume 10.9 fL (9.4-12.4); Monocytes # 1.2 K/mcL (0.0-1.3); Monocytes % 9.6 %; Neutrophils # 10.2 K/mcL (1.6-8.9); Platelet Count 317 K/mcL (140-400); Red Blood Count 3.09 M/mcL (4.19-5.50); Red Cell Distribution Width 15.7 % (11.5-14.5); Segmented Neutrophils % 82.8 %
[2018-02-14 15:00] LABS: INR 1.2; Prothrombin Time 12.5 Seconds (9.4-12.1)
--- NOTE | 2018-02-14 18:17 | Internal Med Progress Note ---
Date of Encounter: 02/14/18 Time of Encounter: 14:06 - Assessment and plan (1) Lung mass Current Visit: Yes Status: Acute Assessment and plan: Will place patient on airborne isolation for rule out TB, check acid-fast bacilli 2 keep patient nothing by mouth after midnight Bronchoscopy tomorrow if AFB negative x2. (2) Acute blood loss as cause of postoperative anemia Current Visit: No Status: Acute Assessment and plan: Close monitoring patient hemoglobin, cross and match for 1 unit of blood, check anemia workup may benefit from iron replacement (3) Gangrene of toe of right foot Current Visit: Yes Status: Acute Assessment and plan: Continue broad spectrum antibiotics Podiatry recommends partial amputation of right great toe per note I spoke to patient today and at this point he states he is okay with getting this done if it is needed Appreciate Podiatry recommendations (4) PAD (peripheral artery disease) Current Visit: Yes Status: Chronic (5) Hypertension Current Visit: No Status: Chronic Assessment and plan: Adjust medication, add hydralazine as needed Qualifiers: Hypertension type: essential hypertension Qualified Code(s): I10 - Essential (primary) hypertension Code(s): I10 - Essential (primary) hypertension SNOMED Code(s): 09666936 (6) Retroperitoneal hematoma Current Visit: Yes Status: Acute Assessment and plan: Appreciate vascular surgery input, no surgical intervention needed, close monitoring patient condition, okay to ambulate PTOT - Time Spent With Patient Total time spent is greater than 50% in coordination of care (as documented) at patient's floor/unit and/or counseling patient: - Constitutional Vitals: Temp Pulse Resp BP Pulse Ox 98.8 F 71 15 112/7 98 02/14/18 17:08 02/14/18 17:08 02/14/18 17:08 02/14/18 17:08 02/14/18 17:08 General appearance: Present: A&O X 3, no acute distress Exam: - Head Head exam: Present: atraumatic, normocephalic - Neck Neck exam general surgery: Present: supple, trachea midline. Absent: lymphadenopathy - Respiratory Respiratory exam: Present: decreased breath sounds. Absent: accessory muscle use, rales, rhonchi, wheezes - Cardiovascular Cardiovascular exam: Present: RRR, +S1, +S2. Absent: diastolic murmur, gallop, rubs, systolic murmur - Extremities Exam Extremities exam: Present: calf tenderness, warm, radial pulses palpable and symmetrical. Absent: pedal edema - Neurological Exam Neurological exam: Present: CN II-XII intact, oriented X3, no focal deficits. Absent: pronater drift, facial droop, speech deficit Internal Medicine: Result - Labs CBC & Chem 7: 02/14/18 14:37 02/12/18 06:47 Labs: Short CBC 02/14/18 Range/Units 14:37 WBC 12.4 H (4.3-11.1) K/mcL Hgb 8.9 L (12.9-16.9) g/dL Hct 28.4 L (37.5-50.1) % Plt Count 317 (140-400) K/mcL Neutrophils # 10.2 H (1.6-8.9) K/mcL - ABG Interpretation ABG results: PT/INR, D-dimer PT 12.5 Seconds (9.4-12.1) H 02/14/18 14:37 - VTE Documentation of Mechanical Device: Intermittent pneumatic compression device Consult Discharge Plan - Plan [facility]errals: [facility] [Primary Care Provider] -
[2018-02-15] MEDS: Piperacillin/Tazobactam 3.375 GM in 0.9 % Sodium Chloride Mini Bag 100 ML IVPB SCH ×2 (00:19→13:24)
[2018-02-15] MEDS: *HR* OxyCODONE/APAP 5/325 TABLET PO PRN ×3 (00:38→17:52)
[2018-02-15 05:45] LABS: Basophils # 0.1 K/mcL (0.0-0.2); Eosinophils # 0.2 K/mcL (0.0-0.6); Eosinophils % 2.1 %; Hematocrit 27.3 % (37.5-50.1); Hemoglobin 8.5 g/dL (12.9-16.9); Immature Granulocytes % 0.5 % (0-4); Immature Platelets 5.4 % (1.1-6.1); Lymphocytes # 1.3 K/mcL (0.6-4.6); Lymphocytes % 12.5 %; Mean Corpuscular HGB Conc 31.1 g/dL (31.6-35.5); Mean Corpuscular Hemoglobin 28.3 pg (28.0-33.3); Mean Platelet Volume 11.3 fL (9.4-12.4); Monocytes # 1.1 K/mcL (0.0-1.3); Monocytes % 10.6 %; Neutrophils # 7.5 K/mcL (1.6-8.9); Platelet Count 313 K/mcL (140-400); Red Cell Distribution Width 15.7 % (11.5-14.5); Segmented Neutrophils % 73.3 %
[2018-02-15] MEDS: Doxycycline 100 MG in 0.9 % Sodium Chloride Mini Bag 100 ML IVPB SCH (05:53)
[2018-02-15 06:04] LABS: BUN/Creatinine Ratio 29 (6-26); Blood Urea Nitrogen 32 mg/dL (8-23); Calcium 8.9 mg/dL (8.6-10.3); Carbon Dioxide 22 mEq/L (23-29); Chloride 104 mEq/L (98-107); Glucose 99 mg/dL (70-105); Osmolality,Calculated 281 (280-300); Potassium 5.1 mEq/L (3.5-5.1); Sodium 132 mEq/L (136-145); eGFR For African Americans > 60 (> 60); eGFR For Non-African Americans > 60 (> 60)
--- NOTE | 2018-02-15 09:08 | Anesthesia Evaluation PreOp ---
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: Denies Any Significant HX Other Medical History: Renal (Renal insufficiency, post PATRICK), Bleeding (Right retroperitoneal hematoma, Anemia) Anesthesia History: No Prior Anesthetic Complications, Past Anesthesia Alcohol Use: none Drug use: none Medications and Allergies Atorvastatin [Lipitor] 40 mg PO HS 07/19/17 [History] BuPROPion SR (12 HR) [Wellbutrin SR] 150 mg PO QAM 07/19/17 [History] Lisinopril [Zestril] 40 mg PO DAILY 07/19/17 [History] Sertraline [Zoloft] 50 mg PO DAILY 07/19/17 [History] Tamsulosin [Flomax] 0.4 mg PO DAILY 07/19/17 [History] Gabapentin [Neurontin] 800 mg PO TID 11/01/17 [History] Aspirin Enteric Coated [Aspirin EC] 81 mg PO DAILY #30 tablet. 11/07/17 [Rx] Acetaminophen [Tylenol] 500 mg PO Q8H PRN 01/27/18 [History] Oxycodone HCl/Acetaminophen [Percocet 5-325 mg Tablet] 1 each PO Q8HR PRN 7 Days #20 tablet 02/03/18 [Rx] Rivaroxaban [Xarelto] 15 mg PO 1700 30 Days #30 tablet 02/03/18 [Rx] 3 Allergy/AdvReac Type Severity Reaction Status Date / Time No Known Allergies Allergy Verified 02/09/18 23:23 - Meds/Allergy Pre-op Review Medications Reviewed: Yes Allergies Reviewed: Yes Anesthesia Results - Labs 02/15/18 05:16 02/15/18 05:16 AFB stain: 02/12: Negative 02/15: Pending Laboratory Tests 02/10/18 02/11/18 02/12/18 15:14 04:53 06:47 INR Calcium Phosphorus 3.9 Magnesium 1.6 Albumin 2.8 L Prealbumin 10.8 L 02/14/18 02/15/18 14:37 05:16 INR 1.2 Calcium 8.9 Phosphorus Magnesium Albumin Prealbumin Anesthesia Exam Height 1.75m Weight 96 kg BMI 31 Vital Signs/O2 Sat, Most Current Temp Pulse Resp BP Pulse Ox 98.3 F 72 18 187/66 96 02/15/18 10:46 02/15/18 10:46 02/15/18 10:46 02/15/18 10:46 02/15/18 10:46 - HEENT Mallampati: I Teeth: Missing, Poor dentition (Multiple broken) Oral Opening: Greater than 3 - SUPERINTENDENT SALES LOC: Oriented - Cardiac Rhythm: Regular - Pulmonary Breath Sounds: bilateral Clear Anesthesia Assess/Plan ASA Score: 4 Modified [place] Scale for Level of Consciousness: Cooperative, oriented, and tranquil Anesthetic Plan: General Autologous Blood: Yes (X-match for 2 PRBC ordered, pending sample draw) Monitoring Plan: Standard Monitors Recovery Plan: PACU
--- NOTE | 2018-02-15 09:29 | Pulmonology Progress Note ---
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 No shortness of breath or chest pain since his return from bronchoscopy; says he's had absolutely no problem with his breathing since procedure. His greatest concern and main focus during my interview and exam is right heel pain that hasn't been relieved by his pain medication. States he cannot get comfortable because of this right heel pain and is mildly agitated about it. Objective PUL Vital signs: Last Vital Signs Temp 98.3 F 02/15/18 06:58 Pulse 80 02/15/18 06:58 Resp 16 02/15/18 06:58 BP 172/61 02/15/18 06:58 Pulse Ox 94 02/15/18 06:58 General appearance: no acute distress (awake, sitting up in bed) Effort: normal Auscultation: bilateral: clear Cardiovascular: regular rate and rhythm Extremities: no clubbing, edema, other (Right heel is thickly calloused; no bleeding, lacerations, or abrasions ) Musculoskeletal: other (Right great toe gangrenous) normal mental status, non-focal exam, pupils equal and round, CN II-XII normal Results - Laboratory Findings CBC and BMP: 02/15/18 05:16 02/15/18 05:16 PT/INR, D-dimer PT 12.5 Seconds (9.4-12.1) H 02/14/18 14:37 Abnormal lab findings: Abnormal lab results RBC 3.00 M/mcL (4.19-5.50) L 02/15/18 05:16 Hgb 8.5 g/dL (12.9-16.9) L 02/15/18 05:16 Hct 27.3 % (37.5-50.1) L 02/15/18 05:16 MCHC 31.1 g/dL (31.6-35.5) L 02/15/18 05:16 RDW 15.7 % (11.5-14.5) H 02/15/18 05:16 PT 12.5 Seconds (9.4-12.1) H 02/14/18 14:37 Sodium 132 mEq/L (136-145) L 02/15/18 05:16 Carbon Dioxide 22 mEq/L (23-29) L 02/15/18 05:16 BUN 32 mg/dL (8-23) H 02/15/18 05:16 BUN/Creatinine Ratio 29 (6-26) H 02/15/18 05:16 POC Glucose 102 mg/dL (70-99) H 02/12/18 16:11 Iron 17 mcg/dL (65-175) L 02/10/18 15:14 % Saturation 7 % (20-55) L 02/10/18 15:14 Transferrin 168 mg/dL (203-362) L 02/10/18 15:14 Ferritin 470 ng/mL (20-250) H 02/10/18 15:14 Albumin 2.8 g/dL (3.5-5.7) L 02/11/18 04:53 Prealbumin 10.8 mg/dL (17.0-34.0) L 02/10/18 15:14 - Microbiology Findings Microbiology Findings: Microbiology, Last 48 Hours 02/12/18 16:45 Acid Fast Stain - Final Sputum 02/12/18 15:50 Cryptococcal Antigen - Final Serum - Clinical Findings Intake & Output: Intake & Output 02/14/18 02/15/18 02/15/18 23:59 07:59 15:59 Intake Total 440 / 440 0 / 0 Output Total 1250 / 1250 1035 / 1035 Balance -810 / -810 -1035 / -1035 Weight 95.6 kg - VTE Documentation of Mechanical Device: Intermittent pneumatic compression device Consult Discharge Plan - Plan [facility]errals: [facility] [Primary Care Provider] - <Leny Hernandezal M - Last Filed: 02/15/18 17:53> Date of Encounter: 02/15/18 Objective PUL Vital signs: Last Vital Signs Temp 97.6 F 02/15/18 15:25 Pulse 85 02/15/18 15:25 Resp 16 02/15/18 15:25 BP 175/65 02/15/18 15:25 Pulse Ox 97 02/15/18 15:25 Results - Laboratory Findings CBC and BMP: 02/15/18 05:16 02/15/18 05:16 PT/INR, D-dimer PT 12.5 Seconds (9.4-12.1) H 02/14/18 14:37 Abnormal lab findings: Abnormal lab results RBC 3.00 M/mcL (4.19-5.50) L 02/15/18 05:16 Hgb 8.5 g/dL (12.9-16.9) L 02/15/18 05:16 Hct 27.3 % (37.5-50.1) L 02/15/18 05:16 MCHC 31.1 g/dL (31.6-35.5) L 02/15/18 05:16 RDW 15.7 % (11.5-14.5) H 02/15/18 05:16 PT 12.5 Seconds (9.4-12.1) H 02/14/18 14:37 Sodium 132 mEq/L (136-145) L 02/15/18 05:16 Carbon Dioxide 22 mEq/L (23-29) L 02/15/18 05:16 BUN 32 mg/dL (8-23) H 02/15/18 05:16 BUN/Creatinine Ratio 29 (6-26) H 02/15/18 05:16 POC Glucose 102 mg/dL (70-99) H 02/12/18 16:11 Iron 17 mcg/dL (65-175) L 02/10/18 15:14 % Saturation 7 % (20-55) L 02/10/18 15:14 Transferrin 168 mg/dL (203-362) L 02/10/18 15:14 Ferritin 470 ng/mL (20-250) H 02/10/18 15:14 Albumin 2.8 g/dL (3.5-5.7) L 02/11/18 04:53 Prealbumin 10.8 mg/dL (17.0-34.0) L 02/10/18 15:14 - Microbiology Findings Microbiology Findings: Microbiology, Last 48 Hours 02/15/18 07:15 Acid Fast Stain - Final Sputum 02/12/18 16:45 Acid Fast Stain - Final Sputum - Clinical Findings Intake & Output: Intake & Output 02/15/18 02/15/18 02/15/18 07:59 15:59 23:59 Intake Total 0 / 0 Output Total 1035 / 1035 800 / 800 Balance -1035 / -1035 -800 / -800 Weight 95.6 kg - Attending Attestation I examined this patient and my medical decision-making was reviewed with the Resident Physician. I agree with the documented findings, disposition and treatment plan as described except to the extent set forth below. Patient seen and examined. Labs, radiology, chart personally reviewed. 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 Patient had bronchoscopy done and waiting for pathology.
[2018-02-15] MEDS ORDERED: *HR* Propofol 200 MG/20 ML VIAL IVP ONE (10:39)
[2018-02-15] MEDS ORDERED: *HR* FentaNYL (PF) 100 MCG/2 ML VIAL ONE (10:39)
[2018-02-15] MEDS ORDERED: *HR* Succinylcholine 200 MG/10 ML VIAL IVP ONE (11:03)
[2018-02-15] MEDS ORDERED: Ondansetron 4 MG/2 ML VIAL ONE (11:03)
[2018-02-15] MEDS ORDERED: Lidocaine -MPF 2% 2 ML VIAL ONE (11:03)
--- NOTE | 2018-02-15 11:17 | Internal Med Progress Note ---
Date of Encounter: 02/15/18 Time of Encounter: 11:16 - Assessment and plan (1) Lung mass Current Visit: Yes Status: Acute Assessment and plan: Will place patient on airborne isolation for rule out TB, check acid-fast bacilli 2 Follow-up bronchoscopy results. (2) Acute blood loss as cause of postoperative anemia Current Visit: No Status: Acute Assessment and plan: Close monitoring patient hemoglobin Hemoglobin stable Hemodynamically stable. (3) Gangrene of toe of right foot Current Visit: Yes Status: Acute Assessment and plan: Continue Zosyn Podiatry recommends partial amputation of right great toe per note Patient is now okay with amputation if needed Appreciate Podiatry recommendations Consult ID for possibly IV antibiotics on discharge (4) PAD (peripheral artery disease) Current Visit: Yes Status: Chronic (5) Hypertension Current Visit: No Status: Chronic Assessment and plan: Continue current medications, hydralazine as needed Qualifiers: Qualified Code(s): I10 - Essential (primary) hypertension Code(s): I10 - Essential (primary) hypertension SNOMED Code(s): 52162201 (6) Retroperitoneal hematoma Current Visit: Yes Status: Acute Assessment and plan: Appreciate vascular surgery input, no surgical intervention needed, close monitoring patient condition, okay to ambulate PTOT - Time Spent With Patient Total time spent is greater than 50% in coordination of care (as documented) at patient's floor/unit and/or counseling patient: - Subjective Interval history: Patient having bronch today, returned. No acute issues. No complaints. - Constitutional Vitals: Temp Pulse Resp BP Pulse Ox 98.3 F 72 18 187/66 96 02/15/18 10:46 02/15/18 10:46 02/15/18 10:46 02/15/18 10:46 02/15/18 10:46 General appearance: Present: A&O X 3, no acute distress Exam: - Head Head exam: Present: atraumatic, normocephalic - Neck Neck exam general surgery: Present: supple, trachea midline. Absent: lymphadenopathy - Respiratory Respiratory exam: Present: decreased breath sounds. Absent: accessory muscle use, rales, rhonchi, wheezes - Cardiovascular Cardiovascular exam: Present: RRR, +S1, +S2. Absent: diastolic murmur, gallop, rubs, systolic murmur - Extremities Exam Extremities exam: Present: calf tenderness, warm, radial pulses palpable and symmetrical. Absent: pedal edema - Neurological Exam Neurological exam: Present: CN II-XII intact, oriented X3, no focal deficits. Absent: pronater drift, facial droop, speech deficit Internal Medicine: Result - Labs CBC & Chem 7: 02/15/18 05:16 02/15/18 05:16 Labs: Short CBC 02/14/18 02/15/18 Range/Units 14:37 05:16 WBC 12.4 H 10.2 (4.3-11.1) K/mcL Hgb 8.9 L 8.5 L (12.9-16.9) g/dL Hct 28.4 L 27.3 L (37.5-50.1) % Plt Count 317 313 (140-400) K/mcL Neutrophils # 10.2 H 7.5 (1.6-8.9) K/mcL BMP 02/15/18 05:16 Sodium 132 L Potassium 5.1 Chloride 104 Carbon Dioxide 22 L BUN 32 H Creatinine 1.11 Glucose 99 Calcium 8.9 - ABG Interpretation ABG results: PT/INR, D-dimer PT 12.5 Seconds (9.4-12.1) H 02/14/18 14:37 - VTE Documentation of Mechanical Device: Intermittent pneumatic compression device Consult Discharge Plan - Plan Referrals: [facility] [Primary Care Provider] -
[2018-02-15] MEDS ORDERED: Ondansetron 4 MG/2 ML VIAL IVP ONE (12:05)
[2018-02-15] MEDS ORDERED: Albuterol 2.5 MG/3 ML NEBULIZER IH ONE (12:05)
--- NOTE | 2018-02-15 13:14 | Anesthesia Evaluation Post Op ---
Date of Encounter: 02/15/18 Time of Encounter: 13:14 - Vital Signs Vital Signs: Vital Signs/O2 Sat, Most Current Temp Pulse Resp BP Pulse Ox 98.5 F 92 20 152/78 96 02/15/18 12:48 02/15/18 13:08 02/15/18 13:08 02/15/18 13:08 02/15/18 13:08 - Lungs Lungs: Clear Ascult./Percussion - Airway Airway: Non-obstructed - Cardiovascular Regular Rate - Mental Status Mental Status: Alert & Oriented, Answers Appropriately - Pain Pain Scale used: Lamar (Faces) - Nausea Vomiting Nausea Vomiting: Not Present - Hydration Hydration: Tolerates oral liquids - Discharge PostOp Status: Transfer Patient to floor
[2018-02-15] MEDS: Sennosides/Docusate Sodium TABLET PO SCH ×2 (13:29→23:44)
[2018-02-15] MEDS: Magnesium Oxide 400 MG TABLET PO SCH ×2 (13:29→23:44)
--- NOTE | 2018-02-15 13:36 | Infectious Disease Consult ---
Date of Encounter: 02/15/18 Time of Encounter: 13:26 Assessment and Plan (1) SIRS (systemic inflammatory response syndrome) Status: Acute Assessment and plan: Patient presented with 2 SIRS criteria with tachycardia and leukocytosis Likely secondary to retroperitoneal hematoma (2) Retroperitoneal hematoma Status: Acute Assessment and plan: Vascular surgery following Blood loss may have caused reflex tachycardia and leukocytosis Transfuse per primary team (3) Gangrene of toe of right foot Status: Acute Assessment and plan: Location is right great toe Podiatry was reconsulted as patient is now agreeable to partial amputation if appropriate Patient did receive Zosyn and doxycycline since February 13 Recommending stopping antibiotics as risk of antibiotics outweighs benefit in setting of hydronephrosis No imaging obtained from foot Wound care and activity restrictions per podiatry team This patient were to become febrile, recommend collecting 2 sets of blood cultures (4) PAD (peripheral artery disease) Status: Chronic Assessment and plan: Patient has complex vascular history and is currently being followed by vascular surgery Likely caused his dry gangrene Management as above (5) Mass of upper lobe of right lung Status: Acute Assessment and plan: Unclear etiology; infection versus malignancy, but less likely infection As seen on CAT scan, 5.8 cm mass in right upper lobe Pulmonology consulted, performed bronchoscopy today Await results of Gram stain, AFB, fungal culture, routine and anaerobic cultures along with cytology and cell count Recommend discontinuing antibiotics as above (6) Hydronephrosis Status: Acute Assessment and plan: In setting of hydronephrosis increases likelihood of renal toxicity We will hold antibiotics as above Monitor kidney function daily Qualifiers: Qualified Code(s): N13.30 - Unspecified hydronephrosis Infectious Disease HPI - Data of Consult Patient: new to practice Consult date: 02/15/18 Requesting Physician: Lillian Kelsey [facility] Care [facility] - Consult Narrative Reason for consult: dry gangrene, antibiotic management History of present illness: Mr. Johansen is a 67 year old male who presented from the [facility] after CT abdomen pelvis demonstrated retroperitoneal hematoma s/p ilio-fem and fem-pop bypass on 01/29. We are being consulted for dry gangrene and managing antibiotics. Patient has past medical history of arthritis, hyperlipidemia, hypertension, peripheral artery disease who on 01/29 had a right ilio-femoral and femoral- popliteal bypass grafts thrombectomy with right femoral to BK popliteal bypass graft with 6 mm PTFE performed by Dr. Joel. He did require blood transfusion while in the hospital and had an PATRICK which resolved and discharged on 02/03/18. He presented to the [facility] where a non-contrasted CT abd/pelvis showed a 13 cm x 9.5 cm x 19 cm retroperitoneal hematoma adjacent to the right iliac artery stent and extends superiorly anterior to the psoas muscle and causing obstruction of the right ureter causing mild hydronephrosis and hydroureter. Vascular surgery was consulted but did not feel intervention was required and recommending holding his Xarelto. Due to his PAD, he had a necrotic right great toe and podiatry was consulted and recommend partial amputation, but patient was not agreeable initially. CXR was ordered because of a productive cough and revealed mass-like cavitary lesion in the RUL that was concerning for TB. Follow up CT demonstrated 5.8 cm mass concerning for malignancy vs. TB. On 02/13, he was started on Doxycycline and Zosyn for concern of pneumonia and pulmonology was consulted and recommended bronchoscopy. His initial vitals upon presentation was temperature of 97.3, 97 beats per minute, respiratory rate is 18, white count was 13.7. He has remained afebrile and nontachycardic during his hospital course and his white count continues to down trend, down to 10.2 today. He is agreeable to getting toe amputation if necessary and this was communicated to podiatry. CC: Lillian Kelsey Past Med Surg Social Fam HX - Past Medical History Medical history: arthritis, hyperlipidemia, hypertension, peripheral artery disease, other Additional medical history: lung nodule Psychiatric history: depression - Past Surgical History Surgical History: other Additional surgical history: vasectomy. seasonal affective disorder - Social History Smoking Status: Unknown if ever smoked Smokeless Tobacco Status: No Alcohol use: none Drug use: none - Family History Mother History Unknown: Yes Living Status: Hx Family Neuromuscular Disorders: No Hx Family Neurologic Disorders: Yes (alzheimers) Father History Unknown: Yes Living Status: Hx Family Respiratory Disorders: Yes (was on oxygen; smoker) Infectious Disease-CN:Meds Atorvastatin [Lipitor] 40 mg PO HS 07/19/17 [History] BuPROPion SR (12 HR) [Wellbutrin SR] 150 mg PO QAM 07/19/17 [History] Lisinopril [Zestril] 40 mg PO DAILY 07/19/17 [History] Sertraline [Zoloft] 50 mg PO DAILY 07/19/17 [History] Tamsulosin [Flomax] 0.4 mg PO DAILY 07/19/17 [History] Gabapentin [Neurontin] 800 mg PO TID 11/01/17 [History] Aspirin Enteric Coated [Aspirin EC] 81 mg PO DAILY #30 tablet. 11/07/17 [Rx] Acetaminophen [Tylenol] 500 mg PO Q8H PRN 01/27/18 [History] Oxycodone HCl/Acetaminophen [Percocet 5-325 mg Tablet] 1 each PO Q8HR PRN 7 Days #20 tablet 02/03/18 [Rx] Rivaroxaban [Xarelto] 15 mg PO 1700 30 Days #30 tablet 02/03/18 [Rx] 3 Allergy/AdvReac Type Severity Reaction Status Date / Time No Known Allergies Allergy Verified 02/09/18 23:23 - Constitutional Constitutional: Present: weakness. Absent: fatigue, fever(s) - Cardiovascular Cardiovascular: Absent: dyspnea on exertion, edema, syncope - Respiratory Respiratory: Present: cough. Absent: dyspnea, hemoptysis, wheezing - Gastrointestinal Gastrointestinal: Absent: diarrhea, melena, nausea, vomiting - Integumentary Integumentary: Present: non-healing lesions Exam - Constitutional Vitals: Temp Pulse Resp BP Pulse Ox 98.5 F 92 20 152/78 96 02/15/18 12:48 02/15/18 13:08 02/15/18 13:08 02/15/18 13:08 02/15/18 13:08 General appearance: cooperative, no acute distress, no febrile - Head Head exam: Present: atraumatic, normocephalic - Respiratory Respiratory exam: Present: rales. Absent: respiratory distress, wheezes, tachypnea - Cardiovascular Cardiovascular exam: Present: RRR. Absent: diastolic murmur, irregular rhythm, systolic murmur, tachycardia - GI/Abdominal GI/Abdominal exam: Present: normal bowel sounds, soft. Absent: tenderness - Extremities Exam Extremities exam: Present: pedal edema (R>L) Infectious Disease CN: Results - Labs CBC & Chem 7: 02/15/18 05:16 02/15/18 05:16 Cultures: Cultures 02/15/18 07:15 Acid Fast Stain - Final Sputum 02/12/18 16:45 Acid Fast Stain - Final Sputum 02/12/18 15:50 Cryptococcal Antigen - Final Serum - VTE Documentation of Mechanical Device: Intermittent pneumatic compression device Consult Discharge Plan - Plan [facility]errals: [facility] [Primary Care Provider] - - Attending Attestation I examined this patient and my medical decision-making was reviewed with the Resident Physician. I agree with the documented findings, disposition and treatment plan as described except to the extent set forth below. This is an addendum to original report dictated by resident physician. Please refer to residents note for full detail. Patient is 67-year-old gentleman with past medical history mentioned below who underwent iliofemoral bypass on January 29 by vascular surgery and was discharged home on February 03. Patient came back with retroperitoneal bleed and was noted to have hydronephrosis and hydroureter. Patient also known to have a dry gangrene of the foot that is not healing. Patient was evaluated by podiatry and they recommended amputation but initially patient refused 2. Workup during the hospital stay was also noted for large cavitary lung lesion in the right apex. AFB smears were ordered and came back negative and patient was taken to bronchoscopy today. BAL results pending. Assessment and plan: SIRS: likely secondary to retroperitoneal bleed Retroperitoneal bleed Dry gangrene no obvious superficial infection Peripheral vascular disease status post femoral popliteal bypass Right upper lung mass etiology? Infectious vs malignancy? Await bronch and BAL results and pathology report Hydronephrosis Recommendation Dc all antibiotics and observe Patient agreeable to amputation Risk of antibiotics now outweighs the benefit.
[2018-02-15] MEDS: Cyanocobalamin (B-12) 1,000 MCG TABLET PO SCH (14:49)
[2018-02-15] MEDS: Gabapentin 400 MG CAPSULE PO SCH ×3 (14:49→23:44)
[2018-02-15] MEDS: Lisinopril 20 MG TABLET PO SCH (14:49)
[2018-02-15] MEDS: BuPROPion SR (12 HR) 150 MG TABLET PO SCH (17:42)
[2018-02-15 22:18] LABS: Appearance of Body Fluid Cloudy (Clear); Volume of Body Fluid 13 mL
[2018-02-15 22:23] LABS: Appearance of Body Fluid Cloudy (Clear); Volume of Body Fluid 21 mL
--- NOTE | 2018-02-15 22:27 | Anesthesia Evaluation PreOp ---
<Chencho Warren - Last Filed: 02/15/18 22:25> Date of Encounter: 02/15/18 Time of Encounter: 22:25 - Past History Planned Operation: Right Foot Toe Amp #1 Cardiac History: HTN, Other (PAD, post right Ill-Fem & Fem-Pop BPG) Pulmonary History: Other (RUL mass) CARRIER PACKER History: Other Other Medical History: Renal (Renal insufficiency, post PATRICK), Other (Bleeding ( Right retroperitoneal hematoma, Anemia)) Anesthesia History: No Prior Anesthetic Complications, Past Anesthesia (EBUS ) Alcohol Use: none Drug use: none Medications and Allergies Atorvastatin [Lipitor] 40 mg PO HS 07/19/17 [History] BuPROPion SR (12 HR) [Wellbutrin SR] 150 mg PO QAM 07/19/17 [History] Lisinopril [Zestril] 40 mg PO DAILY 07/19/17 [History] Sertraline [Zoloft] 50 mg PO DAILY 07/19/17 [History] Tamsulosin [Flomax] 0.4 mg PO DAILY 07/19/17 [History] Gabapentin [Neurontin] 800 mg PO TID 11/01/17 [History] Aspirin Enteric Coated [Aspirin EC] 81 mg PO DAILY #30 tablet. 11/07/17 [Rx] Acetaminophen [Tylenol] 500 mg PO Q8H PRN 01/27/18 [History] Oxycodone HCl/Acetaminophen [Percocet 5-325 mg Tablet] 1 each PO Q8HR PRN 7 Days #20 tablet 02/03/18 [Rx] Rivaroxaban [Xarelto] 15 mg PO 1700 30 Days #30 tablet 02/03/18 [Rx] 3 Allergy/AdvReac Type Severity Reaction Status Date / Time No Known Allergies Allergy Verified 02/09/18 23:23 - Meds/Allergy Pre-op Review Medications Reviewed: Yes Allergies Reviewed: Yes Beta Blockers on Current Med List: No Anesthesia Results - Labs 02/15/18 05:16 02/15/18 05:16 - Imaging EKG: report reviewed (SINUS RHYTHM WITH MARKED SINUS ARRHYTHMIA) Anesthesia Exam Vital Signs/O2 Sat, Most Current Temp Pulse Resp BP Pulse Ox 98.5 F 78 18 155/53 94 02/15/18 19:46 02/15/18 19:46 02/15/18 19:46 02/15/18 19:46 02/15/18 19:46 - HEENT Pupil (Motor): Pupils equal, EOMI Mallampati: I Teeth: Poor dentition Oral Opening: Greater than 3 - CARRIER PACKER LOC: Oriented CARRIER PACKER Motor: Normal RUE, Normal LUE, Normal RLE, Normal LLE, Normal Face CARRIER PACKER Sensory: Normal: RUE, LUE, RLE, LLE, Face - Cardiac Rhythm: Regular Murmur: None JVD: No Carotid Bruit: No - Pulmonary Breath Sounds: bilateral Clear Respiratory Effort: Symmetrical Anesthesia Assess/Plan ASA Score: 4 Modified Ari Scale for Level of Consciousness: Cooperative, oriented, and tranquil Anesthetic Plan: MAC Autologous Blood: Yes Monitoring Plan: Standard Monitors Recovery Plan: Other <Coy Nolan - Last Filed: 02/16/18 13:34> Date of Encounter: 02/16/18 - Past History Cardiac History: Hyperlipidemia, Other Pulmonary History: Other Other Medical History: Renal Anesthesia Results - Labs 02/16/18 04:07 02/16/18 04:07 Anesthesia Exam Vital Signs/O2 Sat/Glucose, Most Recent Temp Pulse Resp BP Pulse Ox 98.3 F 74 16 173/54 98 02/16/18 11:00 02/16/18 11:00 02/16/18 11:00 02/16/18 11:00 02/16/18 11:00 Blood Glucose* 98 Weight: 94.8 NPO (# of Hours): 8 - HEENT Pupil (Motor): Pupils equal, EOMI Mallampati: I Teeth: Poor dentition Oral Opening: Greater than 3 - CARRIER PACKER LOC: Oriented - Cardiac Rhythm: Regular - Pulmonary Breath Sounds: bilateral Clear Anesthesia Assess/Plan ASA Score: 4 Modified Ari Scale for Level of Consciousness: Cooperative, oriented, and tranquil Anesthetic Plan: MAC Autologous Blood: Yes Monitoring Plan: Standard Monitors Recovery Plan: PACU
[2018-02-16 04:25] LABS: Basophils # 0.1 K/mcL (0.0-0.2); Basophils % 0.9 %; Eosinophils # 0.3 K/mcL (0.0-0.6); Eosinophils % 2.3 %; Hematocrit 28.6 % (37.5-50.1); Hemoglobin 9.1 g/dL (12.9-16.9); Immature Granulocytes % 0.7 % (0-4); Lymphocytes # 1.2 K/mcL (0.6-4.6); Lymphocytes % 10.3 %; Mean Corpuscular HGB Conc 31.8 g/dL (31.6-35.5); Mean Corpuscular Hemoglobin 29.1 pg (28.0-33.3); Mean Corpuscular Volume 91.4 fL (83.0-100.0); Mean Platelet Volume 11.2 fL (9.4-12.4); Monocytes # 1.3 K/mcL (0.0-1.3); Monocytes % 10.5 %; Platelet Count 300 K/mcL (140-400); Red Blood Count 3.13 M/mcL (4.19-5.50); Red Cell Distribution Width 15.8 % (11.5-14.5); Segmented Neutrophils % 75.3 %
[2018-02-16 04:46] LABS: BUN/Creatinine Ratio 26 (6-26); Blood Urea Nitrogen 28 mg/dL (8-23); Carbon Dioxide 23 mEq/L (23-29); Chloride 102 mEq/L (98-107); Glucose 93 mg/dL (70-105); Osmolality,Calculated 277 (280-300); Potassium 5.5 mEq/L (3.5-5.1); Sodium 131 mEq/L (136-145); eGFR For African Americans > 60 (> 60); eGFR For Non-African Americans > 60 (> 60)
[2018-02-16] MEDS: Sennosides/Docusate Sodium TABLET PO SCH ×2 (09:13→19:55)
[2018-02-16] MEDS: *HR* OxyCODONE/APAP 5/325 TABLET PO PRN ×2 (09:13→19:57)
[2018-02-16] MEDS: Gabapentin 400 MG CAPSULE PO SCH ×3 (09:13→19:56)
[2018-02-16] MEDS: Cyanocobalamin (B-12) 1,000 MCG TABLET PO SCH (09:14)
[2018-02-16] MEDS: BuPROPion SR (12 HR) 150 MG TABLET PO SCH (09:14)
[2018-02-16] MEDS: Magnesium Oxide 400 MG TABLET PO SCH ×2 (09:14→19:56)
[2018-02-16] MEDS ORDERED: *HR* FentaNYL (PF) 100 MCG/2 ML VIAL ONE (11:22)
[2018-02-16] MEDS ORDERED: *HR* Propofol 200 MG/20 ML VIAL IVP ONE (11:22)
[2018-02-16] MEDS ORDERED: Lidocaine -MPF 2% 2 ML VIAL ONE ×2 (11:22→14:33)
--- NOTE | 2018-02-16 11:43 | Internal Med Progress Note ---
<Mya Pelayo - Last Filed: 02/16/18 15:12> Date of Encounter: 02/16/18 Time of Encounter: 11:43 - Assessment and plan (1) PAD (peripheral artery disease) Current Visit: Yes Status: Chronic (2) Hypertension Current Visit: No Status: Chronic Assessment and plan: Has been elevated during the day. Suspect elevation is partially secondary to pain. Plan: Continue current medications Hydralazine as needed Qualifiers: Hypertension type: essential hypertension Qualified Code(s): I10 - Essential (primary) hypertension Code(s): I10 - Essential (primary) hypertension SNOMED Code(s): 23183539 (3) Acute blood loss as cause of postoperative anemia Current Visit: No Status: Acute Assessment and plan: Close monitoring patient hemoglobin Hemoglobin stable Hemodynamically stable. (4) Retroperitoneal hematoma Current Visit: Yes Status: Acute Assessment and plan: Appreciate vascular surgery input, no surgical intervention needed, close monitoring patient condition, okay to ambulate PTOT (5) Gangrene of toe of right foot Current Visit: Yes Status: Acute Assessment and plan: Discontinue Zosyn per ID Pt will have partial amputation of right great toe today Plan: Podiatry consulted, appreciate their recommendations Amputation today Pain control ID consulted for possible IV abx at discharge, appreciate their recommendations. (6) Lung mass Current Visit: Yes Status: Acute Assessment and plan: Acid-fast bacilli negative 2 Bronch results pending Plan: Await bronch results Oncology consulted, appreciate their recommendations. (7) Hyperkalemia Current Visit: Yes Status: Acute Assessment and plan: K 5.5 today Pt has not had BM in several days, may be contributing to hyperkalemia. On senna plus Plan: Hold ACEi Will add miralax daily Continue to monitor (8) Cellulitis of left forearm Current Visit: Yes Status: Acute Assessment and plan: Pt with erythema and warmth on left forearm at old IV site. Upper Arm doppler preliminary report shows left am in left cephalic vein possible intraluminal foreign body associated thrombus at level of proximal forearm, final report pending Left forearm XR negative for foreign body. Plan: Continue to monitor Consider abx treatment - Time Spent With Patient Total time spent is greater than 50% in coordination of care (as documented) at patient's floor/unit and/or counseling patient: - Subjective Interval history: Pt seen and examined, sitting up in chair talking with visitors. Pt reports that he is having pain in his right great toe that is 9/10. He will have surgery today for toe amputation. - Constitutional Vitals: Temp Pulse Resp BP Pulse Ox 98.3 F 74 16 173/54 98 02/16/18 11:00 02/16/18 11:00 02/16/18 11:00 02/16/18 11:00 02/16/18 11:00 General appearance: Present: A&O X 3, no acute distress, answers questions appropriately - Head Head exam: Present: atraumatic, normocephalic - Eye Eye exam: Present: PERRL, conjuntiva pink, sclera anicteric Pupils: Present: PERRL - Neck Neck exam general surgery: Present: supple, trachea midline. Absent: lymphadenopathy - Respiratory Respiratory exam: Present: CTAB. Absent: accessory muscle use, rales, rhonchi, wheezes - Cardiovascular Cardiovascular exam: Present: RRR, +S1, +S2. Absent: diastolic murmur, gallop, rubs, systolic murmur - GI/Abdominal GI/Abdominal exam: Present: normal bowel sounds, soft, no peritoneal signs. Absent: distended, tenderness - Extremities Exam Extremities exam: Present: radial pulses palpable and symmetrical. Absent: pedal edema Additional comments: Right great toe dry gangrene at distal MTP. Wrapped. healing ulcerative lesion on right cummings that is dry - Expanded Upper Extremities Exam Forearm wrist exam: Present: erythema (with swelling and warmth on anterior aspect on the left), swelling - Neurological Exam Neurological exam: Present: alert, oriented X3, no focal deficits. Absent: facial droop, speech deficit - Psychiatric Psychiatric exam: Present: agitated - Skin Skin exam: Present: dry Internal Medicine: Result - Labs CBC & Chem 7: 02/16/18 04:07 02/16/18 04:07 Labs: Short CBC 02/16/18 Range/Units 04:07 WBC 12.0 H (4.3-11.1) K/mcL Hgb 9.1 L (12.9-16.9) g/dL Hct 28.6 L (37.5-50.1) % Plt Count 300 (140-400) K/mcL Neutrophils # 9.0 H (1.6-8.9) K/mcL BMP 02/16/18 04:07 Sodium 131 L Potassium 5.5 H Chloride 102 Carbon Dioxide 23 BUN 28 H Creatinine 1.06 Glucose 93 Calcium 9.0 - ABG Interpretation ABG results: PT/INR, D-dimer PT 12.5 Seconds (9.4-12.1) H 02/14/18 14:37 - VTE Documentation of Mechanical Device: Intermittent pneumatic compression device Consult Discharge Plan - Plan [facility]errals: [facility] [Primary Care Provider] - <Jonathon Nunn - Last Filed: 02/16/18 15:38> Date of Encounter: 02/16/18 - Assessment and plan (1) PAD (peripheral artery disease) Current Visit: Yes Status: Chronic (2) Hypertension Current Visit: No Status: Chronic Code(s): I10 - Essential (primary) hypertension SNOMED Code(s): 60775270 (3) Acute blood loss as cause of postoperative anemia Current Visit: No Status: Acute (4) Retroperitoneal hematoma Current Visit: Yes Status: Acute (5) Gangrene of toe of right foot Current Visit: Yes Status: Acute (6) Lung mass Current Visit: Yes Status: Acute (7) Hyperkalemia Current Visit: Yes Status: Acute (8) Cellulitis of left forearm Current Visit: Yes Status: Acute - Time Spent With Patient Total time spent is greater than 50% in coordination of care (as documented) at patient's floor/unit and/or counseling patient: - Constitutional Vitals: Temp Pulse Resp BP Pulse Ox 98.3 F 74 16 173/54 98 02/16/18 11:00 02/16/18 11:00 02/16/18 11:00 02/16/18 11:00 02/16/18 11:00 Internal Medicine: Result - Labs CBC & Chem 7: 02/16/18 04:07 02/16/18 04:07 Labs: Short CBC 02/16/18 Range/Units 04:07 WBC 12.0 H (4.3-11.1) K/mcL Hgb 9.1 L (12.9-16.9) g/dL Hct 28.6 L (37.5-50.1) % Plt Count 300 (140-400) K/mcL Neutrophils # 9.0 H (1.6-8.9) K/mcL BMP 06/21/18 04:07 Sodium 131 L Potassium 5.5 H Chloride 102 Carbon Dioxide 23 BUN 28 H Creatinine 1.06 Glucose 93 Calcium 9.0 - ABG Interpretation ABG results: PT/INR, D-dimer PT 12.5 Seconds (9.4-12.1) H 02/14/18 14:37 - Impressions Impressions Forearm X-Ray 02/16/18 11:46 IMPRESSION: No acute osseous abnormality. No foreign body identified D/ / uQentin Barahona MD / Quentin Barahona MD Interpreting Provider: Quentin Barahona MD - Attending Attestation I examined this patient and my medical decision-making was reviewed with the Resident Physician. I agree with the documented findings, disposition and treatment plan as described except to the extent set forth below.
[2018-02-16] MEDS ORDERED: Propofol 500 MG/50 ML INFUS..BTL ONE (14:31)
[2018-02-16] MEDS ORDERED: Bupivacaine/Clonidine Syringe 1 EACH SYRINGE ONE (14:43)
--- NOTE | 2018-02-16 15:28 | Infectious Disease Progress No ---
Date of Encounter: 02/16/18 Time of Encounter: 11:00 - Assessment and Plan (1) SIRS (systemic inflammatory response syndrome) Current Visit: Yes Status: Acute Patient presented with 2 SIRS criteria with tachycardia and leukocytosis Likely secondary to retroperitoneal hematoma (2) Retroperitoneal hematoma Current Visit: Yes Status: Acute Vascular surgery following Blood loss may have caused reflex tachycardia and leukocytosis Transfuse per primary team (3) Gangrene of toe of right foot Current Visit: Yes Status: Acute Location is right great toe Podiatry was reconsulted as patient is now agreeable to partial amputation if appropriate Plan on operation today Patient did receive Zosyn and doxycycline since February 13 Recommending stopping antibiotics as risk of antibiotics outweighs benefit in setting of hydronephrosis No imaging obtained from foot Wound care and activity restrictions per podiatry team This patient were to become febrile, recommend collecting 2 sets of blood cultures (4) PAD (peripheral artery disease) Current Visit: Yes Status: Chronic Patient has complex vascular history and is currently being followed by vascular surgery Likely caused his dry gangrene Management as above (5) Mass of upper lobe of right lung Current Visit: Yes Status: Acute Unclear etiology; infection versus malignancy, but less likely infection As seen on CAT scan, 5.8 cm mass in right upper lobe Pulmonology consulted, performed bronchoscopy 02/15 Await results of Gram stain, AFB, fungal culture, routine and anaerobic cultures along with cytology and cell count Recommend discontinuing antibiotics as above (6) Hydronephrosis Current Visit: Yes Status: Acute In setting of hydronephrosis increases likelihood of renal toxicity We will hold antibiotics as above Monitor kidney function daily Qualifiers: Hydronephrosis type: unspecified Qualified Code(s): N13.30 - Unspecified hydronephrosis - Subjective Interval history: Pt seen and examined. He states his foot is still hurting him quite a bit and his left arm is sore. Denies any chest pain, shortness of breath, nausea, vomiting, diarrhea. Infect Dis PN-Objective Data - Labs CBC & Chem 7: 02/17/18 05:57 02/17/18 03:59 Labs: Laboratory Results - last 24 hr 02/15/18 02/15/18 02/16/18 08:00 08:00 04:07 WBC 12.0 H RBC 3.13 L Hgb 9.1 L Hct 28.6 L MCV 91.4 MCH 29.1 MCHC 31.8 RDW 15.8 H Plt Count 300 MPV 11.2 Immature Gran % 0.7 Seg Neutrophils % 75.3 Lymphocytes % 10.3 Monocytes % 10.5 Eosinophils % 2.3 Basophils % 0.9 Neutrophils # 9.0 H Lymphocytes # 1.2 Monocytes # 1.3 Eosinophils # 0.3 Basophils # 0.1 Sodium Potassium Chloride Carbon Dioxide BUN Creatinine Est GFR ( Amer) Est GFR (Non-Af Amer) BUN/Creatinine Ratio Glucose Calculated Osmolality Calcium Fluid Source right upper lobe brian right upper lobe Fluid Volume 21 13 Fluid Appearance Cloudy A Cloudy A Fluid RBC TNP TNP Fld Tot Nucleated Cell TNP TNP Fluid Seg Neutrophil % 18.0 8.0 Fluid Lymphocytes % 14.0 22.0 Fluid Monocytes % 1.0 3.0 Fluid Other Cells % 67.0 67.0 02/16/18 04:07 WBC RBC Hgb Hct MCV MCH MCHC RDW Plt Count MPV Immature Gran % Seg Neutrophils % Lymphocytes % Monocytes % Eosinophils % Basophils % Neutrophils # Lymphocytes # Monocytes # Eosinophils # Basophils # Sodium 131 L Potassium 5.5 H Chloride 102 Carbon Dioxide 23 BUN 28 H Creatinine 1.06 Est GFR ( Amer) > 60 Est GFR (Non-Af Amer) > 60 BUN/Creatinine Ratio 26 Glucose 93 Calculated Osmolality 277 L Calcium 9.0 Fluid Source Fluid Volume Fluid Appearance Fluid RBC Fld Tot Nucleated Cell Fluid Seg Neutrophil % Fluid Lymphocytes % Fluid Monocytes % Fluid Other Cells % Cultures: Cultures 02/15/18 08:00 Respiratory Culture - Preliminary Right Upper Lobe Lung Normal upper respiratory tract malathi. No apparent pathogens isolated. 02/15/18 08:00 Gram Stain - Final Right Upper Lobe Lung Respiratory Culture - Preliminary 02/15/18 08:00 Acid Fast Stain - Final Right Upper Lobe Lung 02/15/18 08:00 Acid Fast Stain - Final Right Upper Lobe Lung 02/15/18 08:00 Gram Stain - Final Right Upper Lobe Lung 02/15/18 07:15 Acid Fast Stain - Final Sputum 02/12/18 16:45 Acid Fast Stain - Final Sputum 02/12/18 15:50 Cryptococcal Antigen - Final Serum Serology 02/15/18 02/15/18 Range/Units 08:00 08:00 Fluid Source right upper lobe right upper lobe brian Fluid Volume 13 21 mL Fluid Appearance Cloudy A Cloudy A (Clear) Fluid RBC TNP TNP Fld Tot Nucleated Cell TNP TNP Fluid Seg Neutrophil % 8.0 18.0 % Fluid Lymphocytes % 22.0 14.0 % Fluid Monocytes % 3.0 1.0 % Fluid Other Cells % 67.0 67.0 % - Impressions Impressions Forearm X-Ray 02/16/18 11:46 IMPRESSION: No acute osseous abnormality. No foreign body identified D/ / Quentin Barahona MD / Quentin Barahona MD Interpreting Provider: Quentin Barahona MD Exam - Constitutional Vitals: Temp Pulse Resp BP Pulse Ox 98.3 F 74 16 173/54 98 02/16/18 11:00 02/16/18 11:00 02/16/18 11:00 02/16/18 11:00 02/16/18 11:00 General appearance: cooperative, no acute distress, no febrile - Head Head exam: Present: atraumatic, normocephalic - Respiratory Respiratory exam: Present: CTAB. Absent: accessory muscle use, decreased breath sounds, respiratory distress, wheezes - Cardiovascular Cardiovascular exam: Present: RRR. Absent: bradycardia, irregular rhythm, systolic murmur, tachycardia - GI/Abdominal GI/Abdominal exam: Present: normal bowel sounds, soft. Absent: tenderness - Extremities Exam Additional comments: left arm swelling and erythema noted right great toe wrapped - VTE Documentation of Mechanical Device: Intermittent pneumatic compression device Consult Discharge Plan - Plan Referrals: [facility]Primary Care Provider[facility] - - Attending Attestation I examined this patient and my medical decision-making was reviewed with the Resident Physician. I agree with the documented findings, disposition and treatment plan as described except to the extent set forth below.
[2018-02-16] MEDS ORDERED: Naloxone 0.4 MG/ML INJ IVP PRN (16:13)
--- NOTE | 2018-02-16 17:36 | Orthopedic Operative Note ---
Date of procedure: 02/16/18 Pre-op diagnosis: Necrotic toe #1 right foot Post-op diagnosis: same Procedure: 02/16/18 17:34 #1: Amputation right great toe at the level of the MTPJ Implants: None Complications: None Anesthesia: MAC, local Local Anesthetics: 0.25% Sensorcaine HCL SubQ (cc) Surgeon: Chencho Kruse Was there an registered nurse first assistant present: No Estimated blood loss (cc): 3 Tourniquet Time (Minutes): 0 Specimen: Necrotic toe #1 right foot Condition: stable Disposition: floor Procedure in Detail: 02/16/18 17:37 Details summary of procedure: Patient brought to surgical suite. Sign in procedure was performed. The patient was then transferred to the surgical table and positioned properly safely and securely. Right foot was elevated on a foam block. No tourniquet was used. Right ankle was prepped with alcohol 3 times anesthetic timeout taken. Ankle block carried out without difficulty.. Surgical timeout taken . Planned incision was drawn for the amputation right great toe beginning on the medial aspect first MTPJ brought distally and transversely across the dorsal aspect of the great toe just proximal to the DIPJ and reaching lateral plantar skin and a linear fashion toward the webspace. Plantar flap was designed using a Skin Skribe from the medial incision to the medial plantar aspect of the IPJ and then plantarly and a transverse fashion and then onto the webspace. Incision was then begun on the medial aspect first MTPJ and was made directly down the bone distally and then transversely dorsal aspect of the only to the lateral aspect of the first webspace plantar flap was incised same fashion from the medial aspect of the IPJ, transversely to the webspace. Distal interphalangeal joint was then disarticulated by dividing the capsular structures cleanly the great toe was then disarticulated at that level. Dissection was then carried of the level of periosteum of the proximal phalanx back to the MTPJ where the proximal phalanx was then disarticulated from the metatarsal by dividing the capsular structures cleanly with a #15 scalpel blade. No proximal necrosis or infection was noted. The wound was then flushed with copious must sterile saline. The flexor tendon was in identified fresh edge was obtained and was then sewn to the extensor tendon with several sutures of 3-0 Vicryl. The wound was sprayed with PRP and closed with interrupted sutures of 3-0 Prolene. There is no active bleeding necessitated use of Bovie ligature. Patient was then dressed accordingly with Adaptic 4 x 4' s and Kerlix and a noncompressive bulky dressing. Patient's insensate holding room in good condition with vital signs stable. There was concern for lack of effusion bleeding of the skin edges which was minimal at best. This may be due to spasmolytic vessels at the time of operation. Tincture of time will reveal as to whether these flaps main viable. 02/17/18 17:05
--- NOTE | 2018-02-16 17:39 | Oncology Inp Consult Note ---
<LantiguaGinger L - Last Filed: 02/17/18 07:53> Date of Encounter: 02/16/18 Time of Encounter: 17:15 Assessment and Plan (1) Anemia Status: Acute Assessment and plan: Acute decrease since October 2017, stable since this time Secondary to chronic disease, post operative/acute blood loss, GI loss, malignancy B12 286-check MMA Iron 17, 7%, Ferritin 470 Qualifiers: Anemia type: other cause Other causes of anemia: acute posthemorrhagic Qualified Code(s): D62 - Acute posthemorrhagic anemia (2) Mass of upper lobe of right lung Status: Acute Assessment and plan: Chest CT with contrast reveals a 5.8 cm posterior right upper lobe mass with cavitation and pleural tags previously 4.3 cm. There is mention of several scattered mostly small mediastinal lymph nodes. Largest node is 1.2 cm short axis low right peritracheal lymph node. Some nodes also calcified in the right hilar and subcarinal region. He also has indeterminate liver lesions. He is s/p bronchoscopy on 02/15/2018-pathology pending-ALBERT suggestive of atypical cells We discussed the above radiographic findings concerning for primary lung malignancy. Treatment options, staging and prognosis to be discussed following outpatient PET scan and final pathology report. (3) Retroperitoneal hematoma Status: Acute Assessment and plan: Admitted following imaging revealing a 13 cm x 9.5 cm x 19 cm retroperitoneal hematoma adjacent to the right iliac artery stent and extends superiorly anterior to the psoas muscle and causing obstruction of the right ureter causing mild hydronephrosis and hydroureter He does have a complex vascular history. On 01/29/18 he had a right ilio-femoral and femoral-popliteal bypass grafts thrombectomy with right femoral to BK popliteal bypass graft. He has been evaluated by vascular services who have recommended continued evaluation, no intervention needed at this time, suspect a component of this was present during his prior admission Continue to hold Xarelto - Data of Consult Patient: new to practice Consult date: 02/16/18 Requesting Physician: Lillian Kelsey [facility] - Consult Narrative Reason for consult: RUL mass History of present illness: Mr. 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 He is somehwat of a poor historian but he does report history of DVT for which he was taking Xarelto for up until his recent vascular surgery. Venous doppler on 02/14 was of normal exam. He was transferred from the [place] to [facility] on 02/10/[address] abd/pelvis showed a 13 cm x 9.5 cm x 19 cm retroperitoneal hematoma adjacent to the right iliac artery stent and extends superiorly anterior to the psoas muscle and causing obstruction of the right ureter causing mild hydronephrosis and hydroureter. Prior to his presentation with RP hematoma, on 01/29/18 he had a right ilio- femoral and femoral-popliteal bypass grafts thrombectomy with right femoral to BK popliteal bypass graft performed by Dr. Joel. He did require blood transfusion while in the hospital and had an PATRICK which resolved. He was subsequently discharged on 02/03/18. Per admission record, there was note of low density liver lesions that were indeterminate [facility] his [facility], working to obtain this record. These lesions can also be viewed on his CT Chest obtained here at [place]. He denies recent weight loss or appetite changes. He reports SOB on exertion, denies any real chronic cough. As stated above he has abused tobacco since the age of 5, smoked at most 1-2 PPD, currently less than 1 PPD. 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 Past Med Surg Social Fam HX - Past Medical History Medical history: arthritis, hyperlipidemia, hypertension, peripheral artery disease, other Additional medical history: lung nodule Psychiatric history: depression - Past Surgical History Surgical History: other Additional surgical history: vasectomy. seasonal affective disorder - Social History Smoking Status: Unknown if ever smoked Smokeless Tobacco Status: No Alcohol use: none Drug use: none - Family History Mother History Unknown: Yes Living Status: Hx Family Neuromuscular Disorders: No Hx Family Neurologic Disorders: Yes (alzheimers) Father History Unknown: Yes Living Status: Hx Family Respiratory Disorders: Yes (was on oxygen; smoker) Medications and Allergies Atorvastatin [Lipitor] 40 mg PO HS 07/19/17 [History] BuPROPion SR (12 HR) [Wellbutrin SR] 150 mg PO QAM 07/19/17 [History] Lisinopril [Zestril] 40 mg PO DAILY 11/21/17 [History] Sertraline [Zoloft] 50 mg PO DAILY 07/19/17 [History] Tamsulosin [Flomax] 0.4 mg PO DAILY 07/19/17 [History] Gabapentin [Neurontin] 800 mg PO TID 11/01/17 [History] Aspirin Enteric Coated [Aspirin EC] 81 mg PO DAILY #30 tablet. 11/07/17 [Rx] Acetaminophen [Tylenol] 500 mg PO Q8H PRN 01/27/18 [History] Oxycodone HCl/Acetaminophen [Percocet 5-325 mg Tablet] 1 each PO Q8HR PRN 7 Days #20 tablet 02/03/18 [Rx] Rivaroxaban [Xarelto] 15 mg PO 1700 30 Days #30 tablet 02/03/18 [Rx] 3 Allergy/AdvReac Type Severity Reaction Status Date / Time No Known Allergies Allergy Verified 02/09/18 23:23 Constitutional: Present: fatigue, weakness. Absent: anorexia, chills, fever(s) , weight gain Eyes: Absent: change in vision Nose, mouth and throat: Absent: dysphagia Cardiovascular: Absent: chest pain, palpitations Respiratory: Present: dyspnea on exertion. Absent: dyspnea, hemoptysis Gastrointestinal: Present: as per HPI, abdominal pain. Absent: hematemesis, hematochezia, melena, nausea, vomiting Additional comments: denies dysuria, hematuria Musculoskeletal: Present: as per HPI, muscle weakness Integumentary: Present: as per HPI Additional comments: Severe PAD/chronic skin changes BLE, amputation right great toe Neurological: Absent: focal weakness, frequent falls Psychiatric: Absent: change in appetite Hematologic/Lymphatic: Present: as per HPI Oncology - Exam - Constitutional Vitals: Temp Pulse Resp BP Pulse Ox 97.9 F 75 16 187/71 92 02/16/18 16:14 02/16/18 16:14 02/16/18 16:14 02/16/18 16:14 02/16/18 16:14 General appearance: cooperative, no acute distress, no febrile - Head Head exam: Present: atraumatic - ENT ENT exam: Present: mucous membranes moist - Respiratory Respiratory exam: Present: wheezes. Absent: respiratory distress - Cardiovascular Cardiovascular exam: Present: RRR, +S1, +S2 - GI/Abdominal GI/Abdominal exam: Present: normal bowel sounds Additional comments: diffuse tenderness and localized tenderness to RLQ, ecchymosis and firm to palpation to hematoma to right abdomen - Extremities Exam Additional comments: wrapping to right foot s/p right great toe amputation - Neurological Exam Neurological exam: Present: alert, oriented X3, no focal deficits, strengths equal and symetr throughout - Psychiatric Psychiatric exam: Present: normal affect, normal mood - Skin Skin exam: Present: dry, intact, normal color, warm Oncology - Results Labs: 3 02/16/18 02/16/18 02/15/18 04:07 04:07 11:26 WBC 12.0 H RBC 3.13 L Hgb 9.1 L Hct 28.6 L MCV 91.4 MCH 29.1 MCHC 31.8 RDW 15.8 H Plt Count 300 MPV 11.2 Immature Gran % 0.7 Seg Neutrophils % 75.3 Lymphocytes % 10.3 Monocytes % 10.5 Eosinophils % 2.3 Basophils % 0.9 Neutrophils # 9.0 H Lymphocytes # 1.2 Monocytes # 1.3 Eosinophils # 0.3 Basophils # 0.1 Immature Plt Fraction PT INR Sodium 131 L Potassium 5.5 H Chloride 102 Carbon Dioxide 23 BUN 28 H Creatinine 1.06 Est GFR ( Amer) > 60 Est GFR (Non-Af Amer) > 60 BUN/Creatinine Ratio 26 Glucose 93 POC Glucose Calculated Osmolality 277 L Calcium 9.0 Phosphorus Magnesium Iron % Saturation Transferrin Ferritin Albumin Prealbumin Vitamin B12 Fluid Source Fluid Volume Fluid Appearance Fluid RBC Fld Tot Nucleated Cell Fluid Seg Neutrophil % Fluid Lymphocytes % Fluid Monocytes % Fluid Other Cells % Blood Type A NEGATIVE Antibody Screen NEGATIVE Crossmatch See Detail 3 02/15/18 02/15/18 02/15/18 08:00 08:00 05:16 WBC RBC Hgb Hct MCV MCH MCHC RDW Plt Count MPV Immature Gran % Seg Neutrophils % Lymphocytes % Monocytes % Eosinophils % Basophils % Neutrophils # Lymphocytes # Monocytes # Eosinophils # Basophils # Immature Plt Fraction PT INR Sodium 132 L Potassium 5.1 Chloride 104 Carbon Dioxide 22 L BUN 32 H Creatinine 1.11 Est GFR ( Amer) > 60 Est GFR (Non-Af Amer) > 60 BUN/Creatinine Ratio 29 H Glucose 99 POC Glucose Calculated Osmolality 281 Calcium 8.9 Phosphorus Magnesium Iron % Saturation Transferrin Ferritin Albumin Prealbumin Vitamin B12 Fluid Source right upper lobe right upper lobe brian Fluid Volume 13 21 Fluid Appearance Cloudy A Cloudy A Fluid RBC TNP TNP Fld Tot Nucleated Cell TNP TNP Fluid Seg Neutrophil % 8.0 18.0 Fluid Lymphocytes % 22.0 14.0 Fluid Monocytes % 3.0 1.0 Fluid Other Cells % 67.0 67.0 Blood Type Antibody Screen Crossmatch 3 02/15/18 02/14/18 02/14/18 05:16 14:37 14:37 WBC 10.2 12.4 H RBC 3.00 L 3.09 L Hgb 8.5 L 8.9 L Hct 27.3 L 28.4 L MCV 91.0 91.9 MCH 28.3 28.8 MCHC 31.1 L 31.3 L RDW 15.7 H 15.7 H Plt Count 313 317 MPV 11.3 10.9 Immature Gran % 0.5 0.6 Seg Neutrophils % 73.3 82.8 Lymphocytes % 12.5 4.5 Monocytes % 10.6 9.6 Eosinophils % 2.1 1.9 Basophils % 1.0 0.6 Neutrophils # 7.5 10.2 H Lymphocytes # 1.3 0.6 Monocytes # 1.1 1.2 Eosinophils # 0.2 0.2 Basophils # 0.1 0.1 Immature Plt Fraction 5.4 PT 12.5 H INR 1.2 Sodium Potassium Chloride Carbon Dioxide BUN Creatinine Est GFR ( Amer) Est GFR (Non-Af Amer) BUN/Creatinine Ratio Glucose POC Glucose Calculated Osmolality Calcium Phosphorus Magnesium Iron % Saturation Transferrin Ferritin Albumin Prealbumin Vitamin B12 Fluid Source Fluid Volume Fluid Appearance Fluid RBC Fld Tot Nucleated Cell Fluid Seg Neutrophil % Fluid Lymphocytes % Fluid Monocytes % Fluid Other Cells % Blood Type Antibody Screen Crossmatch 3 02/12/18 02/12/18 02/12/18 16:11 06:47 06:47 WBC 13.6 H RBC 3.27 L Hgb 9.6 L Hct 29.1 L MCV 89.0 MCH 29.4 MCHC 33.0 RDW 15.5 H Plt Count 333 MPV 10.9 Immature Gran % 0.5 Seg Neutrophils % 79.2 Lymphocytes % 6.7 Monocytes % 11.0 Eosinophils % 1.9 Basophils % 0.7 Neutrophils # 10.8 H Lymphocytes # 0.9 Monocytes # 1.5 H Eosinophils # 0.3 Basophils # 0.1 Immature Plt Fraction PT INR Sodium 134 L Potassium 4.4 Chloride 102 Carbon Dioxide 27 BUN 18 Creatinine 0.94 Est GFR ( Amer) > 60 Est GFR (Non-Af Amer) > 60 BUN/Creatinine Ratio 19 Glucose 98 POC Glucose 102 H Calculated Osmolality 280 Calcium 8.7 Phosphorus 3.9 Magnesium 1.6 Iron % Saturation Transferrin Ferritin Albumin Prealbumin Vitamin B12 Fluid Source Fluid Volume Fluid Appearance Fluid RBC Fld Tot Nucleated Cell Fluid Seg Neutrophil % Fluid Lymphocytes % Fluid Monocytes % Fluid Other Cells % Blood Type Antibody Screen Crossmatch 3 02/11/18 02/11/18 02/11/18 04:53 04:53 04:53 WBC 14.9 H RBC 3.09 L Hgb 9.0 L Hct 27.6 L MCV 89.3 MCH 29.1 MCHC 32.6 RDW 15.6 H Plt Count 346 MPV 11.1 Immature Gran % Seg Neutrophils % Lymphocytes % Monocytes % Eosinophils % Basophils % Neutrophils # Lymphocytes # Monocytes # Eosinophils # Basophils # Immature Plt Fraction PT INR Sodium 133 L Potassium 4.5 Chloride 101 Carbon Dioxide 23 BUN 20 Creatinine 0.99 Est GFR ( Amer) > 60 Est GFR (Non-Af Amer) > 60 BUN/Creatinine Ratio 20 Glucose 104 POC Glucose Calculated Osmolality 279 L Calcium 8.6 Phosphorus Magnesium Iron % Saturation Transferrin Ferritin Albumin 2.8 L Prealbumin Vitamin B12 Fluid Source Fluid Volume Fluid Appearance Fluid RBC Fld Tot Nucleated Cell Fluid Seg Neutrophil % Fluid Lymphocytes % Fluid Monocytes % Fluid Other Cells % Blood Type Antibody Screen Crossmatch 3 02/10/18 02/10/18 02/10/18 15:14 15:14 15:14 WBC RBC Hgb Hct MCV MCH MCHC RDW Plt Count MPV Immature Gran % Seg Neutrophils % Lymphocytes % Monocytes % Eosinophils % Basophils % Neutrophils # Lymphocytes # Monocytes # Eosinophils # Basophils # Immature Plt Fraction PT INR Sodium Potassium Chloride Carbon Dioxide BUN Creatinine Est GFR ( Amer) Est GFR (Non-Af Amer) BUN/Creatinine Ratio Glucose POC Glucose Calculated Osmolality Calcium Phosphorus 4.0 Magnesium 1.5 L Iron 17 L % Saturation 7 L Transferrin 168 L Ferritin 470 H Albumin Prealbumin 10.8 L Vitamin B12 286 Fluid Source Fluid Volume Fluid Appearance Fluid RBC Fld Tot Nucleated Cell Fluid Seg Neutrophil % Fluid Lymphocytes % Fluid Monocytes % Fluid Other Cells % Blood Type Antibody Screen Crossmatch 3 02/10/18 02/10/18 02/10/18 11:18 05:52 03:40 WBC RBC Hgb 8.1 L 8.2 L Hct 25.9 L 25.7 L MCV MCH MCHC RDW Plt Count MPV Immature Gran % Seg Neutrophils % Lymphocytes % Monocytes % Eosinophils % Basophils % Neutrophils # Lymphocytes # Monocytes # Eosinophils # Basophils # Immature Plt Fraction PT INR Sodium Potassium Chloride Carbon Dioxide BUN Creatinine Est GFR ( Amer) Est GFR (Non-Af Amer) BUN/Creatinine Ratio Glucose POC Glucose 98 Calculated Osmolality Calcium Phosphorus Magnesium Iron % Saturation Transferrin Ferritin Albumin Prealbumin Vitamin B12 Fluid Source Fluid Volume Fluid Appearance Fluid RBC Fld Tot Nucleated Cell Fluid Seg Neutrophil % Fluid Lymphocytes % Fluid Monocytes % Fluid Other Cells % Blood Type Antibody Screen Crossmatch Consult Discharge Plan - Plan Referrals: [facility] [Primary Care Provider] - <Bakari Rodríguez S - Last Filed: 02/17/18 08:36> Date of Encounter: 02/17/18 - Data of Consult Requesting Physician: Jonathon Nunn MD Primary Care Provider: PCP [place] - Consult Narrative History of present illness: Mr. Johansen is a 67 year old male Oncology - Exam - Constitutional Vitals: Temp Pulse Resp BP Pulse Ox 97.8 F 86 18 202/72 96 02/17/18 07:05 02/17/18 07:05 02/17/18 07:05 02/17/18 07:05 02/17/18 07:05 Oncology - Results Labs: 3 02/17/18 02/17/18 02/17/18 05:57 03:59 03:59 WBC 10.6 RBC 3.15 L Hgb 9.1 L Hct 28.3 L MCV 89.8 MCH 28.9 MCHC 32.2 RDW 15.8 H Plt Count 319 MPV 11.2 Immature Gran % 0.7 Seg Neutrophils % 71.3 Lymphocytes % 11.1 Monocytes % 13.0 Eosinophils % 3.1 Basophils % 0.8 Neutrophils # 7.6 Lymphocytes # 1.2 Monocytes # 1.4 H Eosinophils # 0.3 Basophils # 0.1 Immature Plt Fraction PT INR Sodium Potassium Chloride Carbon Dioxide BUN Creatinine Est GFR ( Amer) Est GFR (Non-Af Amer) BUN/Creatinine Ratio Glucose POC Glucose Calculated Osmolality Calcium Phosphorus Magnesium Iron % Saturation Transferrin Ferritin Albumin Prealbumin Vitamin B12 Folate 18.8 H Fluid Source Fluid Volume Fluid Appearance Fluid RBC Fld Tot Nucleated Cell Fluid Seg Neutrophil % Fluid Lymphocytes % Fluid Monocytes % Fluid Other Cells % Specimen Rejected Clotted Blood Type Antibody Screen Crossmatch 3 02/17/18 02/16/18 02/16/18 03:59 04:07 04:07 WBC 12.0 H RBC 3.13 L Hgb 9.1 L Hct 28.6 L MCV 91.4 MCH 29.1 MCHC 31.8 RDW 15.8 H Plt Count 300 MPV 11.2 Immature Gran % 0.7 Seg Neutrophils % 75.3 Lymphocytes % 10.3 Monocytes % 10.5 Eosinophils % 2.3 Basophils % 0.9 Neutrophils # 9.0 H Lymphocytes # 1.2 Monocytes # 1.3 Eosinophils # 0.3 Basophils # 0.1 Immature Plt Fraction PT INR Sodium 131 L 131 L Potassium 5.1 5.5 H Chloride 103 102 Carbon Dioxide 23 23 BUN 24 H 28 H Creatinine 0.98 1.06 Est GFR ( Amer) > 60 > 60 Est GFR (Non-Af Amer) > 60 > 60 BUN/Creatinine Ratio 24 26 Glucose 158 H 93 POC Glucose Calculated Osmolality 279 L 277 L Calcium 8.9 9.0 Phosphorus Magnesium Iron % Saturation Transferrin Ferritin Albumin Prealbumin Vitamin B12 Folate Fluid Source Fluid Volume Fluid Appearance Fluid RBC Fld Tot Nucleated Cell Fluid Seg Neutrophil % Fluid Lymphocytes % Fluid Monocytes % Fluid Other Cells % Specimen Rejected Blood Type Antibody Screen Crossmatch 3 02/15/18 02/15/18 02/15/18 11:26 08:00 08:00 WBC RBC Hgb Hct MCV MCH MCHC RDW Plt Count MPV Immature Gran % Seg Neutrophils % Lymphocytes % Monocytes % Eosinophils % Basophils % Neutrophils # Lymphocytes # Monocytes # Eosinophils # Basophils # Immature Plt Fraction PT INR Sodium Potassium Chloride Carbon Dioxide BUN Creatinine Est GFR ( Amer) Est GFR (Non-Af Amer) BUN/Creatinine Ratio Glucose POC Glucose Calculated Osmolality Calcium Phosphorus Magnesium Iron % Saturation Transferrin Ferritin Albumin Prealbumin Vitamin B12 Folate Fluid Source right upper lobe right upper lobe brian Fluid Volume 13 21 Fluid Appearance Cloudy A Cloudy A Fluid RBC TNP TNP Fld Tot Nucleated Cell TNP TNP Fluid Seg Neutrophil % 8.0 18.0 Fluid Lymphocytes % 22.0 14.0 Fluid Monocytes % 3.0 1.0 Fluid Other Cells % 67.0 67.0 Specimen Rejected Blood Type A NEGATIVE Antibody Screen NEGATIVE Crossmatch See Detail 3 02/15/18 02/15/18 02/14/18 05:16 05:16 14:37 WBC 10.2 RBC 3.00 L Hgb 8.5 L Hct 27.3 L MCV 91.0 MCH 28.3 MCHC 31.1 L RDW 15.7 H Plt Count 313 MPV 11.3 Immature Gran % 0.5 Seg Neutrophils % 73.3 Lymphocytes % 12.5 Monocytes % 10.6 Eosinophils % 2.1 Basophils % 1.0 Neutrophils # 7.5 Lymphocytes # 1.3 Monocytes # 1.1 Eosinophils # 0.2 Basophils # 0.1 Immature Plt Fraction 5.4 PT 12.5 H INR 1.2 Sodium 132 L Potassium 5.1 Chloride 104 Carbon Dioxide 22 L BUN 32 H Creatinine 1.11 Est GFR ( Amer) > 60 Est GFR (Non-Af Amer) > 60 BUN/Creatinine Ratio 29 H Glucose 99 POC Glucose Calculated Osmolality 281 Calcium 8.9 Phosphorus Magnesium Iron % Saturation Transferrin Ferritin Albumin Prealbumin Vitamin B12 Folate Fluid Source Fluid Volume Fluid Appearance Fluid RBC Fld Tot Nucleated Cell Fluid Seg Neutrophil % Fluid Lymphocytes % Fluid Monocytes % Fluid Other Cells % Specimen Rejected Blood Type Antibody Screen Crossmatch 3 02/14/18 02/12/18 02/12/18 14:37 16:11 06:47 WBC 12.4 H RBC 3.09 L Hgb 8.9 L Hct 28.4 L MCV 91.9 MCH 28.8 MCHC 31.3 L RDW 15.7 H Plt Count 317 MPV 10.9 Immature Gran % 0.6 Seg Neutrophils % 82.8 Lymphocytes % 4.5 Monocytes % 9.6 Eosinophils % 1.9 Basophils % 0.6 Neutrophils # 10.2 H Lymphocytes # 0.6 Monocytes # 1.2 Eosinophils # 0.2 Basophils # 0.1 Immature Plt Fraction PT INR Sodium 134 L Potassium 4.4 Chloride 102 Carbon Dioxide 27 BUN 18 Creatinine 0.94 Est GFR ( Amer) > 60 Est GFR (Non-Af Amer) > 60 BUN/Creatinine Ratio 19 Glucose 98 POC Glucose 102 H Calculated Osmolality 280 Calcium 8.7 Phosphorus 3.9 Magnesium 1.6 Iron % Saturation Transferrin Ferritin Albumin Prealbumin Vitamin B12 Folate Fluid Source Fluid Volume Fluid Appearance Fluid RBC Fld Tot Nucleated Cell Fluid Seg Neutrophil % Fluid Lymphocytes % Fluid Monocytes % Fluid Other Cells % Specimen Rejected Blood Type Antibody Screen Crossmatch 3 02/12/18 02/11/18 02/11/18 06:47 04:53 04:53 WBC 13.6 H RBC 3.27 L Hgb 9.6 L Hct 29.1 L MCV 89.0 MCH 29.4 MCHC 33.0 RDW 15.5 H Plt Count 333 MPV 10.9 Immature Gran % 0.5 Seg Neutrophils % 79.2 Lymphocytes % 6.7 Monocytes % 11.0 Eosinophils % 1.9 Basophils % 0.7 Neutrophils # 10.8 H Lymphocytes # 0.9 Monocytes # 1.5 H Eosinophils # 0.3 Basophils # 0.1 Immature Plt Fraction PT INR Sodium 133 L Potassium 4.5 Chloride 101 Carbon Dioxide 23 BUN 20 Creatinine 0.99 Est GFR ( Amer) > 60 Est GFR (Non-Af Amer) > 60 BUN/Creatinine Ratio 20 Glucose 104 POC Glucose Calculated Osmolality 279 L Calcium 8.6 Phosphorus Magnesium Iron % Saturation Transferrin Ferritin Albumin 2.8 L Prealbumin Vitamin B12 Folate Fluid Source Fluid Volume Fluid Appearance Fluid RBC Fld Tot Nucleated Cell Fluid Seg Neutrophil % Fluid Lymphocytes % Fluid Monocytes % Fluid Other Cells % Specimen Rejected Blood Type Antibody Screen Crossmatch 3 02/11/18 02/10/18 02/10/18 04:53 15:14 15:14 WBC 14.9 H RBC 3.09 L Hgb 9.0 L Hct 27.6 L MCV 89.3 MCH 29.1 MCHC 32.6 RDW 15.6 H Plt Count 346 MPV 11.1 Immature Gran % Seg Neutrophils % Lymphocytes % Monocytes % Eosinophils % Basophils % Neutrophils # Lymphocytes # Monocytes # Eosinophils # Basophils # Immature Plt Fraction PT INR Sodium Potassium Chloride Carbon Dioxide BUN Creatinine Est GFR ( Amer) Est GFR (Non-Af Amer) BUN/Creatinine Ratio Glucose POC Glucose Calculated Osmolality Calcium Phosphorus Magnesium Iron 17 L % Saturation 7 L Transferrin 168 L Ferritin 470 H Albumin Prealbumin 10.8 L Vitamin B12 286 Folate Fluid Source Fluid Volume Fluid Appearance Fluid RBC Fld Tot Nucleated Cell Fluid Seg Neutrophil % Fluid Lymphocytes % Fluid Monocytes % Fluid Other Cells % Specimen Rejected Blood Type Antibody Screen Crossmatch 3 02/10/18 02/10/18 15:14 11:18 WBC RBC Hgb 8.1 L Hct 25.9 L MCV MCH MCHC RDW Plt Count MPV Immature Gran % Seg Neutrophils % Lymphocytes % Monocytes % Eosinophils % Basophils % Neutrophils # Lymphocytes # Monocytes # Eosinophils # Basophils # Immature Plt Fraction PT INR Sodium Potassium Chloride Carbon Dioxide BUN Creatinine Est GFR ( Amer) Est GFR (Non-Af Amer) BUN/Creatinine Ratio Glucose POC Glucose Calculated Osmolality Calcium Phosphorus 4.0 Magnesium 1.5 L Iron % Saturation Transferrin Ferritin Albumin Prealbumin Vitamin B12 Folate Fluid Source Fluid Volume Fluid Appearance Fluid RBC Fld Tot Nucleated Cell Fluid Seg Neutrophil % Fluid Lymphocytes % Fluid Monocytes % Fluid Other Cells % Specimen Rejected Blood Type Antibody Screen Crossmatch - Attending Attestation 1. CT chest incidental finding about 5 cm right upper lobe posteriorly located mass. Small right hilar lymph node 1.2 cm. Likely non-small cell lung cancer. We will proceed with biopsy. PET scan as outpatient If necessary MRI brain. He is not interested in further surgeries. Also given the extent of his vascular disease may not be a candidate for aggressive surgical treatment 2. He was transferred from the [place] to [facility] on 02/10/[address] abd/pelvis showed a 13 cm x 9.5 cm x 19 cm retroperitoneal hematoma adjacent to the right iliac artery stent and extends superiorly anterior to the psoas muscle and causing obstruction of the right ureter causing mild hydronephrosis and hydroureter. Prior to his presentation with RP hematoma, on 01/29/18 he had a right ilio-femoral and femoral-popliteal bypass grafts thrombectomy He was on Xarelto which is on hold 3. Significant peripheral vascular disease from long-standing smoking which he continued to smoke and 4. Recent prolonged dictation during this admission due to peripheral vascular disease
--- NOTE | 2018-02-16 19:02 | Vascular/Endovas Progress Note ---
Date of Encounter: 02/16/18 Time of Encounter: 18:30 - Assessment and plan (1) PAD (peripheral artery disease) Current Visit: Yes Status: Chronic Patent right iliofemoral bypass graft and patent right femoral to low knee popliteal artery bypass graft. (2) Acute blood loss anemia Current Visit: Yes Status: Chronic Patient has known anemia. No significant change since discharge. (3) Retroperitoneal hematoma Current Visit: Yes Status: Acute Resolving right retroperitoneal hematoma (4) Superficial thrombophlebitis of left upper extremity Current Visit: Yes Status: Acute Patient has left proximal forearm superficial thrombophlebitis with cellulitis from a previous IV site. The IV was removed approximately 1-2 days ago. I do not believe there is any retained foreign body. I recommend elevation and heat applied to the area of inflammation as well as antibiotics. The vein does not appear suppurative at this time and does not require surgical intervention. - Subjective Interval history: I was asked to see the patient earlier today because of an issue regarding the left upper extremity. The patient had a left forearm IV that was removed one to 2 days ago. Apparently was not functioning at that time. Subsequent to that the patient went on to develop redness and swelling at the left forearm at the IV site. Patient has mild discomfort associated with this. A venous duplex scan was performed earlier today. This confirmed the suspicion of cephalic vein superficial thrombophlebitis. There is an issue raised because of the duplex scan findings of a potential retained foreign body. Vascular surgery was asked to see the patient in that regard. I personally reviewed the duplex scan findings and have spoken with the technologist. In my review of the images it appears that he has a very thick and well-developed fibrin sheath associated with the previous indwelling left forearm cephalic vein IV. In addition a plain film of the left forearm was obtained which demonstrates no retained foreign body. Vital Signs, Last 4 Hours Temp Pulse Resp BP Pulse Ox 02/16/18 16:14 97.9 F 75 16 187/71 92 - Physical Examination General: Present: Conversant, No Apparent Distress HEENT: Present: Atraumatic Cardiac: Present: Reg Rate and Rhythm Vascular: Present: Edema (Patient has a swollen anterior aspect of the left forearm.), Color/Temperature (The area of swelling is red and hot. There are no blebs. There is no signs of fasciitis. The vein distal to the area of inflammation is soft and nontender. There is no streaking. There is no finding of a sending inflammatory changes above the antecubital space.) Abdomen: Present: Soft - VTE Documentation of Mechanical Device: Intermittent pneumatic compression device Results 02/16/18 04:07 02/16/18 04:07 Lab Results, Last 24 hours 02/16/18 02/16/18 04:07 04:07 WBC 12.0 H Hgb 9.1 L Hct 28.6 L Plt Count 300 Sodium 131 L Potassium 5.5 H Chloride 102 Carbon Dioxide 23 BUN 28 H Creatinine 1.06 Glucose 93 Calcium 9.0 - Imaging / Other Tests Non Invasive Vascular Testing: image reviewed (As noted elsewhere the patient has acute superficial vein thrombophlebitis of the left cephalic vein. The findings on the duplex scan are suggestive of a fibrin sheath and I do not believe represent a retained foreign body.) Consult Discharge Plan - Plan [facility]errals: [facility] [Primary Care Provider] -
[2018-02-17] MEDS: *HR* OxyCODONE/APAP 5/325 TABLET PO PRN (03:51)
[2018-02-17 04:33] LABS: BUN/Creatinine Ratio 24 (6-26); Blood Urea Nitrogen 24 mg/dL (8-23); Calcium 8.9 mg/dL (8.6-10.3); Carbon Dioxide 23 mEq/L (23-29); Chloride 103 mEq/L (98-107); Glucose 158 mg/dL (70-105); Osmolality,Calculated 279 (280-300); Potassium 5.1 mEq/L (3.5-5.1); Sodium 131 mEq/L (136-145); eGFR For African Americans > 60 (> 60); eGFR For Non-African Americans > 60 (> 60)
[2018-02-17 06:25] LABS: Basophils # 0.1 K/mcL (0.0-0.2); Basophils % 0.8 %; Eosinophils # 0.3 K/mcL (0.0-0.6); Eosinophils % 3.1 %; Hematocrit 28.3 % (37.5-50.1); Hemoglobin 9.1 g/dL (12.9-16.9); Immature Granulocytes % 0.7 % (0-4); Lymphocytes # 1.2 K/mcL (0.6-4.6); Lymphocytes % 11.1 %; Mean Corpuscular HGB Conc 32.2 g/dL (31.6-35.5); Mean Corpuscular Hemoglobin 28.9 pg (28.0-33.3); Mean Corpuscular Volume 89.8 fL (83.0-100.0); Mean Platelet Volume 11.2 fL (9.4-12.4); Monocytes # 1.4 K/mcL (0.0-1.3); Neutrophils # 7.6 K/mcL (1.6-8.9); Platelet Count 319 K/mcL (140-400); Red Blood Count 3.15 M/mcL (4.19-5.50); Red Cell Distribution Width 15.8 % (11.5-14.5); Segmented Neutrophils % 71.3 %
[2018-02-17] MEDS ORDERED: *HR* OxyCODONE/APAP 5/325 TABLET PO PRN (07:45)
[2018-02-17] MEDS: amLODIPine 5 MG TABLET PO SCH (08:35)
[2018-02-17] MEDS: Magnesium Oxide 400 MG TABLET PO SCH ×2 (08:36→20:18)
[2018-02-17] MEDS: Gabapentin 400 MG CAPSULE PO SCH ×3 (08:36→20:18)
[2018-02-17] MEDS: Sennosides/Docusate Sodium TABLET PO SCH ×2 (08:36→20:17)
[2018-02-17] MEDS: Cyanocobalamin (B-12) 1,000 MCG TABLET PO SCH (08:36)
[2018-02-17] MEDS: Aspirin Enteric Coated 81 MG Tablet PO SCH (08:36)
[2018-02-17] MEDS: BuPROPion SR (12 HR) 150 MG TABLET PO SCH (08:36)
--- NOTE | 2018-02-17 08:42 | Internal Med Progress Note ---
<Mya Pelayo - Last Filed: 02/17/18 17:20> Date of Encounter: 02/17/18 Time of Encounter: 08:40 - Assessment and plan (1) Gangrene of toe of right foot Current Visit: Yes Status: Acute Assessment and plan: POD#1 partial amputation of right great toe with Dr. Kruse Pt having neuropathic and post op pain. He also states he is having muscle spasms in the foot. Plan: Podiatry consulted, appreciate their recommendations Pain control--increase percocet dose to 10/325 Q4hr and add cyclobenzaprine 5mg TID PRN ID consulted for possible IV abx at discharge, appreciate their recommendations. Weight bearing to heel only Per Podiatry: Dressing may remain intact until seen in office, will need follow up appointment in podiatry clinic 1 week after discharge; Patient will need post op shoe prior to discharge (2) PAD (peripheral artery disease) Current Visit: Yes Status: Chronic Assessment and plan: Will restart xarelto (3) Hypertension Current Visit: No Status: Chronic Assessment and plan: BP has been elevated, lisinopril was held secondary to hyperkalemia, which has improved. Hold lisinopril until K more stable Plan: Continue current medications Hydralazine as needed labetalol 100mg BID Continue to hold lisinopril Qualifiers: Hypertension type: essential hypertension Qualified Code(s): I10 - Essential (primary) hypertension Code(s): I10 - Essential (primary) hypertension SNOMED Code(s): 36989497 (4) Acute blood loss as cause of postoperative anemia Current Visit: No Status: Acute Assessment and plan: Hemoglobin stable Hemodynamically stable. Plan: Continue to monitor (5) Retroperitoneal hematoma Current Visit: Yes Status: Acute Assessment and plan: Appreciate vascular surgery input, no surgical intervention needed, close monitoring patient condition, okay to ambulate PTOT (6) Lung mass Current Visit: Yes Status: Acute Assessment and plan: Acid-fast bacilli negative 2 Bronch results pending Plan: Await bronch results Oncology consulted, appreciate their recommendations. (7) Hyperkalemia Current Visit: Yes Status: Acute Assessment and plan: Resolved, K 5.1 today Pt had several BMs yesterday evening On senna plus, miralax Plan: Hold ACEi Continue to monitor (8) Cellulitis of left forearm Current Visit: Yes Status: Acute Assessment and plan: Pt with erythema and warmth on left forearm at old IV site. Evaluated by vascular--do not think a foreign body is in arm Left forearm XR negative for foreign body. Plan: Continue to monitor Apply heat - Time Spent With Patient Total time spent is greater than 50% in coordination of care (as documented) at patient's floor/unit and/or counseling patient: - Subjective Interval history: POD#1 right great toe partial amputation with Dr. Kurse. Pt seen and examined, sitting up in chair. Pt reports that he is having severe pain. He states that the pain is eased somewhat by the percocet, but not much. He did have several BMs last evening. - Constitutional Vitals: Temp Pulse Resp BP Pulse Ox 97.8 F 86 18 202/72 96 02/17/18 07:05 02/17/18 07:05 02/17/18 07:05 02/17/18 07:05 02/17/18 07:05 General appearance: Present: A&O X 3, no acute distress, answers questions appropriately - Head Head exam: Present: atraumatic, normocephalic - Eye Eye exam: Present: PERRL, conjuntiva pink, sclera anicteric Pupils: Present: PERRL - Neck Neck exam general surgery: Present: supple, trachea midline. Absent: lymphadenopathy - Respiratory Respiratory exam: Present: CTAB. Absent: accessory muscle use, rales, rhonchi, wheezes - Cardiovascular Cardiovascular exam: Present: RRR, +S1, +S2. Absent: diastolic murmur, gallop, rubs, systolic murmur - GI/Abdominal GI/Abdominal exam: Present: normal bowel sounds, soft, no peritoneal signs. Absent: distended, tenderness - Extremities Exam Additional comments: dressing in place over right great toe, clean dry and intact Erythema and warmth on the anterior aspect of the left forearm dry, scabbed lesion on right anterior cummings with no surrounding erythema - Neurological Exam Neurological exam: Present: oriented X3, no focal deficits. Absent: facial droop, speech deficit - Skin Skin exam: Present: dry, erythema (left anterior forearm) Internal Medicine: Result - Labs CBC & Chem 7: 02/17/18 05:57 02/17/18 03:59 Labs: Short CBC 02/17/18 Range/Units 05:57 WBC 10.6 (4.3-11.1) K/mcL Hgb 9.1 L (12.9-16.9) g/dL Hct 28.3 L (37.5-50.1) % Plt Count 319 (140-400) K/mcL Neutrophils # 7.6 (1.6-8.9) K/mcL BMP 02/17/18 03:59 Sodium 131 L Potassium 5.1 Chloride 103 Carbon Dioxide 23 BUN 24 H Creatinine 0.98 Glucose 158 H Calcium 8.9 - ABG Interpretation ABG results: PT/INR, D-dimer PT 12.5 Seconds (9.4-12.1) H 02/14/18 14:37 - Impressions Impressions Forearm X-Ray 02/16/18 11:46 IMPRESSION: No acute osseous abnormality. No foreign body identified D/ / Quentin Barahona MD / Quentin Barahona MD Interpreting Provider: Quentin Barahona MD - VTE Documentation of Mechanical Device: Intermittent pneumatic compression device Consult Discharge Plan - Plan [facility]errals: [facility] [Primary Care Provider] - <Jonathon Nunn - Last Filed: 02/17/18 17:29> Date of Encounter: 02/17/18 - Assessment and plan (1) PAD (peripheral artery disease) Current Visit: Yes Status: Chronic (2) Hypertension Current Visit: No Status: Chronic Code(s): I10 - Essential (primary) hypertension SNOMED Code(s): 74302319 (3) Acute blood loss as cause of postoperative anemia Current Visit: No Status: Acute (4) Retroperitoneal hematoma Current Visit: Yes Status: Acute (5) Gangrene of toe of right foot Current Visit: Yes Status: Acute (6) Lung mass Current Visit: Yes Status: Acute (7) Hyperkalemia Current Visit: Yes Status: Acute (8) Cellulitis of left forearm Current Visit: Yes Status: Acute - Time Spent With Patient Total time spent is greater than 50% in coordination of care (as documented) at patient's floor/unit and/or counseling patient: - Constitutional Vitals: Temp Pulse Resp BP Pulse Ox 98.1 F 73 18 144/55 94 06/22/18 15:41 02/17/18 15:41 02/17/18 15:41 02/17/18 15:41 02/17/18 15:41 Internal Medicine: Result - Labs CBC & Chem 7: 02/17/18 05:57 02/17/18 03:59 Labs: Short CBC 02/17/18 Range/Units 05:57 WBC 10.6 (4.3-11.1) K/mcL Hgb 9.1 L (12.9-16.9) g/dL Hct 28.3 L (37.5-50.1) % Plt Count 319 (140-400) K/mcL Neutrophils # 7.6 (1.6-8.9) K/mcL BMP 02/17/18 03:59 Sodium 131 L Potassium 5.1 Chloride 103 Carbon Dioxide 23 BUN 24 H Creatinine 0.98 Glucose 158 H Calcium 8.9 - ABG Interpretation ABG results: PT/INR, D-dimer PT 12.5 Seconds (9.4-12.1) H 02/14/18 14:37 - Attending Attestation I examined this patient and my medical decision-making was reviewed with the Resident Physician. I agree with the documented findings, disposition and treatment plan as described except to the extent set forth below.
[2018-02-17] MEDS: *HR* OxyCODONE/APAP 10/325 TABLET PO PRN ×4 (09:15→23:44)
--- NOTE | 2018-02-17 09:49 | Infectious Disease Progress No ---
Date of Encounter: 02/17/18 Time of Encounter: 09:30 - Assessment and Plan (1) SIRS (systemic inflammatory response syndrome) Current Visit: Yes Status: Acute Patient presented with 2 SIRS criteria with tachycardia and leukocytosis; bot have since resolved Likely secondary to retroperitoneal hematoma Will sign off, please call with any questions (2) Retroperitoneal hematoma Current Visit: Yes Status: Acute Vascular surgery following Blood loss may have caused reflex tachycardia and leukocytosis Transfuse per primary team (3) Gangrene of toe of right foot Current Visit: Yes Status: Acute Location is right great toe Podiatry performed amputation 02/16 Patient did receive Zosyn and doxycycline since February 13 Recommending stopping antibiotics as risk of antibiotics outweighs benefit in setting of hydronephrosis No culture obtained from foot Wound care and activity restrictions per podiatry team This patient were to become febrile, recommend collecting 2 sets of blood cultures (4) PAD (peripheral artery disease) Current Visit: Yes Status: Chronic Patient has complex vascular history and is currently being followed by vascular surgery Likely caused his dry gangrene Management as above (5) Mass of upper lobe of right lung Current Visit: Yes Status: Acute Unclear etiology; infection versus malignancy, but less likely infection As seen on CAT scan, 5.8 cm mass in right upper lobe Pulmonology consulted, performed bronchoscopy 02/15 Await results of Gram stain, AFB, fungal culture, routine and anaerobic cultures along with cytology and cell count Recommend discontinuing antibiotics as above (6) Hydronephrosis Current Visit: Yes Status: Acute In setting of hydronephrosis increases likelihood of renal toxicity We will hold antibiotics as above Monitor kidney function daily Qualifiers: Hydronephrosis type: unspecified Qualified Code(s): N13.30 - Unspecified hydronephrosis - Subjective Interval history: Pt seen and examined. He states his right foot is very painful after surgery yesterday but states his left arm swelling and pain has improved. He denies any chest pain, shortness of breath, nausea, vomiting, diarrhea. Infect Dis PN-Objective Data - Labs CBC & Chem 7: 02/17/18 05:57 02/17/18 03:59 Labs: Laboratory Results - last 24 hr 02/17/18 02/17/18 02/17/18 03:59 03:59 03:59 WBC RBC Hgb Hct MCV MCH MCHC RDW Plt Count MPV Immature Gran % Seg Neutrophils % Lymphocytes % Monocytes % Eosinophils % Basophils % Neutrophils # Lymphocytes # Monocytes # Eosinophils # Basophils # Sodium 131 L Potassium 5.1 Chloride 103 Carbon Dioxide 23 BUN 24 H Creatinine 0.98 Est GFR ( Amer) > 60 Est GFR (Non-Af Amer) > 60 BUN/Creatinine Ratio 24 Glucose 158 H Calculated Osmolality 279 L Calcium 8.9 Folate 18.8 H Specimen Rejected Clotted 02/17/18 05:57 WBC 10.6 RBC 3.15 L Hgb 9.1 L Hct 28.3 L MCV 89.8 MCH 28.9 MCHC 32.2 RDW 15.8 H Plt Count 319 MPV 11.2 Immature Gran % 0.7 Seg Neutrophils % 71.3 Lymphocytes % 11.1 Monocytes % 13.0 Eosinophils % 3.1 Basophils % 0.8 Neutrophils # 7.6 Lymphocytes # 1.2 Monocytes # 1.4 H Eosinophils # 0.3 Basophils # 0.1 Sodium Potassium Chloride Carbon Dioxide BUN Creatinine Est GFR ( Amer) Est GFR (Non-Af Amer) BUN/Creatinine Ratio Glucose Calculated Osmolality Calcium Folate Specimen Rejected Cultures: Cultures 02/15/18 08:00 Respiratory Culture - Preliminary Right Upper Lobe Lung Normal upper respiratory tract malathi. No apparent pathogens isolated. 02/15/18 08:00 Gram Stain - Final Right Upper Lobe Lung Respiratory Culture - Preliminary 02/15/18 08:00 Acid Fast Stain - Final Right Upper Lobe Lung 02/15/18 08:00 Acid Fast Stain - Final Right Upper Lobe Lung 02/15/18 08:00 Gram Stain - Final Right Upper Lobe Lung 02/15/18 07:15 Acid Fast Stain - Final Sputum 02/12/18 16:45 Acid Fast Stain - Final Sputum 02/12/18 15:50 Cryptococcal Antigen - Final Serum Serology 02/15/18 02/15/18 Range/Units 08:00 08:00 Fluid Source right upper lobe right upper lobe brian Fluid Volume 13 21 mL Fluid Appearance Cloudy A Cloudy A (Clear) Fluid RBC TNP TNP Fld Tot Nucleated Cell TNP TNP Fluid Seg Neutrophil % 8.0 18.0 % Fluid Lymphocytes % 22.0 14.0 % Fluid Monocytes % 3.0 1.0 % Fluid Other Cells % 67.0 67.0 % - Impressions Impressions Forearm X-Ray 02/16/18 11:46 IMPRESSION: No acute osseous abnormality. No foreign body identified D/ / Quentin Barahona MD / Quentin Barahona MD Interpreting Provider: Quentin Barahona MD Exam - Constitutional Vitals: Temp Pulse Resp BP Pulse Ox 97.8 F 86 18 202/72 96 02/17/18 07:05 02/17/18 07:05 02/17/18 07:05 02/17/18 07:05 02/17/18 07:05 General appearance: cooperative, no acute distress - Head Head exam: Present: atraumatic, normocephalic - Respiratory Respiratory exam: Present: CTAB. Absent: accessory muscle use, decreased breath sounds, respiratory distress, wheezes - Cardiovascular Cardiovascular exam: Present: RRR. Absent: irregular rhythm, systolic murmur, tachycardia - GI/Abdominal GI/Abdominal exam: Present: normal bowel sounds, soft. Absent: tenderness - Extremities Exam Additional comments: right foot wrapped s/p amputation left arm erythema and swelling improved slightly from yesterday - VTE Documentation of Mechanical Device: Intermittent pneumatic compression device Consult Discharge Plan - Plan [facility]errals: [facility] [Primary Care Provider] - - Attending Attestation I examined this patient and my medical decision-making was reviewed with the Resident Physician. I agree with the documented findings, disposition and treatment plan as described except to the extent set forth below.
[2018-02-17] MEDS ORDERED: amLODIPine 5 MG TABLET PO ONE (10:43)
--- NOTE | 2018-02-17 14:25 | Oncology Inp Progress Note ---
Date of Encounter: 02/17/18 Time of Encounter: 13:00 (1) Anemia Current Visit: Yes Status: Acute Assessment and plan: Acute decrease since October 2017, stable since this time Multifactorial, secondary to chronic disease, post operative/acute blood loss, GI loss, malignancy B12 286-check MMA Iron 17, 7%, Ferritin 470 Qualifiers: Anemia type: other cause Other causes of anemia: acute posthemorrhagic Qualified Code(s): D62 - Acute posthemorrhagic anemia (2) Mass of upper lobe of right lung Current Visit: Yes Status: Acute Assessment and plan: Chest CT with contrast reveals a 5.8 cm posterior right upper lobe mass with cavitation and pleural tags previously 4.3 cm. There is mention of several scattered mostly small mediastinal lymph nodes. Largest node is 1.2 cm short axis low right peritracheal lymph node. Some nodes also calcified in the right hilar and subcarinal region. He also has indeterminate liver lesions. He is s/p bronchoscopy on 02/15/2018-pathology pending-ALBERT suggestive of atypical cells Treatment options, staging and prognosis to be discussed following outpatient PET scan and final pathology report. He was given an appointment card today with follow up with Dr. Rodríguez next week to discuss pathology results. He is tentatively planned to discharge to [facility] in the next few days. Oncology will otherwise sign off at this time and will plan to follow up as an outpatient. Should any further questions or concerns arise in the meantime or pathology report result, will be happy to see patient again at that time. (3) Retroperitoneal hematoma Current Visit: Yes Status: Acute Assessment and plan: Admitted following imaging revealing a 13 cm x 9.5 cm x 19 cm retroperitoneal hematoma adjacent to the right iliac artery stent and extends superiorly anterior to the psoas muscle and causing obstruction of the right ureter causing mild hydronephrosis and hydroureter He does have a complex vascular history. On 01/29/18 he had a right ilio-femoral and femoral-popliteal bypass grafts thrombectomy with right femoral to BK popliteal bypass graft. He has been evaluated by vascular services who have recommended continued evaluation, no intervention needed at this time, suspect a component of this was present during his prior admission. Continue to hold Xarelto (4) Cellulitis of left forearm Current Visit: Yes Status: Acute Assessment and plan: S/P IV infiltration Preliminary doppler revealed concern for potential cephalic vein intralumenal foreign body associated with thrombus at level of proximal forearm. Left forearm xray with no foreign body identified Evaluated by vascular- does not appreciate evidence of foreign body, recommended heat, elevation, ATB Oncology: Subj Interval history: Mr. Johansen is resting in bed. He is reporting pain to his right foot following his right great toe amputation yesterday. Vascular surgery assessing him presently. - Constitutional Vitals: Vital Signs Temp Pulse Resp BP Pulse Ox 02/17/18 13:39 151/56 02/17/18 11:09 99 F 80 18 189/74 97 02/17/18 07:05 97.8 F 86 18 202/72 96 02/17/18 05:29 98.3 F 87 15 176/58 96 02/17/18 00:00 98.2 F 75 16 186/59 95 02/16/18 21:00 97.9 F 84 16 158/61 96 02/16/18 16:14 97.9 F 75 16 187/71 92 Intake and Output 02/16/18 02/17/18 02/17/18 23:59 07:59 15:59 Intake Total 0 / 0 1000 / 1000 480 / 480 Output Total 1153 / 1153 1225 / 1225 700 / 700 Balance -1153 / -1153 -225 / -225 -220 / -220 Intake: Oral 0 / 0 1000 / 1000 480 / 480 Output: Urine 1150 / 1150 1225 / 1225 700 / 700 Estimated Blood Loss 3 / 3 Other: Meal Lunch Percent of Meal Consumed 75% Stool Size Copious Copious Stool Consistency formed formed Stool Color Brown Brown Weight 94.8 kg Patient Weight 02/17/18 23:59 Weight 94.8 kg General appearance: cooperative, no acute distress, no febrile Exam: appears uncomfortable/in pain - Head Head exam: Present: atraumatic - ENT ENT exam: Present: mucous membranes moist - Respiratory Respiratory exam: Present: decreased breath sounds. Absent: respiratory distress - Cardiovascular Cardiovascular exam: Present: RRR, +S1, +S2 - GI/Abdominal GI/Abdominal exam: Present: normal bowel sounds, soft, tenderness Additional comments: tenderness to right abdomen secondary to RP hematoma - Extremities Exam Additional comments: edema/erythema to LUE, gauze wrap to right foot - Neurological Exam Neurological exam: Present: alert, oriented X3, no focal deficits, strengths equal and symetr throughout - Psychiatric Psychiatric exam: Present: normal affect, normal mood - Skin Skin exam: Present: dry, intact, normal color, warm Oncology: Obj Data - Labs CBC & Chem 7: 02/17/18 05:57 02/17/18 03:59 - ABG Interpretation ABG results: PT/INR, D-dimer PT 12.5 Seconds (9.4-12.1) H 02/14/18 14:37 Consult Discharge Plan - Plan Referrals: [facility] [Primary Care Provider] -
--- NOTE | 2018-02-17 16:19 | Vascular/Endovas Progress Note ---
Date of Encounter: 02/17/18 Time of Encounter: 13:30 - Assessment and plan (1) PAD (peripheral artery disease) Current Visit: Yes Status: Chronic Patent right iliofemoral bypass graft and patent right femoral to low knee popliteal artery bypass graft. (2) Acute blood loss anemia Current Visit: Yes Status: Chronic Patient has known anemia. No significant change since discharge. (3) Retroperitoneal hematoma Current Visit: Yes Status: Acute Resolving right retroperitoneal hematoma (4) Superficial thrombophlebitis of left upper extremity Current Visit: Yes Status: Acute Mild improvement of left forearm superficial thrombophlebitis with decreased redness and decreased swelling though the area remains markedly indurated. Recommend continued elevation of the left upper extremity and use of moist heat to this area to reduce inflammation. - Subjective Interval history: Patient has no new complaints regarding left upper extremity. He states his biggest concern and discomfort is his right foot which he feels is swollen. He is status post toe amputation yesterday with Dr. Kruse. Vital Signs, Last 4 Hours Temp Pulse Resp BP Pulse Ox 02/17/18 15:41 98.1 F 73 18 144/55 94 02/17/18 13:39 151/56 - Physical Examination Vascular: Present: Other (Left forearm thrombophlebitic site remains erythematous but the amount of erythema is decreased from last night. The amount edema has also decreased. There is significant induration however over this area.) - VTE Documentation of Mechanical Device: Intermittent pneumatic compression device Results 02/17/18 05:57 02/17/18 03:59 Lab Results, Last 24 hours 02/17/18 02/17/18 03:59 05:57 WBC 10.6 Hgb 9.1 L Hct 28.3 L Plt Count 319 Sodium 131 L Potassium 5.1 Chloride 103 Carbon Dioxide 23 BUN 24 H Creatinine 0.98 Glucose 158 H Calcium 8.9 Consult Discharge Plan - Plan Referrals: [facility] [Primary Care Provider] -
--- NOTE | 2018-02-17 16:26 | Podiatry Progress Note ---
Date of Encounter: 02/17/18 Time of Encounter: 12:00 - Assessment and Plan (1) Gangrene of toe of right foot Current Visit: Yes Status: Acute POD #1 s/p #1: Amputation right great toe at the level of the MTPJ Dressing removed at bedside Healing without complication Dressing may remain intact until seen in office Will need follow up appointment in podiatry clinic 1 week after discharge No cultures were needed or obtained IF strikethrough drainage is noted, please remove dressing, apply adaptic and reapply dry sterile dressing Weight bearing to heel only Patient does have a small dry ulceration to the plantar aspect of the right heel , dry in appearance, can be debrided using sharp #15 blade in office Extra padding placed to heel for comfort Surgical line cleansed with saline, betadine, adaptic, 4x4 and kerlix applied Patient will need post op shoe prior to discharge Subjective Interval history: POD #1 s/p #1: Amputation right great toe at the level of the MTPJ. Patient resting comfortably in bed on arrival. Dressing intact. Slight shadow drainage noted to dressing. Patient denies any issues or concerns. Objective - Vital Signs Vital Signs: Vital Signs Temp Pulse Resp BP Pulse Ox 02/17/18 15:41 98.1 F 73 18 144/55 94 02/17/18 13:39 151/56 02/17/18 11:09 99 F 80 18 189/74 97 02/17/18 07:05 97.8 F 86 18 202/72 96 02/17/18 05:29 98.3 F 87 15 176/58 96 02/17/18 00:00 98.2 F 75 16 186/59 95 02/16/18 21:00 97.9 F 84 16 158/61 96 Intake and Output 02/17/18 02/17/18 02/17/18 07:59 15:59 23:59 Intake Total 1000 / 1000 480 / 480 Output Total 1225 / 1225 700 / 700 Balance -225 / -225 -220 / -220 Intake: Oral 1000 / 1000 480 / 480 Output: Urine 1225 / 1225 700 / 700 Other: Meal Lunch Percent of Meal Consumed 75% Stool Size Copious Stool Consistency formed Stool Color Brown Weight 94.8 kg Patient Weight 02/17/18 23:59 Weight 94.8 kg - Exam Exam: General: awake alert and oriented Vascular: Pulses palpable DP/PT, warm, cap refill <3 seconds, no calf pain to manual compression Neurological: Minimal sensation to feet, movement of toes intact S/p#1: Amputation right great toe at the level of the MTPJ Surgical site healing without complication, margins well approximated, no clinical signs of infection, minimal surrounding edema, minimal erythema. No warmth. - Lab Result Diagrams: 02/17/18 05:57 02/17/18 03:59 Labs: Abnormal lab results RBC 3.15 M/mcL (4.19-5.50) L 02/17/18 05:57 Hgb 9.1 g/dL (12.9-16.9) L 02/17/18 05:57 Hct 28.3 % (37.5-50.1) L 02/17/18 05:57 RDW 15.8 % (11.5-14.5) H 02/17/18 05:57 Monocytes # 1.4 K/mcL (0.0-1.3) H 02/17/18 05:57 PT 12.5 Seconds (9.4-12.1) H 02/14/18 14:37 Sodium 131 mEq/L (136-145) L 02/17/18 03:59 BUN 24 mg/dL (8-23) H 02/17/18 03:59 Glucose 158 mg/dL (70-105) H 02/17/18 03:59 POC Glucose 102 mg/dL (70-99) H 02/12/18 16:11 Calculated Osmolality 279 (280-300) L 02/17/18 03:59 Iron 17 mcg/dL (65-175) L 02/10/18 15:14 % Saturation 7 % (20-55) L 02/10/18 15:14 Transferrin 168 mg/dL (203-362) L 02/10/18 15:14 Ferritin 470 ng/mL (20-250) H 02/10/18 15:14 Albumin 2.8 g/dL (3.5-5.7) L 02/11/18 04:53 Prealbumin 10.8 mg/dL (17.0-34.0) L 02/10/18 15:14 Folate 18.8 ng/mL (3.0-16.0) H 02/17/18 03:59 Fluid Appearance Cloudy (Clear) A 02/15/18 08:00 Microbiology, Last 48 Hours 02/15/18 08:00 Gram Stain - Final Right Upper Lobe Lung Respiratory Culture - Final Normal upper respiratory tract malathi. No apparent pathogens isolated. 02/15/18 08:00 Respiratory Culture - Final Right Upper Lobe Lung Normal upper respiratory tract malathi. No apparent pathogens isolated. 02/15/18 08:00 Acid Fast Stain - Final Right Upper Lobe Lung 02/15/18 08:00 Acid Fast Stain - Final Right Upper Lobe Lung 02/15/18 08:00 Gram Stain - Final Right Upper Lobe Lung 02/15/18 07:15 Acid Fast Stain - Final Sputum - VTE Documentation of Mechanical Device: Intermittent pneumatic compression device Consult Discharge Plan - Plan [facility]: [facility] [Primary Care Provider] -
[2018-02-17] MEDS: *HR* Rivaroxaban 15 MG TABLET PO SCH (19:21)
[2018-02-18] MEDS: *HR* OxyCODONE/APAP 10/325 TABLET PO PRN ×3 (03:53→21:18)
[2018-02-18 04:50] LABS: Basophils # 0.1 K/mcL (0.0-0.2); Basophils % 0.9 %; Eosinophils # 0.4 K/mcL (0.0-0.6); Hematocrit 26.3 % (37.5-50.1); Hemoglobin 8.2 g/dL (12.9-16.9); Immature Granulocytes % 0.6 % (0-4); Lymphocytes # 1.2 K/mcL (0.6-4.6); Lymphocytes % 13.8 %; Mean Corpuscular HGB Conc 31.2 g/dL (31.6-35.5); Mean Corpuscular Hemoglobin 28.1 pg (28.0-33.3); Mean Corpuscular Volume 90.1 fL (83.0-100.0); Mean Platelet Volume 11.4 fL (9.4-12.4); Monocytes # 1.3 K/mcL (0.0-1.3); Monocytes % 15.2 %; Neutrophils # 5.8 K/mcL (1.6-8.9); Platelet Count 303 K/mcL (140-400); Red Blood Count 2.92 M/mcL (4.19-5.50); Red Cell Distribution Width 15.8 % (11.5-14.5); Segmented Neutrophils % 65.5 %
[2018-02-18 05:04] LABS: BUN/Creatinine Ratio 23 (6-26); Blood Urea Nitrogen 24 mg/dL (8-23); Calcium 8.9 mg/dL (8.6-10.3); Carbon Dioxide 25 mEq/L (23-29); Chloride 100 mEq/L (98-107); Glucose 109 mg/dL (70-105); Osmolality,Calculated 277 (280-300); Potassium 5.2 mEq/L (3.5-5.1); Sodium 131 mEq/L (136-145); eGFR For African Americans > 60 (> 60); eGFR For Non-African Americans > 60 (> 60)
[2018-02-18] MEDS: BuPROPion SR (12 HR) 150 MG TABLET PO SCH (08:27)
[2018-02-18] MEDS: Aspirin Enteric Coated 81 MG Tablet PO SCH (08:27)
[2018-02-18] MEDS: Cyanocobalamin (B-12) 1,000 MCG TABLET PO SCH (08:27)
[2018-02-18] MEDS: Magnesium Oxide 400 MG TABLET PO SCH ×2 (08:27→21:36)
[2018-02-18] MEDS: amLODIPine 5 MG TABLET PO SCH (08:28)
[2018-02-18] MEDS: Sennosides/Docusate Sodium TABLET PO SCH ×2 (08:28→21:35)
--- NOTE | 2018-02-18 09:09 | Internal Med Progress Note ---
<Mya Pelayo - Last Filed: 02/18/18 12:46> Date of Encounter: 02/18/18 Time of Encounter: 09:06 - Assessment and plan (1) Gangrene of toe of right foot Current Visit: Yes Status: Acute Assessment and plan: POD#2 partial amputation of right great toe with Dr. Kruse Pt having neuropathic and post op pain. He also states he is having muscle spasms in the foot. Anticipate discharge to [facility] on Tuesday 02/20. Plan: Podiatry consulted, appreciate their recommendations Pain control--Continue percocet 10/325 Q4hr PRN and 5/325 Q6hr prn. Will change cyclobezaprine to robaxin per pt request ID consulted for possible IV abx at discharge, appreciate their recommendations. Weight bearing to heel only Per Podiatry: Dressing may remain intact until seen in office, will need follow up appointment in podiatry clinic 1 week after discharge; Patient will need post op shoe prior to discharge (2) PAD (peripheral artery disease) Current Visit: Yes Status: Chronic Assessment and plan: Continue xarelto (3) Hypertension Current Visit: No Status: Chronic Assessment and plan: BP has been elevated, lisinopril was held secondary to hyperkalemia Labetalol started at 100mg BID yesterday, SBP in th 170s and 180s overnight. Hold lisinopril until K more stable Plan: Continue current medications Hydralazine as needed Increase labetalol to 200mg BID Continue to hold lisinopril Qualifiers: Hypertension type: essential hypertension Qualified Code(s): I10 - Essential (primary) hypertension Code(s): I10 - Essential (primary) hypertension SNOMED Code(s): 71268320 (4) Acute blood loss as cause of postoperative anemia Current Visit: No Status: Acute Assessment and plan: Hemoglobin stable Hemodynamically stable. Plan: Continue to monitor (5) Retroperitoneal hematoma Current Visit: Yes Status: Acute Assessment and plan: Appreciate vascular surgery input, no surgical intervention needed, close monitoring patient condition, okay to ambulate PTOT (6) Lung mass Current Visit: Yes Status: Acute Assessment and plan: Acid-fast bacilli negative 2 Bronch results pending Plan: Await bronch results Oncology consulted, appreciate their recommendations. (7) Hyperkalemia Current Visit: Yes Status: Acute Assessment and plan: K 5.2 today Lisinopril has been held since 02/16 Plan: Hold ACEi Continue to monitor (8) Superficial thrombophlebitis of left upper extremity Current Visit: Yes Status: Acute Assessment and plan: Pt with erythema and warmth on left forearm at old IV site. Evaluated by vascular--do not think a foreign body is in arm Left forearm XR negative for foreign body. Erythema improving, site more thrombosed. Pt denies pain. Heat is helping. Plan: Continue to monitor Apply heat - Time Spent With Patient Total time spent is greater than 50% in coordination of care (as documented) at patient's floor/unit and/or counseling patient: - Subjective Interval history: POD#2 right great toe partial amputation with Dr. Kruse. Pt seen and examined, lying in bed. Pt reports that he is having severe pain in his foot, not in the toe. He states that the pain is eased somewhat by the percocet, but not much. He notes that the pain is a burning and shooting pain, feels like the muscles in the foot are twisting. He requests methocarbamol as he was given this once and it helped his pain. He states that his appetite is good. Denies any other complaints. - Constitutional Vitals: Temp Pulse Resp BP Pulse Ox 97.8 F 76 20 184/74 98 02/18/18 07:00 02/18/18 07:00 02/18/18 07:00 02/18/18 07:00 02/18/18 07:00 General appearance: Present: A&O X 3, no acute distress, answers questions appropriately - Head Head exam: Present: atraumatic, normocephalic - Eye Eye exam: Present: PERRL, conjuntiva pink, sclera anicteric Pupils: Present: PERRL - ENT ENT exam: Present: mucous membranes dry - Neck Neck exam general surgery: Present: supple, trachea midline. Absent: lymphadenopathy - Respiratory Respiratory exam: Present: CTAB. Absent: accessory muscle use, rales, rhonchi, wheezes - Cardiovascular Cardiovascular exam: Present: RRR, +S1, +S2. Absent: diastolic murmur, gallop, rubs, systolic murmur - GI/Abdominal GI/Abdominal exam: Present: normal bowel sounds, soft, no peritoneal signs. Absent: distended, tenderness - Extremities Exam Extremities exam: Present: warm, radial pulses palpable and symmetrical. Absent : calf tenderness, cyanotic, pedal edema Additional comments: dressing in place on the right that is clean, dry and intact. Scabbed lesion on right cummings without surrounding erythem or purulent drainage. - Neurological Exam Neurological exam: Present: oriented X3, no focal deficits. Absent: facial droop, speech deficit - Psychiatric Psychiatric exam: Present: agitated - Skin Skin exam: Present: dry. Absent: erythema Internal Medicine: Result - Labs CBC & Chem 7: 02/18/18 04:00 02/18/18 04:00 Labs: Short CBC 02/18/18 Range/Units 04:00 WBC 8.8 (4.3-11.1) K/mcL Hgb 8.2 L (12.9-16.9) g/dL Hct 26.3 L (37.5-50.1) % Plt Count 303 (140-400) K/mcL Neutrophils # 5.8 (1.6-8.9) K/mcL BMP 02/18/18 04:00 Sodium 131 L Potassium 5.2 H Chloride 100 Carbon Dioxide 25 BUN 24 H Creatinine 1.06 Glucose 109 H Calcium 8.9 - ABG Interpretation ABG results: PT/INR, D-dimer PT 12.5 Seconds (9.4-12.1) H 02/14/18 14:37 - VTE Documentation of Mechanical Device: Intermittent pneumatic compression device Consult Discharge Plan - Plan [facility]errals: [facility] [Primary Care Provider] - <Jonathon Nunn - Last Filed: 02/18/18 15:17> Date of Encounter: 02/18/18 - Assessment and plan (1) PAD (peripheral artery disease) Current Visit: Yes Status: Chronic (2) Hypertension Current Visit: No Status: Chronic Code(s): I10 - Essential (primary) hypertension SNOMED Code(s): 70322064 (3) Acute blood loss as cause of postoperative anemia Current Visit: No Status: Acute (4) Retroperitoneal hematoma Current Visit: Yes Status: Acute (5) Gangrene of toe of right foot Current Visit: Yes Status: Acute (6) Lung mass Current Visit: Yes Status: Acute (7) Hyperkalemia Current Visit: Yes Status: Acute (8) Superficial thrombophlebitis of left upper extremity Current Visit: Yes Status: Acute - Time Spent With Patient Total time spent is greater than 50% in coordination of care (as documented) at patient's floor/unit and/or counseling patient: - Constitutional Vitals: Temp Pulse Resp BP Pulse Ox 98.1 F 70 18 144/54 97 02/18/18 15:00 02/18/18 15:00 02/18/18 15:00 02/18/18 15:00 02/18/18 15:00 Internal Medicine: Result - Labs CBC & Chem 7: 02/18/18 04:00 02/18/18 04:00 Labs: Short CBC 02/18/18 Range/Units 04:00 WBC 8.8 (4.3-11.1) K/mcL Hgb 8.2 L (12.9-16.9) g/dL Hct 26.3 L (37.5-50.1) % Plt Count 303 (140-400) K/mcL Neutrophils # 5.8 (1.6-8.9) K/mcL BMP 02/18/18 04:00 Sodium 131 L Potassium 5.2 H Chloride 100 Carbon Dioxide 25 BUN 24 H Creatinine 1.06 Glucose 109 H Calcium 8.9 - ABG Interpretation ABG results: PT/INR, D-dimer PT 12.5 Seconds (9.4-12.1) H 02/14/18 14:37 - Attending Attestation I examined this patient and my medical decision-making was reviewed with the Resident Physician. I agree with the documented findings, disposition and treatment plan as described except to the extent set forth below.
[2018-02-18] MEDS: Gabapentin 400 MG CAPSULE PO SCH ×3 (11:04→21:19)
[2018-02-18] MEDS: Methocarbamol 750 MG TABLET PO PRN ×2 (11:04→21:35)
--- NOTE | 2018-02-18 14:17 | Vascular/[facility] Progress Note ---
Date of Encounter: 02/18/18 Time of Encounter: 13:55 - Assessment and plan (1) Superficial thrombophlebitis of left upper extremity Current Visit: Yes Status: Acute The patient is a resolving superficial thrombophlebitis of the left upper extremity. He reports symptomatic improvement overnight. He still has tenderness in the region. There is no evidence of purulence or other signs of infection. At this time warm compresses recommended. - Subjective Interval history: The patient reports his left upper extremity pain and tenderness has decreased today. He denies chest or shortness of breath. Vital Signs, Last 4 Hours Temp Pulse Resp BP Pulse Ox 02/18/18 11:35 98.1 F 72 18 181/71 95 - Physical Examination General: Present: Conversant, No Apparent Distress Cardiac: Present: Reg Rate and Rhythm Lungs: Present: Normal Breath Sounds Neuro: Present: Alert and responsive Vascular: Present: Normal capillary refill Abdomen: Present: Soft Skin: Present: Other (Left forearm superficial thrombophlebitis is present. There is no erythema or drainage. Tenderness is noted along the left forearm) - VTE Documentation of Mechanical Device: Intermittent pneumatic compression device Results 02/18/18 04:00 02/18/18 04:00 Lab Results, Last 24 hours 02/18/18 02/18/18 04:00 04:00 WBC 8.8 Hgb 8.2 L Hct 26.3 L Plt Count 303 Sodium 131 L Potassium 5.2 H Chloride 100 Carbon Dioxide 25 BUN 24 H Creatinine 1.06 Glucose 109 H Calcium 8.9 Consult Discharge Plan - Plan [facility]errals: [facility] [Primary Care Provider] -
[2018-02-18] MEDS: *HR* Rivaroxaban 15 MG TABLET PO SCH (16:02)
[2018-02-19 05:18] LABS: Basophils # 0.1 K/mcL (0.0-0.2); Eosinophils # 0.3 K/mcL (0.0-0.6); Eosinophils % 3.3 %; Hematocrit 25.6 % (37.5-50.1); Hemoglobin 8.2 g/dL (12.9-16.9); Immature Granulocytes % 0.7 % (0-4); Lymphocytes % 11.2 %; Mean Corpuscular Hemoglobin 28.6 pg (28.0-33.3); Mean Corpuscular Volume 89.2 fL (83.0-100.0); Mean Platelet Volume 11.1 fL (9.4-12.4); Monocytes # 1.4 K/mcL (0.0-1.3); Monocytes % 15.4 %; Neutrophils # 6.1 K/mcL (1.6-8.9); Platelet Count 299 K/mcL (140-400); Red Blood Count 2.87 M/mcL (4.19-5.50); Red Cell Distribution Width 15.5 % (11.5-14.5); Segmented Neutrophils % 68.4 %
[2018-02-19 05:43] LABS: BUN/Creatinine Ratio 26 (6-26); Blood Urea Nitrogen 27 mg/dL (8-23); Calcium 9.1 mg/dL (8.6-10.3); Carbon Dioxide 25 mEq/L (23-29); Chloride 97 mEq/L (98-107); Glucose 121 mg/dL (70-105); Osmolality,Calculated 274 (280-300); Potassium 4.6 mEq/L (3.5-5.1); Sodium 129 mEq/L (136-145); eGFR For African Americans > 60 (> 60); eGFR For Non-African Americans > 60 (> 60)
[2018-02-19] MEDS: amLODIPine 5 MG TABLET PO SCH (09:14)
[2018-02-19] MEDS: *HR* OxyCODONE/APAP 10/325 TABLET PO PRN ×3 (09:14→23:00)
[2018-02-19] MEDS: Sennosides/Docusate Sodium TABLET PO SCH ×2 (09:14→23:00)
[2018-02-19] MEDS: Cyanocobalamin (B-12) 1,000 MCG TABLET PO SCH (09:14)
[2018-02-19] MEDS: Magnesium Oxide 400 MG TABLET PO SCH ×2 (09:14→23:00)
[2018-02-19] MEDS: Aspirin Enteric Coated 81 MG Tablet PO SCH (09:14)
[2018-02-19] MEDS: Gabapentin 400 MG CAPSULE PO SCH ×3 (09:14→23:00)
[2018-02-19] MEDS: BuPROPion SR (12 HR) 150 MG TABLET PO SCH (09:14)
--- NOTE | 2018-02-19 10:06 | Discharge Summary ---
<Mya Pelayo - Last Filed: 02/19/18 10:03> - NOTES TO OUTPATIENT PROVIDER Notes to Outpatient Provider: Lisinopril was decreased to 20mg daily and amlodipine 10mg daily was started. Patient had partial amputation of right great toe 02/16. Patient was found to have right upper lobe lung mass, preliminary bx showing atypical cells. Oncology was consulted and patient will be referred for further outpatient workup. Orders not resulted at time of discharge: Pending orders 02/12/18 16:45 AFB Culture, Respiratory [TB] Routine AFB Smear [TB] Routine 02/14/18 09:53 AFB Smear [TB] Routine 02/15/18 07:15 AFB Culture, Respiratory [TB] Routine 02/15/18 08:00 AFB Culture, Respiratory [TB] Routine AFB Culture, Respiratory [TB] Routine AFB Smear [TB] Routine AFB Smear [TB] Routine Fungal Culture [MYC] Routine Fungal Culture [MYC] Routine 02/15/18 13:46 Cytology [PTH] Routine 02/16/18 15:29 Surgical Pathology [PTH] Routine 02/17/18 03:59 MMA (VIT B12 STATUS) AM 0400 02/20/18 04:00 Basic Metabolic Panel AM 0400 CBC [Complete Blood Count] [HEME] AM 0400 Date of Encounter: 02/19/18 Time of Encounter: 10:04 - Discharge Diagnosis (1) Gangrene of toe of right foot Priority: Primary Status: Acute (2) PAD (peripheral artery disease) Priority: Secondary Status: Chronic (3) Hypertension Priority: Secondary Status: Chronic Qualifiers: Hypertension type: essential hypertension Qualified Code(s): I10 - Essential (primary) hypertension Code(s): I10 - Essential (primary) hypertension SNOMED Code(s): 74438735 (4) Acute blood loss as cause of postoperative anemia Priority: Secondary Status: Acute (5) Retroperitoneal hematoma Priority: Secondary Status: Acute (6) Lung mass Priority: Secondary Status: Acute (7) Hyperkalemia Priority: Secondary Status: Acute (8) Superficial thrombophlebitis of left upper extremity Priority: Secondary Status: Acute Hospital course: Mr. Johansen is a 67 year old male with history or recent fem-pop bypass who presented to [facility] ED 02/10 from [facility] with RLQ pain. CTA demonstrated evidence of a large retroperitoneal hematoma with evidence of right sided ureter collapsing, hematomas roughly 15 x 20 x 10 cm in diameter. The patient was admitted for hemodynamic monitoring. Pt reported non-compliance with anticoagulation therapy and ASA therapy at admission. He was evaluated by Vascular who felt the hematoma was stable and slightly improved, no intervention to be done. He was transfused 1 unit PRBCs 02/10 as his hgb was 8.2 in the setting of acute post op blood loss. The patient has PAD and was noted to have significant necrosis of his Right great toe that the patient stated as chronic. Wound care and podiatry was consulted. It was determined that he had dry gangrene of the right great toe. Partial amputation of the right great toe was performed on 02/[address] Kruse. Per Podiatry recommendations: the surgical dressing may remain intact until seen in Podiatry office, he will need follow up appointment in podiatry clinic 1 week after discharge. If strikethrough drainage is noted, please remove dressing, apply adaptic and reapply dry sterile dressing. The patient should be weight bearing to heel only, extra padding placed to heel for comfort, pt given post op shoe prior to discharge. Pt as noted to have right upper lobe lung mass. He was evaluated by pulmonology who performed bronchoscopy and transbronchial needle aspiration with lung biopsies. AFB stains were negative x2. Bronchial brushings, BAL and lung bx pathology is pending. Infectious disease was consulted to assess abx needs in setting of dry gangrene and it was recommended to discontinue abx treatment. Oncology was consulted due to bronch suggesting atypical cells. It was recommended that the pt follow up with oncology as an outpatient for PET scan and to discuss final pathology report. The patient did develop hypertension and hyperkalemia at 5.5, thus his home lisinopril had to be held. Blood pressure was treated with amlodipine 5mg, labetolol 200mg BID and prn hydralazine. Potassium as returned to normal level. Lisinopril was restarted at a lower dose of 20mg with amlodipine 10mg. The patient also developed superficial thrombophlebitis on the left anterior forearm from old IV site. It was treated with warm compresses and is improving. The patient has been working with PT during his stay as well. Patient will be discharge back to [facility]. Discharge discussed with: patient, nurse, social work - Time Spent with Patient Total time spent providing and/or coordinating discharge services: - Discharge Medications Prescriptions: OxyCODONE/APAP 10/325 [Percocet 10/325 MG] 1 each PO Q4HR PRN 5 Days #30 tablet PRN Reason: Severe Pain Oxycodone HCl/Acetaminophen [Percocet 5-325 mg Tablet] 1 each PO Q8HR PRN 7 Days #20 tablet PRN Reason: Analgesia Home Medications: Atorvastatin [Lipitor] 40 mg PO HS 07/19/17 [History] BuPROPion SR (12 HR) [Wellbutrin SR] 150 mg PO QAM 07/19/17 [History] Sertraline [Zoloft] 50 mg PO DAILY 07/19/17 [History] Tamsulosin [Flomax] 0.4 mg PO DAILY 07/19/17 [History] Gabapentin [Neurontin] 800 mg PO TID 11/01/17 [History] Aspirin Enteric Coated [Aspirin EC] 81 mg PO DAILY #30 tablet. 11/07/17 [Rx] Acetaminophen [Tylenol] 500 mg PO Q8H PRN 01/27/18 [History] Rivaroxaban [Xarelto] 15 mg PO 1700 30 Days #30 tablet 02/03/18 [Rx] Cyanocobalamin (B-12) [Vitamin B12] 1,000 mcg PO DAILY tablet 02/19/18 [Rx] Lisinopril [Zestril] 20 mg PO DAILY tablet 02/19/18 [Rx] Magnesium Oxide [Mag-Ox] 400 mg PO BID tablet 02/19/18 [Rx] Methocarbamol [Robaxin] 750 mg PO Q8HR PRN tablet 02/19/18 [Rx] OxyCODONE/APAP 10/325 [Percocet 10/325 MG] 1 each PO Q4HR PRN 5 Days #30 tablet 02/19/18 [Rx] Oxycodone HCl/Acetaminophen [Percocet 5-325 mg Tablet] 1 each PO Q8HR PRN 7 Days #20 tablet 02/19/18 [Rx] Polyethylene Glycol 3350 [MiraLAX] 17 gm PO DAILY powd.pack 02/19/18 [Rx] Sennosides/Docusate Sodium [Senna Plus] 1 each PO BID tablet 02/19/18 [Rx] amLODIPine [Norvasc] 10 mg PO DAILY tablet 02/19/18 [Rx] Allergies/Adverse Reactions: 3 Allergy/AdvReac Type Severity Reaction Status Date / Time No Known Allergies Allergy Verified 02/09/18 23:23 Date of admission: 02/10/18 02:11 [facility] Consults: 02/10/18 06:52 Consult to Podiatry [CONS] Routine Consulting Provider: Podiatry [facility] Reason for Consult: R great toe necrosis, R leg ulcer Call Completed: No Consult to Wound Care [CONS] Routine Reason for Consult: R leg/foot wounds Call Completed: No 02/10/18 14:23 Consult to Physical Therapy [CONS] Routine Comment: Evaluate, develop and implement POC Reason for Consult: Physical deconditioing Does patient have active BEDREST order?: No Is patient medically & hemodynamically stable?: Yes Patient assessed for mobility or mobilized this visit?: Yes 02/12/18 11:29 Consult to Pulmonology [CONS] Routine Consulting Provider: [facility] [place] Reason for Consult: Cavitary lung lesion Call Completed: Yes 02/15/18 07:30 Consult to Invasive Line Access Team [CONS] Routine Reason for Consult: limited IV access Line Type: EPIV PICC line indications: Limited vascular access Time Notified: 07:30 Call Completed: Yes 02/15/18 11:23 Consult to Infectious Diseases [CONS] Routine Consulting Provider: Infectious [facility] [place] Reason for Consult: Dry gangrene Call Completed: Yes 02/15/18 18:38 Consult to Oncology [CONS] Routine Consulting Provider: Oncology [facility] [place] Reason for Consult: Lung mass Call Completed: No Discharging clinician: Mya Pelayo Anticipated date of discharge: 02/20/18 - Constitutional Vitals: Temp Pulse Resp BP Pulse Ox 98.2 F 78 18 181/61 97 02/19/18 07:55 02/19/18 07:55 02/19/18 07:55 02/19/18 07:55 02/19/18 07:55 General appearance: Present: disheveled, A&O X 3, no acute distress, answers questions appropriately - Head Head exam: Present: atraumatic, normocephalic - Eye Eye exam: Present: PERRL, conjuntiva pink, sclera anicteric Pupils: Present: PERRL - Neck Neck exam general surgery: Present: supple, trachea midline. Absent: lymphadenopathy - Respiratory Respiratory exam: Present: CTAB. Absent: accessory muscle use, rales, rhonchi, wheezes - Cardiovascular Cardiovascular exam: Present: RRR, +S1, +S2. Absent: diastolic murmur, gallop, rubs, systolic murmur - GI/Abdominal GI/Abdominal exam: Present: normal bowel sounds, soft, no peritoneal signs. Absent: distended, tenderness - Extremities Exam Extremities exam: Present: warm, radial pulses palpable and symmetrical. Absent : calf tenderness, cyanotic, pedal edema Additional comments: Dressing in place right foot, clean, dry, intact scabbed, dry lesion right cummings without surrounding erythema or purulent drainage - Neurological Exam Neurological exam: Present: oriented X3, no focal deficits. Absent: facial droop, speech deficit - Psychiatric Psychiatric exam: Present: normal affect, normal mood - Skin Skin exam: Present: dry - Patient Status Disposition: Transfer Inpatient Rehab Fac Condition: Fair Functional capacity at discharge: uses cane/walker Overall status at discharge: patient is progressing back to baseline - Discharge Instructions [facility] Up With: [facility] [Primary Care Provider[facility] - Chencho Kruse DPM [Partnered Physician] - (1 week) Bakari Rodríguez MD [Partnered Physician] - - Diet and Activity Activity: ambulate only with your walker, as per physical therapy Diet: low fat, low cholesterol - VTE Documentation of Mechanical Device: Intermittent pneumatic compression device <Jonathon Nunn - Last Filed: 02/19/18 16:03> Orders not resulted at time of discharge: Pending orders 02/12/18 16:45 AFB Culture, Respiratory [TB] Routine AFB Smear [TB] Routine 02/13/18 08:32 ECG 12 lead ECG [ECG] Stat 02/14/18 09:53 AFB Smear [TB] Routine 02/15/18 07:15 AFB Culture, Respiratory [TB] Routine 02/15/18 08:00 AFB Culture, Respiratory [TB] Routine AFB Culture, Respiratory [TB] Routine AFB Smear [TB] Routine AFB Smear [TB] Routine Fungal Culture [MYC] Routine Fungal Culture [MYC] Routine 02/15/18 13:46 Cytology [PTH] Routine 02/16/18 15:29 Surgical Pathology [PTH] Routine 02/17/18 03:59 MMA (VIT B12 STATUS) AM 0400 02/20/18 04:00 Basic Metabolic Panel AM 0400 CBC [Complete Blood Count] [HEME] AM 0400 Date of Encounter: 02/19/18 - Discharge Diagnosis (1) PAD (peripheral artery disease) Status: Chronic (2) Hypertension Status: Chronic Code(s): I10 - Essential (primary) hypertension SNOMED Code( s): 09473925 (3) Acute blood loss as cause of postoperative anemia Status: Acute (4) Retroperitoneal hematoma Status: Acute (5) Gangrene of toe of right foot Status: Acute (6) Lung mass Status: Acute (7) Hyperkalemia Status: Acute (8) Superficial thrombophlebitis of left upper extremity Status: Acute Hospital course: Mr. Johansen is a 67 year old male - Time Spent with Patient Total time spent providing and/or coordinating discharge services: Date of admission: 02/10/18 02:11 [facility] care physician: [facility] Consults: 02/10/18 06:52 Consult to Podiatry [CONS] Routine Consulting Provider: Podiatry [facility] Reason for Consult: R great toe necrosis, R leg ulcer Call Completed: No Consult to Wound Care [CONS] Routine Reason for Consult: R leg/foot wounds Call Completed: No 02/10/18 14:23 Consult to Physical Therapy [CONS] Routine Comment: Evaluate, develop and implement POC Reason for Consult: Physical deconditioing Does patient have active BEDREST order?: No Is patient medically & hemodynamically stable?: Yes Patient assessed for mobility or mobilized this visit?: Yes 02/12/18 11:29 Consult to Pulmonology [CONS] Routine Consulting Provider: [facility] Reason for Consult: Cavitary lung lesion Call Completed: Yes 02/15/18 07:30 Consult to Invasive Line Access Team [CONS] Routine Reason for Consult: limited IV access Line Type: EPIV PICC line indications: Limited vascular access Time Notified: 07:30 Call Completed: Yes 02/15/18 11:23 Consult to Infectious Diseases [CONS] Routine Consulting Provider: Infectious [facility] Reason for Consult: Dry gangrene Call Completed: Yes 02/15/18 18:38 Consult to Oncology [CONS] Routine Consulting Provider: Oncology [facility] [place] Reason for Consult: Lung mass Call Completed: No - Constitutional Vitals: Temp Pulse Resp BP Pulse Ox 97.9 F 71 18 145/57 97 02/19/18 15:54 02/19/18 15:54 02/19/18 15:54 02/19/18 15:54 02/19/18 15:54 - Attending Attestation I examined this patient and my medical decision-making was reviewed with the Resident Physician. I agree with the documented findings, disposition and treatment plan as described except to the extent set forth below.
[2018-02-19] MEDS ORDERED: Lisinopril 20 MG TABLET PO SCH (11:00)
[2018-02-19] MEDS: *HR* Rivaroxaban 15 MG TABLET PO SCH (16:26)
[2018-02-19] MEDS: Methocarbamol 750 MG TABLET PO PRN (16:29)
[2018-02-20] MEDS: Methocarbamol 750 MG TABLET PO PRN ×2 (02:08→20:49)
[2018-02-20] MEDS: *HR* OxyCODONE/APAP 10/325 TABLET PO PRN ×3 (05:43→20:38)
[2018-02-20 06:27] LABS: Basophils # 0.1 K/mcL (0.0-0.2); Basophils % 0.6 %; Eosinophils # 0.3 K/mcL (0.0-0.6); Eosinophils % 2.3 %; Hemoglobin 9.2 g/dL (12.9-16.9); Lymphocytes % 8.5 %; Mean Corpuscular HGB Conc 31.7 g/dL (31.6-35.5); Mean Corpuscular Hemoglobin 28.9 pg (28.0-33.3); Mean Corpuscular Volume 91.2 fL (83.0-100.0); Mean Platelet Volume 11.1 fL (9.4-12.4); Monocytes # 1.5 K/mcL (0.0-1.3); Monocytes % 13.7 %; Neutrophils # 8.2 K/mcL (1.6-8.9); Platelet Count 361 K/mcL (140-400); Red Blood Count 3.18 M/mcL (4.19-5.50); Red Cell Distribution Width 15.7 % (11.5-14.5); Segmented Neutrophils % 73.9 %
[2018-02-20 06:46] LABS: Calcium 9.2 mg/dL (8.6-10.3); Potassium 5.1 mEq/L (3.5-5.1)
[2018-02-20] MEDS ORDERED: 0.9 % Sodium Chloride 1,000 ML IVC ONE (08:22)
[2018-02-20] MEDS: Gabapentin 300 MG CAPSULE PO SCH ×2 (09:10→20:38)
[2018-02-20] MEDS: Sennosides/Docusate Sodium TABLET PO SCH ×2 (09:10→20:39)
[2018-02-20] MEDS: Magnesium Oxide 400 MG TABLET PO SCH ×2 (09:10→20:39)
[2018-02-20] MEDS: BuPROPion SR (12 HR) 150 MG TABLET PO SCH (09:10)
[2018-02-20] MEDS: amLODIPine 5 MG TABLET PO SCH (09:11)
[2018-02-20] MEDS: Cyanocobalamin (B-12) 1,000 MCG TABLET PO SCH (09:11)
[2018-02-20] MEDS: Aspirin Enteric Coated 81 MG Tablet PO SCH (09:11)
[2018-02-20] MEDS: 0.9 % Sodium Chloride 1,000 ML IVC SCH (10:34)
--- NOTE | 2018-02-20 11:01 | Internal Med Progress Note ---
<Mya Pelayo - Last Filed: 02/20/18 17:00> Date of Encounter: 02/20/18 Time of Encounter: 11:00 - Assessment and plan (1) Gangrene of toe of right foot Current Visit: Yes Status: Acute Assessment and plan: POD#4 partial amputation of right great toe with Dr. Kruse Pt having neuropathic and post op pain. He also states he is having muscle spasms in the foot. Anticipate discharge to [facility] on 02/21 if SCr improves Plan: Podiatry consulted, appreciate their recommendations Pain control--Continue percocet 10/325 Q4hr PRN and 5/325 Q6hr prn. Will change cyclobezaprine to robaxin per pt request Weight bearing to heel only Per Podiatry: Dressing may remain intact until seen in office, will need follow up appointment in podiatry clinic 1 week after discharge; Patient will need post op shoe prior to discharge (2) PAD (peripheral artery disease) Current Visit: Yes Status: Chronic Assessment and plan: Continue xarelto (3) Hypertension Current Visit: No Status: Chronic Assessment and plan: Pt developed PATRICK, will hold lisinopril for today Plan: Continue current medications Hydralazine as needed Continue to hold lisinopril Qualifiers: Hypertension type: essential hypertension Qualified Code(s): I10 - Essential (primary) hypertension Code(s): I10 - Essential (primary) hypertension SNOMED Code(s): 71878941 (4) Acute blood loss as cause of postoperative anemia Current Visit: No Status: Acute Assessment and plan: Hemoglobin stable Hemodynamically stable. Plan: Continue to monitor (5) Retroperitoneal hematoma Current Visit: Yes Status: Acute Assessment and plan: Appreciate vascular surgery input, no surgical intervention needed, close monitoring patient condition, okay to ambulate PTOT (6) Lung mass Current Visit: Yes Status: Acute Assessment and plan: Acid-fast bacilli negative 2 Bronch results pending Plan: Await bronch results Oncology consulted, appreciate their recommendations. (7) Hyperkalemia Current Visit: Yes Status: Acute Assessment and plan: K 5.1 today Lisinopril has been held Plan: Hold ACEi Continue to monitor (8) Superficial thrombophlebitis of left upper extremity Current Visit: Yes Status: Acute Assessment and plan: Pt with erythema and warmth on left forearm at old IV site. Evaluated by vascular--do not think a foreign body is in arm Left forearm XR negative for foreign body. Erythema improving, site more thrombosed. Pt denies pain. Heat is helping. Plan: Continue to monitor Apply heat (9) PATRICK (acute kidney injury) Current Visit: Yes Status: Acute Assessment and plan: Pt developed PATRICK overnight, SCr increased to 1.59 from 1.02. May be secondary to restarting lisinopril. Plan: IVF bolus, maintenance IVF at 75cc/hr Recheck BMP in AM Hold lisinopril Avoid nephrotoxins and renally dose as able - Time Spent With Patient Total time spent is greater than 50% in coordination of care (as documented) at patient's floor/unit and/or counseling patient: - Subjective Interval history: POD#2 right great toe partial amputation with Dr. Kruse. Pt seen and examined, lying in bed and is comfortable. Has been up working with PT. - Constitutional Vitals: Temp Pulse Resp BP Pulse Ox 98.5 F 68 16 143/49 96 02/20/18 06:30 02/20/18 06:30 02/20/18 06:30 02/20/18 06:30 02/20/18 06:30 General appearance: Present: disheveled, A&O X 3, no acute distress, answers questions appropriately - Head Head exam: Present: atraumatic, normocephalic - Eye Eye exam: Present: PERRL, conjuntiva pink, sclera anicteric Pupils: Present: PERRL - Neck Neck exam general surgery: Present: supple, trachea midline. Absent: lymphadenopathy - Respiratory Respiratory exam: Present: CTAB. Absent: accessory muscle use, rales, rhonchi, wheezes - Cardiovascular Cardiovascular exam: Present: RRR, +S1, +S2. Absent: diastolic murmur, gallop, rubs, systolic murmur - GI/Abdominal GI/Abdominal exam: Present: normal bowel sounds, soft, no peritoneal signs. Absent: distended, tenderness - Extremities Exam Additional comments: right toe dressed, C/D/I - Neurological Exam Neurological exam: Present: oriented X3, no focal deficits. Absent: facial droop, speech deficit - Psychiatric Psychiatric exam: Present: normal affect, normal mood - Skin Skin exam: Present: dry, intact Internal Medicine: Result - Labs CBC & Chem 7: 02/20/18 06:13 02/20/18 06:13 Labs: Short CBC 02/20/18 Range/Units 06:13 WBC 11.2 H (4.3-11.1) K/mcL Hgb 9.2 L (12.9-16.9) g/dL Hct 29.0 L (37.5-50.1) % Plt Count 361 (140-400) K/mcL Neutrophils # 8.2 (1.6-8.9) K/mcL BMP 02/20/18 06:13 Sodium 127 L Potassium 5.1 Chloride 95 L Carbon Dioxide 25 BUN 38 H Creatinine 1.59 H Glucose 116 H Calcium 9.2 - ABG Interpretation ABG results: PT/INR, D-dimer PT 12.5 Seconds (9.4-12.1) H 02/14/18 14:37 - VTE Documentation of Mechanical Device: Intermittent pneumatic compression device Consult Discharge Plan - Plan Referrals: Bakari Rodríguez MD [Partnered Physician] - Chencho Kruse DPM [Partnered Physician] - (1 week) [facility] [Primary Care Provider[facility] - Prescriptions: OxyCODONE/APAP 10/325 [Percocet 10/325 MG] 1 each PO Q4HR PRN 5 Days #30 tablet PRN Reason: Severe Pain Oxycodone HCl/Acetaminophen [Percocet 5-325 mg Tablet] 1 each PO Q8HR PRN 7 Days #20 tablet PRN Reason: Analgesia <Jonathon Nunn - Last Filed: 02/20/18 18:19> Date of Encounter: 02/20/18 - Assessment and plan (1) PAD (peripheral artery disease) Current Visit: Yes Status: Chronic (2) Hypertension Current Visit: No Status: Chronic Code(s): I10 - Essential (primary) hypertension SNOMED Code(s): 60873757 (3) Acute blood loss as cause of postoperative anemia Current Visit: No Status: Acute (4) Retroperitoneal hematoma Current Visit: Yes Status: Acute (5) Gangrene of toe of right foot Current Visit: Yes Status: Acute (6) Lung mass Current Visit: Yes Status: Acute (7) Hyperkalemia Current Visit: Yes Status: Acute (8) Superficial thrombophlebitis of left upper extremity Current Visit: Yes Status: Acute (9) PATRICK (acute kidney injury) Current Visit: Yes Status: Acute - Time Spent With Patient Total time spent is greater than 50% in coordination of care (as documented) at patient's floor/unit and/or counseling patient: - Constitutional Vitals: Temp Pulse Resp BP Pulse Ox 98.8 F 82 18 161/58 96 02/20/18 15:28 02/20/18 15:28 02/20/18 15:28 02/20/18 15:28 02/20/18 15:28 Internal Medicine: Result - Labs CBC & Chem 7: 02/20/18 06:13 02/20/18 06:13 Labs: Short CBC 02/20/18 Range/Units 06:13 WBC 11.2 H (4.3-11.1) K/mcL Hgb 9.2 L (12.9-16.9) g/dL Hct 29.0 L (37.5-50.1) % Plt Count 361 (140-400) K/mcL Neutrophils # 8.2 (1.6-8.9) K/mcL BMP 02/20/18 06:13 Sodium 127 L Potassium 5.1 Chloride 95 L Carbon Dioxide 25 BUN 38 H Creatinine 1.59 H Glucose 116 H Calcium 9.2 - ABG Interpretation ABG results: PT/INR, D-dimer PT 12.5 Seconds (9.4-12.1) H 02/14/18 14:37 - Attending Attestation I examined this patient and my medical decision-making was reviewed with the Resident Physician. I agree with the documented findings, disposition and treatment plan as described except to the extent set forth below.
--- NOTE | 2018-02-20 15:21 | Vascular/[facility] Progress Note ---
Date of Encounter: 02/20/18 Time of Encounter: 13:00 - Assessment and plan (1) PAD (peripheral artery disease) Current Visit: Yes Status: Chronic Patent right iliofemoral bypass graft and patent right femoral to low knee popliteal artery bypass graft. (2) Acute blood loss anemia Current Visit: Yes Status: Chronic Patient has known anemia. No significant change since discharge. (3) Retroperitoneal hematoma Current Visit: Yes Status: Acute Resolving right retroperitoneal hematoma (4) Superficial thrombophlebitis of left upper extremity Current Visit: Yes Status: Acute Significant improvement of left upper extremity over the weekend. The induration of the thrombosed cephalic vein will take many weeks to resolve. No sign of infection. - Subjective Interval history: Patient has no new complaints regarding left upper extremity. He states it is feeling better over the weekend. Vital Signs, Last 4 Hours Temp Pulse Resp BP Pulse Ox 02/20/18 11:29 98.1 F 70 18 111/49 95 - Physical Examination General: Present: Conversant, No Apparent Distress Vascular: Present: Normal capillary refill, Color/Temperature, Other (Left forearm superficial thrombophlebitic site is dramatically improved from Tuesday. The erythema has essentially resolved. There is minimal edema. There is persistent induration along the thrombosed cephalic vein as expected. There are no signs of infection.). Absent: Edema - VTE Documentation of Mechanical Device: Intermittent pneumatic compression device Results 02/20/18 06:13 02/20/18 06:13 Lab Results, Last 24 hours 02/20/18 02/20/18 06:13 06:13 WBC 11.2 H Hgb 9.2 L Hct 29.0 L Plt Count 361 Sodium 127 L Potassium 5.1 Chloride 95 L Carbon Dioxide 25 BUN 38 H Creatinine 1.59 H Glucose 116 H Calcium 9.2 Consult Discharge Plan - Plan Referrals: Bakari Rodríguez MD [Partnered Physician] - Chencho Kruse DPM [Partnered Physician] - (1 week) [facility] [Primary Care Provider[facility] - Prescriptions: OxyCODONE/APAP 10/325 [Percocet 10/325 MG] 1 each PO Q4HR PRN 5 Days #30 tablet PRN Reason: Severe Pain Oxycodone HCl/Acetaminophen [Percocet 5-325 mg Tablet] 1 each PO Q8HR PRN 7 Days #20 tablet PRN Reason: Analgesia
[2018-02-20] MEDS: *HR* Rivaroxaban 15 MG TABLET PO SCH (16:43)
[2018-02-21] MEDS: 0.9 % Sodium Chloride 1,000 ML IVC SCH (00:15)
[2018-02-21] MEDS: *HR* OxyCODONE/APAP 10/325 TABLET PO PRN ×3 (01:25→09:56)
[2018-02-21 04:29] LABS: Basophils # 0.1 K/mcL (0.0-0.2); Basophils % 0.6 %; Eosinophils # 0.3 K/mcL (0.0-0.6); Eosinophils % 2.2 %; Hematocrit 25.7 % (37.5-50.1); Hemoglobin 8.3 g/dL (12.9-16.9); Immature Granulocytes % 0.8 % (0-4); Lymphocytes % 8.5 %; Mean Corpuscular HGB Conc 32.3 g/dL (31.6-35.5); Mean Corpuscular Hemoglobin 28.7 pg (28.0-33.3); Mean Corpuscular Volume 88.9 fL (83.0-100.0); Mean Platelet Volume 11.4 fL (9.4-12.4); Monocytes # 1.4 K/mcL (0.0-1.3); Monocytes % 12.4 %; Neutrophils # 8.5 K/mcL (1.6-8.9); Platelet Count 334 K/mcL (140-400); Red Blood Count 2.89 M/mcL (4.19-5.50); Red Cell Distribution Width 15.2 % (11.5-14.5); Segmented Neutrophils % 75.5 %
[2018-02-21 04:45] LABS: BUN/Creatinine Ratio 28 (6-26); Blood Urea Nitrogen 28 mg/dL (8-23); Calcium 8.7 mg/dL (8.6-10.3); Carbon Dioxide 22 mEq/L (23-29); Chloride 101 mEq/L (98-107); Glucose 107 mg/dL (70-105); Osmolality,Calculated 272 (280-300); Sodium 128 mEq/L (136-145); eGFR For African Americans > 60 (> 60); eGFR For Non-African Americans > 60 (> 60)
[2018-02-21] MEDS: Methocarbamol 750 MG TABLET PO PRN (05:40)
[2018-02-21 07:10] VITALS: BP 149/72
[2018-02-21] MEDS: Cyanocobalamin (B-12) 1,000 MCG TABLET PO SCH (08:24)
[2018-02-21] MEDS: Sennosides/Docusate Sodium TABLET PO SCH (08:24)
[2018-02-21] MEDS: Gabapentin 300 MG CAPSULE PO SCH (08:24)
[2018-02-21] MEDS: Aspirin Enteric Coated 81 MG Tablet PO SCH (08:24)
[2018-02-21] MEDS: amLODIPine 5 MG TABLET PO SCH (08:24)
[2018-02-21] MEDS: Magnesium Oxide 400 MG TABLET PO SCH (08:24)
[2018-02-21] MEDS: BuPROPion SR (12 HR) 150 MG TABLET PO SCH (08:25)
--- NOTE | 2018-02-21 08:30 | Internal Med Progress Note ---
<Ab Figueroa - Last Filed: 02/21/18 10:30> Date of Encounter: 02/21/18 Time of Encounter: 08:23 - Assessment and plan (1) Gangrene of toe of right foot Status: Acute Assessment and plan: POD#5 partial amputation of right great toe with Dr. Kruse Pt having neuropathic and post op pain. He also states he is having muscle spasms in the foot. Plan: Podiatry following, appreciate their recommendations Pain control--Continue percocet 10/325 Q4hr PRN and 5/325 Q6hr prn. Changed cyclobezaprine to robaxin per pt request Weight bearing to heel only Per Podiatry: Dressing may remain intact until seen in office, will need follow up appointment in podiatry clinic 1 week after discharge; Patient will need post op shoe prior to discharge Medically stable for discharge. residential worker is arranging placement. Anticipate discharge to [facility] today. (2) PAD (peripheral artery disease) Status: Chronic Assessment and plan: Continue xarelto (3) Hypertension Status: Chronic Assessment and plan: Llisinopril held due to PATRICK Plan: Continue current medications Hydralazine as needed May resume lisinopril as outpatient Qualifiers: Hypertension type: essential hypertension Qualified Code(s): I10 - Essential (primary) hypertension Code(s): I10 - Essential (primary) hypertension SNOMED Code(s): 67738305 (4) Acute blood loss as cause of postoperative anemia Status: Acute Assessment and plan: Hemoglobin stable Hemodynamically stable. Plan: Continue to monitor (5) Retroperitoneal hematoma Status: Acute Assessment and plan: Appreciate vascular surgery input, no surgical intervention needed, close monitoring patient condition, okay to ambulate with PT/OT (6) Lung mass Status: Acute Assessment and plan: Acid-fast bacilli negative 2 Bronch results pending Plan: Follow up bronch results Oncology consulted, appreciate their recommendations. (7) Hyperkalemia Status: Acute Assessment and plan: K 5.0 today Lisinopril has been held Plan: Hold ACEi Continue to monitor (8) Superficial thrombophlebitis of left upper extremity Status: Acute Assessment and plan: Pt with erythema and warmth on left forearm at old IV site. Evaluated by vascular--do not think a foreign body is in arm Left forearm XR negative for foreign body. Erythema improving, site more thrombosed. Pt denies pain. Heat is helping. Plan: Continue to monitor Apply heat (9) PATRICK (acute kidney injury) Status: Acute Assessment and plan: Pt developed PATRICK overnight, SCr improved today. Plan: D/c IVF Resume lisinopril as outpatient Avoid nephrotoxins and renally dose as able - Time Spent With Patient Total time spent is greater than 50% in coordination of care (as documented) at patient's floor/unit and/or counseling patient: - Subjective Interval history: Patient seen and examined resting comfortably in bedside chair. PATRICK has resolved. Patient denies any new c/o and is awaiting placement. He is medically stable for discharge. residential worker is arranging placement at the [facility]. - Constitutional Vitals: Temp Pulse Resp BP Pulse Ox 98.8 F 81 16 149/72 93 02/21/18 07:09 02/21/18 07:09 02/21/18 07:09 02/21/18 07:09 02/21/18 07:09 General appearance: Present: disheveled, A&O X 3, no acute distress, answers questions appropriately - Head Head exam: Present: atraumatic, normocephalic - Eye Eye exam: Present: PERRL, conjuntiva pink, sclera anicteric Pupils: Present: PERRL - ENT ENT exam: Present: mucous membranes dry, normal oropharynx - Neck Neck exam general surgery: Present: supple, trachea midline. Absent: lymphadenopathy - Respiratory Respiratory exam: Present: CTAB. Absent: accessory muscle use, rales, rhonchi, wheezes - Cardiovascular Cardiovascular exam: Present: RRR, +S1, +S2. Absent: diastolic murmur, gallop, rubs, systolic murmur - GI/Abdominal GI/Abdominal exam: Present: normal bowel sounds, soft, no peritoneal signs. Absent: distended, tenderness - Extremities Exam Extremities exam: Present: warm, radial pulses palpable and symmetrical. Absent : calf tenderness, cyanotic, pedal edema - Incison Incision: Present: intact (dressing C/D/I RLE) - Neurological Exam Neurological exam: Present: CN II-XII intact, oriented X3, no focal deficits. Absent: pronater drift, facial droop, speech deficit - Psychiatric Psychiatric exam: Present: normal affect, normal mood - Skin Skin exam: Present: dry, intact Additional comments: Right toe dressing C/D/I Internal Medicine: Result - Labs CBC & Chem 7: 02/21/18 04:03 02/21/18 04:03 Labs: Short CBC 02/21/18 Range/Units 04:03 WBC 11.2 H (4.3-11.1) K/mcL Hgb 8.3 L (12.9-16.9) g/dL Hct 25.7 L (37.5-50.1) % Plt Count 334 (140-400) K/mcL Neutrophils # 8.5 (1.6-8.9) K/mcL BMP 02/21/18 04:03 Sodium 128 L Potassium 5.0 Chloride 101 Carbon Dioxide 22 L BUN 28 H Creatinine 1.01 Glucose 107 H Calcium 8.7 - ABG Interpretation ABG results: PT/INR, D-dimer PT 12.5 Seconds (9.4-12.1) H 02/14/18 14:37 - Pulse Oximetry Interpretation Digit-Finger Pulse Oximetry Readin (On RA) - VTE Documentation of Mechanical Device: Intermittent pneumatic compression device Consult Discharge Plan - Plan Instructions: Oxycodone/Acetaminophen (By mouth), Anemia (GEN) Referrals: Bakari Rodríguez MD [Partnered Physician] - Chencho Kruse DPM [Partnered Physician] - (1 week) [facility] - Prescriptions: OxyCODONE/APAP 10/325 [Percocet 10/325 MG] 1 each PO Q4HR PRN 5 Days #30 tablet PRN Reason: Severe Pain Oxycodone HCl/Acetaminophen [Percocet 5-325 mg Tablet] 1 each PO Q8HR PRN 7 Days #20 tablet PRN Reason: Analgesia <Chad Wright - Last Filed: 02/21/18 14:50> Date of Encounter: 02/21/18 - Assessment and plan (1) PAD (peripheral artery disease) Status: Chronic (2) Hypertension Status: Chronic Code(s): I10 - Essential (primary) hypertension SNOMED Code( s): 99163024 (3) Acute blood loss as cause of postoperative anemia Status: Acute (4) Retroperitoneal hematoma Status: Acute (5) Gangrene of toe of right foot Status: Acute (6) Lung mass Status: Acute (7) Hyperkalemia Status: Acute (8) Superficial thrombophlebitis of left upper extremity Status: Acute (9) PATRICK (acute kidney injury) Status: Acute - Time Spent With Patient Total time spent is greater than 50% in coordination of care (as documented) at patient's floor/unit and/or counseling patient: - Constitutional Vitals: Temp Pulse Resp BP Pulse Ox 98.8 F 81 16 149/72 93 02/21/18 07:09 02/21/18 07:09 02/21/18 07:09 02/21/18 07:09 02/21/18 07:09 Internal Medicine: Result - Labs CBC & Chem 7: 02/21/18 04:03 02/21/18 04:03 Labs: Short CBC 02/21/18 Range/Units 04:03 WBC 11.2 H (4.3-11.1) K/mcL Hgb 8.3 L (12.9-16.9) g/dL Hct 25.7 L (37.5-50.1) % Plt Count 334 (140-400) K/mcL Neutrophils # 8.5 (1.6-8.9) K/mcL BMP 02/21/18 04:03 Sodium 128 L Potassium 5.0 Chloride 101 Carbon Dioxide 22 L BUN 28 H Creatinine 1.01 Glucose 107 H Calcium 8.7 - ABG Interpretation ABG results: PT/INR, D-dimer PT 12.5 Seconds (9.4-12.1) H 02/14/18 14:37 - Attending Attestation I performed an independent interview and exam of this patient. I agree with the findings, assessment, and plan of , internal medicine resident. Please see discharge summary dictated on February 19, 2018. Patient is stable for discharge. Close follow-up with podiatry. Bronchoscopy result follow-up with pulmonary medicine. All else as above. Pain is controlled.
--- NOTE | 2018-02-21 11:02 | Physician Discharge Referral ---
ExtendedCare Referral Info Transfer To: [place] Provider in Charge: Dr. Wright Provider in Charge after Transfer: PCP Institutional Level of Care: Skilled - Diagnosis (1) Gangrene of toe of right foot Priority: Primary Status: Acute (2) PAD (peripheral artery disease) Priority: Primary Status: Chronic (3) Hypertension Priority: Primary Status: Chronic (4) Acute blood loss as cause of postoperative anemia Priority: Primary Status: Acute (5) Retroperitoneal hematoma Priority: Primary Status: Acute (6) Lung mass Priority: Primary Status: Acute (7) Hyperkalemia Priority: Primary Status: Acute (8) Superficial thrombophlebitis of left upper extremity Priority: Primary Status: Acute (9) PATRICK (acute kidney injury) Priority: Primary Status: Acute Prognosis: Fair Aware of Diagnosis: Patient Aware of Prognosis: Patient - Transfer Medications Prescriptions: OxyCODONE/APAP 10/325 [Percocet 10/325 MG] 1 each PO Q4HR PRN 5 Days #30 tablet PRN Reason: Severe Pain Oxycodone HCl/Acetaminophen [Percocet 5-325 mg Tablet] 1 each PO Q8HR PRN 7 Days #20 tablet PRN Reason: Analgesia Home Medications: Atorvastatin [Lipitor] 40 mg PO HS 07/19/17 [History] BuPROPion SR (12 HR) [Wellbutrin SR] 150 mg PO QAM 07/19/17 [History] Sertraline [Zoloft] 50 mg PO DAILY 07/19/17 [History] Tamsulosin [Flomax] 0.4 mg PO DAILY 07/19/17 [History] Gabapentin [Neurontin] 800 mg PO TID 11/01/17 [History] Aspirin Enteric Coated [Aspirin EC] 81 mg PO DAILY #30 tablet. 11/07/17 [Rx] Acetaminophen [Tylenol] 500 mg PO Q8H PRN 01/27/18 [History] Rivaroxaban [Xarelto] 15 mg PO 1700 30 Days #30 tablet 02/03/18 [Rx] Cyanocobalamin (B-12) [Vitamin B12] 1,000 mcg PO DAILY tablet 02/19/18 [Rx] Lisinopril [Zestril] 20 mg PO DAILY tablet 02/19/18 [Rx] Magnesium Oxide [Mag-Ox] 400 mg PO BID tablet 02/19/18 [Rx] Methocarbamol [Robaxin] 750 mg PO Q8HR PRN tablet 02/19/18 [Rx] OxyCODONE/APAP 10/325 [Percocet 10/325 MG] 1 each PO Q4HR PRN 5 Days #30 tablet 02/19/18 [Rx] Oxycodone HCl/Acetaminophen [Percocet 5-325 mg Tablet] 1 each PO Q8HR PRN 7 Days #20 tablet 02/19/18 [Rx] Polyethylene Glycol 3350 [MiraLAX] 17 gm PO DAILY powd.pack 02/19/18 [Rx] Sennosides/Docusate Sodium [Senna Plus] 1 each PO BID tablet 02/19/18 [Rx] amLODIPine [Norvasc] 10 mg PO DAILY tablet 02/19/18 [Rx] Allergies/Adverse Reactions: 3 Allergy/AdvReac Type Severity Reaction Status Date / Time No Known Allergies Allergy Verified 02/09/18 23:23 - Respiratory Orders Smoking Cessation: Smoking cessation has been advised. For more information, call the [place] Tobacco Quit Line at 3-630-WCRE-NOW. - Ancillary Orders May use pressure relief devices daily prn - Advance Directives Code Status: Full Code - Mobility Orders Chair - Rehabiliation Orders Rehab Potential: Fair Rehab Orders: ROM Exercises, Evaluation for Physical Therapy, Evaluation for Occupational Therapy - Treatments Skin tear care topically daily PRN per policy, May check for fecal impaction rectally daily PRN, Fleet enema rectally every other day PRN cleansing purposes - Diet Orders Cardiac CERTIFICATION: I certify that the transfer of the above named patient to an Extended Care Facility is necessary for the continuing treatment of the diagnosis listed. The above information is true and accurate reflection of patient's current condition. Confidential - Redisclosure prohibited without a patient's written consent.
--- NOTE | 2018-02-21 11:43 | Oncology Inp Progress Note ---
Date of Encounter: 02/21/18 Time of Encounter: 11:43 (1) Anemia Status: Acute Assessment and plan: Acute decrease since October 2017, stable since this time Multifactorial, secondary to chronic disease, post operative/acute blood loss, GI loss, malignancy B12 286-check MMA-pending Iron 17, 7%, Ferritin 470 Qualifiers: Anemia type: other cause Other causes of anemia: acute posthemorrhagic Qualified Code(s): D62 - Acute posthemorrhagic anemia (2) Mass of upper lobe of right lung Status: Acute Assessment and plan: Chest CT with contrast reveals a 5.8 cm posterior right upper lobe mass with cavitation and pleural tags previously 4.3 cm. There's mention of several scattered mostly small mediastinal lymph nodes. Largest node is 1.2 cm short axis low right peritracheal lymph node. Some nodes also calcified in the right hilar and subcarinal region. He also has indeterminate liver lesions. 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 Cytopathology report also reveals Right paratracheal aspiration biopsy: Few sheets of atypical epithelial cells suspicious for malignancy and RUL Cytobrush 2 for cytology: Rare sheet of atypical epithelial cells suspicious for malignancy. Treatment options, staging and prognosis to be discussed following outpatient PET scan and MRI brain. The above pathology report was discussed with patient at bedside today. Treatment options following PET scan to be discussed on an outpatient basis with oncologist. Patient is planned to discharge very soon to the CT, he also requested to have follow up arranged with CT oncology versus [facility]. Will notify nurse navigators to assist with this referral, at this time we will cancel our follow up arrangements with the patient. He was instructed to call in case he changes his plans and wishes to follow up with [facility]. (3) Retroperitoneal hematoma Status: Acute Assessment and plan: Admitted following imaging revealing a 13 cm x 9.5 cm x 19 cm retroperitoneal hematoma adjacent to the right iliac artery stent and extends superiorly anterior to the psoas muscle and causing obstruction of the right ureter causing mild hydronephrosis and hydroureter He does have a complex vascular history. On 01/29/18 he had a right ilio-femoral and femoral-popliteal bypass grafts thrombectomy with right femoral to BK popliteal bypass graft. He has been evaluated by vascular services who have recommended continued evaluation, no intervention needed at this time, suspect a component of this was present during his prior admission. Continue to hold Xarelto (4) Cellulitis of left forearm Status: Acute Assessment and plan: S/P IV infiltration Final doppler report reveals superficial left cephalic vein acute thrombosis and possible foreign body. Left forearm xray with no foreign body identified Evaluated by vascular who did not appreciate evidence of foreign body, recommended heat, elevation, ATB His symptoms have dramatically improved since his last exam. Erythema has mostly resolved and his edema is almost resolved. Continue with supportive measures. Oncology: Subj Interval history: Mr. Johansen is resting in bed, he has been discharged to the [facility] rehab and transport will be here soon. He continues to report pain to his right foot s/p his right great toe amputation. He is NWB to this foot. His abdominal pain in relation to his RP hematoma continues to slowly improve. His pain and inflammation to his left forearm has almost completely resolve s/p IV infiltration and superficial thrombosis last week. - Constitutional Vitals: Vital Signs Temp Pulse Resp BP Pulse Ox 02/21/18 07:09 98.8 F 81 16 149/72 93 02/21/18 04:00 78 18 166/58 94 02/21/18 00:00 175/75 02/20/18 19:24 98.4 F 74 16 174/64 96 02/20/18 15:28 98.8 F 82 18 161/58 96 Intake and Output 02/20/18 02/21/18 02/21/18 23:59 07:59 15:59 Intake Total 0 / 0 1000 / 1000 360 / 360 Output Total 2049 Balance -2049 / -2049 -5 / -925 360 / 360 Intake: IV Fluids 1000 / 1000 0.9 % Sodium Chloride 1,000 ML 1000 / 1000 @ 75 mls/hr IVC .[id number] [facility] Rx #:[id number] Oral 0 / 0 0 / 0 360 / 360 Output: Urine 2049 Other: Meal Breakfast Percent of Meal Consumed 100% Weight 93.4 kg Patient Weight 02/21/18 23:59 Weight 93.4 kg General appearance: cooperative, no acute distress, no febrile - Head Head exam: Present: atraumatic - ENT ENT exam: Present: mucous membranes moist - Respiratory Respiratory exam: Present: decreased breath sounds. Absent: respiratory distress - Cardiovascular Cardiovascular exam: Present: RRR, +S1, +S2 - GI/Abdominal GI/Abdominal exam: Present: normal bowel sounds, soft. Absent: guarding, rebound Additional comments: tenderness to palpation of RLQ to area of hematoma, ecchymosis improving - Extremities Exam Extremities exam: Absent: calf tenderness Additional comments: guaze wrapping to right foot. - Neurological Exam Neurological exam: Present: alert, oriented X3, no focal deficits, strengths equal and symetr throughout - Psychiatric Psychiatric exam: Present: normal affect, normal mood - Skin Skin exam: Present: dry, intact, normal color, warm Oncology: Obj Data - Labs CBC & Chem 7: 02/21/18 04:03 02/21/18 04:03 Labs: Laboratory Results - last 24 hr 02/21/18 02/21/18 04:03 04:03 WBC 11.2 H RBC 2.89 L Hgb 8.3 L Hct 25.7 L MCV 88.9 MCH 28.7 MCHC 32.3 RDW 15.2 H Plt Count 334 MPV 11.4 Immature Gran % 0.8 Seg Neutrophils % 75.5 Lymphocytes % 8.5 Monocytes % 12.4 Eosinophils % 2.2 Basophils % 0.6 Neutrophils # 8.5 Lymphocytes # 1.0 Monocytes # 1.4 H Eosinophils # 0.3 Basophils # 0.1 Sodium 128 L Potassium 5.0 Chloride 101 Carbon Dioxide 22 L BUN 28 H Creatinine 1.01 Est GFR ( Amer) > 60 Est GFR (Non-Af Amer) > 60 BUN/Creatinine Ratio 28 H Glucose 107 H Calculated Osmolality 272 L Calcium 8.7 - ABG Interpretation ABG results: PT/INR, D-dimer PT 12.5 Seconds (9.4-12.1) H 02/14/18 14:37 Consult Discharge Plan - Plan Instructions: Oxycodone/Acetaminophen (By mouth), Anemia (GEN) Referrals: Bakari Rodríguez MD [Partnered Physician] - Chencho Kruse DPM [Partnered Physician] - (1 week) [facility] [[facility] Care Provider[facility] - Prescriptions: OxyCODONE/APAP 10/325 [Percocet 10/325 MG] 1 each PO Q4HR PRN 5 Days #30 tablet PRN Reason: Severe Pain Oxycodone HCl/Acetaminophen [Percocet 5-325 mg Tablet] 1 each PO Q8HR PRN 7 Days #20 tablet PRN Reason: Analgesia
== END 2018-02-21 12:05 | DRG 982 ==
LOC: EMEROO 23:19 → SUATTDRO 02-10 02:11 → ICNU 02-10 02:11 → 2NENU 02-10 22:48
PROVIDERS: ADMIT Internal Medicine; ATTEND Student in an Organized Health Care Education/Training Program

== ENCOUNTER 2020-06-23 16:36 | Inpatient (IN) ==
[2020-06-23] MEDS ORDERED: Isovue-370 500 ML BOTTLE IVP ONE (16:55)
[2020-06-23] MEDS ORDERED: 0.9 % Sodium Chloride 1,000 ML IVC ONE (16:55)
[2020-06-23] MEDS ORDERED: methylPREDNISolone 125 MG/2 ML VIAL IVP ONE (16:55)
[2020-06-23] MEDS ORDERED: Ipratropium/Albuterol Neb 3 ML IH ONE (16:55)
[2020-06-23 17:26] LABS: ABG Base Excess 3 mEq/L (-2 to 3); ABG HCO3 27 mEq/L (21-27); ABG Oxygen Saturation 87 % (95-98); ABG PCO2 42 mmHg (35-45); ABG PH 7.43 pH Units (7.32-7.45); ABG PO2 52 mmHg (85-104); ABG TCO2 29 mEq/L (20-26)
[2020-06-23 17:49] LABS: Basophils # 0.1 K/mcL (0.0-0.2); Basophils % 0.4 %; Hematocrit 23.6 % (37.5-50.1); Hemoglobin 7.3 g/dL (12.9-16.9); Immature Granulocytes % 0.8 % (0-4); Lymphocytes # 0.6 K/mcL (0.6-4.6); Lymphocytes % 2.8 %; Mean Corpuscular HGB Conc 30.9 g/dL (31.6-35.5); Mean Corpuscular Hemoglobin 24.7 pg (28.0-33.3); Mean Platelet Volume 9.8 fL (9.4-12.4); Monocytes # 1.3 K/mcL (0.0-1.3); Monocytes % 6.3 %; Neutrophils # 18.2 K/mcL (1.6-8.9); Platelet Count 615 K/mcL (140-400); Red Blood Count 2.95 M/mcL (4.19-5.50); Red Cell Distribution Width 18.4 % (11.5-14.5); Segmented Neutrophils % 89.7 %; White Blood Count 20.3 K/mcL (4.3-11.1)
[2020-06-23 17:58] LABS: INR 1.4; Prothrombin Time 16.1 Seconds (9.4-12.1)
[2020-06-23 18:01] LABS: Activated Partial Thrombo Time 28.1 Seconds (26.0-36.0)
[2020-06-23 18:11] LABS: Alanine Aminotransferase 11 Units/L (7-52); Albumin 2.8 g/dL (3.5-5.7); Albumin/Globulin Ratio 0.7 (1.1-2.2); Alkaline Phosphatase 100 Units/L (34-104); Aspartate Amino Transferase 13 Units/L (13-39); BUN/Creatinine Ratio 30 (6-26); Bilirubin,Direct 0.1 mg/dL (0.0-0.2); Bilirubin,Indirect 0.2 mg/dL (0.0-1.0); Bilirubin,Total 0.3 mg/dL (0.3-1.0); Blood Urea Nitrogen 23 mg/dL (8-23); Calcium 8.9 mg/dL (8.6-10.3); Carbon Dioxide 25 mEq/L (23-29); Chloride 98 mEq/L (98-107); Globulin 3.9 g/dL (2.4-3.5); Glucose 159 mg/dL (70-105); Osmolality,Calculated 285 (280-300); Potassium 3.4 mEq/L (3.5-5.1); Sodium 134 mEq/L (136-145); Total Protein 6.7 g/dL (6.4-8.9); eGFR For African Americans > 60 (> 60); eGFR For Non-African Americans > 60 (> 60)
[2020-06-23 18:15] LABS: Troponin I 0.11 ng/mL (< 0.04)
[2020-06-23 18:43] LABS: Adenovirus Not Detected (Not Detect); Bordetella Pertussis Not Detected (Not Detect); Chlamydophila pneumoniae Not Detected (Not Detect); Coronavirus 229E Not Detected (Not Detect); Coronavirus HKU1 Not Detected (Not Detect); Coronavirus NL63 Not Detected (Not Detect); Coronavirus OC43 Not Detected (Not Detect); Human Metapneumovirus Not Detected (Not Detect); Human Rhinovirus/Enterovirus Not Detected (Not Detect); Influenza A Subtype 2009 H1 Not Detected (Not Detect); Influenza B Not Detected (Not Detect); Mycoplasma pneumoniae Not Detected (Not Detect); Parainfluenza Virus 1 Not Detected (Not Detect); Parainfluenza Virus 2 Not Detected (Not Detect); Parainfluenza Virus 3 Not Detected (Not Detect); Parainfluenza Virus 4 Not Detected (Not Detect); Respiratory Syncytial Virus Not Detected (Not Detect); SARS-CoV-2 Not Detected (Not Detect)
[2020-06-23] MEDS ORDERED: Cefepime HCl 1,000 MG in Water for inj. (sterile) 10 ML IVP STA (20:04)
[2020-06-23] MEDS ORDERED: Vancomycin 1,250 MG/262.5 ML IV.SOLN IVPB ONE (20:05)
[2020-06-23] MEDS ORDERED: Azithromycin 500 MG in 0.9 % Sodium Chloride 250 ML IVPB ONE (20:57)
[2020-06-23] MEDS ORDERED: Naloxone 0.4 MG/ML INJ IVP PRN (22:26)
[2020-06-23] MEDS ORDERED: Acetaminophen 325 MG TABLET PO PRN (22:26)
[2020-06-23] MEDS ORDERED: Ondansetron ODT 4 MG TAB.RAPDIS SL PRN (22:26)
[2020-06-23] MEDS ORDERED: Ipratropium/Albuterol Neb 3 ML IH PRN (22:31)
[2020-06-23] MEDS ORDERED: Perflutren Lipid Microsphere 1.3 ML in 0.9 % Sodium Chloride 8.7 ML IVP PRN (23:36)
[2020-06-24 00:27] LABS: Bilirubin,Urine Negative (Negative); Blood,Urine Negative (Negative); Clarity,Urine Clear (Clear); Color,Urine Light-Yellow (Yellow); Glucose,Urine (UA) Normal (Normal); Ketones,Urine Negative (Negative); Leukocyte Esterase,Urine Negative (Negative); Nitrite,Urine Negative (Negative); Protein,Urine Trace mg/dL (Neg-Trace); Specific Gravity,Urine > 1.030 (1.010-1.025); Urobilinogen,Urine Normal (Normal)
[2020-06-24] MEDS: methylPREDNISolone 125 MG/2 ML VIAL IVP SCH ×4 (00:30→22:36)
[2020-06-24 01:04] LABS: Basophils % 0.2 %; Hematocrit 23.1 % (37.5-50.1); Hemoglobin 7.1 g/dL (12.9-16.9); Immature Granulocytes % 0.7 % (0-4); Lymphocytes # 0.3 K/mcL (0.6-4.6); Lymphocytes % 1.6 %; Mean Corpuscular HGB Conc 30.7 g/dL (31.6-35.5); Mean Corpuscular Hemoglobin 25.5 pg (28.0-33.3); Mean Corpuscular Volume 83.1 fL (83.0-100.0); Mean Platelet Volume 9.7 fL (9.4-12.4); Monocytes # 0.1 K/mcL (0.0-1.3); Monocytes % 0.7 %; Neutrophils # 16.9 K/mcL (1.6-8.9); Platelet Count 521 K/mcL (140-400); Red Blood Count 2.78 M/mcL (4.19-5.50); Red Cell Distribution Width 18.4 % (11.5-14.5); Segmented Neutrophils % 96.8 %; White Blood Count 17.4 K/mcL (4.3-11.1)
[2020-06-24 01:10] LABS: INR 1.3; Prothrombin Time 15.4 Seconds (9.4-12.1)
[2020-06-24 01:25] LABS: BUN/Creatinine Ratio 32 (6-26); Blood Urea Nitrogen 23 mg/dL (8-23); Calcium 8.5 mg/dL (8.6-10.3); Carbon Dioxide 24 mEq/L (23-29); Chloride 99 mEq/L (98-107); Glucose 196 mg/dL (70-105); Magnesium 1.8 mg/dL (1.6-2.6); Osmolality,Calculated 287 (280-300); Phosphorous 4.9 mg/dL (2.7-4.5); Potassium 3.8 mEq/L (3.5-5.1); Sodium 134 mEq/L (136-145); eGFR For African Americans > 60 (> 60); eGFR For Non-African Americans > 60 (> 60)
[2020-06-24] MEDS ORDERED: Cefepime HCl 1,000 MG in Water for inj. (sterile) 10 ML IVP SCH (06:00)
[2020-06-24] MEDS: *HR* Heparin 5,000 UNIT/ML VIAL SQ SCH ×2 (06:14→17:21)
[2020-06-24] MEDS ORDERED: 0.9 % Sodium Chloride 250 ML IVC SCH (08:45)
[2020-06-24] MEDS: Vancomycin 1,250 MG/262.5 ML IV.SOLN IVPB SCH (09:15)
[2020-06-24] MEDS: Cefepime HCl 1,000 MG in Water for inj. (sterile) 10 ML IVP SCH ×2 (14:24→22:35)
[2020-06-24 16:01] LABS: Hematocrit 27.6 % (37.5-50.1); Hemoglobin 8.6 g/dL (12.9-16.9)
[2020-06-24] MEDS: amLODIPine 5 MG TABLET PO SCH (17:23)
[2020-06-24] MEDS: Ascorbic Acid 500 MG TABLET PO SCH (17:55)
[2020-06-24] MEDS: Lisinopril-HCTZ 20-12.5mg TABLET PO SCH (17:55)
[2020-06-24] MEDS: hydroCHLOROthiazide 25 MG TABLET PO SCH (17:55)
[2020-06-24] MEDS: Gabapentin 400 MG CAPSULE PO SCH ×2 (18:00→23:10)
[2020-06-24] MEDS: Aspirin Enteric Coated 81 MG Tablet PO SCH (18:00)
[2020-06-24] MEDS: Azithromycin 500 MG in 0.9 % Sodium Chloride 250 ML IVPB SCH (22:36)
[2020-06-25] MEDS: Ipratropium/Albuterol Neb 3 ML IH SCH ×5 (00:38→22:39)
[2020-06-25] MEDS: *HR* Heparin 5,000 UNIT/ML VIAL SQ SCH ×2 (04:34→16:55)
[2020-06-25] MEDS: Vancomycin 1,250 MG/262.5 ML IV.SOLN IVPB SCH (04:35)
[2020-06-25] MEDS: Cefepime HCl 1,000 MG in Water for inj. (sterile) 10 ML IVP SCH ×3 (05:23→19:51)
[2020-06-25 05:40] LABS: Hematocrit 27.3 % (37.5-50.1); Hemoglobin 8.5 g/dL (12.9-16.9); Mean Corpuscular HGB Conc 31.1 g/dL (31.6-35.5); Mean Corpuscular Hemoglobin 25.8 pg (28.0-33.3); Mean Platelet Volume 9.6 fL (9.4-12.4); Platelet Count 597 K/mcL (140-400); Red Blood Count 3.29 M/mcL (4.19-5.50); Red Cell Distribution Width 17.9 % (11.5-14.5); White Blood Count 23.3 K/mcL (4.3-11.1)
[2020-06-25 05:58] LABS: BUN/Creatinine Ratio 48 (6-26); Blood Urea Nitrogen 29 mg/dL (8-23); Calcium 8.8 mg/dL (8.6-10.3); Carbon Dioxide 25 mEq/L (23-29); Chloride 104 mEq/L (98-107); Glucose 215 mg/dL (70-105); Magnesium 2.1 mg/dL (1.6-2.6); Osmolality,Calculated 298 (280-300); Phosphorous 4.3 mg/dL (2.7-4.5); Potassium 4.1 mEq/L (3.5-5.1); Sodium 138 mEq/L (136-145); eGFR For African Americans > 60 (> 60); eGFR For Non-African Americans > 60 (> 60)
[2020-06-25] MEDS: amLODIPine 5 MG TABLET PO SCH (09:04)
[2020-06-25] MEDS: Ascorbic Acid 500 MG TABLET PO SCH (09:04)
[2020-06-25] MEDS: methylPREDNISolone 125 MG/2 ML VIAL IVP SCH ×2 (09:05→16:35)
[2020-06-25] MEDS: Gabapentin 400 MG CAPSULE PO SCH ×3 (09:06→19:50)
[2020-06-25] MEDS: Aspirin Enteric Coated 81 MG Tablet PO SCH (09:06)
[2020-06-25] MEDS: Lisinopril-HCTZ 20-12.5mg TABLET PO SCH (09:06)
[2020-06-25] MEDS: hydroCHLOROthiazide 25 MG TABLET PO SCH (09:07)
[2020-06-25] MEDS: *HR* HYDROcodone/Acet 5/325 mg TABLET PO PRN ×2 (09:35→19:59)
[2020-06-25] MEDS: Vancomycin 1,500 MG/265 ML IV.SOLN IVPB SCH (16:35)
[2020-06-25] MEDS: Azithromycin 500 MG in 0.9 % Sodium Chloride 250 ML IVPB SCH (19:48)
[2020-06-26] MEDS: methylPREDNISolone 125 MG/2 ML VIAL IVP SCH ×3 (01:06→18:00)
[2020-06-26] MEDS: Vancomycin 1,500 MG/265 ML IV.SOLN IVPB SCH ×2 (04:05→18:21)
[2020-06-26] MEDS: Ipratropium/Albuterol Neb 3 ML IH SCH ×4 (04:35→22:34)
[2020-06-26 05:30] LABS: Hematocrit 27.2 % (37.5-50.1); Hemoglobin 8.1 g/dL (12.9-16.9); Mean Corpuscular HGB Conc 29.8 g/dL (31.6-35.5); Mean Corpuscular Hemoglobin 24.8 pg (28.0-33.3); Mean Corpuscular Volume 83.2 fL (83.0-100.0); Mean Platelet Volume 10.2 fL (9.4-12.4); Platelet Count 592 K/mcL (140-400); Red Blood Count 3.27 M/mcL (4.19-5.50); Red Cell Distribution Width 17.9 % (11.5-14.5); White Blood Count 23.8 K/mcL (4.3-11.1)
[2020-06-26] MEDS: Cefepime HCl 1,000 MG in Water for inj. (sterile) 10 ML IVP SCH ×2 (05:39→14:10)
[2020-06-26] MEDS: *HR* Heparin 5,000 UNIT/ML VIAL SQ SCH ×2 (05:39→17:33)
[2020-06-26 05:44] LABS: BUN/Creatinine Ratio 53 (6-26); Blood Urea Nitrogen 35 mg/dL (8-23); Calcium 8.7 mg/dL (8.6-10.3); Carbon Dioxide 26 mEq/L (23-29); Chloride 98 mEq/L (98-107); Glucose 367 mg/dL (70-105); Magnesium 1.8 mg/dL (1.6-2.6); Osmolality,Calculated 295 (280-300); Phosphorous 3.4 mg/dL (2.7-4.5); Potassium 3.9 mEq/L (3.5-5.1); Sodium 131 mEq/L (136-145); eGFR For African Americans > 60 (> 60); eGFR For Non-African Americans > 60 (> 60)
[2020-06-26] MEDS ORDERED: *HR* Succinylcholine 200 MG/10 ML VIAL IVP ONE (09:14)
[2020-06-26] MEDS ORDERED: Dexamethasone 4 MG/ML VIAL ONE ×2 (09:14→09:17)
[2020-06-26] MEDS ORDERED: Ondansetron 4 MG/2 ML VIAL ONE (09:14)
[2020-06-26] MEDS ORDERED: Lidocaine -MPF 2% 2 ML VIAL ONE ×2 (09:14→09:15)
[2020-06-26] MEDS ORDERED: *HR* FentaNYL (PF) 100 MCG/2 ML VIAL ONE (09:14)
[2020-06-26] MEDS ORDERED: *HR* Propofol 200 MG/20 ML VIAL IVP ONE (09:15)
[2020-06-26] MEDS ORDERED: Ipratropium/Albuterol Neb 3 ML ONE (10:36)
[2020-06-26] MEDS ORDERED: *HR* FentaNYL (PF) 100 MCG/2 ML VIAL IVP PRN (10:59)
[2020-06-26] MEDS ORDERED: Ondansetron 4 MG/2 ML VIAL IVP PRN (10:59)
[2020-06-26] MEDS ORDERED: *HR* EPINEPHrine 1 MG/10 ML SYRINGE INTRATRACH PRN (11:24)
[2020-06-26] MEDS ORDERED: *HR* EPINEPHrine 1 MG/10 ML SYRINGE ONE (11:29)
[2020-06-26] MEDS: amLODIPine 5 MG TABLET PO SCH ×2 (12:25→14:15)
[2020-06-26] MEDS: Lisinopril-HCTZ 20-12.5mg TABLET PO SCH ×2 (12:25→14:16)
[2020-06-26] MEDS: Gabapentin 400 MG CAPSULE PO SCH ×3 (12:25→20:42)
[2020-06-26] MEDS: Aspirin Enteric Coated 81 MG Tablet PO SCH ×2 (12:25→14:12)
[2020-06-26] MEDS: Ascorbic Acid 500 MG TABLET PO SCH (12:25)
[2020-06-26] MEDS: *HR* HYDROcodone/Acet 5/325 mg TABLET PO PRN (14:17)
[2020-06-26 16:52] LABS: Appearance of Body Fluid Cloudy (Clear); Volume of Body Fluid 25 mL
[2020-06-26] MEDS: Azithromycin 500 MG in 0.9 % Sodium Chloride 250 ML IVPB SCH (20:45)
[2020-06-26] MEDS: Piperacillin/Tazobactam 3.375 GM in 0.9 % Sodium Chloride Mini Bag 100 ML IVPB SCH (22:07)
[2020-06-27] MEDS: methylPREDNISolone 125 MG/2 ML VIAL IVP SCH ×2 (00:39→09:09)
[2020-06-27] MEDS: Ipratropium/Albuterol Neb 3 ML IH SCH ×2 (03:55→10:20)
[2020-06-27] MEDS: Vancomycin 1,500 MG/265 ML IV.SOLN IVPB SCH (04:27)
[2020-06-27] MEDS: *HR* Heparin 5,000 UNIT/ML VIAL SQ SCH (05:14)
[2020-06-27 05:20] LABS: Hematocrit 28.4 % (37.5-50.1); Hemoglobin 8.4 g/dL (12.9-16.9); Mean Corpuscular HGB Conc 29.6 g/dL (31.6-35.5); Mean Corpuscular Hemoglobin 25.1 pg (28.0-33.3); Mean Corpuscular Volume 84.8 fL (83.0-100.0); Mean Platelet Volume 10.7 fL (9.4-12.4); Platelet Count 552 K/mcL (140-400); Red Blood Count 3.35 M/mcL (4.19-5.50); White Blood Count 20.8 K/mcL (4.3-11.1)
[2020-06-27] MEDS: Piperacillin/Tazobactam 3.375 GM in 0.9 % Sodium Chloride Mini Bag 100 ML IVPB SCH ×2 (05:21→16:55)
[2020-06-27 05:43] LABS: BUN/Creatinine Ratio 44 (6-26); Blood Urea Nitrogen 31 mg/dL (8-23); Calcium 9.1 mg/dL (8.6-10.3); Carbon Dioxide 26 mEq/L (23-29); Chloride 97 mEq/L (98-107); Glucose 492 mg/dL (70-105); Magnesium 1.7 mg/dL (1.6-2.6); Osmolality,Calculated 302 (280-300); Phosphorous 2.6 mg/dL (2.7-4.5); Potassium 3.8 mEq/L (3.5-5.1); Sodium 132 mEq/L (136-145); eGFR For African Americans > 60 (> 60); eGFR For Non-African Americans > 60 (> 60)
[2020-06-27] MEDS: Gabapentin 400 MG CAPSULE PO SCH ×2 (09:10→15:20)
[2020-06-27] MEDS: Ascorbic Acid 500 MG TABLET PO SCH (09:10)
[2020-06-27] MEDS ORDERED: *HR* Dextrose 50 % in Water (Vial) 50 ML VIAL IVP PRN (09:24)
[2020-06-27] MEDS ORDERED: Dextrose Gel 15 GM/37.5 ML TUBE PO PRN ×2 (09:24)
[2020-06-27] MEDS ORDERED: D5% in Water 1,000 ML IVC PRN (09:24)
[2020-06-27] MEDS ORDERED: *HR* LORazepam 2 MG/ML VIAL IVP ONE (10:20)
[2020-06-27] MEDS ORDERED: Insulin LISPRO 300 UNITS/3 ML VIAL SQ SCH ×2 (11:30→21:00)
[2020-06-27] MEDS ORDERED: *HR* FentaNYL (PF) 100 MCG/2 ML VIAL IVP PRN (13:44)
[2020-06-27] MEDS ORDERED: *HR* LORazepam 2 MG/ML VIAL IVP PRN (13:45)
[2020-06-27] MEDS ORDERED: Haloperidol Lactate 5 MG/ML VIAL IVP PRN (13:45)
[2020-06-27] MEDS ORDERED: Atropine Sulfate 1% 40 DROP/2 ML BOTTLE SL PRN (13:45)
[2020-06-27] MEDS ORDERED: Acetaminophen 650 MG RECTAL SUPP RC PRN (13:46)
[2020-06-27] MEDS: Morphine Sulfate Oral CONC 10 MG/0.5 ML ORAL.SYG SL SCH ×2 (15:20→15:36)
[2020-06-27] MEDS ORDERED: *HR* FentaNYL (PF) 100 MCG/2 ML VIAL IVP ONE (15:40)
[2020-06-27 16:01] VITALS: BP 136/68
[2020-06-27] MEDS: *HR* FentaNYL (PF) 100 MCG/2 ML VIAL IVP PRN ×2 (16:29→17:33)
[2020-06-27] MEDS: Vancomycin 1,250 MG/262.5 ML IV.SOLN IVPB SCH ×2 (16:58)
[2020-06-27] MEDS ORDERED: methylPREDNISolone 125 MG/2 ML VIAL IVP SCH (21:00)
== END 2020-06-27 18:00 | disposition expired | DRG 871 ==
LOC: CDU 16:36 → EMEROOARM 16:36 → SUATTDRO 22:02 → CDU 22:40 → SUATTDRO 06-24 18:33 → 2NNU 06-24 18:36 → 2ANU 06-27 14:59
PROVIDERS: ADMIT Internal Medicine; ATTEND Internal Medicine
PROC: ENDOBRF (2020-06-26 10:45)